=== PATIENT | male | born 1935 | race American Indian/Alaskan Native ===

== ENCOUNTER 2018-06-27 15:23 | Inpatient (IN) | payer MEDICAID, MEDICARE ==
[2018-06-27] MEDS ORDERED: Sodium Chloride 0.9% 1,000 ML IV STA (16:22)
--- NOTE | 2018-06-27 16:36 | C.PDOC ---
History Of Present Illness 83 years old male brought to ED by EMS for complaints of generalized weakness that began 1 week ago. Patient states he became homeless 1 week ago and has not been eating much since then. Denies fever, chills, chest pain, SOB, nausea, vomiting, diarrhea, or trauma. PMD Sanford Amaya Time Seen by Provider: 06/27/18 15:26 Chief Complaint (Nursing): Weakness/Neurological Deficit History Per: Patient History/Exam Limitations: no limitations Onset/Duration Of Symptoms: Days (7) Current Symptoms Are (Timing): Still Present Associated Symptoms Preceding Syncopal Episode: No Predromal Symptoms (Sudden Onset) Seizure Or Post-ictal Symptoms: None Fall Associated With With Symptoms: No Recent travel outside of the [place]: No - Symptoms Of CVA Recent Aspirin Use: Unknown Current Coumadin Use?: Unknown Recent Head Trauma: No Past Medical History Reviewed: Historical Data, Nursing Documentation, Vital Signs Vital Signs: Last Vital Signs Temp 97.4 F L 06/27/18 15:51 Pulse 78 06/27/18 15:51 Resp 28 H 06/27/18 15:51 BP 106/72 06/27/18 15:51 Pulse Ox 91 L 06/27/18 15:51 - Medical History PMH: HTN, Pneumonia Surgical History: No Surg Hx Family History: States: No Known Family Hx - Social History Hx Alcohol Use: Yes Hx Substance Use: No - Immunization History Hx Tetanus Toxoid Vaccination: (unknown) Review Of Systems Except As Marked, All Systems Reviewed And Found Negative. Constitutional: Negative for: Fever Cardiovascular: Negative for: Chest Pain Physical Exam - Physical Exam Additional Physical Exam Comments: Constitutional: No acute distress. Thin elderly male. Head: Normocephalic. Atraumatic. Eyes: PERRL. ENT: Moist mucous membranes. Neck: Supple. Cardiovascular: Regular rate. Radial pulse 2+ bilaterally. Chest: No tenderness. Respiratory: Clear to auscultation bilaterally. GI: Soft. Nontender. Nondistended. Back: No CVA tenderness. Musculoskeletal: No tenderness or swelling of extremities. Skin: No rash. Neurologic: Alert, no focal deficit. ED Course And Treatment - Laboratory Results Result Diagrams: 06/27/18 16:45 06/27/18 16:45 O2 Sat by Pulse Oximetry: 91 (RA) Pulse Ox Interpretation: Abnormal Medical Decision Making Medical Decision Making: Plan: * IV Fluids * Blood bank * EKG * Blood work * CXR * Urine culture * Urinalysis Patient with dehydration, will require further hospitalization for IVF and evaluation. Dr. Crowe accepts patient to hospitalist service. Disposition - Disposition Disposition: HOSPITALIZED Disposition Time: 17:49 Condition: FAIR - Clinical Impression Clinical Impression: Dehydration, General weakness - Scribe Statement The provider has reviewed the documentation as recorded by the Scribe Jun eD Jesus All medical record entries made by the Scribe were at my direction and personally dictated by me. I have reviewed the chart and agree that the record accurately reflects my personal performance of the history, physical exam, medical decision making, and the department course for this patient. I have also personally directed, reviewed, and agree with the discharge instructions and disposition.
[2018-06-27 16:49] LABS: BASO # 0.1 K/uL (0.0-0.2); BASO % 1.4 % (0.0-2.0); EOS # 0.1 K/uL (0.0-0.7); EOS % 2.9 % (0.0-4.0); HEMOGLOBIN 13.3 g/dL (12.0-18.0); LYMPH # 1.5 K/uL (1.0-4.3); LYMPH % 33.6 % (20.0-40.0); MEAN CELL VOLUME 79.5 fL (80.0-94.0); MEAN CORPUSCULAR HEMOGLOBIN 26.2 pg (27.0-31.0); MEAN CORPUSCULAR HGB CONC 32.9 g/dL (33.0-37.0); MEAN PLATELET VOLUME 9.2 fL (7.2-11.7); MONO # 0.4 K/uL (0.0-0.8); MONO % 8.5 % (0.0-10.0); NEUT # 2.4 K/uL (1.8-7.0); NEUT % 53.6 % (50.0-75.0); NRBC % 0.1 % (0.0-2.0); RBC 5.07 Mil/uL (4.40-5.90); RED CELL DISTRIBUTION WIDTH 14.1 % (11.5-14.5); WHITE BLOOD COUNT 4.5 K/uL (4.8-10.8)
[2018-06-27 16:56] LABS: SQUAMOUS EPITHIAL < 1 /hpf (0-5); URINE BILIRUBIN NEGATIVE (NEGATIVE); URINE BLOOD NEGATIVE (NEGATIVE); URINE CLARITY Clear (Clear); URINE COLOR Straw (YELLOW); URINE GLUCOSE (UA) NORMAL (Normal); URINE LEUKOCYTE ESTERASE NEG Leu/uL (Negative); URINE PROTEIN NEGATIVE (NEGATIVE); URINE UROBILINOGEN NORMAL mg/dL (0.2-1.0)
[2018-06-27 17:05] LABS: INR 1.2; PROTHROMBIN TIME 13.2 SECONDS (9.7-12.2)
[2018-06-27 17:09] LABS: ALB/GLOB RATIO 0.8 (1.0-2.1); ALBUMIN 3.8 g/dL (3.5-5.0); ALT/SGPT 21 U/L (21-72); AST/SGOT 52 U/L (17-59); BLOOD UREA NITROGEN 19 mg/dL (9-20); CALCIUM 8.8 mg/dl (8.6-10.4); GFR NON-AFRICAN AMERICAN > 60
--- NOTE | 2018-06-27 17:33 | RAD ---
Date of service: 06/27/2018 HISTORY: weakness COMPARISON: No prior. FINDINGS: LUNGS: Lung phillip are hyperinflated consistent with chronic manifestations of COPD. Bibasilar atelectasis/scarring changes. PLEURA: No significant pleural effusion identified, no pneumothorax apparent. CARDIOVASCULAR: And uncoiled. No aortic atherosclerotic calcification present. Heart size upper limits of normal. Aorta is ectatic and uncoiled; rule out aneurysmal dilatation.. No discernible calcified atherosclerotic plaque. No pulmonary vascular congestion. OSSEOUS STRUCTURES: No significant abnormalities. VISUALIZED UPPER ABDOMEN: Normal. OTHER FINDINGS: None. IMPRESSION: Hyperinflation consistent with underlying COPD. Bibasilar atelectasis/scarring changes. Aorta ectatic and uncoiled; rule out aneurysmal dilatation..
[2018-06-27] MEDS ORDERED: Albuterol-Ipratrop 3 mg / 0.5 (3 ml) UD INH PRN (18:32)
--- NOTE | 2018-06-27 18:49 | CP.PCM.HP ---
<Regino Gutierrez - Last Filed: 06/27/18 19:50> History of Present Illness - History of Present Illness History of Present Illness: PGY-1 History and Physical for Dr. Crowe Patient is an 83 year old male with known PMHx of HTN, COPD, and "heart problem" who presents with chief complaint of generalized weakness. Patient is a poor historian, but states he recently was treated for pneumonia in [place], where it seems he used to live. Recently he has been living in [place] and has been homeless living on the street and spending nights in a local [place]. He states he has been having increased shortness of breath over the last week or so, as well as generalized weakness, and also came to escape the cold weather. Patient states he was recently hospitalized at [facility] for pneumonia and supposed to have "heart surgery" and that he was "at high risk" and that he did not want to have the surgery, so he left [facility] (unclear if AMA) at that time. He does state that he understood the risks associated with this surgery and stated that he did not want to go through with heart surgery. Patient denies any chest pain or palpitations. Spoke with PMD Sanford Amaya - Patient has followed with Dr. Amaya for many years. Patient has only hx of COPD and HTN, no known hx of aortic issues Medical Hx: HTN, COPD, and "heart problem" Surgeries: No known Medications: Norvas 10mg daily, Protonix 40 mg PO daily, Montelukast 10 mg daily, Symbacort, Ventalin inhaler Allergies: NKDA Hospitalizations: Recent [facility] for "heart problem", recent in [place] for pneumonia Social history: 50 year smoker, states quit years ago. Had 3-4 beers yesterday (denies withdrawal sx, unclear if daily drinker). Cesar drug use. Homeless living on the [address], spending nights at [place]. States he has a , although we have tried to contact the without any answer. The patient also tried to contact his personally and has not yet gotten a response. Family Hx: No known PMD: Dr. Amaya Present on Admission - Present on Admission Any Indicators Present on Admission: No Review of Systems - Constitutional Constitutional: Weight Loss (states recent weight loss, but also states has not been able to eat - unclear if due to social condition), Weakness (generalized w eakness). absent: Chills, Fever - EENT Eyes: absent: Blurred Vision, Change in Vision Nose/Mouth/Throat: absent: Nasal Congestion, Nasal Discharge - Cardiovascular Cardiovascular: absent: Chest Pain, Chest Pain at Rest, Pain Radiating to Arm/Neck/Jaw, Lightheadedness, Palpitations, Pedal Edema, Rapid Heart Rate - Respiratory Respiratory: Cough (Cough with occasional clear mucous), Dyspnea - Gastrointestinal Gastrointestinal: absent: Abdominal Pain, Bloating, Constipation, Diarrhea - Musculoskeletal Musculoskeletal: absent: Back Pain, Muscle Cramps - Neurological Neurological: absent: Dizziness, Focal Weakness, Headaches - Psychiatric Psychiatric: absent: Anxiety, Depression - Endocrine Endocrine: absent: Palpitations, Polyuria Past Patient History - Infectious Disease Hx of Infectious Diseases: None - Past Social History Smoking Status: Former Smoker - CARDIAC Hx Hypertension: Yes - PULMONARY Hx Pneumonia: Yes - NEUROLOGICAL Hx Neurological Disorder: No - HEENT Hx HEENT Problems: No - RENAL Hx Chronic Kidney Disease: No - ENDOCRINE/METABOLIC Hx Endocrine Disorders: No - HEMATOLOGICAL/ONCOLOGICAL Hx Blood Disorders: No - INTEGUMENTARY Hx Dermatological Problems: No - MUSCULOSKELETAL/RHEUMATOLOGICAL Hx Musculoskeletal Disorders: No - GASTROINTESTINAL Hx Gastrointestinal Disorders: No - GENITOURINARY/GYNECOLOGICAL Hx Genitourinary Disorders: No Hx Prostate Problems: Yes - PSYCHIATRIC Hx Substance Use: No - SURGICAL HISTORY Hx Surgeries: No Hx Cholecystectomy: Yes Hx Herniorrhaphy: Yes Other/Comment: Stomach reduction - ANESTHESIA Hx Anesthesia: Yes Hx Anesthesia Reactions: No Meds Allergies/Adverse Reactions: Allergies Allergy/AdvReac Type Severity Reaction Status Date / Time No Known Allergies Allergy Verified 06/27/18 17:35 Physical Exam - Constitutional Appears: No Acute Distress, Cachectic - Head Exam Head Exam: ATRAUMATIC, NORMAL INSPECTION - Eye Exam Eye Exam: EOMI, Normal appearance - ENT Exam ENT Exam: Mucous Membranes Dry - Respiratory Exam Respiratory Exam: Rhonchi (Faint rhonchi at bases). absent: Chest Wall Tenderness, Rales, Stridor Additional comments: Mildly tachypneic - Cardiovascular Exam Cardiovascular Exam: REGULAR RHYTHM, +S1, +S2. absent: Clicks, +S4 - GI/Abdominal Exam GI & Abdominal Exam: Normal Bowel Sounds, Soft. absent: Distended, Tenderness - Extremities Exam Extremities exam: Negative for: pedal edema, tenderness - Back Exam Back exam: absent: paraspinal tenderness, vertebral tenderness - Neurological Exam Neurological exam: Alert, CN II-XII Intact, Oriented x3 Additional comments: Patient appears confused but is A and O x3 - Psychiatric Exam Psychiatric exam: Normal Affect, Normal Mood - Skin Skin Exam: Dry, Intact, Normal Color, Warm Results - Vital Signs Recent Vital Signs: Last Vital Signs Temp 99 F 06/27/18 17:30 Pulse 82 06/27/18 17:59 Resp 18 06/27/18 17:59 BP 112/68 06/27/18 17:59 Pulse Ox 96 06/27/18 17:59 - Labs Result Diagrams: 06/27/18 16:45 06/27/18 16:45 Labs: Laboratory Results - last 24 hr 06/27/18 06/27/18 06/27/18 15:39 15:40 16:37 WBC RBC Hgb Hct MCV MCH MCHC RDW Plt Count MPV Neut % (Auto) Lymph % (Auto) [place] % (Auto) Eos % (Auto) Baso % (Auto) Neut # (Auto) Lymph # (Auto) [place] # (Auto) Eos # (Auto) Baso # (Auto) PT INR APTT Sodium Potassium Chloride Carbon Dioxide Anion Gap BUN Creatinine Est GFR ( Amer) Est GFR (Non-Af Amer) POC Glucose (mg/dL) 58 L 64 L 95 Random Glucose Calcium Total Bilirubin AST ALT Alkaline Phosphatase Troponin I Total Protein Albumin Globulin Albumin/Globulin Ratio Urine Color Urine Clarity Urine pH Ur Specific [place] Urine Protein Urine Glucose (UA) Urine Ketones Urine Blood Urine Nitrate Urine Bilirubin Urine Urobilinogen Ur Leukocyte Esterase Urine WBC (Auto) Ur Squamous Epith Cells Blood Type 06/27/18 06/27/18 06/27/18 16:45 16:45 16:45 WBC 4.5 L RBC 5.07 Hgb 13.3 Hct 40.3 MCV 79.5 L MCH 26.2 L MCHC 32.9 L RDW 14.1 Plt Count 99 L MPV 9.2 Neut % (Auto) 53.6 Lymph % (Auto) 33.6 [place] % (Auto) 8.5 Eos % (Auto) 2.9 Baso % (Auto) 1.4 Neut # (Auto) 2.4 Lymph # (Auto) 1.5 [place] # (Auto) 0.4 Eos # (Auto) 0.1 Baso # (Auto) 0.1 PT 13.2 H INR 1.2 APTT 36 H Sodium Potassium Chloride Carbon Dioxide Anion Gap BUN Creatinine Est GFR ( Amer) Est GFR (Non-Af Amer) POC Glucose (mg/dL) Random Glucose Calcium Total Bilirubin AST ALT Alkaline Phosphatase Troponin I Total Protein Albumin Globulin Albumin/Globulin Ratio Urine Color Straw Urine Clarity Clear Urine pH 5.0 Ur Specific [place] 1.005 Urine Protein Negative Urine Glucose (UA) Normal Urine Ketones Negative Urine Blood Negative Urine Nitrate Negative Urine Bilirubin Negative Urine Urobilinogen Normal Ur Leukocyte Esterase Neg Urine WBC (Auto) < 1 Ur Squamous Epith Cells < 1 Blood Type 06/27/18 06/27/18 16:45 17:54 WBC RBC Hgb Hct MCV MCH MCHC RDW Plt Count MPV Neut % (Auto) Lymph % (Auto) [place] % (Auto) Eos % (Auto) Baso % (Auto) Neut # (Auto) Lymph # (Auto) [place] # (Auto) Eos # (Auto) Baso # (Auto) PT INR APTT Sodium 126 L Potassium 4.7 Chloride 91 L Carbon Dioxide 21 L Anion Gap 18 BUN 19 Creatinine 1.1 Est GFR ( Amer) > 60 Est GFR (Non-Af Amer) > 60 POC Glucose (mg/dL) Random Glucose 91 Calcium 8.8 Total Bilirubin 0.8 AST 52 ALT 21 Alkaline Phosphatase 105 Troponin I 0.0470 Total Protein 8.9 H Albumin 3.8 Globulin 5.0 H Albumin/Globulin Ratio 0.8 L Urine Color Urine Clarity Urine pH Ur Specific [place] Urine Protein Urine Glucose (UA) Urine Ketones Urine Blood Urine Nitrate Urine Bilirubin Urine Urobilinogen Ur Leukocyte Esterase Urine WBC (Auto) Ur Squamous Epith Cells Blood Type O POSITIVE Assessment & Plan - Assessment and Plan (Free Text) Assessment: Homlessness - SW on case - Need to obtain recent medical records from [facility]. Please f/u COPD/Shortness of Breath - O2 2L NC - Duonebs Q6 - Solumedrol 40 IVP daily Possible Aortic Aneurysm on X-ray - Chest X-ray 06/27: Hyperinflation consistent with underlying COPD. Bibasilar atelectasis/scarring changes. Aorta ectatic and uncoiled; rule out aneurysmal dilatation. - Vitals stable and not complaining of any chest pain, palpitations at this time - No CT at this time as we will f/u recent [facility] records - EKG 06/27: NSR, no ST or T changes Hyponatremia - NS @ 60 mls/hr - Urine Na - f/u - Urine Osmolality, serum osmolality - f/u - Vit D - f/u - Urine cx - f/u - TSH - f/u HTN - Continue home Norvasc 5 mg PO daily - heart healthy diet - Lipid panel PPx - GI: Protonix 40 mg daily - DVT: Lovenox 40 mg SC daily Case d/w Dr. Sebastien Gutierrez, PGY-1 <Niya Crowe - Last Filed: 06/28/18 08:01> Results - Vital Signs Recent Vital Signs: Last Vital Signs Temp 98 F 06/28/18 00:44 Pulse 73 06/28/18 00:44 Resp 18 06/28/18 00:44 BP 129/74 06/28/18 00:44 Pulse Ox 98 06/28/18 00:44 - Labs Result Diagrams: 06/28/18 06:59 06/27/18 16:45 Labs: Laboratory Results - last 24 hr 06/27/18 06/27/18 06/27/18 15:39 15:40 16:37 WBC RBC Hgb Hct MCV MCH MCHC RDW Plt Count MPV Neut % (Auto) Lymph % (Auto) [place] % (Auto) Eos % (Auto) Baso % (Auto) Neut # (Auto) Lymph # (Auto) [place] # (Auto) Eos # (Auto) Baso # (Auto) PT INR APTT Sodium Potassium Chloride Carbon Dioxide Anion Gap BUN Creatinine Est GFR ( Amer) Est GFR (Non-Af Amer) POC Glucose (mg/dL) 58 L 64 L 95 Random Glucose Serum Osmolality Calcium Total Bilirubin AST ALT Alkaline Phosphatase Troponin I Total Protein Albumin Globulin Albumin/Globulin Ratio TSH 3rd Generation Urine Color Urine Clarity Urine pH Ur Specific [place] Urine Protein Urine Glucose (UA) Urine Ketones Urine Blood Urine Nitrate Urine Bilirubin Urine Urobilinogen Ur Leukocyte Esterase Urine WBC (Auto) Ur Squamous Epith Cells Urine Osmolality Ur Random Sodium Blood Type Antibody Screen Antibody Identification Elution STEPHAINE, Poly Interpret 06/27/18 06/27/18 06/27/18 16:45 16:45 16:45 WBC 4.5 L RBC 5.07 Hgb 13.3 Hct 40.3 MCV 79.5 L MCH 26.2 L MCHC 32.9 L RDW 14.1 Plt Count 99 L MPV 9.2 Neut % (Auto) 53.6 Lymph % (Auto) 33.6 [place] % (Auto) 8.5 Eos % (Auto) 2.9 Baso % (Auto) 1.4 Neut # (Auto) 2.4 Lymph # (Auto) 1.5 [place] # (Auto) 0.4 Eos # (Auto) 0.1 Baso # (Auto) 0.1 PT 13.2 H INR 1.2 APTT 36 H Sodium Potassium Chloride Carbon Dioxide Anion Gap BUN Creatinine Est GFR ( Amer) Est GFR (Non-Af Amer) POC Glucose (mg/dL) Random Glucose Serum Osmolality Calcium Total Bilirubin AST ALT Alkaline Phosphatase Troponin I Total Protein Albumin Globulin Albumin/Globulin Ratio TSH 3rd Generation Urine Color Straw Urine Clarity Clear Urine pH 5.0 Ur Specific [place] 1.005 Urine Protein Negative Urine Glucose (UA) Normal Urine Ketones Negative Urine Blood Negative Urine Nitrate Negative Urine Bilirubin Negative Urine Urobilinogen Normal Ur Leukocyte Esterase Neg Urine WBC (Auto) < 1 Ur Squamous Epith Cells < 1 Urine Osmolality Ur Random Sodium Blood Type Antibody Screen Antibody Identification Elution STEPHANIE, Poly Interpret 06/27/18 06/27/18 06/27/18 16:45 17:54 19:39 WBC RBC Hgb Hct MCV MCH MCHC RDW Plt Count MPV Neut % (Auto) Lymph % (Auto) [place] % (Auto) Eos % (Auto) Baso % (Auto) Neut # (Auto) Lymph # (Auto) [place] # (Auto) Eos # (Auto) Baso # (Auto) PT INR APTT Sodium 126 L Potassium 4.7 Chloride 91 L Carbon Dioxide 21 L Anion Gap 18 BUN 19 Creatinine 1.1 Est GFR ( Amer) > 60 Est GFR (Non-Af Amer) > 60 POC Glucose (mg/dL) Random Glucose 91 Serum Osmolality Calcium 8.8 Total Bilirubin 0.8 AST 52 ALT 21 Alkaline Phosphatase 105 Troponin I 0.0470 Total Protein 8.9 H Albumin 3.8 Globulin 5.0 H Albumin/Globulin Ratio 0.8 L TSH 3rd Generation 9.12 H Urine Color Urine Clarity Urine pH Ur Specific [place] Urine Protein Urine Glucose (UA) Urine Ketones Urine Blood Urine Nitrate Urine Bilirubin Urine Urobilinogen Ur Leukocyte Esterase Urine WBC (Auto) Ur Squamous Epith Cells Urine Osmolality Ur Random Sodium Blood Type O POSITIVE Antibody Screen Positive Antibody Identification Auto Anti e Elution Positive STEPHANIE, Poly Interpret Positive H 06/27/18 06/27/18 06/28/18 19:39 21:50 06:59 WBC 2.6 L RBC 5.31 Hgb 13.7 Hct 42.5 MCV 80.0 MCH 25.9 L MCHC 32.4 L RDW 14.0 Plt Count 113 L MPV 9.1 Neut % (Auto) Lymph % (Auto) [place] % (Auto) Eos % (Auto) Baso % (Auto) Neut # (Auto) Lymph # (Auto) [place] # (Auto) Eos # (Auto) Baso # (Auto) PT INR APTT Sodium Potassium Chloride Carbon Dioxide Anion Gap BUN Creatinine Est GFR ( Amer) Est GFR (Non-Af Amer) POC Glucose (mg/dL) Random Glucose Serum Osmolality 276 Calcium Total Bilirubin AST ALT Alkaline Phosphatase Troponin I Total Protein Albumin Globulin Albumin/Globulin Ratio TSH 3rd Generation Urine Color Urine Clarity Urine pH Ur Specific [place] Urine Protein Urine Glucose (UA) Urine Ketones Urine Blood Urine Nitrate Urine Bilirubin Urine Urobilinogen Ur Leukocyte Esterase Urine WBC (Auto) Ur Squamous Epith Cells Urine Osmolality 115 L Ur Random Sodium 11 Blood Type Antibody Screen Antibody Identification Elution STEPHANIE, Poly Interpret Attending/Attestation - Attestation I have personally seen and examined this patient.: Yes I have fully participated in the care of the patient.: Yes I have reviewed all pertinent clinical information: Yes Notes (Text): Patient was seen and examined in the ER. He is lying on bed with mild SOB. Parient is alert and oriented x 3. He states that he was brought here because of generalized weakness due to poor intake and cold weather. He was at [facility] for sob and discharged 4 days ago. He was treated for pneumonia there. As per patient he was told that he has heart problem some thing wrong with his aorta needs heart surgery. He was told that the surgery is a high risk sugery due to his Emphysema. Patient refused surgery and left the hospital. He lost his apartment and was homeless at [facility] last 4 days. He could take the cold . Patient's and family lives in [place]. He was was treated in [place] for pneumonia few weeks ago. He didn't tell his about the apartment issues yet. Patient knew the number of his 's and Dr Amaya. He is alert and oriented well and understand his problem and brought the bag of his prescription meds. I apoke to his primary care physican Dr Amaya. Dr Amaya knows him well and he follows him last visit [address] Amaya his onle medical problem is copd and HTN.Patient totally refuses any surgical intervention at this time. He state that he knows its a high risk surgery and with his emphysema its too much. Patient admitted he drinks beer and not a daily drinker. Message left to to call us back. 1.Homeless/generalized weakness-PT,SW 2.COPD/mild sob/COPD exacerbation 3.Aortic aneurysm ?.Patient refuses surgery. we will not do CTA 4.HTN 5.Hyponatremia-urine and serum osmolarity,urine sodium,nephrology eval,contineu NS at low rate Assessment and the plan discussed with the resident
[2018-06-27] MEDS: MethylPREDNISolone 40 mg Vial IVP SCH (19:07)
[2018-06-27] MEDS: Sodium Chloride 0.9% 1,000 ML IV SCH (19:21)
[2018-06-27 21:57] LABS: OSMOLALITY,URINE 115 mosm/kg (300-1000)
[2018-06-28] MEDS: Albuterol-Ipratrop 3 mg / 0.5 (3 ml) UD INH SCH ×4 (02:00→20:56)
[2018-06-28 07:18] LABS: HEMOGLOBIN 13.7 g/dL (12.0-18.0); MEAN CORPUSCULAR HEMOGLOBIN 25.9 pg (27.0-31.0); MEAN CORPUSCULAR HGB CONC 32.4 g/dL (33.0-37.0); MEAN PLATELET VOLUME 9.1 fL (7.2-11.7); RBC 5.31 Mil/uL (4.40-5.90); WHITE BLOOD COUNT 2.6 K/uL (4.8-10.8)
[2018-06-28 07:31] LABS: ALB/GLOB RATIO 0.7 (1.0-2.1); ALBUMIN 3.6 g/dL (3.5-5.0); ALT/SGPT 21 U/L (21-72); AST/SGOT 42 U/L (17-59); BLOOD UREA NITROGEN 18 mg/dL (9-20); GFR NON-AFRICAN AMERICAN > 60; HDL CHOLESTEROL 61 mg/dL (30-70)
[2018-06-28 07:41] LABS: LDL CHOLESTEROL 70 mg/dL (0-129)
--- NOTE | 2018-06-28 08:32 | CP.PCM.PN ---
Subjective - Date & Time of Evaluation Date of Evaluation: 06/28/18 Time of Evaluation: 08:31 - Subjective Subjective: PGY-1 Medicine Progress Note for Dr. Crowe Patient seen and examined at bedside this AM. No acute overnight events reported. Expressed wishes to return to [place] with family. No acute somatic complaints at this time. Denies fevers/chills, headaches, dizziness, chest pain, palpitations, sob, cough, abdominal pain, nausea/vomiting/diarrhea/constipation. Objective - Vital Signs/Intake and Output Vital Signs (last 24 hours): Temp Pulse Resp BP Pulse Ox 97.9 F 76 20 136/82 95 06/28/18 07:28 06/28/18 07:28 06/28/18 07:28 06/28/18 07:28 06/28/18 07:28 Intake and Output: 06/28/18 06/28/18 06:59 18:59 Intake Total 460 720 Balance 460 720 - Medications Medications: Current Medications Albuterol/Ipratropium (Duoneb 3 Mg/0.5 Mg (3 Ml) Ud) 3 ml INH RQ6 REPLACED BY [facility] Last Admin: 06/28/18 02:00 Dose: Not Given Enoxaparin Sodium (Lovenox) 40 mg SC DAILY REPLACED BY [facility] Sodium Chloride (Sodium Chloride 0.9%) 1,000 mls @ 60 mls/hr IV .[id number] REPLACED BY [facility] Last Admin: 06/27/18 19:21 Dose: 60 mls/hr Methylprednisolone (Solu-Medrol) 40 mg IVP Q24H REPLACED BY [facility] Last Admin: 06/27/18 19:07 Dose: 40 mg Pantoprazole Sodium (Protonix Ec Tab) 40 mg PO DAILY REPLACED BY [facility] - Labs Labs: 06/28/18 06:59 06/28/18 06:59 PT 13.2 SECONDS (9.7-12.2) H 06/27/18 16:45 INR 1.2 06/27/18 16:45 APTT 36 SECONDS (21-34) H 06/27/18 16:45 - Constitutional Appears: Non-toxic, No Acute Distress - Head Exam Head Exam: ATRAUMATIC, NORMAL INSPECTION, NORMOCEPHALIC - Eye Exam Eye Exam: EOMI, Normal appearance, PERRL Pupil Exam: NORMAL ACCOMODATION - ENT Exam ENT Exam: Mucous Membranes Moist, Normal Exam - Neck Exam Neck Exam: Full ROM, Normal Inspection - Respiratory Exam Respiratory Exam: Clear to Ausculation Bilateral, NORMAL BREATHING PATTERN. absent: Accessory Muscle Use, Rales, Rhonchi, Wheezes, Respiratory Distress, Stridor - Cardiovascular Exam Cardiovascular Exam: REGULAR RHYTHM, +S1, +S2 - GI/Abdominal Exam GI & Abdominal Exam: Soft, Normal Bowel Sounds. absent: Distended, Firm, Guarding, Rigid, Tenderness, Organomegaly - Extremities Exam Extremities Exam: Full ROM, Normal Capillary Refill, Normal Inspection. absent: Calf Tenderness, Pedal Edema - Back Exam Back Exam: NORMAL INSPECTION - Neurological Exam Neurological Exam: Alert, Awake, Oriented x3 - Psychiatric Exam Psychiatric exam: Normal Affect, Normal Mood - Skin Skin Exam: Dry, Intact, Normal Color, Warm Assessment and Plan - Assessment and Plan (Free Text) Assessment: 83 year old homeless male with past medical history of HTN, COPD, questionable aortic aneurysm, presenting with generalized weakness and shortness of breath, recently treated for pneumonia. Plan: Shortness of breath Hx COPD -2L O2 via NC as needed -duonebs q6h rukhsana -solumedrol 40 mg IVP daily Questionable aortic aneurysm -CXR (06/27): Hyperinflation consistent with underlying COPD. Bibasilar atelectasis/scarring changes. Aorta ectatic and uncoiled; rule out aneurysmal dilatation. -EKG (06/27): NSR, no ST or T changes -vitals within normal limits; patient does not endorse any chest pain or palpitations -patient has expressed wishes to not pursue any surgical intervention -No CTA at this time, per Dr. Crowe, will f/u with records from [facility] HTN -BP well controlled, continue to monitor -Lipid panel wnl -continue home norvasc 5 mg PO daily Vitamin D Deficiency -Vit D <12.8 -Vit D2 50,000 1 cap PO q7D -continue to monitor Hyponatremia--resolved -Na 134 (06/28), continue to monitor -NS @ 60 mls/hr -Urine Na wnl -Urine Osmolality low -TSH elevated -f/u urine cx PPx, Diet, Disposition -DVT ppx: Lovenox 40 mg SC daily -GI ppx: Protonix 40 mg daily -Diet: HHD -Dispo: Homeless, family lives in [facility] on case. To follow up [facility] medical records Case discussed with Dr. Sebastien Rowan DO, PGY-1
[2018-06-28] MEDS: Enoxaparin 40 mg Syringe SC SCH (09:33)
[2018-06-28] MEDS: Pantoprazole 40 mg EC Tab PO SCH (09:33)
[2018-06-28] MEDS: Sodium Chloride 0.9% 1,000 ML IV SCH (11:23)
[2018-06-28 12:10] LABS: MONO # 0.1 K/uL (0.0-0.8); NEUT # 1.5 K/uL (1.8-7.0)
[2018-06-28] MEDS: Ergocalciferol 50,000 Intl Units Cap PO SCH (14:12)
--- NOTE | 2018-06-28 18:55 | CP.PCM.CON ---
History of Present Illness - History of Present Illness History of Present Illness: 83 yo M w/ pmh of htn and emphysema, presented to ED with complaint of not feeling well; admitted for hypontatremia and possible COPD exacerbation; Patient reports recent cough since several weeks, sometimes with blood tinged sputum; was living in [place] but came to see his PMD in [place] as he thought he had pneumonia; patient went to [facility] [place] [place] thinking PMD was on staff there and was admitted for 4 days before signing out AMA 2 days before presenting to [facility]; he was given scripts for his home meds as well as to complete course of antibiotics for 2 more days with levaquin (prescription receipt seen); otherwise, unclear course of hospitalization but patient reports some issue with his aorta for which he was told he would need surgery; he refused the surgery and hence signed AMA; Patient reports decreased PO intake lately; no nausea/vomiting or diarrhea; unclear where patient was staying since the 2 days after signing AMA; he reports some sob but attributes it to his emphysema; urinates about 4 times per night, no dysuria; Review of Systems - Constitutional Constitutional: Weight Loss. absent: Chills - EENT Nose/Mouth/Throat: Sore Throat Additional comments: rhinorrhea - Cardiovascular Cardiovascular: absent: Chest Pain Additional comments: some leg swelling noticed - Respiratory Respiratory: As Per HPI - Gastrointestinal Gastrointestinal: As Per HPI - Genitourinary Genitourinary: As Per HPI - Musculoskeletal Additional comments: some R flank pain - Neurological Neurological: absent: Dizziness, Frequent Falls Past Patient History - Infectious Disease Hx of Infectious Diseases: None - Past Medical History & Family History Pertinent Family History: denies any family medical history - Past Social History Smoking Status: Former Smoker - CARDIAC Hx Hypertension: Yes - PULMONARY Hx Pneumonia: Yes - NEUROLOGICAL Hx Neurological Disorder: No - HEENT Hx HEENT Problems: No - RENAL Hx Chronic Kidney Disease: No - ENDOCRINE/METABOLIC Hx Endocrine Disorders: No - HEMATOLOGICAL/ONCOLOGICAL Hx Blood Disorders: No - INTEGUMENTARY Hx Dermatological Problems: No - MUSCULOSKELETAL/RHEUMATOLOGICAL Hx Musculoskeletal Disorders: No Hx Falls: No - GASTROINTESTINAL Hx Gastrointestinal Disorders: No - GENITOURINARY/GYNECOLOGICAL Hx Genitourinary Disorders: No Hx Prostate Problems: Yes - PSYCHIATRIC Hx Substance Use: No - SURGICAL HISTORY Hx Surgeries: No Hx Cholecystectomy: Yes Hx Herniorrhaphy: Yes Other/Comment: Stomach reduction - ANESTHESIA Hx Anesthesia: Yes Hx Anesthesia Reactions: No Meds Allergies/Adverse Reactions: Allergies Allergy/AdvReac Type Severity Reaction Status Date / Time No Known Allergies Allergy Verified 06/27/18 17:35 - Medications Medications: Current Medications Albuterol/Ipratropium (Duoneb 3 Mg/0.5 Mg (3 Ml) Ud) 3 ml INH RQ6 [facility] Last Admin: 06/28/18 13:28 Dose: 3 ml Enoxaparin Sodium (Lovenox) 40 mg SC DAILY [facility] Last Admin: 06/28/18 09:33 Dose: 40 mg Ergocalciferol (Drisdol 50,000 Intl Units Cap) 1 cap PO Q7D [facility] Last Admin: 06/28/18 14:12 Dose: 1 cap Sodium Chloride (Sodium Chloride 0.9%) 1,000 mls @ 60 mls/hr IV .[id number] [facility] Last Admin: 06/28/18 11:23 Dose: Not Given Methylprednisolone (Solu-Medrol) 40 mg IVP Q24H [facility] Last Admin: 06/27/18 19:07 Dose: 40 mg Pantoprazole Sodium (Protonix Ec Tab) 40 mg PO DAILY [facility] Last Admin: 06/28/18 09:33 Dose: 40 mg Physical Exam - Constitutional Appears: Non-toxic, No Acute Distress - Eye Exam Eye Exam: Normal appearance - Neck Exam Neck exam: Negative for: Lymphadenopathy - Respiratory Exam Respiratory Exam: Clear to Auscultation Bilateral. absent: Decreased Breath Sounds, Rales, Rhonchi, Respiratory Distress - Cardiovascular Exam Cardiovascular Exam: RRR, +S1, +S2. absent: Gallop, Rubs - GI/Abdominal Exam GI & Abdominal Exam: Soft. absent: Distended, Tenderness - Exam Exam: absent: Bladder Distension - Extremities Exam Additional comments: very mild lower leg edema b/l - Neurological Exam Neurological exam: Alert, Oriented x3 Additional comments: no overt resting tremor - Psychiatric Exam Psychiatric exam: Normal Mood - Skin Skin Exam: Normal Color, Warm Results - Vital Signs Recent Vital Signs: Last Vital Signs Temp 98.0 F 06/28/18 17:13 Pulse 75 06/28/18 17:13 Resp 20 06/28/18 17:13 BP 119/67 06/28/18 17:13 Pulse Ox 95 06/28/18 17:13 - Labs Result Diagrams: 06/28/18 06:59 06/28/18 06:59 Labs: Laboratory Results - last 24 hr 06/27/18 06/27/18 06/27/18 17:54 19:39 19:39 WBC RBC Hgb Hct MCV MCH MCHC RDW Plt Count MPV Neut % (Auto) Lymph % (Auto) [place] % (Auto) Eos % (Auto) Baso % (Auto) Neut # (Auto) Lymph # (Auto) [place] # (Auto) Eos # (Auto) Baso # (Auto) Sodium Potassium Chloride Carbon Dioxide Anion Gap BUN Creatinine Est GFR ( Amer) Est GFR (Non-Af Amer) Random Glucose Serum Osmolality 276 Calcium Phosphorus Magnesium Total Bilirubin AST ALT Alkaline Phosphatase Total Protein Albumin Globulin Albumin/Globulin Ratio Triglycerides Cholesterol LDL Cholesterol Direct HDL Cholesterol 25-OH Vitamin D Total TSH 3rd Generation 9.12 H Urine Osmolality Ur Random Sodium Blood Type O POSITIVE Antibody Screen Positive Antibody Identification Auto Anti e Elution Positive STEPHANIE, Poly Interpret Positive H 06/27/18 06/28/18 06/28/18 21:50 06:59 06:59 WBC RBC Hgb Hct MCV MCH MCHC RDW Plt Count MPV Neut % (Auto) Lymph % (Auto) [place] % (Auto) Eos % (Auto) Baso % (Auto) Neut # (Auto) Lymph # (Auto) [place] # (Auto) Eos # (Auto) Baso # (Auto) Sodium 134 Potassium 4.6 Chloride 101 Carbon Dioxide 26 Anion Gap 12 BUN 18 Creatinine 1.1 Est GFR ( Amer) > 60 Est GFR (Non-Af Amer) > 60 Random Glucose 116 H D Serum Osmolality Calcium 9.0 Phosphorus 3.4 Magnesium 2.0 Total Bilirubin 0.6 AST 42 ALT 21 Alkaline Phosphatase 102 Total Protein 8.4 H Albumin 3.6 Globulin 4.9 H Albumin/Globulin Ratio 0.7 L Triglycerides 48 Cholesterol 141 LDL Cholesterol Direct 70 HDL Cholesterol 61 25-OH Vitamin D Total < 12.8 L TSH 3rd Generation Urine Osmolality 115 L Ur Random Sodium 11 Blood Type Antibody Screen Antibody Identification Elution STEPHANIE, Poly Interpret 06/28/18 06:59 WBC 2.6 L RBC 5.31 Hgb 13.7 Hct 42.5 MCV 80.0 MCH 25.9 L MCHC 32.4 L RDW 14.0 Plt Count 113 L MPV 9.1 Neut % (Auto) 57.0 Lymph % (Auto) 39.0 [place] % (Auto) 4.0 Eos % (Auto) 0.0 Baso % (Auto) 0.0 Neut # (Auto) 1.5 L Lymph # (Auto) 1.0 [place] # (Auto) 0.1 Eos # (Auto) 0.0 Baso # (Auto) 0.0 Sodium Potassium Chloride Carbon Dioxide Anion Gap BUN Creatinine Est GFR ( Amer) Est GFR (Non-Af Amer) Random Glucose Serum Osmolality Calcium Phosphorus Magnesium Total Bilirubin AST ALT Alkaline Phosphatase Total Protein Albumin Globulin Albumin/Globulin Ratio Triglycerides Cholesterol LDL Cholesterol Direct HDL Cholesterol 25-OH Vitamin D Total TSH 3rd Generation Urine Osmolality Ur Random Sodium Blood Type Antibody Screen Antibody Identification Elution STEPHANIE, Poly Interpret - Imaging and Cardiology Chest x-ray Status: Image reviewed by me Additional comment: lungs clear Assessment & Plan (1) Hyponatremia Assessment and Plan: Resolving with gentle IVF; low urine osm but sample taken several hours after being on IVF and may have initially been signficantly higher; relatively low urine Na as well; etiology of hyponatremia likely is either volume depletion and/or inadequate solute intake; hypothyroidism possibly contributory with high TSH noted; hyponatremia not consistent with SIADH as urine osm should be significantly higher and not affected by giving IVF; -continue NS at 60 cc/hr; -no need for stringent fluid restriction; -repeating TSH along with free T4; -will continue to monitor; Status: Acute (2) HTN (hypertension) Assessment and Plan: Currently normotensive; agree with holding anti-htn med; Status: Chronic (3) Hypothyroidism Assessment and Plan: See above; Status: Acute
[2018-06-28] MEDS: MethylPREDNISolone 40 mg Vial IVP SCH (19:32)
[2018-06-29] MEDS: Albuterol-Ipratrop 3 mg / 0.5 (3 ml) UD INH SCH ×4 (01:01→19:37)
[2018-06-29 08:10] LABS: ALB/GLOB RATIO 0.7 (1.0-2.1); ALBUMIN 3.3 g/dL (3.5-5.0); ALT/SGPT 19 U/L (21-72); AST/SGOT 43 U/L (17-59); BLOOD UREA NITROGEN 19 mg/dL (9-20); CALCIUM 8.8 mg/dl (8.6-10.4); GFR NON-AFRICAN AMERICAN > 60
--- NOTE | 2018-06-29 08:19 | CP.PCM.PN ---
<Audi Rowan - Last Filed: 06/29/18 11:13> Subjective - Date & Time of Evaluation Date of Evaluation: 06/29/18 Time of Evaluation: 08:19 - Subjective Subjective: PGY-1 Medicine Progress Note for Dr. Waldron Patient seen and examined at bedside this AM. No overnight events reported. Patient is in good spirits, denies any chest pain, palpitations, shortness of breath. No other acute somatic complaints at this time. Continuing to follow up with [facility] [place] [place] records re: questionable aortic aneurysm but patient reiterates he does not want acute interventional management. Objective - Vital Signs/Intake and Output Vital Signs (last 24 hours): Temp Pulse Resp BP Pulse Ox 98.0 F 64 18 136/84 98 06/29/18 07:41 06/29/18 07:41 06/29/18 07:41 06/29/18 07:41 06/29/18 07:41 Intake and Output: 06/29/18 06/29/18 06:59 18:59 Intake Total 480 830 Output Total 600 200 Balance -120 630 - Medications Medications: Current Medications Albuterol/Ipratropium (Duoneb 3 Mg/0.5 Mg (3 Ml) Ud) 3 ml INH RQ6 [facility] Last Admin: 06/29/18 07:24 Dose: Not Given Enoxaparin Sodium (Lovenox) 40 mg SC DAILY [facility] Last Admin: 06/28/18 09:33 Dose: 40 mg Ergocalciferol (Drisdol 50,000 Intl Units Cap) 1 cap PO Q7D [facility] Last Admin: 06/28/18 14:12 Dose: 1 cap Sodium Chloride (Sodium Chloride 0.9%) 1,000 mls @ 60 mls/hr IV .[id number] [facility] Last Admin: 06/28/18 11:23 Dose: Not Given Methylprednisolone (Solu-Medrol) 40 mg IVP Q24H [facility] Last Admin: 06/28/18 19:32 Dose: 40 mg Pantoprazole Sodium (Protonix Ec Tab) 40 mg PO DAILY [facility] Last Admin: 06/28/18 09:33 Dose: 40 mg - Labs Labs: 06/28/18 06:59 06/29/18 07:49 PT 13.2 SECONDS (9.7-12.2) H 06/27/18 16:45 INR 1.2 06/27/18 16:45 APTT 36 SECONDS (21-34) H 06/27/18 16:45 - Constitutional Appears: Non-toxic, No Acute Distress - Head Exam Head Exam: ATRAUMATIC, NORMAL INSPECTION, NORMOCEPHALIC - Eye Exam Eye Exam: EOMI, Normal appearance, PERRL Pupil Exam: NORMAL ACCOMODATION - ENT Exam ENT Exam: Mucous Membranes Moist, Normal Exam - Neck Exam Neck Exam: Full ROM, Normal Inspection - Respiratory Exam Respiratory Exam: Clear to Ausculation Bilateral, NORMAL BREATHING PATTERN. absent: Accessory Muscle Use, Rales, Rhonchi, Wheezes, Respiratory Distress, Stridor - Cardiovascular Exam Cardiovascular Exam: REGULAR RHYTHM, +S1, +S2 - GI/Abdominal Exam GI & Abdominal Exam: Soft, Normal Bowel Sounds. absent: Distended, Firm, Guarding, Rigid, Tenderness, Organomegaly - Extremities Exam Extremities Exam: Full ROM, Normal Capillary Refill, Normal Inspection. absent: Calf Tenderness, Pedal Edema - Back Exam Back Exam: NORMAL INSPECTION - Neurological Exam Neurological Exam: Alert, Awake, Normal Gait, Oriented x3 - Psychiatric Exam Psychiatric exam: Normal Affect, Normal Mood - Skin Skin Exam: Dry, Intact, Normal Color, Warm Assessment and Plan - Assessment and Plan (Free Text) Assessment: 83 year old homeless male with past medical history of HTN, COPD, questionable aortic aneurysm, presenting with generalized weakness and shortness of breath, recently treated for pneumonia. Plan: Shortness of breath Hx COPD -2L O2 via NC as needed -duonebs q6h rukhsana -solumedrol 40 mg IVP daily Questionable aortic aneurysm -CXR (06/27): Hyperinflation consistent with underlying COPD. Bibasilar atelectasis/scarring changes. Aorta ectatic and uncoiled; rule out aneurysmal dilatation. -EKG (06/27): NSR, no ST or T changes -vitals within normal limits; patient does not endorse any chest pain or palpitations -patient has expressed wishes to not pursue any surgical intervention -No CTA at this time, will f/u with records from [facility] [place] [place] HTN -BP well controlled, continue to monitor -Lipid panel wnl -continue home norvasc 5 mg PO daily Vitamin D Deficiency -Vit D <12.8 -Vit D2 50,000 1 cap PO q7D -continue to monitor Hyponatremia--resolved -Na 136 (06/29), continue to monitor -NS @ 60 mls/hr -Urine Na wnl -Urine Osmolality low -TSH elevated -f/u urine cx PPx, Diet, Disposition -DVT ppx: Lovenox 40 mg SC daily -GI ppx: Protonix 40 mg daily -Diet: HHD -Dispo: Homeless, family lives in [place], on case. To follow up [facility] [place] [place] medical records Case discussed with Dr. Vanita Rowan DO, PGY-1 <Alpesh Waldron H - Last Filed: 06/29/18 12:07> Objective - Vital Signs/Intake and Output Vital Signs (last 24 hours): Temp Pulse Resp BP Pulse Ox 98.0 F 64 18 136/84 98 06/29/18 07:41 06/29/18 07:41 06/29/18 07:41 06/29/18 07:41 06/29/18 07:41 Intake and Output: 06/29/18 06/29/18 06:59 18:59 Intake Total 480 830 Output Total 600 200 Balance -120 630 - Medications Medications: Current Medications Albuterol/Ipratropium (Duoneb 3 Mg/0.5 Mg (3 Ml) Ud) 3 ml INH RQ6 [facility] Last Admin: 06/29/18 07:24 Dose: Not Given Enoxaparin Sodium (Lovenox) 40 mg SC DAILY [facility] Last Admin: 06/29/18 10:11 Dose: 40 mg Ergocalciferol (Drisdol 50,000 Intl Units Cap) 1 cap PO Q7D [facility] Last Admin: 06/28/18 14:12 Dose: 1 cap Sodium Chloride (Sodium Chloride 0.9%) 1,000 mls @ 60 mls/hr IV .[id number] [facility] Last Admin: 06/28/18 11:23 Dose: Not Given Methylprednisolone (Solu-Medrol) 40 mg IVP Q24H [facility] Last Admin: 06/28/18 19:32 Dose: 40 mg Pantoprazole Sodium (Protonix Ec Tab) 40 mg PO DAILY [facility] Last Admin: 06/29/18 10:11 Dose: 40 mg - Labs Labs: 06/28/18 06:59 06/29/18 07:49 PT 13.2 SECONDS (9.7-12.2) H 06/27/18 16:45 INR 1.2 06/27/18 16:45 APTT 36 SECONDS (21-34) H 06/27/18 16:45 Attending/Attestation - Attestation I have personally seen and examined this patient.: Yes I have fully participated in the care of the patient.: Yes I have reviewed all pertinent clinical information, including history, physical exam and plan: Yes Notes (Text): 06/29/18 12:05 Medical attending: Patient was seen and examined by me. Agree with the above note by the resident The patient was not in any acute distress Like in previous encounters, the patient does not want surgical intervention - he is AAO x 3 At this time we are pending to hear back further from case workers to see if the patient could go to a correction or [facility] Waldron
[2018-06-29] MEDS: Pantoprazole 40 mg EC Tab PO SCH (10:11)
[2018-06-29] MEDS: Enoxaparin 40 mg Syringe SC SCH (10:11)
[2018-06-29 14:02] LABS: BASO % 0.7 % (0.0-2.0); HEMOGLOBIN 12.6 g/dL (12.0-18.0); LYMPH # 0.6 K/uL (1.0-4.3); LYMPH % 9.9 % (20.0-40.0); MEAN CORPUSCULAR HEMOGLOBIN 26.4 pg (27.0-31.0); MEAN CORPUSCULAR HGB CONC 32.5 g/dL (33.0-37.0); MEAN PLATELET VOLUME 9.2 fL (7.2-11.7); MONO # 0.8 K/uL (0.0-0.8); MONO % 14.1 % (0.0-10.0); NEUT # 4.2 K/uL (1.8-7.0); NEUT % 75.3 % (50.0-75.0); PLATELET COUNT 94 K/uL (130-400); RBC 4.79 Mil/uL (4.40-5.90); RED CELL DISTRIBUTION WIDTH 14.3 % (11.5-14.5); WHITE BLOOD COUNT 5.7 K/uL (4.8-10.8)
[2018-06-29 14:41] LABS: ANISOCYTOSIS SLIGHT; LYMPHOCYTE 13 % (20-40); MONOCYTE 16 % (0-10); NEUTROPHIL 71 % (50-75); PLATELET ESTIMATE DECREASED (NORMAL); TOTAL CELLS COUNTED 100
[2018-06-29 14:42] LABS: HYPOCHROMIC SLIGHT; LARGE PLATELETS PRESENT
[2018-06-29] MEDS: MethylPREDNISolone 40 mg Vial IVP SCH (19:08)
[2018-06-29] MEDS: Sodium Chloride 0.9% 1,000 ML IV SCH (21:43)
--- NOTE | 2018-06-29 22:16 | CP.PCM.PN ---
Subjective - Date & Time of Evaluation Date of Evaluation: 06/29/18 Time of Evaluation: 15:00 - Subjective Subjective: Patient reports breathing improved; tolerating diet well; no nausea/vomiting/diarrhea; Objective - Vital Signs/Intake and Output Vital Signs (last 24 hours): Temp Pulse Resp BP Pulse Ox 97.3 F L 73 20 128/73 95 06/29/18 16:38 06/29/18 16:38 06/29/18 16:38 06/29/18 16:38 06/29/18 16:38 Intake and Output: 06/29/18 06/30/18 18:59 06:59 Intake Total 1660 Output Total 700 Balance 960 - Medications Medications: Current Medications Albuterol/Ipratropium (Duoneb 3 Mg/0.5 Mg (3 Ml) Ud) 3 ml INH RQ6 [facility] Last Admin: 06/29/18 19:37 Dose: Not Given Enoxaparin Sodium (Lovenox) 40 mg SC DAILY [facility] Last Admin: 06/29/18 10:11 Dose: 40 mg Ergocalciferol (Drisdol 50,000 Intl Units Cap) 1 cap PO Q7D [facility] Last Admin: 06/28/18 14:12 Dose: 1 cap Methylprednisolone (Solu-Medrol) 40 mg IVP Q24H [facility] Last Admin: 06/29/18 19:08 Dose: 40 mg Pantoprazole Sodium (Protonix Ec Tab) 40 mg PO DAILY [facility] Last Admin: 06/29/18 10:11 Dose: 40 mg - Labs Labs: 06/29/18 13:55 06/29/18 07:49 PT 13.2 SECONDS (9.7-12.2) H 06/27/18 16:45 INR 1.2 06/27/18 16:45 APTT 36 SECONDS (21-34) H 06/27/18 16:45 - Constitutional Appears: Non-toxic, No Acute Distress - Eye Exam Eye Exam: Normal appearance - ENT Exam ENT Exam: Mucous Membranes Moist - Respiratory Exam Respiratory Exam: Clear to Ausculation Bilateral. absent: Respiratory Distress - Cardiovascular Exam Cardiovascular Exam: RRR, +S1, +S2 - GI/Abdominal Exam GI & Abdominal Exam: Soft. absent: Distended, Tenderness - Extremities Exam Additional comments: minimal leg edema - Neurological Exam Neurological Exam: Alert, Awake - Psychiatric Exam Psychiatric exam: Normal Mood. absent: Agitated - Skin Skin Exam: Warm. absent: Cyanosis Assessment and Plan (1) Hyponatremia Assessment & Plan: Resolved; secondary to inadequate solute intake and/or volume depletion; tolerating diet well, normotensive; will d/c IVF; Status: Acute (2) HTN (hypertension) Assessment & Plan: Normotensive off BP meds; may need to consider tight control (goal SBP < 120) if patient does indeed have thoracic aortic aneurysm with B-opal being preferred med; ARB may give additional benefit; need to obtain records from [facility] [place] [place]; Status: Chronic (3) Hypothyroidism Assessment & Plan: Repeat TSH normal; Status: Suspected
[2018-06-30] MEDS: Albuterol-Ipratrop 3 mg / 0.5 (3 ml) UD INH SCH ×4 (02:51→19:50)
--- NOTE | 2018-06-30 07:58 | CP.PCM.PN ---
<Audi Rowan - Last Filed: 06/30/18 13:20> Subjective - Date & Time of Evaluation Date of Evaluation: 06/30/18 Time of Evaluation: 07:54 - Subjective Subjective: PGY-1 Medicine Progress Note for Dr. Waldron's service Patient seen and examined at bedside this AM, resting comfortably. No acute overnight events reported. Denies chest pain, palpitations, sob, n/v/d/c. Tolerating PO diet well. No acute somatic complaints. Objective - Vital Signs/Intake and Output Vital Signs (last 24 hours): Temp Pulse Resp BP Pulse Ox 98 F 60 20 132/73 98 06/29/18 23:19 06/29/18 23:19 06/29/18 23:19 06/29/18 23:19 06/29/18 23:19 Intake and Output: 06/30/18 06/30/18 06:59 18:59 Intake Total 950 Output Total 1030 Balance -80 - Medications Medications: Current Medications Albuterol/Ipratropium (Duoneb 3 Mg/0.5 Mg (3 Ml) Ud) 3 ml INH RQ6 [facility] Last Admin: 06/30/18 02:51 Dose: Not Given Enoxaparin Sodium (Lovenox) 40 mg SC DAILY [facility] Last Admin: 06/29/18 10:11 Dose: 40 mg Ergocalciferol (Drisdol 50,000 Intl Units Cap) 1 cap PO Q7D [facility] Last Admin: 06/28/18 14:12 Dose: 1 cap Methylprednisolone (Solu-Medrol) 40 mg IVP Q24H [facility] Last Admin: 06/29/18 19:08 Dose: 40 mg Pantoprazole Sodium (Protonix Ec Tab) 40 mg PO DAILY [facility] Last Admin: 06/29/18 10:11 Dose: 40 mg - Labs Labs: 06/29/18 13:55 06/29/18 07:49 PT 13.2 SECONDS (9.7-12.2) H 06/27/18 16:45 INR 1.2 06/27/18 16:45 APTT 36 SECONDS (21-34) H 06/27/18 16:45 - Constitutional Appears: Non-toxic, No Acute Distress - Head Exam Head Exam: ATRAUMATIC, NORMAL INSPECTION, NORMOCEPHALIC - Eye Exam Eye Exam: EOMI, Normal appearance, PERRL Pupil Exam: NORMAL ACCOMODATION - ENT Exam ENT Exam: Mucous Membranes Moist, Normal Exam - Neck Exam Neck Exam: Full ROM, Normal Inspection - Respiratory Exam Respiratory Exam: Clear to Ausculation Bilateral, NORMAL BREATHING PATTERN. absent: Accessory Muscle Use, Rales, Rhonchi, Wheezes, Respiratory Distress, Stridor - Cardiovascular Exam Cardiovascular Exam: REGULAR RHYTHM, +S1, +S2 - GI/Abdominal Exam GI & Abdominal Exam: Soft, Normal Bowel Sounds. absent: Distended, Firm, Guarding, Rigid, Tenderness, Organomegaly - Extremities Exam Extremities Exam: Full ROM, Normal Capillary Refill, Normal Inspection. absent: Calf Tenderness, Pedal Edema - Back Exam Back Exam: NORMAL INSPECTION - Neurological Exam Neurological Exam: Alert, Awake, Normal Gait, Oriented x3 - Psychiatric Exam Psychiatric exam: Normal Affect, Normal Mood - Skin Skin Exam: Dry, Intact, Normal Color, Warm Assessment and Plan - Assessment and Plan (Free Text) Assessment: 83 year old homeless male with past medical history of HTN, COPD, questionable aortic aneurysm, presenting with generalized weakness and shortness of breath, recently treated for pneumonia. Plan: Shortness of breath, improving Hx COPD -2L O2 via NC as needed -duonebs q6h [facility] -solumedrol 40 mg IVP daily tapered to 20 mg (06/30) Questionable aortic aneurysm -CXR (06/27): Hyperinflation consistent with underlying COPD. Bibasilar atelectasis/scarring changes. Aorta ectatic and uncoiled; rule out aneurysmal dilatation. -EKG (06/27): NSR, no ST or T changes -vitals within normal limits; patient does not endorse any chest pain or palpitations -patient has expressed wishes to not pursue any surgical intervention -No CTA at this time, will f/u with records from [facility] [place] HTN -normotensive, continue to monitor -continue home norvasc 5 mg PO daily -Nephro Recs (Dr. Ortega) appreciated -may consider tight BP control w/ SBP <120, if patient truly has thoracic aortic aneurysm -BB preferred med, ARB may give additional benefit -need to obtain records from [facility] [place] Vitamin D Deficiency -Vit D <12.8 -Vit D2 50,000 1 cap PO q7D -continue to monitor Hyponatremia--resolved -Nephro recs (Dr. Ortega) appreciated -2/2 volume depletion/inadequate intake -IVF d/c'd PPx, Diet, Disposition -DVT ppx: Lovenox 40 mg SC daily -GI ppx: Protonix 40 mg daily -Diet: HHD -Dispo: Homeless, family lives in [place], on case. To follow up [facility] [place] medical records Case discussed with Dr. Vanita Rowan DO, PGY-1 <Alpesh Waldron H - Last Filed: 06/30/18 14:15> Objective - Vital Signs/Intake and Output Vital Signs (last 24 hours): Temp Pulse Resp BP Pulse Ox 97.7 F 77 20 126/70 95 06/30/18 08:43 06/30/18 08:43 06/30/18 08:43 06/30/18 08:43 06/30/18 08:43 Intake and Output: 06/30/18 06/30/18 06:59 18:59 Intake Total 950 Output Total 1030 Balance -80 - Medications Medications: Current Medications Albuterol/Ipratropium (Duoneb 3 Mg/0.5 Mg (3 Ml) Ud) 3 ml INH RQ6 [facility] Last Admin: 06/30/18 13:35 Dose: 3 ml Enoxaparin Sodium (Lovenox) 40 mg SC DAILY [facility] Last Admin: 06/30/18 09:44 Dose: 40 mg Ergocalciferol (Drisdol 50,000 Intl Units Cap) 1 cap PO Q7D [facility] Last Admin: 06/28/18 14:12 Dose: 1 cap Methylprednisolone (Solu-Medrol) 20 mg IVP Q24H [facility] Last Admin: 06/30/18 13:51 Dose: 20 mg Pantoprazole Sodium (Protonix Ec Tab) 40 mg PO DAILY [facility] Last Admin: 06/30/18 09:44 Dose: 40 mg - Labs Labs: 06/30/18 08:58 06/30/18 08:58 PT 13.2 SECONDS (9.7-12.2) H 06/27/18 16:45 INR 1.2 06/27/18 16:45 APTT 36 SECONDS (21-34) H 06/27/18 16:45 Attending/Attestation - Attestation I have personally seen and examined this patient.: Yes I have fully participated in the care of the patient.: Yes I have reviewed all pertinent clinical information, including history, physical exam and plan: Yes Notes (Text): 06/30/18 14:12 Medical attending: Patient was seen and examined by me. Agree with the above note by the resident The patient was not in any acute distress. He was speaking in ful sentences. Denied chest pain, denied shortness of breath, denied palpitations. The patient again re-iterates he does not want any surgical rpocedures Currently pending to see if patient can go to a shelter or [facility]. Alpesh Waldron
[2018-06-30 09:14] LABS: HEMOGLOBIN 12.7 g/dL (12.0-18.0); MEAN CELL VOLUME 81.2 fL (80.0-94.0)
[2018-06-30 09:18] LABS: MEAN CORPUSCULAR HGB CONC 32.1 g/dL (33.0-37.0); MEAN PLATELET VOLUME 9.4 fL (7.2-11.7); RBC 4.87 Mil/uL (4.40-5.90); WHITE BLOOD COUNT 5.2 K/uL (4.8-10.8)
--- NOTE | 2018-06-30 09:30 | CARD ---
APPROVED REPORT Date of service: 06/27/2018 EKG Measurement Heart [id number] <Conclusion> Normal sinus rhythm Low voltage QRS Borderline ECG
[2018-06-30 09:31] LABS: ALB/GLOB RATIO 0.7 (1.0-2.1); ALBUMIN 3.2 g/dL (3.5-5.0); ALT/SGPT 19 U/L (21-72); AST/SGOT 45 U/L (17-59); BLOOD UREA NITROGEN 22 mg/dL (9-20); CALCIUM 8.8 mg/dl (8.6-10.4); GFR NON-AFRICAN AMERICAN > 60
[2018-06-30] MEDS: Enoxaparin 40 mg Syringe SC SCH (09:44)
[2018-06-30] MEDS: Pantoprazole 40 mg EC Tab PO SCH (09:44)
[2018-06-30 10:08] LABS: LYMPH # 1.4 K/uL (1.0-4.3); MONO # 0.1 K/uL (0.0-0.8); NEUT # 3.8 K/uL (1.8-7.0)
[2018-06-30] MEDS ORDERED: MethylPREDNISolone 40 mg Vial IVP SCH (13:20)
--- NOTE | 2018-07-01 01:35 | CP.PCM.PN ---
<Alia Siegel - Last Filed: 07/01/18 01:32> Subjective - Date & Time of Evaluation Date of Evaluation: 07/01/18 Time of Evaluation: 01:32 - Subjective Subjective: Progress note Patient seen and examined at bedside. He is resting in bed comfortably. He offers no complaints currently. He denies chest pain, shortness of breath, palpitations, abdominal pain, nausea, vomiting, diarrhea, constipation. Objective - Vital Signs/Intake and Output Vital Signs (last 24 hours): Temp Pulse Resp BP Pulse Ox 97.8 F 65 20 136/75 100 06/30/18 23:23 06/30/18 23:23 06/30/18 23:23 06/30/18 23:23 06/30/18 23:23 Intake and Output: 06/30/18 07/01/18 18:59 06:59 Intake Total 300 350 Output Total 450 350 Balance -150 0 - Medications Medications: Current Medications Albuterol/Ipratropium (Duoneb 3 Mg/0.5 Mg (3 Ml) Ud) 3 ml INH RQ6 [facility] Last Admin: 06/30/18 19:50 Dose: Not Given Enoxaparin Sodium (Lovenox) 40 mg SC DAILY [facility] Last Admin: 06/30/18 09:44 Dose: 40 mg Ergocalciferol (Drisdol 50,000 Intl Units Cap) 1 cap PO Q7D [facility] Last Admin: 06/28/18 14:12 Dose: 1 cap Methylprednisolone (Solu-Medrol) 20 mg IVP Q24H [facility] Last Admin: 06/30/18 13:51 Dose: 20 mg Pantoprazole Sodium (Protonix Ec Tab) 40 mg PO DAILY [facility] Last Admin: 06/30/18 09:44 Dose: 40 mg - Labs Labs: 06/30/18 08:58 06/30/18 08:58 PT 13.2 SECONDS (9.7-12.2) H 06/27/18 16:45 INR 1.2 06/27/18 16:45 APTT 36 SECONDS (21-34) H 06/27/18 16:45 - Constitutional Appears: Non-toxic, No Acute Distress - Head Exam Head Exam: ATRAUMATIC, NORMOCEPHALIC - Eye Exam Eye Exam: EOMI, PERRL - ENT Exam ENT Exam: Mucous Membranes Moist - Neck Exam Neck Exam: Full ROM - Respiratory Exam Respiratory Exam: Clear to Ausculation Bilateral, NORMAL BREATHING PATTERN. absent: Rales, Rhonchi, Wheezes, Respiratory Distress, Stridor - Cardiovascular Exam Cardiovascular Exam: REGULAR RHYTHM, +S1, +S2. absent: Gallop, Rubs, Murmur - GI/Abdominal Exam GI & Abdominal Exam: Soft, Normal Bowel Sounds. absent: Distended, Firm, Guarding, Tenderness - Extremities Exam Extremities Exam: Normal Capillary Refill. absent: Calf Tenderness, Pedal Edema - Neurological Exam Neurological Exam: Alert, Awake, Oriented x3 - Psychiatric Exam Psychiatric exam: Normal Affect, Normal Mood - Skin Skin Exam: Dry, Intact, Warm Assessment and Plan - Assessment and Plan (Free Text) Assessment: 83 year old homeless male with past medical history of HTN, COPD, questionable aortic aneurysm, presenting with generalized weakness and shortness of breath, recently treated for pneumonia. [facility] [place]. Plan: Shortness of breath, improving Hx COPD -2L O2 via NC as needed -duonebs q6h rukhsana -solumedrol 20 mg IVP Q24 (06/30), tapered from Solumedrol 40mg Q24 (06/27- 06/29) Questionable aortic aneurysm -CXR (06/27): Hyperinflation consistent with underlying COPD. Bibasilar atelectasis/scarring changes. Aorta ectatic and uncoiled; rule out aneurysmal dilatation. -EKG (06/27): NSR, no ST or T changes -Vitals within normal limits; patient does not endorse any chest pain or palpitations -patient has expressed wishes to not pursue any surgical intervention -No CTA at this time, will f/u with records from [facility] HTN -normotensive, continue to monitor -continue home norvasc 5 mg PO daily -Nephro Recs (Dr. Ortega) appreciated -may consider tight BP control w/ SBP <120, if patient truly has thoracic aortic aneurysm -BB preferred med, ARB may give additional benefit -need to obtain records from [facility] Vitamin D Deficiency -Vit D <12.8 -Vit D2 50,000 1 cap PO q7D -continue to monitor Hyponatremia--resolved -Nephro recs (Dr. Ortega) appreciated -2/2 volume depletion/inadequate intake -IVF d/c'd PPx -DVT ppx: Lovenox 40 mg SC daily -GI ppx: Protonix 40 mg daily -Diet: HHD -Dispo: Homeless, family lives in [facility] on case. To follow up [facility] [place] Case discussed with Dr. Vanita Siegel, PGY1 <Alpesh Waldron H - Last Filed: 07/01/18 13:14> Objective - Vital Signs/Intake and Output Vital Signs (last 24 hours): Temp Pulse Resp BP Pulse Ox 97.5 F L 80 20 116/68 98 07/01/18 07:44 07/01/18 07:44 07/01/18 07:44 07/01/18 07:44 07/01/18 07:44 Intake and Output: 07/01/18 07/01/18 06:59 18:59 Intake Total 350 240 Output Total 350 550 Balance 0 -310 - Medications Medications: Current Medications Albuterol/Ipratropium (Duoneb 3 Mg/0.5 Mg (3 Ml) Ud) 3 ml INH RQ6 [facility] Last Admin: 07/01/18 02:58 Dose: Not Given Enoxaparin Sodium (Lovenox) 40 mg SC DAILY [facility] Last Admin: 07/01/18 10:51 Dose: 40 mg Ergocalciferol (Drisdol 50,000 Intl Units Cap) 1 cap PO Q7D [facility] Last Admin: 06/28/18 14:12 Dose: 1 cap Pantoprazole Sodium (Protonix Ec Tab) 40 mg PO DAILY [facility] Last Admin: 07/01/18 10:51 Dose: 40 mg - Labs Labs: 07/01/18 07:40 07/01/18 07:40 PT 13.2 SECONDS (9.7-12.2) H 06/27/18 16:45 INR 1.2 06/27/18 16:45 APTT 36 SECONDS (21-34) H 06/27/18 16:45 Attending/Attestation - Attestation I have personally seen and examined this patient.: Yes I have fully participated in the care of the patient.: Yes I have reviewed all pertinent clinical information, including history, physical exam and plan: Yes Notes (Text): 07/01/18 13:13 Medical attending: Patient was seen and examined by me. Patient was watching television - he was sitting up at the bedside. He did not have any acute concerns at this time We are pending on hearing from where the patient can go to once the block and case maker teams come back from holiday today Alpesh Waldron
[2018-07-01] MEDS: Albuterol-Ipratrop 3 mg / 0.5 (3 ml) UD INH SCH ×4 (02:58→19:18)
[2018-07-01 07:52] LABS: HEMOGLOBIN 13.5 g/dL (12.0-18.0); MEAN CELL VOLUME 81.1 fL (80.0-94.0); MEAN CORPUSCULAR HEMOGLOBIN 26.2 pg (27.0-31.0); MEAN CORPUSCULAR HGB CONC 32.3 g/dL (33.0-37.0); MEAN PLATELET VOLUME 9.4 fL (7.2-11.7); RBC 5.15 Mil/uL (4.40-5.90); RED CELL DISTRIBUTION WIDTH 14.7 % (11.5-14.5)
[2018-07-01 07:59] LABS: BLOOD UREA NITROGEN 20 mg/dL (9-20); GFR NON-AFRICAN AMERICAN > 60
[2018-07-01 09:48] LABS: LYMPH # 2.4 K/uL (1.0-4.3); MONO # 0.2 K/uL (0.0-0.8); NEUT # 5.4 K/uL (1.8-7.0)
[2018-07-01] MEDS: Enoxaparin 40 mg Syringe SC SCH (10:51)
[2018-07-01] MEDS: Pantoprazole 40 mg EC Tab PO SCH (10:51)
[2018-07-02] MEDS: Albuterol-Ipratrop 3 mg / 0.5 (3 ml) UD INH SCH ×2 (03:40→09:04)
--- NOTE | 2018-07-02 07:04 | CP.PCM.PN ---
<Audi Rowan - Last Filed: 07/02/18 13:03> Subjective - Date & Time of Evaluation Date of Evaluation: 07/02/18 Time of Evaluation: 07:03 - Subjective Subjective: PGY-1 Medicine Progress Note for Dr. Waldron Patient seen and examined at bedside this AM. No acute events reported overnight. Continues to have no acute somatic complaints. Denies fevers/chills, headaches, chest pain, palpitations, sob, cough, abdominal pain, n/v/d/c. Tolerating PO diet, ambulating well. Objective - Vital Signs/Intake and Output Vital Signs (last 24 hours): Temp Pulse Resp BP Pulse Ox 98.1 F 79 20 130/79 99 07/02/18 00:00 07/02/18 00:00 07/02/18 00:00 07/02/18 00:00 07/02/18 00:00 Intake and Output: 07/02/18 07/02/18 06:59 18:59 Intake Total 730 Output Total 900 Balance -170 - Medications Medications: Current Medications Albuterol/Ipratropium (Duoneb 3 Mg/0.5 Mg (3 Ml) Ud) 3 ml INH RQ6 [facility] Last Admin: 07/02/18 03:40 Dose: Not Given Enoxaparin Sodium (Lovenox) 40 mg SC DAILY [facility] Last Admin: 07/01/18 10:51 Dose: 40 mg Ergocalciferol (Drisdol 50,000 Intl Units Cap) 1 cap PO Q7D [facility] Last Admin: 06/28/18 14:12 Dose: 1 cap Pantoprazole Sodium (Protonix Ec Tab) 40 mg PO DAILY [facility] Last Admin: 07/01/18 10:51 Dose: 40 mg - Labs Labs: 07/01/18 07:40 07/01/18 07:40 PT 13.2 SECONDS (9.7-12.2) H 06/27/18 16:45 INR 1.2 06/27/18 16:45 APTT 36 SECONDS (21-34) H 06/27/18 16:45 - Constitutional Appears: Non-toxic, No Acute Distress - Head Exam Head Exam: ATRAUMATIC, NORMAL INSPECTION, NORMOCEPHALIC - Eye Exam Eye Exam: EOMI, Normal appearance, PERRL Pupil Exam: NORMAL ACCOMODATION - ENT Exam ENT Exam: Mucous Membranes Moist, Normal Exam - Neck Exam Neck Exam: Full ROM, Normal Inspection - Respiratory Exam Respiratory Exam: Clear to Ausculation Bilateral, NORMAL BREATHING PATTERN. absent: Accessory Muscle Use, Rales, Rhonchi, Wheezes, Respiratory Distress, Stridor - Cardiovascular Exam Cardiovascular Exam: REGULAR RHYTHM, +S1, +S2 - GI/Abdominal Exam GI & Abdominal Exam: Soft, Normal Bowel Sounds. absent: Distended, Firm, Guarding, Rigid, Tenderness, Rebound - Extremities Exam Extremities Exam: Full ROM, Normal Capillary Refill, Normal Inspection. absent: Calf Tenderness, Pedal Edema - Back Exam Back Exam: NORMAL INSPECTION - Neurological Exam Neurological Exam: Alert, Awake, Normal Gait, Oriented x3 - Psychiatric Exam Psychiatric exam: Normal Affect, Normal Mood - Skin Skin Exam: Dry, Intact, Normal Color, Warm Assessment and Plan - Assessment and Plan (Free Text) Assessment: 83 year old homeless male with past medical history of HTN, COPD, questionable aortic aneurysm, presenting with generalized weakness and shortness of breath, recently treated for pneumonia. [facility] [place]. Plan: Questionable aortic aneurysm -CXR (06/27): Hyperinflation consistent with underlying COPD. Bibasilar atelectasis/scarring changes. Aorta ectatic and uncoiled; rule out aneurysmal dilatation. -EKG (06/27): NSR, no ST or T changes -vitals within normal limits; patient does not endorse any chest pain or palpitations -patient has expressed wishes to not pursue any surgical intervention -No CTA at this time, will f/u with records [place] [facility] Shortness of breath, resolved Hx COPD -2L O2 via NC as needed -duonebs q6h prn -solumedrol d/c'd (07/01) Vitamin D Deficiency -Vit D <12.8 -Vit D2 50,000 1 cap PO q7D -continue to monitor HTN, resolved -normotensive, continue to monitor Hyponatremia--resolved -Nephro recs (Dr. Ortega) appreciated -2/2 volume depletion/inadequate intake -IVF d/c'd PPx, Diet, Disposition -DVT ppx: Lovenox 40 mg SC daily -GI ppx: Protonix 40 mg daily -Diet: HHD -Dispo: Homeless, family lives in [facility] on case. To follow up [facility] [place] Case discussed with Dr. Vanita Rowan DO, PGY-1 <Alpesh Waldron H - Last Filed: 07/02/18 13:40> Objective - Vital Signs/Intake and Output Vital Signs (last 24 hours): Temp Pulse Resp BP Pulse Ox 97.5 F L 83 20 125/81 95 07/02/18 07:52 07/02/18 07:52 07/02/18 07:52 07/02/18 07:52 07/02/18 07:52 Intake and Output: 07/02/18 07/02/18 06:59 18:59 Intake Total 730 Output Total 900 Balance -170 - Medications Medications: Current Medications Albuterol/Ipratropium (Duoneb 3 Mg/0.5 Mg (3 Ml) Ud) 3 ml INH RQ6 PRN PRN Reason: Shortness of Breath Enoxaparin Sodium (Lovenox) 40 mg SC DAILY [facility] Last Admin: 07/02/18 09:39 Dose: Not Given Ergocalciferol (Drisdol 50,000 Intl Units Cap) 1 cap PO Q7D [facility] Last Admin: 06/28/18 14:12 Dose: 1 cap Pantoprazole Sodium (Protonix Ec Tab) 40 mg PO DAILY [facility] Last Admin: 07/02/18 09:34 Dose: 40 mg - Labs Labs: 07/02/18 08:08 07/02/18 08:08 PT 13.2 SECONDS (9.7-12.2) H 06/27/18 16:45 INR 1.2 06/27/18 16:45 APTT 36 SECONDS (21-34) H 06/27/18 16:45 Attending/Attestation - Attestation I have personally seen and examined this patient.: Yes I have fully participated in the care of the patient.: Yes I have reviewed all pertinent clinical information, including history, physical exam and plan: Yes Notes (Text): 07/02/18 13:39 Medical attending: Patient was seen and examined by me, reviewed the above note by medical appliance maker agrees to above note. Currently the patient does not have any acute complaints or concerns at this poi nt were currently waiting on family members in [place] to submit the necessary paperwork. Otherwise I do not have a new events to report. He says that he's feeling well. Blood pressure is currently in the systolic 120s, he denied having chest pain Alpesh Waldron
[2018-07-02 08:22] LABS: HEMOGLOBIN 12.8 g/dL (12.0-18.0); MEAN CELL VOLUME 80.6 fL (80.0-94.0); MEAN CORPUSCULAR HGB CONC 32.2 g/dL (33.0-37.0); MEAN PLATELET VOLUME 9.6 fL (7.2-11.7); RBC 4.94 Mil/uL (4.40-5.90); RED CELL DISTRIBUTION WIDTH 14.3 % (11.5-14.5); WHITE BLOOD COUNT 4.6 K/uL (4.8-10.8)
[2018-07-02 08:33] LABS: BLOOD UREA NITROGEN 24 mg/dL (9-20); CALCIUM 8.7 mg/dl (8.6-10.4); GFR NON-AFRICAN AMERICAN > 60
[2018-07-02] MEDS: Enoxaparin 40 mg Syringe SC SCH ×2 (09:34→09:39)
[2018-07-02] MEDS: Pantoprazole 40 mg EC Tab PO SCH (09:34)
[2018-07-02 09:54] LABS: BASO # 0.1 K/uL (0.0-0.2); EOS # 0.3 K/uL (0.0-0.7); MONO # 0.2 K/uL (0.0-0.8)
[2018-07-02] MEDS ORDERED: Albuterol-Ipratrop 3 mg / 0.5 (3 ml) UD INH PRN (13:07)
--- NOTE | 2018-07-03 07:29 | CP.PCM.PN ---
<Audi Rowan - Last Filed: 07/03/18 11:35> Subjective - Date & Time of Evaluation Date of Evaluation: 07/03/18 Time of Evaluation: 07:28 - Subjective Subjective: PGY-1 Medicine Progress Note for Dr. Waldron Patient seen and examined at bedside, resting comfortably. No acute overnight events reported. Tolerating PO diet well, no difficulties ambulating. Denies any chest pain or sob, no other acute somatic complaints. SW waiting for necessary paperwork from family in [place]. Objective - Vital Signs/Intake and Output Vital Signs (last 24 hours): Temp Pulse Resp BP Pulse Ox 97.8 F 70 20 122/72 97 07/02/18 23:20 07/02/18 23:20 07/02/18 23:20 07/02/18 23:20 07/02/18 23:20 Intake and Output: 07/03/18 07/03/18 06:59 18:59 Intake Total 500 Output Total 850 Balance -350 - Medications Medications: Current Medications Albuterol/Ipratropium (Duoneb 3 Mg/0.5 Mg (3 Ml) Ud) 3 ml INH RQ6 PRN PRN Reason: Shortness of Breath Enoxaparin Sodium (Lovenox) 40 mg SC DAILY [facility] Last Admin: 07/02/18 09:39 Dose: Not Given Ergocalciferol (Drisdol 50,000 Intl Units Cap) 1 cap PO Q7D [facility] Last Admin: 06/28/18 14:12 Dose: 1 cap Pantoprazole Sodium (Protonix Ec Tab) 40 mg PO DAILY [facility] Last Admin: 07/02/18 09:34 Dose: 40 mg - Labs Labs: 07/02/18 08:08 07/02/18 08:08 PT 13.2 SECONDS (9.7-12.2) H 06/27/18 16:45 INR 1.2 06/27/18 16:45 APTT 36 SECONDS (21-34) H 06/27/18 16:45 - Constitutional Appears: Non-toxic, No Acute Distress - Head Exam Head Exam: ATRAUMATIC, NORMAL INSPECTION, NORMOCEPHALIC - Eye Exam Eye Exam: EOMI, Normal appearance, PERRL Pupil Exam: NORMAL ACCOMODATION - ENT Exam ENT Exam: Mucous Membranes Moist, Normal Exam - Neck Exam Neck Exam: Full ROM, Normal Inspection - Respiratory Exam Respiratory Exam: Clear to Ausculation Bilateral, NORMAL BREATHING PATTERN. absent: Accessory Muscle Use, Rales, Rhonchi, Wheezes, Respiratory Distress, Stridor - Cardiovascular Exam Cardiovascular Exam: REGULAR RHYTHM, +S1, +S2 - GI/Abdominal Exam GI & Abdominal Exam: Soft, Normal Bowel Sounds. absent: Distended, Firm, Guarding, Rigid, Tenderness, Organomegaly - Extremities Exam Extremities Exam: Full ROM, Normal Capillary Refill, Normal Inspection - Back Exam Back Exam: NORMAL INSPECTION - Neurological Exam Neurological Exam: Alert, Awake, Oriented x3 - Psychiatric Exam Psychiatric exam: Normal Affect, Normal Mood - Skin Skin Exam: Dry, Intact, Normal Color, Warm Assessment and Plan - Assessment and Plan (Free Text) Assessment: 83 year old homeless male with past medical history of HTN, COPD, questionable aortic aneurysm, presenting with generalized weakness and shortness of breath, recently treated for pneumonia. Denies any chest pain, palpitations, sob--no acute somatic complaints at this time. SW awaiting necessary paperwork from family in [place]. Plan: Questionable aortic aneurysm -CXR (06/27): Hyperinflation consistent with underlying COPD. Bibasilar atelectasis/scarring changes. Aorta ectatic and uncoiled; rule out aneurysmal dilatation. -EKG (06/27): NSR, no ST or T changes -vitals within normal limits; patient does not endorse any chest pain or p alpitations -patient has expressed wishes to not pursue any surgical intervention -No CTA at this time, [place] f[place] [facility]ness of breath, resolved Hx COPD -2L O2 via NC as needed -duonebs q6h prn -solumedrol d/c'd (07/01) Vitamin D Deficiency -Vit D <12.8 -Vit D2 50,000 1 cap PO q7D -continue to monitor HTN, resolved -normotensive, continue to monitor Hyponatremia--resolved -Nephro recs (Dr. Ortega) appreciated -2/2 volume depletion/inadequate intake -IVF d/c'd PPx, Diet, Disposition -DVT ppx: Lovenox 40 mg SC daily -GI ppx: Protonix 40 mg daily -Diet: HHD -Dispo: Homeless, family lives in [place], SW on case. [place] [facility] [place] Case discussed with Dr. Vanita Rowan DO, PGY-1 <Alpesh Waldron H - Last Filed: 07/03/18 17:20> Objective - Vital Signs/Intake and Output Vital Signs (last 24 hours): Temp Pulse Resp BP Pulse Ox 98.0 F 73 20 117/73 92 L 07/03/18 15:37 07/03/18 15:37 07/03/18 15:37 07/03/18 15:37 07/03/18 15:37 Intake and Output: 07/03/18 07/03/18 06:59 18:59 Intake Total 500 200 Output Total 850 375 Balance -350 -175 - Medications Medications: Current Medications Albuterol/Ipratropium (Duoneb 3 Mg/0.5 Mg (3 Ml) Ud) 3 ml INH RQ6 PRN PRN Reason: Shortness of Breath Enoxaparin Sodium (Lovenox) 40 mg SC DAILY [facility] Last Admin: 07/03/18 09:52 Dose: Not Given Ergocalciferol (Drisdol 50,000 Intl Units Cap) 1 cap PO Q7D [facility] Last Admin: 06/28/18 14:12 Dose: 1 cap Pantoprazole Sodium (Protonix Ec Tab) 40 mg PO DAILY [facility] Last Admin: 07/03/18 09:52 Dose: 40 mg - Labs Labs: 07/02/18 08:08 07/02/18 08:08 PT 13.2 SECONDS (9.7-12.2) H 06/27/18 16:45 INR 1.2 06/27/18 16:45 APTT 36 SECONDS (21-34) H 06/27/18 16:45 Attending/Attestation - Attestation I have personally seen and examined this patient.: Yes I have fully participated in the care of the patient.: Yes I have reviewed all pertinent clinical information, including history, physical exam and plan: Yes Notes (Text): 07/03/18 17:19 Medical attending: Patient was seen and examined by me. Agree with the above note by the resident The patient was not in any acute distress when I came and saw him with the residents At this moment we are still waiting on family in [place] to submit paper work Alpesh Waldron
[2018-07-03] MEDS: Pantoprazole 40 mg EC Tab PO SCH (09:52)
[2018-07-03] MEDS: Enoxaparin 40 mg Syringe SC SCH (09:52)
[2018-07-04 07:26] LABS: HEMOGLOBIN 12.8 g/dL (12.0-18.0); MEAN CORPUSCULAR HEMOGLOBIN 26.2 pg (27.0-31.0); MEAN CORPUSCULAR HGB CONC 32.7 g/dL (33.0-37.0); MEAN PLATELET VOLUME 9.3 fL (7.2-11.7); RBC 4.89 Mil/uL (4.40-5.90); RED CELL DISTRIBUTION WIDTH 14.1 % (11.5-14.5); WHITE BLOOD COUNT 5.6 K/uL (4.8-10.8)
[2018-07-04 07:37] LABS: BLOOD UREA NITROGEN 20 mg/dL (9-20); CALCIUM 8.6 mg/dl (8.6-10.4); GFR NON-AFRICAN AMERICAN > 60
--- NOTE | 2018-07-04 08:32 | CP.PCM.PN ---
<Audi Rowan - Last Filed: 07/04/18 10:35> Subjective - Date & Time of Evaluation Date of Evaluation: 07/04/18 Time of Evaluation: 08:30 - Subjective Subjective: PGY-1 Medicine Progress Note for Dr. Waldron Patient seen and examined at bedside this AM. No acute overnight events reported. Sleeping well, tolerating PO diet, no acute somatic complaints. Continues to deny chest pain, palpitations, sob. Patient has been made aware we are waiting for paperwork to be submitted from family in [place], cooperative and amenable to process. Objective - Vital Signs/Intake and Output Vital Signs (last 24 hours): Temp Pulse Resp BP Pulse Ox 98.0 F 76 20 127/78 96 07/04/18 07:46 07/04/18 07:46 07/04/18 07:46 07/04/18 07:46 07/04/18 07:46 Intake and Output: 07/04/18 07/04/18 06:59 18:59 Intake Total 660 Output Total 400 Balance 260 - Medications Medications: Current Medications Albuterol/Ipratropium (Duoneb 3 Mg/0.5 Mg (3 Ml) Ud) 3 ml INH RQ6 PRN PRN Reason: Shortness of Breath Enoxaparin Sodium (Lovenox) 40 mg SC DAILY [facility] Last Admin: 07/03/18 09:52 Dose: Not Given Ergocalciferol (Drisdol 50,000 Intl Units Cap) 1 cap PO Q7D [facility] Last Admin: 06/28/18 14:12 Dose: 1 cap Pantoprazole Sodium (Protonix Ec Tab) 40 mg PO DAILY [facility] Last Admin: 07/03/18 09:52 Dose: 40 mg - Labs Labs: 07/04/18 07:10 07/04/18 07:10 PT 13.2 SECONDS (9.7-12.2) H 06/27/18 16:45 INR 1.2 06/27/18 16:45 APTT 36 SECONDS (21-34) H 06/27/18 16:45 - Constitutional Appears: Non-toxic, No Acute Distress - Head Exam Head Exam: ATRAUMATIC, NORMAL INSPECTION, NORMOCEPHALIC - Eye Exam Eye Exam: EOMI, Normal appearance, PERRL Pupil Exam: NORMAL ACCOMODATION - ENT Exam ENT Exam: Mucous Membranes Moist, Normal Exam - Neck Exam Neck Exam: Full ROM, Normal Inspection - Respiratory Exam Respiratory Exam: Clear to Ausculation Bilateral, NORMAL BREATHING PATTERN. a bsent: Accessory Muscle Use, Wheezes, Respiratory Distress - Cardiovascular Exam Cardiovascular Exam: REGULAR RHYTHM, +S1, +S2 - GI/Abdominal Exam GI & Abdominal Exam: Soft, Normal Bowel Sounds. absent: Distended, Firm, G uarding, Rigid, Tenderness, Rebound - Extremities Exam Extremities Exam: Full ROM, Normal Capillary Refill, Normal Inspection. absent: Calf Tenderness, Joint Swelling, Pedal Edema - Back Exam Back Exam: NORMAL INSPECTION - Neurological Exam Neurological Exam: Alert, Awake, Normal Gait, Oriented x3 - Psychiatric Exam Psychiatric exam: Normal Affect, Normal Mood - Skin Skin Exam: Dry, Intact, Normal Color, Warm Assessment and Plan - Assessment and Plan (Free Text) Assessment: 83 year old homeless male with past medical history of HTN, COPD, questionable aortic aneurysm, presenting with generalized weakness and shortness of breath, recently treated for pneumonia. Denies any chest pain, palpitations, sob--no acute somatic complaints at this time. SW awaiting necessary paperwork from family in [place]. Plan: Questionable aortic aneurysm -CXR (06/27): Hyperinflation consistent with underlying COPD. Bibasilar atelectasis/scarring changes. Aorta ectatic and uncoiled; rule out aneurysmal dilatation. -EKG (06/27): NSR, no ST or T changes -vitals within normal limits; patient does not endorse any chest pain or palpit ations -patient has expressed wishes to not pursue any surgical intervention -No CTA at this time, will f/u with records from [facility] Shortness of breath, resolved Hx COPD -2L O2 via NC as needed -duonebs q6h prn Vitamin D Deficiency -Vit D <12.8 (06/28), repeat 07/05 -Vit D2 50,000 1 cap PO q7D -continue to monitor HTN, resolved -normotensive, continue to monitor Hyponatremia--resolved -Nephro recs (Dr. Ortega) appreciated -2/2 volume depletion/inadequate intake -IVF d/c'd PPx, Diet, Disposition -DVT ppx: Lovenox 40 mg SC daily -GI ppx: Protonix 40 mg daily -Diet: HHD -Dispo: Homeless, family lives in [facility] on case. To follow up [facility] medical records Case discussed with Dr. Vanita Rowan DO, PGY-1 <Alpesh Waldron - Last Filed: 07/04/18 15:29> Objective - Vital Signs/Intake and Output Vital Signs (last 24 hours): Temp Pulse Resp BP Pulse Ox 98.0 F 76 20 127/78 96 07/04/18 07:46 07/04/18 07:46 07/04/18 07:46 07/04/18 07:46 07/04/18 07:46 Intake and Output: 07/04/18 07/04/18 06:59 18:59 Intake Total 660 360 Output Total 400 Balance 260 360 - Medications Medications: Current Medications Albuterol/Ipratropium (Duoneb 3 Mg/0.5 Mg (3 Ml) Ud) 3 ml INH RQ6 PRN PRN Reason: Shortness of Breath Enoxaparin Sodium (Lovenox) 40 mg SC DAILY [facility] Last Admin: 07/04/18 09:58 Dose: Not Given Ergocalciferol (Drisdol 50,000 Intl Units Cap) 1 cap PO Q7D [facility] Last Admin: 06/28/18 14:12 Dose: 1 cap Pantoprazole Sodium (Protonix Ec Tab) 40 mg PO DAILY [facility] Last Admin: 07/04/18 09:58 Dose: 40 mg - Labs Labs: 07/04/18 07:10 07/04/18 07:10 PT 13.2 SECONDS (9.7-12.2) H 06/27/18 16:45 INR 1.2 06/27/18 16:45 APTT 36 SECONDS (21-34) H 06/27/18 16:45 Attending/Attestation - Attestation I have personally seen and examined this patient.: Yes I have fully participated in the care of the patient.: Yes I have reviewed all pertinent clinical information, including history, physical exam and plan: Yes Notes (Text): 07/04/18 15:28 Medical attending: Patient was seen and examined by me. Reviewed the above note by the resident and agree with the above At this moment we are still pending family in [place] for paper work before the patient can go anywhere. Alpesh Waldron
[2018-07-04] MEDS: Pantoprazole 40 mg EC Tab PO SCH (09:58)
[2018-07-04] MEDS: Enoxaparin 40 mg Syringe SC SCH (09:58)
[2018-07-04 10:34] LABS: BASO # 0.1 K/uL (0.0-0.2); EOS # 0.4 K/uL (0.0-0.7); LYMPH # 1.9 K/uL (1.0-4.3); MONO # 0.4 K/uL (0.0-0.8); NEUT # 2.8 K/uL (1.8-7.0)
--- NOTE | 2018-07-05 00:27 | CP.PCM.PN ---
<Beth Ravi - Last Filed: 07/05/18 00:26> Subjective - Date & Time of Evaluation Date of Evaluation: 07/05/18 Time of Evaluation: 00:26 - Subjective Subjective: Beth Ravi PGY1 Progress Note for Dr. Waldron Pt was examined at bedside. Pt has no complaints. He denies chest pain, shortness of breath, abdominal pain, nausea, vomiting, diarrhea, dysuria. Objective - Vital Signs/Intake and Output Vital Signs (last 24 hours): Temp Pulse Resp BP Pulse Ox 97.6 F 70 20 123/82 95 07/04/18 23:22 07/04/18 23:22 07/04/18 23:22 07/04/18 23:22 07/04/18 23:22 Intake and Output: 07/04/18 07/05/18 18:59 06:59 Intake Total 360 300 Output Total 600 Balance 360 -300 - Medications Medications: Current Medications Albuterol/Ipratropium (Duoneb 3 Mg/0.5 Mg (3 Ml) Ud) 3 ml INH RQ6 PRN PRN Reason: Shortness of Breath Enoxaparin Sodium (Lovenox) 40 mg SC DAILY [facility] Last Admin: 07/04/18 09:58 Dose: Not Given Ergocalciferol (Drisdol 50,000 Intl Units Cap) 1 cap PO Q7D [facility] Last Admin: 06/28/18 14:12 Dose: 1 cap Pantoprazole Sodium (Protonix Ec Tab) 40 mg PO DAILY [facility] Last Admin: 07/04/18 09:58 Dose: 40 mg - Labs Labs: 07/04/18 07:10 07/04/18 07:10 PT 13.2 SECONDS (9.7-12.2) H 06/27/18 16:45 INR 1.2 06/27/18 16:45 APTT 36 SECONDS (21-34) H 06/27/18 16:45 - Additional Findings Additional findings: - Constitutional Appears: Non-toxic, No Acute Distress - Head Exam Head Exam: ATRAUMATIC, NORMAL INSPECTION, NORMOCEPHALIC - Eye Exam Eye Exam: EOMI, Normal appearance, PERRL Pupil Exam: NORMAL ACCOMODATION - ENT Exam ENT Exam: Mucous Membranes Moist, Normal Exam - Neck Exam Neck Exam: Full ROM, Normal Inspection - Respiratory Exam Respiratory Exam: Clear to Ausculation Bilateral, NORMAL BREATHING PATTERN. absent: Accessory Muscle Use, Wheezes, Respiratory Distress - Cardiovascular Exam Cardiovascular Exam: REGULAR RHYTHM, +S1, +S2 - GI/Abdominal Exam GI & Abdominal Exam: Soft, Normal Bowel Sounds. absent: Distended, Firm, Guarding, Rigid, Tenderness, Rebound - Extremities Exam Extremities Exam: Full ROM, Normal Capillary Refill, Normal Inspection. absent: Calf Tenderness, Joint Swelling, Pedal Edema - Back Exam Back Exam: NORMAL INSPECTION - Neurological Exam Neurological Exam: Alert, Awake, Normal Gait, Oriented x3 - Psychiatric Exam Psychiatric exam: Normal Affect, Normal Mood - Skin Skin Exam: Dry, Intact, Normal Color, Warm Assessment and Plan - Assessment and Plan (Free Text) Assessment: 83 year old homeless male with past medical history of HTN, COPD, questionable aortic aneurysm, presenting with generalized weakness and shortness of breath, recently treated for pneumonia. Denies any chest pain, palpitations, sob--no acute somatic complaints at this time. SW awaiting necessary paperwork from family in [place]. Plan: Questionable aortic aneurysm -CXR (06/27): Hyperinflation consistent with underlying COPD. Bibasilar atelectasis/scarring changes. Aorta ectatic and uncoiled; rule out aneurysmal dilatation. -EKG (06/27): NSR, no ST or T changes -vitals within normal limits; patient does not endorse any chest pain or palpitations -patient has expressed wishes to not pursue any surgical intervention -No CTA at this time, [place] f[place] [facility]ness of breath, resolved Hx COPD -2L O2 via NC as needed -duonebs q6h prn Vitamin D Deficiency -Vit D <12.8 (06/28), repeat 07/05 -Vit D2 50,000 1 cap PO q7D -continue to monitor HTN, resolved -normotensive, continue to monitor Hyponatremia--resolved -Nephro recs (Dr. Ortega) appreciated -2/2 volume depletion/inadequate intake -IVF d/c'd PPx, Diet, Disposition -DVT ppx: Lovenox 40 mg SC daily -GI ppx: Protonix 40 mg daily -Diet: HHD -Dispo: Homeless, family lives in [place], SW on case. To follow up [facility] [place] <Alpesh Waldron - Last Filed: 07/05/18 17:16> Objective - Vital Signs/Intake and Output Vital Signs (last 24 hours): Temp Pulse Resp BP Pulse Ox 97.2 F L 80 20 114/79 95 07/05/18 15:42 07/05/18 15:42 07/05/18 15:42 07/05/18 15:42 07/05/18 15:42 Intake and Output: 07/05/18 07/05/18 06:59 18:59 Intake Total 800 300 Output Total 1350 Balance -550 300 - Medications Medications: Current Medications Albuterol/Ipratropium (Duoneb 3 Mg/0.5 Mg (3 Ml) Ud) 3 ml INH RQ6 PRN PRN Reason: Shortness of Breath Ergocalciferol (Drisdol 50,000 Intl Units Cap) 1 cap PO Q7D [facility] Last Admin: 07/05/18 12:46 Dose: 1 cap Pantoprazole Sodium (Protonix Ec Tab) 40 mg PO DAILY [facility] Last Admin: 07/05/18 09:57 Dose: 40 mg - Labs Labs: 07/04/18 07:10 07/04/18 07:10 PT 13.2 SECONDS (9.7-12.2) H 06/27/18 16:45 INR 1.2 06/27/18 16:45 APTT 36 SECONDS (21-34) H 06/27/18 16:45 Attending/Attestation - Attestation I have personally seen and examined this patient.: Yes I have fully participated in the care of the patient.: Yes I have reviewed all pertinent clinical information, including history, physical exam and plan: Yes Notes (Text): 07/05/18 17:14 Medical attending: Patient was busy talking on his phone while watching television today. At this moment we are still pending family in [place] to submit paperwork Alpesh Waldron
[2018-07-05] MEDS: Enoxaparin 40 mg Syringe SC SCH (09:57)
[2018-07-05] MEDS: Pantoprazole 40 mg EC Tab PO SCH (09:57)
[2018-07-05] MEDS: Ergocalciferol 50,000 Intl Units Cap PO SCH (12:46)
--- NOTE | 2018-07-06 00:11 | CP.PCM.PN ---
<Beth Ravi - Last Filed: 07/06/18 00:10> Subjective - Date & Time of Evaluation Date of Evaluation: 07/06/18 Time of Evaluation: 00:10 - Subjective Subjective: Beth Ravi PGY1 Progress Note for Dr. Waldron Pt was examined at bedside. Pt has no complaints. He denies chest pain, shortness of breath, abdominal pain, nausea, vomiting, diarrhea, dysuria. Objective - Vital Signs/Intake and Output Vital Signs (last 24 hours): Temp Pulse Resp BP Pulse Ox 97.2 F L 80 20 114/79 95 07/05/18 15:42 07/05/18 15:42 07/05/18 15:42 07/05/18 15:42 07/05/18 15:42 Intake and Output: 07/05/18 07/06/18 18:59 06:59 Intake Total 300 300 Output Total 500 Balance 300 -200 - Medications Medications: Current Medications Albuterol/Ipratropium (Duoneb 3 Mg/0.5 Mg (3 Ml) Ud) 3 ml INH RQ6 PRN PRN Reason: Shortness of Breath Ergocalciferol (Drisdol 50,000 Intl Units Cap) 1 cap PO Q7D [facility] Last Admin: 07/05/18 12:46 Dose: 1 cap Pantoprazole Sodium (Protonix Ec Tab) 40 mg PO DAILY [facility] Last Admin: 07/05/18 09:57 Dose: 40 mg - Labs Labs: 07/04/18 07:10 07/04/18 07:10 PT 13.2 SECONDS (9.7-12.2) H 06/27/18 16:45 INR 1.2 06/27/18 16:45 APTT 36 SECONDS (21-34) H 06/27/18 16:45 - Additional Findings Additional findings: - Constitutional Appears: Non-toxic, No Acute Distress - Head Exam Head Exam: ATRAUMATIC, NORMAL INSPECTION, NORMOCEPHALIC - Eye Exam Eye Exam: EOMI, Normal appearance, PERRL Pupil Exam: NORMAL ACCOMODATION - ENT Exam ENT Exam: Mucous Membranes Moist, Normal Exam - Neck Exam Neck Exam: Full ROM, Normal Inspection - Respiratory Exam Respiratory Exam: Clear to Ausculation Bilateral, NORMAL BREATHING PATTERN. absent: Accessory Muscle Use, Wheezes, Respiratory Distress - Cardiovascular Exam Cardiovascular Exam: REGULAR RHYTHM, +S1, +S2 - GI/Abdominal Exam GI & Abdominal Exam: Soft, Normal Bowel Sounds. absent: Distended, Firm, Guarding, Rigid, Tenderness, Rebound - Extremities Exam Extremities Exam: Full ROM, Normal Capillary Refill, Normal Inspection. absent: Calf Tenderness, Joint Swelling, Pedal Edema - Back Exam Back Exam: NORMAL INSPECTION - Neurological Exam Neurological Exam: Alert, Awake, Normal Gait, Oriented x3 - Psychiatric Exam Psychiatric exam: Normal Affect, Normal Mood - Skin Skin Exam: Dry, Intact, Normal Color, Warm Assessment and Plan - Assessment and Plan (Free Text) Assessment: 83 year old homeless male with past medical history of HTN, COPD, questionable aortic aneurysm, presenting with generalized weakness and shortness of breath, recently treated for pneumonia. Denies any chest pain, palpitations, sob--no acute somatic complaints at this time. SW awaiting necessary paperwork from family in [place]. Plan: Questionable aortic aneurysm -CXR (06/27): Hyperinflation consistent with underlying COPD. Bibasilar ate lectasis/scarring changes. Aorta ectatic and uncoiled; rule out aneurysmal dilatation. -EKG (06/27): NSR, no ST or T changes -vitals within normal limits; patient does not endorse any chest pain or palpitations -patient has expressed wishes to not pursue any surgical intervention -No CTA at this time, [place] [facility]ness of breath, resolved Hx COPD -2L O2 via NC as needed -duonebs q6h prn Vitamin D Deficiency -Vit D <12.8 (06/28), repeat 07/05 -Vit D2 50,000 1 cap PO q7D -continue to monitor HTN, resolved -normotensive, continue to monitor Hyponatremia--resolved -Nephro recs (Dr. Ortega) appreciated -2/2 volume depletion/inadequate intake -IVF d/c'd PPx, Diet, Disposition -DVT ppx: Lovenox 40 mg SC daily -GI ppx: Protonix 40 mg daily -Diet: HHD -Dispo: Homeless, family lives in [place], SW on case. [place] [facility] [place] <Alpesh Waldron - Last Filed: 07/06/18 11:12> Objective - Vital Signs/Intake and Output Vital Signs (last 24 hours): Temp Pulse Resp BP Pulse Ox 98.6 F 69 20 125/83 96 07/06/18 07:00 07/06/18 07:00 07/06/18 07:00 07/06/18 07:00 07/06/18 07:00 Intake and Output: 07/06/18 07/06/18 06:59 18:59 Intake Total 540 Output Total 1150 Balance -610 - Medications Medications: Current Medications Albuterol/Ipratropium (Duoneb 3 Mg/0.5 Mg (3 Ml) Ud) 3 ml INH RQ6 PRN PRN Reason: Shortness of Breath Ergocalciferol (Drisdol 50,000 Intl Units Cap) 1 cap PO Q7D [facility] Last Admin: 07/05/18 12:46 Dose: 1 cap Pantoprazole Sodium (Protonix Ec Tab) 40 mg PO DAILY [facility] Last Admin: 07/06/18 09:39 Dose: 40 mg - Labs Labs: 07/06/18 07:42 07/06/18 07:42 PT 13.2 SECONDS (9.7-12.2) H 06/27/18 16:45 INR 1.2 06/27/18 16:45 APTT 36 SECONDS (21-34) H 06/27/18 16:45 Attending/Attestation - Attestation I have personally seen and examined this patient.: Yes I have fully participated in the care of the patient.: Yes I have reviewed all pertinent clinical information, including history, physical exam and plan: Yes Notes (Text): 07/06/18 11:11 Medical attending: Patient was seen and examined by me. Agree with the above note by the resident The patient was not in any acute distress. We are still waiting at this time for family members in [place] to submit paperwork Patient's nieghbor in the room Mr Tinoco - they both seem to be getting along very well Alpesh Waldron
[2018-07-06 08:10] LABS: BLOOD UREA NITROGEN 20 mg/dL (9-20); CALCIUM 9.1 mg/dl (8.6-10.4); GFR NON-AFRICAN AMERICAN > 60
[2018-07-06 08:15] LABS: HEMOGLOBIN 13.7 g/dL (12.0-18.0); MEAN CELL VOLUME 80.7 fL (80.0-94.0); MEAN CORPUSCULAR HEMOGLOBIN 26.2 pg (27.0-31.0); MEAN CORPUSCULAR HGB CONC 32.5 g/dL (33.0-37.0); RBC 5.21 Mil/uL (4.40-5.90); RED CELL DISTRIBUTION WIDTH 14.3 % (11.5-14.5); WHITE BLOOD COUNT 6.1 K/uL (4.8-10.8)
[2018-07-06] MEDS: Pantoprazole 40 mg EC Tab PO SCH (09:39)
[2018-07-06 10:48] LABS: NEUT # 2.2 K/uL (1.8-7.0)
[2018-07-06 10:49] LABS: BASO # 0.1 K/uL (0.0-0.2); EOS # 0.2 K/uL (0.0-0.7); LYMPH # 2.8 K/uL (1.0-4.3); MONO # 0.8 K/uL (0.0-0.8)
--- NOTE | 2018-07-07 07:36 | CP.PCM.PN ---
<Audi Rowan - Last Filed: 07/07/18 09:57> Subjective - Date & Time of Evaluation Date of Evaluation: 07/07/18 Time of Evaluation: 07:35 - Subjective Subjective: PGY-1 Medicine Progress Note for Dr. Crowe Patient seen and examined at bedside this AM, resting comfortably. No acute overnight events reported. Patient complains of dry cough, otherwise no acute somatic complaints. He states he spoke to family in [place] yesterday, paperwork was sent over to hospital. Objective - Vital Signs/Intake and Output Vital Signs (last 24 hours): Temp Pulse Resp BP Pulse Ox 98.3 F 63 16 105/76 98 07/07/18 00:00 07/07/18 00:00 07/07/18 00:00 07/07/18 00:00 07/07/18 00:00 Intake and Output: 07/07/18 07/07/18 06:59 18:59 Intake Total 240 Output Total 750 Balance -510 - Medications Medications: Current Medications Albuterol/Ipratropium (Duoneb 3 Mg/0.5 Mg (3 Ml) Ud) 3 ml INH RQ6 PRN PRN Reason: Shortness of Breath Ergocalciferol (Drisdol 50,000 Intl Units Cap) 1 cap PO Q7D [facility] Last Admin: 07/05/18 12:46 Dose: 1 cap Pantoprazole Sodium (Protonix Ec Tab) 40 mg PO DAILY [facility] Last Admin: 07/06/18 09:39 Dose: 40 mg - Labs Labs: 07/06/18 07:42 07/06/18 07:42 PT 13.2 SECONDS (9.7-12.2) H 06/27/18 16:45 INR 1.2 06/27/18 16:45 APTT 36 SECONDS (21-34) H 06/27/18 16:45 - Constitutional Appears: Non-toxic, No Acute Distress - Head Exam Head Exam: ATRAUMATIC, NORMAL INSPECTION, NORMOCEPHALIC - Eye Exam Eye Exam: EOMI, Normal appearance, PERRL Pupil Exam: NORMAL ACCOMODATION - ENT Exam ENT Exam: Mucous Membranes Moist, Normal Exam - Neck Exam Neck Exam: Full ROM, Normal Inspection - Respiratory Exam Respiratory Exam: Clear to Ausculation Bilateral, NORMAL BREATHING PATTERN. absent: Accessory Muscle Use, Rales, Rhonchi, Wheezes, Respiratory Distress, Stridor - Cardiovascular Exam Cardiovascular Exam: REGULAR RHYTHM, +S1, +S2 - GI/Abdominal Exam GI & Abdominal Exam: Soft, Normal Bowel Sounds. absent: Distended, Firm, Guarding, Rigid, Tenderness, Organomegaly, Rebound - Extremities Exam Extremities Exam: Full ROM, Normal Capillary Refill, Normal Inspection. absent: Calf Tenderness, Pedal Edema - Back Exam Back Exam: NORMAL INSPECTION - Neurological Exam Neurological Exam: Alert, Awake, Normal Gait, Oriented x3 - Psychiatric Exam Psychiatric exam: Normal Affect, Normal Mood - Skin Skin Exam: Dry, Intact, Normal Color, Warm Assessment and Plan - Assessment and Plan (Free Text) Assessment: 83 year old homeless male with past medical history of HTN, COPD, questionable aortic aneurysm, presenting with generalized weakness and shortness of breath, recently treated for pneumonia. Denies any chest pain, palpitations, sob--no acute somatic complaints at this time. Per , Medicaid has lapsed, needs to reapply in [place]. Plan: Questionable aortic aneurysm -CXR (06/27): Hyperinflation consistent with underlying COPD. Bibasilar atelectasis/scarring changes. Aorta ectatic and uncoiled; rule out aneurysmal dilatation. -EKG (06/27): NSR, no ST or T changes -vitals within normal limits; patient does not endorse any chest pain or palpitations -patient has expressed wishes to not pursue any surgical intervention -No CTA at this time, will f[place] [facility] Shortness of breath, resolved Hx COPD Dry cough -2L O2 via NC as needed -duonebs q6h prn -robitussin prn Vitamin D Deficiency -Vit D 16.2 (07/05) -Vit D2 50,000 1 cap PO q7D -continue to monitor HTN, resolved -normotensive, continue to monitor Hyponatremia--resolved -Nephro recs (Dr. Ortega) appreciated -2/2 volume depletion/inadequate intake -IVF d/c'd PPx, Diet, Disposition -DVT ppx: Lovenox 40 mg SC daily -GI ppx: Protonix 40 mg daily -Diet: HHD -Dispo: Homeless, family lives in [place]. Per , Medicaid has lapsed; will need to reapply in [place]. Case discussed with Dr. Sebastien Rowan , PGY-1 <Niya Crowe - Last Filed: 07/12/18 20:44> Objective - Vital Signs/Intake and Output Vital Signs (last 24 hours): Temp Pulse Resp BP Pulse Ox 98.6 F 90 20 104/73 97 07/12/18 07:49 07/12/18 07:49 07/12/18 07:49 07/12/18 07:49 07/12/18 07:49 Intake and Output: 07/12/18 07/13/18 18:59 06:59 Intake Total 240 Output Total 650 Balance -410 - Labs Labs: 07/12/18 08:24 07/12/18 08:24 PT 13.2 SECONDS (9.7-12.2) H 06/27/18 16:45 INR 1.2 06/27/18 16:45 APTT 36 SECONDS (21-34) H 06/27/18 16:45 Attending/Attestation - Attestation I have personally seen and examined this patient.: Yes I have fully participated in the care of the patient.: Yes I have reviewed all pertinent clinical information, including history, physical exam and plan: Yes Notes (Text): No complain,no acute events seen and examined discharge pending,follow SW
[2018-07-07 08:06] VITALS: RESP 20
[2018-07-07] MEDS: Pantoprazole 40 mg EC Tab PO SCH (10:02)
--- NOTE | 2018-07-08 02:34 | CP.PCM.PN ---
<Bev Mart - Last Filed: 07/08/18 07:33> Subjective - Date & Time of Evaluation Date of Evaluation: 07/08/18 Time of Evaluation: 05:35 - Subjective Subjective: Patient examined at bedside. No acute overnight events. Complains of persistent dry cough. Denies chest pain, nausea, diarrhea. Objective - Vital Signs/Intake and Output Vital Signs (last 24 hours): Temp Pulse Resp BP Pulse Ox 97.7 F 74 20 128/82 96 07/07/18 23:14 07/07/18 23:14 07/07/18 23:14 07/07/18 23:14 07/07/18 23:14 Intake and Output: 07/07/18 07/08/18 18:59 06:59 Intake Total 500 250 Output Total 500 Balance 500 -250 - Medications Medications: Current Medications Albuterol/Ipratropium (Duoneb 3 Mg/0.5 Mg (3 Ml) Ud) 3 ml INH RQ6 PRN PRN Reason: Shortness of Breath Ergocalciferol (Drisdol 50,000 Intl Units Cap) 1 cap PO Q7D [facility] Last Admin: 07/05/18 12:46 Dose: 1 cap Guaifenesin (Robitussin) 100 mg PO Q4H PRN PRN Reason: Cough Pantoprazole Sodium (Protonix Ec Tab) 40 mg PO DAILY [facility] Last Admin: 07/07/18 10:02 Dose: 40 mg - Labs Labs: 07/06/18 07:42 07/06/18 07:42 PT 13.2 SECONDS (9.7-12.2) H 06/27/18 16:45 INR 1.2 06/27/18 16:45 APTT 36 SECONDS (21-34) H 06/27/18 16:45 - Additional Findings Additional findings: - Constitutional Appears: Non-toxic, No Acute Distress - Head Exam Head Exam: ATRAUMATIC, NORMAL INSPECTION, NORMOCEPHALIC - Eye Exam Eye Exam: EOMI, Normal appearance, PERRL Pupil Exam: NORMAL ACCOMODATION - ENT Exam ENT Exam: Mucous Membranes Moist, Normal Exam - Neck Exam Neck Exam: Full ROM, Normal Inspection - Respiratory Exam Respiratory Exam: Clear to Ausculation Bilateral, NORMAL BREATHING PATTERN. absent: Accessory Muscle Use, Rales, Rhonchi, Wheezes, Respiratory Distress, Stridor - Cardiovascular Exam Cardiovascular Exam: REGULAR RHYTHM, +S1, +S2 - GI/Abdominal Exam GI & Abdominal Exam: Soft, Normal Bowel Sounds. absent: Distended, Firm, Guarding, Rigid, Tenderness, Organomegaly, Rebound - Extremities Exam Extremities Exam: Full ROM, Normal Capillary Refill, Normal Inspection. absent: Calf Tenderness, Pedal Edema - Back Exam Back Exam: NORMAL INSPECTION - Neurological Exam Neurological Exam: Alert, Awake, Normal Gait, Oriented x3 - Psychiatric Exam Psychiatric exam: Normal Affect, Normal Mood - Skin Skin Exam: Dry, Intact, Normal Color, Warm Assessment and Plan - Assessment and Plan (Free Text) Assessment: 83 year old homeless male with past medical history of HTN, COPD, questionable aortic aneurysm, presenting with generalized weakness and shortness of breath, recently treated for pneumonia. Denies any chest pain, palpitations, sob--no acute somatic complaints at this time. Per , Medicaid has lapsed, needs to reapply in [place]. Plan: Questionable aortic aneurysm -CXR (06/27): Hyperinflation consistent with underlying COPD. Bibasilar atelectasis/scarring changes. Aorta ectatic and uncoiled; rule out aneurysmal dilatation. -EKG (06/27): NSR, no ST or T changes -vitals within normal limits; patient does not endorse any chest pain or palpitations -patient has expressed wishes to not pursue any surgical intervention -No CTA at this time, will f[place] [facility] Hx COPD Dry cough -NC 2L prn -duonebs q6h prn -robitussin q4 prn Vitamin D Deficiency -Vit D 16.2 (07/05) -Vit D2 50,000 1 cap PO q7D -continue to monitor PPx, Diet, Disposition -DVT ppx: Lovenox 40 mg SC daily -GI ppx: Protonix 40 mg daily -Diet: HHD + supplements -Dispo: Homeless, family lives in [place]. Per , Medicaid has lapsed; will need to reapply in [place]. Case discussed with Dr. Crowe -Bev Mart, PGY-1 <Niya Crowe - Last Filed: 07/12/18 20:43> Objective - Vital Signs/Intake and Output Vital Signs (last 24 hours): Temp Pulse Resp BP Pulse Ox 98.6 F 90 20 104/73 97 07/12/18 07:49 07/12/18 07:49 07/12/18 07:49 07/12/18 07:49 07/12/18 07:49 Intake and Output: 07/12/18 07/13/18 18:59 06:59 Intake Total 240 Output Total 650 Balance -410 - Labs Labs: 07/12/18 08:24 07/12/18 08:24 PT 13.2 SECONDS (9.7-12.2) H 06/27/18 16:45 INR 1.2 06/27/18 16:45 APTT 36 SECONDS (21-34) H 06/27/18 16:45 Attending/Attestation - Attestation I have personally seen and examined this patient.: Yes I have fully participated in the care of the patient.: Yes I have reviewed all pertinent clinical information, including history, physical exam and plan: Yes Notes (Text): Seen and examined no complain,sitting off oxygen and no sob no acute events pending discharge
[2018-07-08 07:46] LABS: BASO # 0.1 K/uL (0.0-0.2); BASO % 1.2 % (0.0-2.0); EOS # 0.3 K/uL (0.0-0.7); EOS % 6.4 % (0.0-4.0); HEMOGLOBIN 13.7 g/dL (12.0-18.0); LYMPH # 1.7 K/uL (1.0-4.3); MEAN CELL VOLUME 80.6 fL (80.0-94.0); MEAN CORPUSCULAR HGB CONC 32.3 g/dL (33.0-37.0); MEAN PLATELET VOLUME 9.6 fL (7.2-11.7); MONO # 0.5 K/uL (0.0-0.8); MONO % 11.4 % (0.0-10.0); NEUT # 1.9 K/uL (1.8-7.0); NRBC % 0.1 % (0.0-2.0); RBC 5.26 Mil/uL (4.40-5.90); RED CELL DISTRIBUTION WIDTH 14.2 % (11.5-14.5); WHITE BLOOD COUNT 4.5 K/uL (4.8-10.8)
[2018-07-08 08:02] LABS: BLOOD UREA NITROGEN 18 mg/dL (9-20); CALCIUM 8.8 mg/dl (8.6-10.4); GFR NON-AFRICAN AMERICAN > 60
[2018-07-08] MEDS: guaiFENesin 100 mg/5 ml Syrup UD PO PRN (09:58)
[2018-07-08] MEDS: Enoxaparin 40 mg Syringe SC SCH (09:58)
[2018-07-08] MEDS: Pantoprazole 40 mg EC Tab PO SCH (09:58)
--- NOTE | 2018-07-09 08:05 | CP.PCM.PN ---
Subjective - Date & Time of Evaluation Date of Evaluation: 07/09/18 Time of Evaluation: 08:03 - Subjective Subjective: PGY-1 Medicine Progress Note for Dr. Crowe Objective - Vital Signs/Intake and Output Vital Signs (last 24 hours): Temp Pulse Resp BP Pulse Ox 98.1 F 77 20 116/78 96 07/09/18 07:58 07/09/18 07:58 07/09/18 07:58 07/09/18 07:58 07/09/18 07:58 Intake and Output: 07/09/18 07/09/18 06:59 18:59 Intake Total 450 Balance 450 - Medications Medications: Current Medications Albuterol/Ipratropium (Duoneb 3 Mg/0.5 Mg (3 Ml) Ud) 3 ml INH RQ6 PRN PRN Reason: Shortness of Breath Enoxaparin Sodium (Lovenox) 40 mg SC DAILY [facility] Last Admin: 07/08/18 09:58 Dose: 40 mg Ergocalciferol (Drisdol 50,000 Intl Units Cap) 1 cap PO Q7D [facility] Last Admin: 07/05/18 12:46 Dose: 1 cap Guaifenesin (Robitussin) 100 mg PO Q4H PRN PRN Reason: Cough Last Admin: 07/08/18 09:58 Dose: 100 mg Pantoprazole Sodium (Protonix Ec Tab) 40 mg PO DAILY [facility] Last Admin: 07/08/18 09:58 Dose: 40 mg - Labs Labs: 07/08/18 07:40 07/08/18 07:40 PT 13.2 SECONDS (9.7-12.2) H 06/27/18 16:45 INR 1.2 06/27/18 16:45 APTT 36 SECONDS (21-34) H 06/27/18 16:45
[2018-07-09] MEDS: guaiFENesin 100 mg/5 ml Syrup UD PO PRN (10:00)
[2018-07-09] MEDS: Pantoprazole 40 mg EC Tab PO SCH (10:00)
[2018-07-09] MEDS: Enoxaparin 40 mg Syringe SC SCH (10:00)
--- NOTE | 2018-07-09 12:05 | CP.PCM.PN ---
<Audi Rowan - Last Filed: 07/09/18 11:42> Subjective - Date & Time of Evaluation Date of Evaluation: 07/09/18 Time of Evaluation: 11:11 - Subjective Subjective: PGY-1 Medicine Progress Note for Dr. Crowe Patient seen and examined at bedside this AM. No acute overnight events reported. Patient has no somatic complaints, resting comfortably, tolerating PO diet well, ambulating. Objective - Vital Signs/Intake and Output Vital Signs (last 24 hours): Temp Pulse Resp BP Pulse Ox 98.1 F 77 20 116/78 96 07/09/18 07:58 07/09/18 07:58 07/09/18 07:58 07/09/18 07:58 07/09/18 07:58 Intake and Output: 07/09/18 07/09/18 06:59 18:59 Intake Total 450 Balance 450 - Medications Medications: Current Medications Albuterol/Ipratropium (Duoneb 3 Mg/0.5 Mg (3 Ml) Ud) 3 ml INH RQ6 PRN PRN Reason: Shortness of Breath Enoxaparin Sodium (Lovenox) 40 mg SC DAILY [facility] Last Admin: 07/08/18 09:58 Dose: 40 mg Ergocalciferol (Drisdol 50,000 Intl Units Cap) 1 cap PO Q7D [facility] Last Admin: 07/05/18 12:46 Dose: 1 cap Guaifenesin (Robitussin) 100 mg PO Q4H PRN PRN Reason: Cough Last Admin: 07/08/18 09:58 Dose: 100 mg Pantoprazole Sodium (Protonix Ec Tab) 40 mg PO DAILY [facility] Last Admin: 07/08/18 09:58 Dose: 40 mg - Labs Labs: 07/08/18 07:40 07/08/18 07:40 PT 13.2 SECONDS (9.7-12.2) H 06/27/18 16:45 INR 1.2 06/27/18 16:45 APTT 36 SECONDS (21-34) H 06/27/18 16:45 - Constitutional Appears: Non-toxic, No Acute Distress - Head Exam Head Exam: ATRAUMATIC, NORMAL INSPECTION, NORMOCEPHALIC - Eye Exam Eye Exam: EOMI, Normal appearance, PERRL Pupil Exam: NORMAL ACCOMODATION - ENT Exam ENT Exam: Mucous Membranes Moist, Normal Exam - Neck Exam Neck Exam: Full ROM, Normal Inspection. absent: Tenderness - Respiratory Exam Respiratory Exam: Clear to Ausculation Bilateral, NORMAL BREATHING PATTERN. absent: Accessory Muscle Use, Rales, Rhonchi, Wheezes, Respiratory Distress, Stridor - Cardiovascular Exam Cardiovascular Exam: REGULAR RHYTHM, +S1, +S2 - GI/Abdominal Exam GI & Abdominal Exam: Soft, Normal Bowel Sounds. absent: Distended, Firm, Guarding, Rigid, Tenderness, Organomegaly, Rebound - Extremities Exam Extremities Exam: Full ROM, Normal Capillary Refill, Normal Inspection. absent: Calf Tenderness, Pedal Edema - Back Exam Back Exam: NORMAL INSPECTION - Neurological Exam Neurological Exam: Alert, Awake, Normal Gait, Oriented x3 - Psychiatric Exam Psychiatric exam: Normal Affect, Normal Mood - Skin Skin Exam: Dry, Intact, Normal Color, Warm Assessment and Plan - Assessment and Plan (Free Text) Assessment: 83 year old homeless male with past medical history of HTN, COPD, questionable aortic aneurysm, presenting with generalized weakness and shortness of breath, recently treated for pneumonia. Denies any chest pain, palpitations, sob--no acute somatic complaints at this time. Per , Medicaid has lapsed, needs to reapply in [place]. Plan: Questionable aortic aneurysm -CXR (06/27): Hyperinflation consistent with underlying COPD. Bibasilar atelectasis/scarring changes. Aorta ectatic and uncoiled; rule out aneurysmal dilatation. -EKG (06/27): NSR, no ST or T changes -vitals within normal limits; patient does not endorse any chest pain or palpitations -patient has expressed wishes to not pursue any surgical intervention -No CTA at this time, will f/u with records [place] [facility] [place] Shortness of breath, resolved Hx COPD Dry cough -2L O2 via NC as needed -duonebs q6h prn -robitussin prn Vitamin D Deficiency -Vit D 16.2 (07/05) -Vit D2 50,000 1 cap PO q7D -continue to monitor HTN, resolved -normotensive, continue to monitor Hyponatremia--resolved -Nephro recs (Dr. Ortega) appreciated -2/2 volume depletion/inadequate intake -IVF d/c'd PPx, Diet, Disposition -DVT ppx: Lovenox 40 mg SC daily -GI ppx: Protonix 40 mg daily -Diet: HHD -Dispo: Homeless, family lives in [place]. Per SW, Medicaid has lapsed; will need to reapply in [place]. Case discussed with Dr. Sebastien Rowan DO, PGY-1 <Niya Crowe - Last Filed: 07/12/18 20:42> Objective - Vital Signs/Intake and Output Vital Signs (last 24 hours): Temp Pulse Resp BP Pulse Ox 98.6 F 90 20 104/73 97 07/12/18 07:49 07/12/18 07:49 07/12/18 07:49 07/12/18 07:49 07/12/18 07:49 Intake and Output: 07/12/18 07/13/18 18:59 06:59 Intake Total 240 Output Total 650 Balance -410 - Labs Labs: 07/12/18 08:24 07/12/18 08:24 PT 13.2 SECONDS (9.7-12.2) H 06/27/18 16:45 INR 1.2 06/27/18 16:45 APTT 36 SECONDS (21-34) H 06/27/18 16:45 Attending/Attestation - Attestation I have personally seen and examined this patient.: Yes I have fully participated in the care of the patient.: Yes I have reviewed all pertinent clinical information, including history, physical exam and plan: Yes Notes (Text): No complain,no sob,no acute events Discharge pending follow Assessment and the plan discussed with the resident and I agree with the documentation
[2018-07-10 06:58] LABS: HEMOGLOBIN 13.2 g/dL (12.0-18.0); MEAN CORPUSCULAR HEMOGLOBIN 26.1 pg (27.0-31.0); MEAN CORPUSCULAR HGB CONC 32.7 g/dL (33.0-37.0); MEAN PLATELET VOLUME 9.9 fL (7.2-11.7); RBC 5.04 Mil/uL (4.40-5.90); RED CELL DISTRIBUTION WIDTH 14.5 % (11.5-14.5); WHITE BLOOD COUNT 5.3 K/uL (4.8-10.8)
[2018-07-10 07:11] LABS: BLOOD UREA NITROGEN 20 mg/dL (9-20); CALCIUM 9.2 mg/dl (8.6-10.4); GFR NON-AFRICAN AMERICAN > 60
--- NOTE | 2018-07-10 07:17 | CP.PCM.PN ---
<Audi Rowan - Last Filed: 07/10/18 13:44> Subjective - Date & Time of Evaluation Date of Evaluation: 07/10/18 Time of Evaluation: 07:17 - Subjective Subjective: PGY-1 Medicine Progress Note for Dr. Crowe Patient seen and examined at bedside this AM. No acute overnight events reported. [place]. Patient is currently homeless in [place], entire family lives in [place]. We spoke to patient about returning to [place] with family, but patient did not wish to do so, as he spent his whole life in [place]. No acute somatic complaints at this time. Objective - Vital Signs/Intake and Output Vital Signs (last 24 hours): Temp Pulse Resp BP Pulse Ox 97.7 F 72 20 137/82 96 07/09/18 23:17 07/09/18 23:17 07/09/18 23:17 07/09/18 23:17 07/09/18 23:17 Intake and Output: 07/10/18 07/10/18 06:59 18:59 Intake Total 300 Balance 300 - Medications Medications: Current Medications Albuterol/Ipratropium (Duoneb 3 Mg/0.5 Mg (3 Ml) Ud) 3 ml INH RQ6 PRN PRN Reason: Shortness of Breath Enoxaparin Sodium (Lovenox) 40 mg SC DAILY [facility] Last Admin: 07/09/18 10:00 Dose: Not Given Ergocalciferol (Drisdol 50,000 Intl Units Cap) 1 cap PO Q7D [facility] Last Admin: 07/05/18 12:46 Dose: 1 cap Guaifenesin (Robitussin) 100 mg PO Q4H PRN PRN Reason: Cough Last Admin: 07/09/18 10:00 Dose: 100 mg Pantoprazole Sodium (Protonix Ec Tab) 40 mg PO DAILY [facility] Last Admin: 07/09/18 10:00 Dose: 40 mg - Labs Labs: 07/10/18 06:53 07/10/18 06:53 PT 13.2 SECONDS (9.7-12.2) H 06/27/18 16:45 INR 1.2 06/27/18 16:45 APTT 36 SECONDS (21-34) H 06/27/18 16:45 - Constitutional Appears: Non-toxic, No Acute Distress - Head Exam Head Exam: ATRAUMATIC, NORMAL INSPECTION, NORMOCEPHALIC - Eye Exam Eye Exam: EOMI, Normal appearance, PERRL Pupil Exam: NORMAL ACCOMODATION - ENT Exam ENT Exam: Mucous Membranes Moist, Normal Exam - Neck Exam Neck Exam: Full ROM, Normal Inspection - Respiratory Exam Respiratory Exam: Clear to Ausculation Bilateral, NORMAL BREATHING PATTERN. absent: Accessory Muscle Use, Rales, Rhonchi, Wheezes, Respiratory Distress, Stridor - Cardiovascular Exam Cardiovascular Exam: REGULAR RHYTHM, +S1, +S2 - GI/Abdominal Exam GI & Abdominal Exam: Soft, Normal Bowel Sounds. absent: Distended, Firm, Guarding, Rigid, Tenderness, Organomegaly, Rebound - Extremities Exam Extremities Exam: Full ROM, Normal Capillary Refill, Normal Inspection. absent: Calf Tenderness, Pedal Edema - Back Exam Back Exam: NORMAL INSPECTION - Neurological Exam Neurological Exam: Alert, Awake, Normal Gait, Oriented x3 - Skin Skin Exam: Dry, Intact, Normal Color, Warm Assessment and Plan - Assessment and Plan (Free Text) Assessment: 83 year old homeless male with past medical history of HTN, COPD, questionable aortic aneurysm, presenting with generalized weakness and shortness of breath, recently treated for pneumonia. Denies any chest pain, palpitations, sob--no acute somatic complaints at this time. Per , Medicaid has lapsed, needs to reapply in [place]. Plan: Questionable aortic aneurysm -CXR (06/27): Hyperinflation consistent with underlying COPD. Bibasilar atelectasis/scarring changes. Aorta ectatic and uncoiled; rule out aneurysmal dilatation. -EKG (06/27): NSR, no ST or T changes -vitals within normal limits; patient does not endorse any chest pain or palpitations -patient has expressed wishes to not pursue any surgical intervention -No CTA at this time, [place] [facility] [place]ness of breath, resolved Hx COPD Dry cough -2L O2 via [place] as needed -duonebs q6h prn -robitussin prn Vitamin D Deficiency -Vit D 16.2 (07/05) -Vit D2 50,000 1 cap PO q7D -continue to monitor HTN, resolved -normotensive, continue to monitor Hyponatremia--resolved -Nephro recs (Dr. Ortega) appreciated -2/2 volume depletion/inadequate intake -IVF d/c'd PPx, Diet, Disposition -DVT ppx: Lovenox 40 mg SC daily -GI ppx: Protonix 40 mg daily -Diet: HHD -Disposition: Homeless, family lives in [place]. Medicaid application pending Case discussed with Dr. Sebastien Rowan DO, PGY-1 <Niya Crowe - Last Filed: 07/12/18 20:40> Objective - Vital Signs/Intake and Output Vital Signs (last 24 hours): Temp Pulse Resp BP Pulse Ox 98.6 F 90 20 104/73 97 07/12/18 07:49 07/12/18 07:49 07/12/18 07:49 07/12/18 07:49 07/12/18 07:49 Intake and Output: 07/12/18 07/13/18 18:59 06:59 Intake Total 240 Output Total 650 Balance -410 - Labs Labs: 07/12/18 08:24 07/12/18 08:24 PT 13.2 SECONDS (9.7-12.2) H 06/27/18 16:45 INR 1.2 06/27/18 16:45 APTT 36 SECONDS (21-34) H 06/27/18 16:45 Attending/Attestation - Attestation I have personally seen and examined this patient.: Yes I have fully participated in the care of the patient.: Yes I have reviewed all pertinent clinical information, including history, physical exam and plan: Yes Notes (Text): Has no complain,no acute events Discharge plan discussed with SW we will follow seen and examined by me Assessment and the plan discussed with the resident
[2018-07-10 10:51] LABS: EOS # 0.3 K/uL (0.0-0.7); LYMPH # 2.7 K/uL (1.0-4.3); MONO # 0.7 K/uL (0.0-0.8); NEUT # 1.6 K/uL (1.8-7.0)
[2018-07-10] MEDS: Enoxaparin 40 mg Syringe SC SCH (12:07)
[2018-07-10] MEDS: guaiFENesin 100 mg/5 ml Syrup UD PO PRN (12:07)
[2018-07-10] MEDS: Pantoprazole 40 mg EC Tab PO SCH (12:07)
--- NOTE | 2018-07-11 07:38 | CP.PCM.PN ---
<Audi Rowan - Last Filed: 07/11/18 07:35> Subjective - Date & Time of Evaluation Date of Evaluation: 07/11/18 Time of Evaluation: 07:35 - Subjective Subjective: PGY-1 Medicine Progress Note for Dr. Crowe Patient seen and examined at bedside, no acute overnight events reported. Patient continues to work with PT, tolerating PO diet well. Awaiting placement. No somatic complaints at this time. Objective - Vital Signs/Intake and Output Vital Signs (last 24 hours): Temp Pulse Resp BP Pulse Ox 97.9 F 67 20 138/80 95 07/10/18 23:52 07/10/18 23:52 07/10/18 23:52 07/10/18 23:52 07/10/18 23:52 Intake and Output: 07/11/18 07/11/18 06:59 18:59 Intake Total 400 Balance 400 - Medications Medications: Current Medications Albuterol/Ipratropium (Duoneb 3 Mg/0.5 Mg (3 Ml) Ud) 3 ml INH RQ6 PRN PRN Reason: Shortness of Breath Enoxaparin Sodium (Lovenox) 40 mg SC DAILY [facility] Last Admin: 07/10/18 12:07 Dose: Not Given Ergocalciferol (Drisdol 50,000 Intl Units Cap) 1 cap PO Q7D [facility] Last Admin: 07/05/18 12:46 Dose: 1 cap Guaifenesin (Robitussin) 100 mg PO Q4H PRN PRN Reason: Cough Last Admin: 07/10/18 12:07 Dose: 100 mg Pantoprazole Sodium (Protonix Ec Tab) 40 mg PO DAILY [facility] Last Admin: 07/10/18 12:07 Dose: 40 mg - Labs Labs: 07/10/18 06:53 07/10/18 06:53 PT 13.2 SECONDS (9.7-12.2) H 06/27/18 16:45 INR 1.2 06/27/18 16:45 APTT 36 SECONDS (21-34) H 06/27/18 16:45 - Constitutional Appears: Non-toxic, No Acute Distress - Head Exam Head Exam: ATRAUMATIC, NORMAL INSPECTION, NORMOCEPHALIC - Eye Exam Eye Exam: EOMI, Normal appearance Pupil Exam: NORMAL ACCOMODATION - ENT Exam ENT Exam: Mucous Membranes Moist, Normal Exam - Neck Exam Neck Exam: Full ROM, Normal Inspection. absent: Tenderness - Respiratory Exam Respiratory Exam: Clear to Ausculation Bilateral, NORMAL BREATHING PATTERN. absent: Accessory Muscle Use, Rales, Rhonchi, Wheezes, Respiratory Distress, Stridor - Cardiovascular Exam Cardiovascular Exam: REGULAR RHYTHM, +S1, +S2 - GI/Abdominal Exam GI & Abdominal Exam: Soft, Normal Bowel Sounds. absent: Distended, Firm, Guarding, Rigid, Tenderness, Rebound - Extremities Exam Extremities Exam: Full ROM, Normal Capillary Refill, Normal Inspection. absent: Calf Tenderness, Pedal Edema - Back Exam Back Exam: NORMAL INSPECTION. absent: CVA tenderness (L), CVA tenderness (R) - Neurological Exam Neurological Exam: Alert, Awake, Normal Gait, Oriented x3 - Skin Skin Exam: Dry, Intact, Normal Color, Warm Assessment and Plan - Assessment and Plan (Free Text) Assessment: 83 year old homeless male with past medical history of HTN, COPD, questionable aortic aneurysm, presenting with generalized weakness and shortness of breath, recently treated for pneumonia. Denies any chest pain, palpitations, sob--no acute somatic complaints at this time. Per , Medicaid has lapsed, needs to reapply in [place]. Plan: Questionable aortic aneurysm -CXR (06/27): Hyperinflation consistent with underlying COPD. Bibasilar atelectasis/scarring changes. Aorta ectatic and uncoiled; rule out aneurysmal dilatation. -EKG (06/27): NSR, no ST or T changes -vitals within normal limits; patient does not endorse any chest pain or palpitations -patient has expressed wishes to not pursue any surgical intervention -No CTA at this time, [place] [facility] [place]ness of breath, resolved Hx COPD Dry cough -2L O2 via [place] as needed -duonebs q6h prn -robitussin prn Vitamin D Deficiency -Vit D 16.2 (07/05) -Vit D2 50,000 1 cap PO q7D -continue to monitor HTN, resolved -normotensive, continue to monitor Hyponatremia--resolved -Nephro recs (Dr. Ortega) appreciated -2/2 volume depletion/inadequate intake -IVF d/c'd PPx, Diet, Disposition -DVT ppx: Lovenox 40 mg SC daily -GI ppx: Protonix 40 mg daily -Diet: HHD -Disposition: Homeless, family lives in [place]. Medicaid application pending Case discussed with Dr. Sebastien Rowan DO, PGY-1 <Niya Crowe - Last Filed: 07/12/18 20:38> Objective - Vital Signs/Intake and Output Vital Signs (last 24 hours): Temp Pulse Resp BP Pulse Ox 98.6 F 90 20 104/73 97 07/12/18 07:49 07/12/18 07:49 07/12/18 07:49 07/12/18 07:49 07/12/18 07:49 Intake and Output: 07/12/18 07/13/18 18:59 06:59 Intake Total 240 Output Total 650 Balance -410 - Labs Labs: 07/12/18 08:24 07/12/18 08:24 PT 13.2 SECONDS (9.7-12.2) H 06/27/18 16:45 INR 1.2 06/27/18 16:45 APTT 36 SECONDS (21-34) H 06/27/18 16:45 Attending/Attestation - Attestation I have personally seen and examined this patient.: Yes I have fully participated in the care of the patient.: Yes I have reviewed all pertinent clinical information, including history, physical exam and plan: Yes Notes (Text): no complain,walking independent. Sitting off oxygen noted desaturating off oxygen d/w SW about discharge no acute events and no acute problem
[2018-07-11] MEDS: guaiFENesin 100 mg/5 ml Syrup UD PO PRN (09:57)
[2018-07-11] MEDS: Pantoprazole 40 mg EC Tab PO SCH (09:57)
[2018-07-11] MEDS: Enoxaparin 40 mg Syringe SC SCH (10:00)
--- NOTE | 2018-07-12 00:28 | CP.PCM.PN ---
<Regino Gutierrez - Last Filed: 07/12/18 00:26> Subjective - Date & Time of Evaluation Date of Evaluation: 07/12/18 Time of Evaluation: 00:26 - Subjective Subjective: PGY-1 Medicine Progress Note for Dr. Crowe Patient seen and examined at bedside, no acute overnight events reported. Patient continues to work with PT, tolerating PO diet well. Awaiting placement. No new complaints at this time. Objective - Vital Signs/Intake and Output Vital Signs (last 24 hours): Temp Pulse Resp BP Pulse Ox 97.9 F 79 20 126/78 96 07/12/18 00:02 07/12/18 00:02 07/12/18 00:02 07/12/18 00:02 07/12/18 00:02 Intake and Output: 07/11/18 07/12/18 18:59 06:59 Intake Total 300 Balance 300 - Medications Medications: Current Medications Albuterol/Ipratropium (Duoneb 3 Mg/0.5 Mg (3 Ml) Ud) 3 ml INH RQ6 PRN PRN Reason: Shortness of Breath Enoxaparin Sodium (Lovenox) 40 mg SC DAILY [facility] Last Admin: 07/11/18 10:00 Dose: Not Given Ergocalciferol (Drisdol 50,000 Intl Units Cap) 1 cap PO Q7D [facility] Last Admin: 07/05/18 12:46 Dose: 1 cap Guaifenesin (Robitussin) 100 mg PO Q4H PRN PRN Reason: Cough Last Admin: 07/11/18 09:57 Dose: 100 mg Pantoprazole Sodium (Protonix Ec Tab) 40 mg PO DAILY [facility] Last Admin: 07/11/18 09:57 Dose: 40 mg - Labs Labs: 07/10/18 06:53 07/10/18 06:53 PT 13.2 SECONDS (9.7-12.2) H 06/27/18 16:45 INR 1.2 06/27/18 16:45 APTT 36 SECONDS (21-34) H 06/27/18 16:45 - Constitutional Appears: No Acute Distress - Head Exam Head Exam: ATRAUMATIC, NORMAL INSPECTION - Eye Exam Eye Exam: EOMI, Normal appearance - ENT Exam ENT Exam: Mucous Membranes Moist - Respiratory Exam Respiratory Exam: Clear to Ausculation Bilateral, NORMAL BREATHING PATTERN. absent: Rhonchi, Wheezes - Cardiovascular Exam Cardiovascular Exam: REGULAR RHYTHM, +S1, +S2 - GI/Abdominal Exam GI & Abdominal Exam: Soft, Normal Bowel Sounds. absent: Tenderness - Extremities Exam Extremities Exam: Normal Inspection. absent: Pedal Edema - Neurological Exam Neurological Exam: Alert, Awake, Oriented x3 - Psychiatric Exam Psychiatric exam: Normal Affect, Normal Mood - Skin Skin Exam: Dry, Intact Assessment and Plan - Assessment and Plan (Free Text) Assessment: 83 year old homeless male with past medical history of HTN, COPD, questionable aortic aneurysm, presenting with generalized weakness and shortness of breath, recently treated for pneumonia. Denies any chest pain, palpitations, sob--no acute somatic complaints at this time. Per , Medicaid has lapsed, needs to reapply in [place]. Plan: Questionable aortic aneurysm -CXR (06/27): Hyperinflation consistent with underlying COPD. Bibasilar atelectasis/scarring changes. Aorta ectatic and uncoiled; rule out aneurysmal dilatation. -EKG (06/27): NSR, no ST or T changes -vitals within normal limits; patient does not endorse any chest pain or palpitations -patient has expressed wishes to not pursue any surgical intervention -No CTA at this time, will f/u with records [place] [facility] [place] Shortness of breath, resolved Hx COPD Dry cough -2L O2 via [place] as needed -duonebs q6h prn -robitussin prn Vitamin D Deficiency -Vit D 16.2 (07/05) -Vit D2 50,000 1 cap PO q7D -continue to monitor HTN, resolved -normotensive, continue to monitor Hyponatremia--resolved -Nephro recs (Dr. Ortega) appreciated -2/2 volume depletion/inadequate intake -IVF d/c'd PPx, Diet, Disposition -DVT ppx: Lovenox 40 mg SC daily -GI ppx: Protonix 40 mg daily -Diet: HHD -Disposition: Homeless, family lives in [place]. Medicaid application pending Case discussed with Dr. Sebastien Gutierrez DO, PGY-1 <Niya Crowe - Last Filed: 07/12/18 20:36> Objective - Vital Signs/Intake and Output Vital Signs (last 24 hours): Temp Pulse Resp BP Pulse Ox 98.6 F 90 20 104/73 97 07/12/18 07:49 07/12/18 07:49 07/12/18 07:49 07/12/18 07:49 07/12/18 07:49 Intake and Output: 07/12/18 07/13/18 18:59 06:59 Intake Total 240 Output Total 650 Balance -410 - Labs Labs: 07/12/18 08:24 07/12/18 08:24 PT 13.2 SECONDS (9.7-12.2) H 06/27/18 16:45 INR 1.2 06/27/18 16:45 APTT 36 SECONDS (21-34) H 06/27/18 16:45 Attending/Attestation - Attestation I have personally seen and examined this patient.: Yes I have fully participated in the care of the patient.: Yes I have reviewed all pertinent clinical information, including history, physical exam and plan: Yes Notes (Text): seen and examined no complain,not on oxygen,ambulating independence His friend was at bedside to take him to [place] Patient is alert and oriented x3 He wants to go AMA.Recommend to continue his home meds and follow primary care.
[2018-07-12 07:49] VITALS: BP 104/73; PULSE 90; TEMP 98.6; O2SAT 97
[2018-07-12 08:36] LABS: BASO # 0.1 K/uL (0.0-0.2); BASO % 1.9 % (0.0-2.0); EOS # 0.3 K/uL (0.0-0.7); EOS % 5.3 % (0.0-4.0); HEMOGLOBIN 13.8 g/dL (12.0-18.0); LYMPH # 1.7 K/uL (1.0-4.3); LYMPH % 29.2 % (20.0-40.0); MEAN CELL VOLUME 79.6 fL (80.0-94.0); MEAN CORPUSCULAR HEMOGLOBIN 25.6 pg (27.0-31.0); MEAN CORPUSCULAR HGB CONC 32.1 g/dL (33.0-37.0); MEAN PLATELET VOLUME 9.9 fL (7.2-11.7); MONO # 0.7 K/uL (0.0-0.8); MONO % 11.8 % (0.0-10.0); NEUT % 51.8 % (50.0-75.0); NRBC % 0.2 % (0.0-2.0); RBC 5.4 Mil/uL (4.40-5.90); RED CELL DISTRIBUTION WIDTH 14.5 % (11.5-14.5); WHITE BLOOD COUNT 5.8 K/uL (4.8-10.8)
[2018-07-12 08:53] LABS: BLOOD UREA NITROGEN 19 mg/dL (9-20); CALCIUM 9.5 mg/dl (8.6-10.4); GFR NON-AFRICAN AMERICAN > 60
[2018-07-12] MEDS: Pantoprazole 40 mg EC Tab PO SCH (10:13)
[2018-07-12] MEDS: Enoxaparin 40 mg Syringe SC SCH (10:18)
--- NOTE | 2018-07-17 07:54 | CP.PCM.DIS ---
Provider - Provider Date of Admission: 06/28/18 12:27 Attending physician: Niya Crowe MD Consults: 06/27/18 18:45 Physician Consult Routine Comment: Consulting Provider: Tyree Ortega Consulting Physician: Tyree Ortega Reason for Consult: Hyponatremia Time Spent in preparation of Discharge (in minutes): 40 Hospital Course - Lab Results Lab Results: Micro Results 07/10/18 08:18 Urine,Clean Catch Urine Culture - Final No Growth (<1,000 CFU/ML) 06/27/18 16:45 Urine Urine Culture - Final Staphylococcus Species Most Recent Lab Values WBC 5.8 K/uL (4.8-10.8) 07/12/18 08:24 RBC 5.40 Mil/uL (4.40-5.90) 07/12/18 08:24 Hgb 13.8 g/dL (12.0-18.0) 07/12/18 08:24 Hct 43.0 % (35.0-51.0) 07/12/18 08:24 MCV 79.6 fL (80.0-94.0) L 07/12/18 08:24 MCH 25.6 pg (27.0-31.0) L 07/12/18 08:24 MCHC 32.1 g/dL (33.0-37.0) L 07/12/18 08:24 RDW 14.5 % (11.5-14.5) 07/12/18 08:24 Plt Count 107 K/uL (130-400) L 07/12/18 08:24 MPV 9.9 fL (7.2-11.7) 07/12/18 08:24 Neut % (Auto) 51.8 % (50.0-75.0) 07/12/18 08:24 Lymph % (Auto) 29.2 % (20.0-40.0) 07/12/18 08:24 [place] % (Auto) 11.8 % (0.0-10.0) H 07/12/18 08:24 Eos % (Auto) 5.3 % (0.0-4.0) H 07/12/18 08:24 Baso % (Auto) 1.9 % (0.0-2.0) 07/12/18 08:24 Neut # (Auto) 3.0 K/uL (1.8-7.0) 07/12/18 08:24 Lymph # (Auto) 1.7 K/uL (1.0-4.3) 07/12/18 08:24 [place] # (Auto) 0.7 K/uL (0.0-0.8) 07/12/18 08:24 Eos # (Auto) 0.3 K/uL (0.0-0.7) 07/12/18 08:24 Baso # (Auto) 0.1 K/uL (0.0-0.2) 07/12/18 08:24 Neutrophils % (Manual) 71 % (50-75) 06/29/18 13:55 Lymphocytes % (Manual) 13 % (20-40) L 06/29/18 13:55 Monocytes % (Manual) 16 % (0-10) H 06/29/18 13:55 Platelet Estimate Decreased (NORMAL) L 06/29/18 13:55 Large Platelets Present 06/29/18 13:55 Hypochromasia (manual) Slight 06/29/18 13:55 Anisocytosis (manual) Slight 06/29/18 13:55 PT 13.2 SECONDS (9.7-12.2) H 06/27/18 16:45 INR 1.2 06/27/18 16:45 APTT 36 SECONDS (21-34) H 06/27/18 16:45 Sodium 139 mmol/L (132-148) 07/12/18 08:24 Potassium 4.3 mmol/L (3.6-5.2) 07/12/18 08:24 Chloride 101 mmol/L (98-107) 07/12/18 08:24 Carbon Dioxide 31 mmol/L (22-30) H 07/12/18 08:24 Anion Gap 11 (10-20) 07/12/18 08:24 BUN 19 mg/dL (9-20) 07/12/18 08:24 Creatinine 1.1 mg/dL (0.8-1.5) 07/12/18 08:24 Est GFR ( Amer) > 60 07/12/18 08:24 Est GFR (Non-Af Amer) > 60 07/12/18 08:24 POC Glucose (mg/dL) 95 mg/dL (65-110) 06/27/18 16:37 Random Glucose 106 mg/dL (75-110) 07/12/18 08:24 Serum Osmolality 276 mosm/kg (272-300) 06/27/18 19:39 Calcium 9.5 mg/dl (8.6-10.4) 07/12/18 08:24 Phosphorus 3.4 mg/dL (2.5-4.5) 06/28/18 06:59 Magnesium 2.0 mg/dL (1.6-2.3) 06/28/18 06:59 Total Bilirubin 0.5 mg/dL (0.2-1.3) 06/30/18 08:58 AST 45 U/L (17-59) 06/30/18 08:58 ALT 19 U/L (21-72) L 06/30/18 08:58 Alkaline Phosphatase 82 U/L (38-126) 06/30/18 08:58 Troponin I 0.0470 ng/mL (0.00-0.120) 06/27/18 16:45 Total Protein 7.8 g/dL (6.3-8.3) 06/30/18 08:58 Albumin 3.2 g/dL (3.5-5.0) L 06/30/18 08:58 Globulin 4.6 gm/dL (2.2-3.9) H 06/30/18 08:58 Albumin/Globulin Ratio 0.7 (1.0-2.1) L 06/30/18 08:58 Triglycerides 48 mg/dL (0-149) 06/28/18 06:59 Cholesterol 141 mg/dL (0-199) 06/28/18 06:59 LDL Cholesterol Direct 70 mg/dL (0-129) 06/28/18 06:59 HDL Cholesterol 61 mg/dL (30-70) 06/28/18 06:59 25-OH Vitamin D Total 25.2 NG/ML (30.0-100.0) L 07/12/18 08:24 Free T4 0.81 ng/dL (0.78-2.19) 06/29/18 07:49 TSH 3rd Generation 1.72 mIU/L (0.46-4.68) 06/29/18 07:49 Urine Color Straw (YELLOW) 06/27/18 16:45 Urine Clarity Clear (Clear) 06/27/18 16:45 Urine pH 5.0 (5.0-8.0) 06/27/18 16:45 Ur Specific Panther Burn 1.005 (1.003-1.030) 06/27/18 16:45 Urine Protein Negative mg/dL (NEGATIVE) 06/27/18 16:45 Urine Glucose (UA) Normal mg/dL (Normal) 06/27/18 16:45 Urine Ketones Negative mg/dL (NEGATIVE) 06/27/18 16:45 Urine Blood Negative (NEGATIVE) 06/27/18 16:45 Urine Nitrate Negative (NEGATIVE) 06/27/18 16:45 Urine Bilirubin Negative (NEGATIVE) 06/27/18 16:45 Urine Urobilinogen Normal mg/dL (0.2-1.0) 06/27/18 16:45 Ur Leukocyte Esterase Neg Hubert/uL (Negative) 06/27/18 16:45 Urine WBC (Auto) < 1 /hpf (0-5) 06/27/18 16:45 Ur Squamous Epith Cells < 1 /hpf (0-5) 06/27/18 16:45 Urine Osmolality 115 mosm/kg (300-1000) L 06/27/18 21:50 Ur Random Sodium 11 mmol/L 06/27/18 21:50 Blood Type O POSITIVE 06/27/18 17:54 Antibody Screen Positive 06/27/18 17:54 Antibody Identification Auto Anti e Anti e 06/27/18 17:54 Antibody Identification Auto Anti e Anti e 06/27/18 17:54 Elution Positive 06/27/18 17:54 STEPHANIE, Poly Interpret Positive (NEGATIVE) H 06/27/18 17:54 - Hospital Course Hospital Course: Patient is an 83 year old male with known PMHx of HTN, COPD, and "heart problem" who presents with chief complaint of generalized weakness. Patient is a poor historian, but states he recently was treated for pneumonia in [place], where it seems he used to live. Recently he has been living in [place] and has been homeless living on the street and spending nights in a local [place]. He states he has been having increased shortness of breath over the last week or so, as well as generalized weakness, and also came to escape the cold weather. Patient states he was recently hospitalized at [facility] for pneumonia and supposed to have "heart surgery" and that he was "at high risk" and that he did not want to have the surgery, so he left [facility] (unclear if AMA) at that time. He does state that he understood the risks associated with this surgery and stated that he did not want to go through with heart surgery. Patient denies any chest pain or palpitations. Patient stay was uneventful. He was seen ambulating independent. Doesn't use oxygen at rest. He was not on home oxygen. Asper PT his oxygen level goes down during ambulation and recommending to rest in between.He was seen and examined on the day of discharge he is alert and oriented x3 .Resting on bed comfortable.His friend was at bedside to take him to [place]. He wants to go AMA.Recommend to continue his home meds and follow primary care.Patient was asked to rest in between ambulation and request Wheel chair in the airport. Discharge Exam - Head Exam Head Exam: ATRAUMATIC, NORMAL INSPECTION Discharge Plan - Discharge Medications Prescriptions: Ergocalciferol [Drisdol 50,000 Intl Units Cap] 1 cap PO Q7D #4 cap - Follow Up Plan Condition: FAIR Disposition: AGAINST MEDICAL ADVICE Instructions: Vitamin D Deficiency, Dehydration, Adult (DC), Weakness (ED) Additional Instructions: Follow up with primary doctor in [place].
== END 2018-07-12 11:15 | disposition left against medical advice (07) | DRG 191 ==
LOC: C.ER 15:23 → C.9E 17:34 → C.3T 17:53 → OBSVTOIN 06-28 12:27
PROVIDERS: ADMIT Internal Medicine; ATTEND Internal Medicine
DX: J43.9 Emphysema, unspecified (principal); J98.11 Atelectasis; Z68.1 Body mass index [BMI] 19.9 or less, adult; E87.1 Hypo-osmolality and hyponatremia; E86.0 Dehydration; I10 Essential (primary) hypertension; E03.9 Hypothyroidism, unspecified; Z59.0 Homelessness; Z87.891 Personal history of nicotine dependence; Z87.01 Personal history of pneumonia (recurrent); R53.1 Weakness; R09.02 Hypoxemia; I71.9 Aortic aneurysm of unspecified site, without rupture

== ENCOUNTER 2018-08-31 03:57 | Inpatient (IN) | payer MEDICARE ==
[2018-08-31] MEDS ORDERED: Albuterol-Ipratrop 3 mg / 0.5 (3 ml) UD ONE (05:00)
[2018-08-31] MEDS ORDERED: MethylPREDNISolone 40 mg Vial IVP STA (05:14)
[2018-08-31] MEDS ORDERED: Albuterol-Ipratrop 3 mg / 0.5 (3 ml) UD IH SCH (05:15)
--- NOTE | 2018-08-31 06:09 | C.PDOC ---
History Of Present Illness 83 year old male, whose past medical history includes COPD, presents to the ED for evaluation shortness of breath. Patient denies known fever, chills, and diarrhea, and abdominal pain at this time. Time Seen by Provider: 08/31/18 04:17 Chief Complaint (Nursing): Abdominal Pain History Per: Patient History/Exam Limitations: no limitations Onset/Duration Of Symptoms: Days Current Symptoms Are (Timing): Worse Additional History Per: Patient Past Medical History Reviewed: Historical Data, Nursing Documentation, Vital Signs Vital Signs: Last Vital Signs Temp 97.6 F 08/31/18 04:11 Pulse 87 08/31/18 04:11 Resp 20 08/31/18 04:11 BP 167/94 H 08/31/18 04:11 Pulse Ox 94 L 08/31/18 04:11 - Medical History PMH: HTN, Pneumonia Denies: Chronic Kidney Disease Surgical History: Cholecystectomy Family History: States: Unknown Family Hx - Social History Hx Alcohol Use: Yes Hx Substance Use: No - Immunization History Hx Tetanus Toxoid Vaccination: (unknown) Hx Influenza Vaccination: No Hx Pneumococcal Vaccination: No Review Of Systems Except As Marked, All Systems Reviewed And Found Negative. Constitutional: Negative for: Fever Gastrointestinal: Negative for: Abdominal Pain Physical Exam - Physical Exam Additional Physical Exam Comments: Constitutional: No acute distress. Appears short of breath. Head: Normocephalic. Atraumatic. Eyes: PERRL. ENT: Moist mucous membranes. Neck: Supple. Cardiovascular: Regular rate. Radial pulse 2+ bilaterally. Chest: No tenderness. Respiratory: Diffuse expiratory wheezing. GI: Soft. Nontender. Nondistended. Back: No CVA tenderness. Musculoskeletal: No tenderness or swelling of extremities. Skin: No rash. Neurologic: Alert, no focal deficit. ED Course And Treatment O2 Sat by Pulse Oximetry: 94 Medical Decision Making Medical Decision Making: Progres: Bloodwork and CXR ordered and reviewed. Albuterol INH and Solu-Medrol IV given. Disposition - Disposition - Scribe Statement The provider has reviewed the documentation as recorded by the Scribe (Anais Marcial) Provider Attestation: All medical record entries made by the Scribe were at my direction and personally dictated by me. I have reviewed the chart and agree that the record accurately reflects my personal performance of the history, physical exam, medical decision making, and the department course for this patient. I have also personally directed, reviewed, and agree with the discharge instructions and disposition.
[2018-08-31 07:31] LABS: BASO # 0.1 K/uL (0.0-0.2); BASO % 1.2 % (0.0-2.0); EOS # 0.1 K/uL (0.0-0.7); EOS % 2.3 % (0.0-4.0); HEMOGLOBIN 14.9 g/dL (12.0-18.0); LYMPH # 1.6 K/uL (1.0-4.3); LYMPH % 35.2 % (20.0-40.0); MEAN CORPUSCULAR HEMOGLOBIN 26.9 pg (27.0-31.0); MEAN CORPUSCULAR HGB CONC 31.9 g/dL (33.0-37.0); MEAN PLATELET VOLUME 9.3 fL (7.2-11.7); MONO # 0.4 K/uL (0.0-0.8); MONO % 9.4 % (0.0-10.0); NEUT # 2.3 K/uL (1.8-7.0); NEUT % 51.9 % (50.0-75.0); NRBC % 0.1 % (0.0-2.0); RBC 5.54 Mil/uL (4.40-5.90); RED CELL DISTRIBUTION WIDTH 17.7 % (11.5-14.5); WHITE BLOOD COUNT 4.4 K/uL (4.8-10.8)
[2018-08-31 07:34] LABS: MEAN CELL VOLUME 84.4 fL (80.0-94.0)
[2018-08-31 07:45] LABS: BLOOD UREA NITROGEN 8 mg/dL (9-20); CALCIUM 8.4 mg/dl (8.6-10.4); GFR NON-AFRICAN AMERICAN > 60
[2018-08-31 07:52] LABS: ALBUMIN 4.2 g/dL (3.5-5.0); ALT/SGPT < 6 U/L (21-72); AST/SGOT 80 U/L (17-59)
--- NOTE | 2018-08-31 08:35 | CP.PCM.HP ---
<Reese Bonilla - Last Filed: 08/31/18 16:13> History of Present Illness - History of Present Illness History of Present Illness: 83 year old male with a past medical history of copd, hypertension, pneumonia,hyponatremia and A.A. who presents to the hospital with complaints of generalized weakness and shortness of breath for over a year. Patient reports feeling short of breath throughout his day including at rest and while active . Patient states he recently had pnemonia and the shortness of breath began to worsen. Patient reports coming in after being on the toilet and felt weaker t perez normal. Patient reports swelling of the extremities and chills in conjunction with his symptoms. Patient denies any chest pain, nausea, vomiting, constipation, diarrhea, headaches, syncopal episodes, or any other compliants. PMD: Dr. Amaya Medical history: hypertension, copd, pneumonia, hyponatremia Medications: Allergies: Denies Social history: Drinks 4 12oz. Beers Daily. Former smoker. Denies illciti drug use. Currently homeless Present on Admission - Present on Admission Any Indicators Present on Admission: No Review of Systems - Constitutional Constitutional: absent: Chills, Frequent Falls, Night Sweats, Weakness - EENT Eyes: absent: Blurred Vision, Discharge, Loss of Peripheral Vision, Requires Corrective Lenses Ears: absent: Ear Discharge, Dizziness Nose/Mouth/Throat: absent: Nasal Congestion, Nose Pain, Bleeding Gums, Dysphagia - Cardiovascular Cardiovascular: absent: Chest Pain, Diaphoresis, Irregular Heart Rhythm, Leg Edema, Palpitations, Slow Heart Rate - Respiratory Respiratory: absent: Hemoptysis, Pain on Inspiration - Musculoskeletal Musculoskeletal: absent: Abnormal Gait, Muscle Weakness, Myalgias, Tingling - Integumentary Integumentary: absent: Alopecia, Striae, Swelling - Neurological Neurological: absent: Dizziness, Radicular Pain, Tremor, Vertigo - Psychiatric Psychiatric: absent: Confusion, Depression - Endocrine Endocrine: absent: Polydipsia, Polyphagia, Polyuria - Hematologic/Lymphatic Hematologic: absent: Easy Bleeding, Easy Bruising Past Patient History - Infectious Disease Hx of Infectious Diseases: None - Past Social History Smoking Status: Former Smoker - CARDIAC Hx Hypertension: Yes - PULMONARY Hx Pneumonia: Yes - NEUROLOGICAL Hx Neurological Disorder: No - HEENT Hx HEENT Problems: No - RENAL Hx Chronic Kidney Disease: No - ENDOCRINE/METABOLIC Hx Endocrine Disorders: No - HEMATOLOGICAL/ONCOLOGICAL Hx Blood Disorders: No - INTEGUMENTARY Hx Dermatological Problems: No - MUSCULOSKELETAL/RHEUMATOLOGICAL Hx Musculoskeletal Disorders: No Hx Falls: No - GASTROINTESTINAL Hx Gastrointestinal Disorders: No - GENITOURINARY/GYNECOLOGICAL Hx Genitourinary Disorders: No Hx Prostate Problems: Yes - PSYCHIATRIC Hx Substance Use: No - SURGICAL HISTORY Hx Cholecystectomy: Yes - ANESTHESIA Hx Anesthesia: Yes Hx Anesthesia Reactions: No Meds Allergies/Adverse Reactions: Allergies Allergy/AdvReac Type Severity Reaction Status Date / Time No Known Allergies Allergy Verified 06/27/18 17:35 Physical Exam - Head Exam Head Exam: ATRAUMATIC Additional comments: Temporal bossing bilaterally - Eye Exam Eye Exam: EOMI, Normal appearance, PERRL Pupil Exam: NORMAL ACCOMODATION - ENT Exam ENT Exam: Mucous Membranes Moist. absent: Normal Oropharynx - Respiratory Exam Respiratory Exam: Respiratory Distress, NORMAL BREATHING PATTERN - Cardiovascular Exam Cardiovascular Exam: REGULAR RHYTHM, +S1, +S2 - GI/Abdominal Exam GI & Abdominal Exam: Normal Bowel Sounds, Soft. absent: Tenderness - Extremities Exam Extremities exam: Positive for: normal inspection. Negative for: pedal edema - Neurological Exam Neurological exam: Alert, CN II-XII Intact, Oriented x3 - Skin Skin Exam: Dry, Intact, Normal Color Results - Vital Signs Recent Vital Signs: Last Vital Signs Temp 98.8 F 08/31/18 06:23 Pulse 82 08/31/18 07:16 Resp 20 08/31/18 07:16 BP 126/78 08/31/18 07:16 Pulse Ox 96 08/31/18 07:16 - Labs Result Diagrams: 08/31/18 07:18 08/31/18 07:18 Labs: Laboratory Results - last 24 hr 08/31/18 08/31/18 07:18 07:18 WBC 4.4 L RBC 5.54 Hgb 14.9 Hct 46.7 MCV 84.4 D MCH 26.9 L MCHC 31.9 L RDW 17.7 H Plt Count 145 MPV 9.3 Neut % (Auto) 51.9 Lymph % (Auto) 35.2 [place] % (Auto) 9.4 Eos % (Auto) 2.3 Baso % (Auto) 1.2 Neut # (Auto) 2.3 Lymph # (Auto) 1.6 [place] # (Auto) 0.4 Eos # (Auto) 0.1 Baso # (Auto) 0.1 Sodium 130 L Potassium 4.8 Chloride 95 L Carbon Dioxide 24 Anion Gap 16 BUN 8 L Creatinine 0.8 Est GFR ( Amer) > 60 Est GFR (Non-Af Amer) > 60 Random Glucose 101 Calcium 8.4 L Total Bilirubin 1.3 AST 80 H D ALT < 6 L D Alkaline Phosphatase 108 Total Protein 8.4 H Albumin 4.2 Globulin 4.3 H Albumin/Globulin Ratio 1.0 Assessment & Plan - Assessment and Plan (Free Text) Assessment: 83 year old male with a past medical history of hypertension, copd, pneumonia and hypernatremia admitted for shortness of breath. Plan: 1.Shortness of breath -Chest xray -Duonebs 3ml INH rq4 -NC @2Liters 2.Hyponatremia Na--> 130 on admission 2/2 inadequate intake/volume depletion F/u urine and serum studies 3.Transaminitis AST-->80 on admission Likely 2/2 to etoh abuse -Hepatitis panel ordered .Will f/u with results 4. Hx of Hypertension -Continue Norvasc 5mg PO Daily -BP Parameters hold if SBP less than 110. 5.? Aortic aneursym -Per chart review patient doesn't want any invasive treatment regarding A.A. 6.Homelessness -Social Work Referral PPX -Multivitamin -Protonix 40mg PO Daily -Lovenox 40mg SC Daily Plan discussed with Attending Dr. Vanita Bonilla, PGY-2 <Alpesh Waldron H - Last Filed: 08/31/18 18:16> Results - Vital Signs Recent Vital Signs: Last Vital Signs Temp 98 F 08/31/18 15:35 Pulse 92 H 08/31/18 15:35 Resp 20 08/31/18 15:35 BP 127/82 08/31/18 15:35 Pulse Ox 98 08/31/18 15:35 - Labs Result Diagrams: 08/31/18 07:18 08/31/18 07:18 Labs: Laboratory Results - last 24 hr 08/31/18 08/31/18 08/31/18 07:18 07:18 08:00 WBC 4.4 L RBC 5.54 Hgb 14.9 Hct 46.7 MCV 84.4 D MCH 26.9 L MCHC 31.9 L RDW 17.7 H Plt Count 145 MPV 9.3 Neut % (Auto) 51.9 Lymph % (Auto) 35.2 [place] % (Auto) 9.4 Eos % (Auto) 2.3 Baso % (Auto) 1.2 Neut # (Auto) 2.3 Lymph # (Auto) 1.6 [place] # (Auto) 0.4 Eos # (Auto) 0.1 Baso # (Auto) 0.1 Sodium 130 L Potassium 4.8 Chloride 95 L Carbon Dioxide 24 Anion Gap 16 BUN 8 L Creatinine 0.8 Est GFR ( Amer) > 60 Est GFR (Non-Af Amer) > 60 Random Glucose 101 Serum Osmolality Calcium 8.4 L Total Bilirubin 1.3 AST 80 H D ALT < 6 L D Alkaline Phosphatase 108 Total Protein 8.4 H Albumin 4.2 Globulin 4.3 H Albumin/Globulin Ratio 1.0 Urine Osmolality Ur Random Sodium Hepatitis A IgM Ab Negative Hep Bs Antigen Negative Hep B Core IgM Ab Negative Hepatitis C Antibody Negative 08/31/18 08/31/18 11:10 14:00 WBC RBC Hgb Hct MCV MCH MCHC RDW Plt Count MPV Neut % (Auto) Lymph % (Auto) [place] % (Auto) Eos % (Auto) Baso % (Auto) Neut # (Auto) Lymph # (Auto) [place] # (Auto) Eos # (Auto) Baso # (Auto) Sodium Potassium Chloride Carbon Dioxide Anion Gap BUN Creatinine Est GFR ( Amer) Est GFR (Non-Af Amer) Random Glucose Serum Osmolality 293 Calcium Total Bilirubin AST ALT Alkaline Phosphatase Total Protein Albumin Globulin Albumin/Globulin Ratio Urine Osmolality 139 L Ur Random Sodium 22 Hepatitis A IgM Ab Hep Bs Antigen Hep B Core IgM Ab Hepatitis C Antibody Attending/Attestation - Attestation I have personally seen and examined this patient.: Yes I have fully participated in the care of the patient.: Yes I have reviewed all pertinent clinical information: Yes Notes (Text): 08/31/18 18:01 Medical attending: Patient was seen and examined by me, reviewed the above note by the resident The patient was not in any acute distress when we came and saw him The patient had recived some treatment in the ER and by the time we saw reported he felt somewhat better There is a history of an anursym - and he does not want anything done for this. He explains that he signed out AMA last time because he did not want any intervention He is almost homeless it seems. He reports living with a friend from time to time as well as moving to and from [place] For now continue with the IV solumedrol, nebulizers, as well as long acting inhalers Hopefully the caseworkers will be able to see if he could go to a custodial or facility as he is 83 yrs old Alpesh Waldron
[2018-08-31 11:10] LABS: HEPATITIS B SURFACE AG Negative (NEGATIVE)
[2018-08-31 11:15] LABS: HEPATITIS A IGM NEGATIVE (NEGATIVE); HEPATITIS B CORE AB NEGATIVE (NEGATIVE)
[2018-08-31 11:27] LABS: HEPATITIS C ANTIBODY NEGATIVE (NEGATIVE)
[2018-08-31] MEDS: Multiple Vitamins Tab PO SCH (11:37)
[2018-08-31] MEDS: Pantoprazole 40 mg EC Tab PO SCH (11:37)
--- NOTE | 2018-08-31 12:54 | RAD ---
Date of service: 08/31/2018 HISTORY: r/o PNA COMPARISON: 06/27/2018 FINDINGS: LUNGS: No active pulmonary disease. PLEURA: No significant pleural effusion identified, no pneumothorax apparent. CARDIOVASCULAR: Normal heart size. Right paraspinous bulge above the level of the heart may reflect aneurysmal dilatation of the ascending thoracic aorta. Consider further evaluation with CT chest. No atherosclerotic calcification of the thoracic aorta. Normal cardiac size. No pulmonary vascular congestion. OSSEOUS STRUCTURES: No significant abnormalities. VISUALIZED UPPER ABDOMEN: Normal. OTHER FINDINGS: None. IMPRESSION: Possible aneurysmal dilatation of the ascending thoracic aorta. Consider evaluation with CT chest. No acute infiltrate.
[2018-08-31] MEDS: Albuterol-Ipratrop 3 mg / 0.5 (3 ml) UD INH SCH ×2 (13:10→21:03)
[2018-08-31 15:20] LABS: OSMOLALITY,URINE 139 mosm/kg (300-1000)
[2018-08-31 17:33] VITALS: RESP 20
[2018-09-01] MEDS: Albuterol-Ipratrop 3 mg / 0.5 (3 ml) UD INH SCH ×4 (02:25→19:29)
[2018-09-01 06:52] LABS: ALBUMIN 3.7 g/dL (3.5-5.0); ALT/SGPT 10 U/L (21-72); AST/SGOT 28 U/L (17-59); BLOOD UREA NITROGEN 12 mg/dL (9-20); CALCIUM 8.8 mg/dl (8.6-10.4); GFR NON-AFRICAN AMERICAN > 60
[2018-09-01 06:59] LABS: HEMOGLOBIN 14.5 g/dL (12.0-18.0); MEAN CELL VOLUME 84.7 fL (80.0-94.0); MEAN CORPUSCULAR HEMOGLOBIN 27.3 pg (27.0-31.0); MEAN CORPUSCULAR HGB CONC 32.2 g/dL (33.0-37.0); MEAN PLATELET VOLUME 9.3 fL (7.2-11.7); RBC 5.31 Mil/uL (4.40-5.90); RED CELL DISTRIBUTION WIDTH 17.4 % (11.5-14.5); WHITE BLOOD COUNT 6.9 K/uL (4.8-10.8)
[2018-09-01] MEDS: Fluticasone-Vilanterol 200/25mcg Diskus INH SCH (07:37)
--- NOTE | 2018-09-01 07:59 | CP.PCM.PN ---
<Audi Rowan - Last Filed: 09/01/18 14:32> Subjective - Date & Time of Evaluation Date of Evaluation: 09/01/18 Time of Evaluation: 07:59 - Subjective Subjective: PGY-1 Medicine Progress Note for Dr. Crowe Patient seen and examined at bedside this AM, resting comfortably. No acute overnight events reported. Patient is known from prior admission, came in with similar symptoms. SOB is improved with use of oxygen. Denies any chest pain, palpitations, cough, abdominal pain, n/v/d/c. 12 pt ROS reviewed and otherwise negative. Patient's sister and are known to live in suburb outside of [facility]. Patient was sent to live with family in [place] but does not like staying there, took a train back to where he is currently homeless again. Awaiting social work for further follow-up. Objective - Vital Signs/Intake and Output Vital Signs (last 24 hours): Temp Pulse Resp BP Pulse Ox 98.4 F 83 20 124/88 95 08/31/18 23:33 08/31/18 23:33 08/31/18 23:33 08/31/18 23:33 08/31/18 23:33 - Medications Medications: Current Medications Albuterol/Ipratropium (Duoneb 3 Mg/0.5 Mg (3 Ml) Ud) 3 ml IH Q15MIN [facility] Stop: 09/02/18 05:16 Albuterol/Ipratropium (Duoneb 3 Mg/0.5 Mg (3 Ml) Ud) 3 ml INH RQ6 [facility] Last Admin: 09/01/18 02:25 Dose: Not Given Amlodipine Besylate (Norvasc) 5 mg PO DAILY [facility] Last Admin: 08/31/18 11:37 Dose: 5 mg Enoxaparin Sodium (Lovenox) 40 mg SC DAILY [facility] Fluticasone/Vilanterol (Breo Ellipta 200-25 Mcg Inh) 1 puff INH RQ24 [facility] Methylprednisolone (Solu-Medrol) 40 mg IVP DAILY [facility] Montelukast Sodium (Singulair) 10 mg PO DAILY [facility] Multivitamins (Hexavitamin) 1 tab PO DAILY [facility] Last Admin: 08/31/18 11:37 Dose: 1 tab Pantoprazole Sodium (Protonix Ec Tab) 40 mg PO DAILY [facility] Last Admin: 08/31/18 11:37 Dose: 40 mg - Labs Labs: 09/01/18 06:30 09/01/18 06:30 - Constitutional Appears: Non-toxic, No Acute Distress - Head Exam Head Exam: ATRAUMATIC, NORMAL INSPECTION, NORMOCEPHALIC - Eye Exam Eye Exam: EOMI, Normal appearance - ENT Exam ENT Exam: Mucous Membranes Moist, Normal Exam - Neck Exam Neck Exam: Full ROM, Normal Inspection. absent: Tenderness - Respiratory Exam Respiratory Exam: NORMAL BREATHING PATTERN. absent: Accessory Muscle Use, Rales, Rhonchi, Respiratory Distress, Stridor - Cardiovascular Exam Cardiovascular Exam: REGULAR RHYTHM, +S1, +S2 - GI/Abdominal Exam GI & Abdominal Exam: Soft, Normal Bowel Sounds. absent: Distended, Firm, Guarding, Rigid, Tenderness, Rebound - Extremities Exam Extremities Exam: Full ROM, Normal Capillary Refill, Normal Inspection. absent: Calf Tenderness, Pedal Edema - Back Exam Back Exam: NORMAL INSPECTION - Neurological Exam Neurological Exam: Alert, Awake, CN II-XII Intact, Normal Gait, Oriented x3 - Psychiatric Exam Psychiatric exam: Normal Affect, Normal Mood - Skin Skin Exam: Dry, Intact, Normal Color, Warm Assessment and Plan - Assessment and Plan (Free Text) Assessment: 83 year old male with a past medical history of hypertension, copd, pneumonia and hypernatremia admitted for shortness of breath. Medically stable, awaiting dispo planning. Plan: Shortness of breath Hx COPD, dry cough -CXR: no acute infiltrate or acute pathology -Duonebs 3ml INH rq4 -O2 via NC prn Hyponatremia, resolved -Na:130 on admission -2/2 inadequate intake/volume depletion -F/u urine and serum studies Transaminitis, resolved -AST: 80 on admission -Likely 2/2 to etoh abuse -Hepatitis panel negative Hx HTN -normotensive -home Norvasc 5mg PO Daily with holding parameter -BP Parameters hold if SBP less than 110 Questionalble Aortic aneursym -Per chart review patient doesn't want any invasive treatment regarding A.A. -reiterates wishes on this admission Homelessness -Social Work Referral PPx, Diet, Disposition -DVT ppx: lovenox 40 daily -GI ppx: protonix 40 daily -Diet: HHD, MV tablets -Dispo: Patient is medically stable. Awaiting safe discharge planning. Case discussed with Dr. Sebastien Rowan DO, PGY-1 <Niya Crowe - Last Filed: 09/02/18 07:29> Objective - Vital Signs/Intake and Output Vital Signs (last 24 hours): Temp Pulse Resp BP Pulse Ox 97.5 F L 86 20 129/91 H 96 09/01/18 22:40 09/01/18 22:40 09/01/18 22:40 09/01/18 22:40 09/02/18 01:00 Intake and Output: 09/02/18 09/02/18 06:59 18:59 Output Total 400 Balance -400 - Medications Medications: Current Medications Albuterol/Ipratropium (Duoneb 3 Mg/0.5 Mg (3 Ml) Ud) 3 ml INH RQ6 [facility] Last Admin: 09/02/18 02:00 Dose: Not Given Amlodipine Besylate (Norvasc) 5 mg PO DAILY [facility] Last Admin: 09/01/18 10:26 Dose: 5 mg Enoxaparin Sodium (Lovenox) 40 mg SC DAILY [facility] Last Admin: 09/01/18 10:25 Dose: 40 mg Fluticasone/Vilanterol (Breo Ellipta 200-25 Mcg Inh) 1 puff INH RQ24 [facility] Last Admin: 09/01/18 07:37 Dose: Not Given Methylprednisolone (Solu-Medrol) 40 mg IVP DAILY [facility] Last Admin: 09/01/18 10:32 Dose: 40 mg Montelukast Sodium (Singulair) 10 mg PO DAILY [facility] Last Admin: 09/01/18 10:26 Dose: 10 mg Multivitamins (Hexavitamin) 1 tab PO DAILY [facility] Last Admin: 09/01/18 10:26 Dose: 1 tab Pantoprazole Sodium (Protonix Ec Tab) 40 mg PO DAILY [facility] Last Admin: 09/01/18 10:26 Dose: 40 mg - Labs Labs: 09/01/18 06:30 09/01/18 06:30 Attending/Attestation - Attestation I have personally seen and examined this patient.: Yes I have fully participated in the care of the patient.: Yes I have reviewed all pertinent clinical information, including history, physical exam and plan: Yes Notes (Text): Seen and examined by me with the resident. Patient remember me from previous admission and he was happy to see me. Pleasant frail homeless male from [place]. He doesn't want to live in [place] with his family.Denies fever,no sob,sitting comfortable saturating well. d/w CW about discharge plan
[2018-09-01 10:11] LABS: LYMPH # 1.8 K/uL (1.0-4.3); MONO # 0.6 K/uL (0.0-0.8); NEUT # 4.6 K/uL (1.8-7.0)
[2018-09-01] MEDS: Enoxaparin 40 mg Syringe SC SCH (10:25)
[2018-09-01] MEDS: Pantoprazole 40 mg EC Tab PO SCH (10:26)
[2018-09-01] MEDS: Multiple Vitamins Tab PO SCH (10:26)
[2018-09-01] MEDS: MethylPREDNISolone 40 mg Vial IVP SCH (10:32)
--- NOTE | 2018-09-01 11:32 | CARD ---
APPROVED REPORT Date of service: 08/31/2018 EKG Measurement Heart [id number] <Conclusion> Sinus rhythm with premature atrial complexes Low voltage QRS Inferior infarct, age undetermined Abnormal ECG
[2018-09-02] MEDS: Albuterol-Ipratrop 3 mg / 0.5 (3 ml) UD INH SCH ×4 (02:00→19:15)
--- NOTE | 2018-09-02 07:30 | CP.PCM.PN ---
Subjective - Date & Time of Evaluation Date of Evaluation: 09/02/18 Time of Evaluation: 07:27 - Subjective Subjective: PGY-1 Medicine Progress Note for Dr. Crowe Patient seen and examined at bedside, in no acute distress. Pt c/o of some mild L foot swelling overnight. No calf tenderness, no labored breathing, no erythema. 12 pt ROS reviewed and otherwise negative. Patient is currently homeless, refusing to go back to family in [place]. Awaiting further recs from social worker psychiatric for safe discharge plan as patient is frail and weak. Objective - Vital Signs/Intake and Output Vital Signs (last 24 hours): Temp Pulse Resp BP Pulse Ox 97.5 F L 86 20 129/91 H 96 09/01/18 22:40 09/01/18 22:40 09/01/18 22:40 09/01/18 22:40 09/02/18 01:00 Intake and Output: 09/02/18 09/02/18 06:59 18:59 Output Total 400 Balance -400 - Medications Medications: Current Medications Albuterol/Ipratropium (Duoneb 3 Mg/0.5 Mg (3 Ml) Ud) 3 ml INH RQ6 [facility] Last Admin: 09/02/18 02:00 Dose: Not Given Amlodipine Besylate (Norvasc) 5 mg PO DAILY [facility] Last Admin: 09/01/18 10:26 Dose: 5 mg Enoxaparin Sodium (Lovenox) 40 mg SC DAILY [facility] Last Admin: 09/01/18 10:25 Dose: 40 mg Fluticasone/Vilanterol (Breo Ellipta 200-25 Mcg Inh) 1 puff INH RQ24 [facility] Last Admin: 09/01/18 07:37 Dose: Not Given Methylprednisolone (Solu-Medrol) 40 mg IVP DAILY [facility] Last Admin: 09/01/18 10:32 Dose: 40 mg Montelukast Sodium (Singulair) 10 mg PO DAILY [facility] Last Admin: 09/01/18 10:26 Dose: 10 mg Multivitamins (Hexavitamin) 1 tab PO DAILY [facility] Last Admin: 09/01/18 10:26 Dose: 1 tab Pantoprazole Sodium (Protonix Ec Tab) 40 mg PO DAILY [facility] Last Admin: 09/01/18 10:26 Dose: 40 mg - Labs Labs: 09/01/18 06:30 09/01/18 06:30 - Constitutional Appears: Non-toxic, No Acute Distress - Head Exam Head Exam: ATRAUMATIC, NORMAL INSPECTION, NORMOCEPHALIC - Eye Exam Eye Exam: EOMI, Normal appearance, PERRL Pupil Exam: NORMAL ACCOMODATION - ENT Exam ENT Exam: Mucous Membranes Moist, Normal Exam - Neck Exam Neck Exam: Full ROM, Normal Inspection. absent: Tenderness - Respiratory Exam Respiratory Exam: Clear to Ausculation Bilateral, NORMAL BREATHING PATTERN. absent: Accessory Muscle Use, Rales, Rhonchi, Wheezes, Respiratory Distress, Stridor - Cardiovascular Exam Cardiovascular Exam: REGULAR RHYTHM, +S1, +S2 - GI/Abdominal Exam GI & Abdominal Exam: Soft, Normal Bowel Sounds. absent: Distended, Firm, Guarding, Rigid, Tenderness, Organomegaly, Rebound - Extremities Exam Extremities Exam: Full ROM, Normal Capillary Refill, Normal Inspection. absent: Calf Tenderness - Neurological Exam Neurological Exam: Alert, Awake, CN II-XII Intact, Normal Gait, Oriented x3 - Psychiatric Exam Psychiatric exam: Normal Affect, Normal Mood - Skin Skin Exam: Dry, Intact, Normal Color, Warm Assessment and Plan - Assessment and Plan (Free Text) Assessment: 83 year old male with a past medical history of hypertension, copd, pneumonia and hypernatremia admitted for shortness of breath. Medically stable, awaiting dispo planning. Plan: Shortness of breath Hx COPD, dry cough -CXR: no acute infiltrate or acute pathology -Duonebs 3ml INH rq4 -O2 via NC prn Hyponatremia, resolved -Na:130 on admission -2/2 inadequate intake/volume depletion -F/u urine and serum studies Transaminitis, resolved -AST: 80 on admission -Likely 2/2 to etoh abuse -Hepatitis panel negative Hx HTN -normotensive -home Norvasc 5mg PO Daily with holding parameter -BP Parameters hold if SBP less than 110 Questionalble Aortic aneursym -Per chart review patient doesn't want any invasive treatment regarding A.A. -reiterates wishes on this admission Homelessness -Social Work Referral PPx, Diet, Disposition -DVT ppx: lovenox 40 daily -GI ppx: protonix 40 daily -Diet: HHD, MV tablets -Dispo: Patient is medically stable. Awaiting safe discharge planning. Case discussed with Dr. Sebastien Rowan DO, PGY-1
[2018-09-02] MEDS: Fluticasone-Vilanterol 200/25mcg Diskus INH SCH (08:15)
[2018-09-02 09:09] LABS: BASO # 0.1 K/uL (0.0-0.2); HEMOGLOBIN 16.1 g/dL (12.0-18.0); LYMPH # 2.1 K/uL (1.0-4.3); LYMPH % 23.7 % (20.0-40.0); MEAN CELL VOLUME 85.4 fL (80.0-94.0); MEAN CORPUSCULAR HGB CONC 31.6 g/dL (33.0-37.0); MEAN PLATELET VOLUME 8.9 fL (7.2-11.7); MONO # 0.7 K/uL (0.0-0.8); MONO % 7.7 % (0.0-10.0); NEUT % 67.6 % (50.0-75.0); NRBC % 0.1 % (0.0-2.0); RBC 5.98 Mil/uL (4.40-5.90); RED CELL DISTRIBUTION WIDTH 17.8 % (11.5-14.5); WHITE BLOOD COUNT 8.9 K/uL (4.8-10.8)
[2018-09-02 09:18] LABS: ALT/SGPT 7 U/L (21-72); AST/SGOT 42 U/L (17-59); BLOOD UREA NITROGEN 21 mg/dL (9-20); CALCIUM 9.5 mg/dl (8.6-10.4); GFR NON-AFRICAN AMERICAN > 60
[2018-09-02] MEDS: Enoxaparin 40 mg Syringe SC SCH (09:58)
[2018-09-02] MEDS: Multiple Vitamins Tab PO SCH (09:59)
[2018-09-02] MEDS: Pantoprazole 40 mg EC Tab PO SCH (09:59)
[2018-09-02] MEDS: MethylPREDNISolone 40 mg Vial IVP SCH (09:59)
--- NOTE | 2018-09-02 14:07 | CP.PCM.DIS ---
Provider - Provider Date of Admission: 09/02/18 07:27 Attending physician: Niya Crowe MD Time Spent in preparation of Discharge (in minutes): 40 Hospital Course - Lab Results Lab Results: Most Recent Lab Values WBC 8.9 K/uL (4.8-10.8) 09/02/18 08:45 RBC 5.98 Mil/uL (4.40-5.90) H 09/02/18 08:45 Hgb 16.1 g/dL (12.0-18.0) 09/02/18 08:45 Hct 51.1 % (35.0-51.0) H 09/02/18 08:45 MCV 85.4 fL (80.0-94.0) 09/02/18 08:45 MCH 27.0 pg (27.0-31.0) 09/02/18 08:45 MCHC 31.6 g/dL (33.0-37.0) L 09/02/18 08:45 RDW 17.8 % (11.5-14.5) H 09/02/18 08:45 Plt Count 139 K/uL (130-400) 09/02/18 08:45 MPV 8.9 fL (7.2-11.7) 09/02/18 08:45 Neut % (Auto) 67.6 % (50.0-75.0) 09/02/18 08:45 Lymph % (Auto) 23.7 % (20.0-40.0) 09/02/18 08:45 [place] % (Auto) 7.7 % (0.0-10.0) 09/02/18 08:45 Eos % (Auto) 0.0 % (0.0-4.0) 09/02/18 08:45 Baso % (Auto) 1.0 % (0.0-2.0) 09/02/18 08:45 Neut # (Auto) 6.0 K/uL (1.8-7.0) 09/02/18 08:45 Lymph # (Auto) 2.1 K/uL (1.0-4.3) 09/02/18 08:45 [place] # (Auto) 0.7 K/uL (0.0-0.8) 09/02/18 08:45 Eos # (Auto) 0.0 K/uL (0.0-0.7) 09/02/18 08:45 Baso # (Auto) 0.1 K/uL (0.0-0.2) 09/02/18 08:45 Sodium 136 mmol/L (132-148) 09/02/18 08:45 Potassium 3.6 mmol/L (3.6-5.2) 09/02/18 08:45 Chloride 99 mmol/L (98-107) 09/02/18 08:45 Carbon Dioxide 29 mmol/L (22-30) 09/02/18 08:45 Anion Gap 11 (10-20) 09/02/18 08:45 BUN 21 mg/dL (9-20) H 09/02/18 08:45 Creatinine 0.9 mg/dL (0.8-1.5) 09/02/18 08:45 Est GFR ( Amer) > 60 09/02/18 08:45 Est GFR (Non-Af Amer) > 60 09/02/18 08:45 Random Glucose 131 mg/dL (75-110) H D 09/02/18 08:45 Serum Osmolality 293 mosm/kg (272-300) 08/31/18 11:10 Calcium 9.5 mg/dl (8.6-10.4) 09/02/18 08:45 Phosphorus 3.2 mg/dL (2.5-4.5) 09/01/18 06:30 Magnesium 2.0 mg/dL (1.6-2.3) 09/01/18 06:30 Total Bilirubin 0.6 mg/dL (0.2-1.3) 09/02/18 08:45 AST 42 U/L (17-59) 09/02/18 08:45 ALT 7 U/L (21-72) L D 09/02/18 08:45 Alkaline Phosphatase 79 U/L (38-126) 09/02/18 08:45 Total Protein 8.1 g/dL (6.3-8.3) 09/02/18 08:45 Albumin 4.0 g/dL (3.5-5.0) 09/02/18 08:45 Globulin 4.2 gm/dL (2.2-3.9) H 09/02/18 08:45 Albumin/Globulin Ratio 1.0 (1.0-2.1) 09/02/18 08:45 Urine Osmolality 139 mosm/kg (300-1000) L 08/31/18 14:00 Ur Random Sodium 22 mmol/L 08/31/18 14:00 Hepatitis A IgM Ab Negative (NEGATIVE) 08/31/18 08:00 Hep Bs Antigen Negative (NEGATIVE) 08/31/18 08:00 Hep B Core IgM Ab Negative (NEGATIVE) 08/31/18 08:00 Hepatitis C Antibody Negative (NEGATIVE) 08/31/18 08:00 - Hospital Course Hospital Course: HPI: Patient is an 83 year old homeless -[place] male with a past medical history of COPD, hypertension, pneumonia, hyponatremia and questionable aortic aneurysm (patient has refused further workup or interventional care in the past) who presents to the hospital with complaints of generalized weakness and shortness of breath for over a year. Patient reports feeling short of breath throughout his day including at rest and while active . Patient states he recently had pnemonia and the shortness of breath began to worsen. Patient reports coming in after being on the toilet and felt weaker than normal. Patie nt reports swelling of the extremities and chills in conjunction with his symptoms. Patient denies any chest pain, nausea, vomiting, constipation, diarrhea, headaches, syncopal episodes, or any other complaints. During the course of admission: Chest X-ray obtained showed no acute infiltrate or pathology. Patient is known to hospital, was admitted few months prior for similar complaints. Patient was discharged home and sent to live with family in [place]. Patient however returned to [place] and remained homeless, returning with similar general complaints. Patient does not wish to return to family in [place], stating his home is [place]. Duonebulizer treatments were started and all home medications were resumed. Patient's shortness of breath improved during course of admission. Plans were coordinated with social workers for patient to be transported to senior living. Patient is afebrile with no leukocytosis or acute shortness of breath. He is medically stable for discharge as per Dr. Crowe. He is instructed to resume all home medications as currently prescribed. Please follow up with your primary care provider (Dr. Amaya) within 3-5 days of discharge for further monitoring and care. If symptoms worsen, please return to the ED immediately. The following is a summary of hospital course. For full detail, please refer to EMR. - Date & Time of H&P Date of H&P: 09/02/18 Time of H&P: 13:50 Discharge Exam - Head Exam Head Exam: ATRAUMATIC, NORMAL INSPECTION, NORMOCEPHALIC - Eye Exam Eye Exam: EOMI, Normal appearance Pupil Exam: NORMAL ACCOMODATION - ENT Exam ENT Exam: Mucous Membranes Moist, Normal Exam - Neck Exam Neck exam: Full Rom, Normal Inspection - Respiratory Exam Respiratory Exam: Clear to PA & Lateral, NORMAL BREATHING PATTERN, UNREMARKABLE. absent: Accessory Muscle Use, Rales, Rhonchi, Wheezes, Respiratory Distress, S tridor - Cardiovascular Exam Cardiovascular Exam: REGULAR RHYTHM, +S1, +S2 - GI/Abdominal Exam GI & Abdominal Exam: Normal Bowel Sounds, Soft, Unremarkable. absent: Distended, Firm, Guarding, Rebound, Rigid, Tenderness - Extremities Exam Extremities exam: normal capillary refill, normal inspection, pedal pulses present - Back Exam Back exam: NORMAL INSPECTION - Neurological Exam Neurological exam: Alert, Normal Gait, Oriented x3 - Psychiatric Exam Psychiatric exam: Normal Affect, Normal Mood - Skin Skin Exam: Dry, Intact, Normal Color, Warm Discharge Plan - Follow Up Plan Condition: GOOD Disposition: HOME/ ROUTINE
[2018-09-03] MEDS: Albuterol-Ipratrop 3 mg / 0.5 (3 ml) UD INH SCH ×2 (01:55→07:58)
[2018-09-03 02:39] VITALS: BP 133/84; PULSE 78; TEMP 98; O2SAT 95
[2018-09-03] MEDS: Fluticasone-Vilanterol 200/25mcg Diskus INH SCH (07:58)
[2018-09-03] MEDS: Multiple Vitamins Tab PO SCH (10:47)
[2018-09-03] MEDS: Pantoprazole 40 mg EC Tab PO SCH (10:47)
[2018-09-03] MEDS: Enoxaparin 40 mg Syringe SC SCH (10:47)
[2018-09-03] MEDS: MethylPREDNISolone 40 mg Vial IVP SCH (10:48)
== END 2018-09-03 13:24 | disposition home or self-care (01) | DRG 191 ==
LOC: C.ER 03:57 → C.9E 08:16 → C.6T 08:33 → OBSVTOIN 09-02 07:27
PROVIDERS: ADMIT Internal Medicine; ATTEND Internal Medicine
DX: J44.9 Chronic obstructive pulmonary disease, unspecified (principal); E87.1 Hypo-osmolality and hyponatremia; I10 Essential (primary) hypertension; I71.9 Aortic aneurysm of unspecified site, without rupture; R74.0 Nonspecific elevation of levels of transaminase and lactic acid dehydrogenase [LDH]; F10.10 Alcohol abuse, uncomplicated; Z87.01 Personal history of pneumonia (recurrent); Z87.891 Personal history of nicotine dependence; Z90.49 Acquired absence of other specified parts of digestive tract; Z59.0 Homelessness

== ENCOUNTER 2018-09-15 01:10 | Emergency (ER) | payer MEDICARE ==
--- NOTE | 2018-09-15 01:41 | C.PDOC ---
History Of Present Illness 83 year old male with PMHx of COPD is brought to the ED by EMS for evaluations. Patient was recently [place] [facility] [place] to a skilled nursing. Patient states [facility] [place] him a cab at 14:00 was supposed to get to the skilled nursing by 16:00. Patient reports the cab never showed up to picking him so he started walking. Patient arrived at a bar around where he stayed until he was picked up by EMS. Bar employees called ambulance because patient had some laboured breathing. Patient reports he is homeless and has nowhere to go. Patient reports his shortness of breath is not new, he always has laboured breathing. Patient denies fever, chills, headache, CP, palpitations, abdominal pain, rash, injury, fall, trauma. Chief Complaint (Nursing): Shortness Of Breath History Per: Patient, EMS History/Exam Limitations: no limitations Onset/Duration Of Symptoms: Days Current Symptoms Are (Timing): Still Present Initiating Event: Other Quality: "Pain" Current Respiratory Medications: See Home Med List Reports Recently: Seen In ED ([facility] [place]) Recent travel outside of the [place]: No Additional History Per: Patient Past Medical History Reviewed: Historical Data, Nursing Documentation, Vital Signs - Medical History PMH: COPD, HTN, Pneumonia Denies: Chronic Kidney Disease Surgical History: Cholecystectomy Family History: States: Unknown Family Hx - Social History Hx Alcohol Use: Yes Hx Substance Use: No - Immunization History Hx Tetanus Toxoid Vaccination: (unknown) Hx Influenza Vaccination: No Hx Pneumococcal Vaccination: No Review Of Systems Constitutional: Negative for: Fever, Chills, Weakness Eyes: Negative for: Redness, Other (scleral icterus) ENT: Negative for: Mouth Swelling Cardiovascular: Negative for: Chest Pain Respiratory: Positive for: Shortness of Breath. Negative for: Cough Gastrointestinal: Negative for: Nausea, Vomiting, Diarrhea Musculoskeletal: Negative for: Back Pain Skin: Negative for: Rash Neurological: Negative for: Weakness, Numbness, Dizziness Physical Exam - Physical Exam Appears: Well, Non-toxic, No Acute Distress Skin: Normal Color, Warm, No Rash Head: Atraumatic, Normacephalic Eye(s): bilateral: Normal Inspection (no scleral icterus), PERRL, EOMI Ear(s): Bilateral: Normal (no drainage) Nose: Normal Oral Mucosa: Moist Throat: Normal, No Erythema, No Exudate, Other (no sweeling, injection. Airway patent) Neck: Normal ROM, Supple Chest: Symmetrical Cardiovascular: Rhythm Regular Respiratory: Accessory Muscle Use, Plerual Rub (decreased air exchange, baseline for patient) Gastrointestinal/Abdominal: Soft, No Distention Extremity: Bilateral: Atraumatic, Normal Color And Temperature Neurological/Psych: Oriented x3, Normal Speech, Other (cranial nerves grossly intact) Gait: Steady ED Course And Treatment ECG: Interpreted By Me, Viewed By Me ECG Rhythm: Sinus Rhythm Rate From EC (BPM) O2 Sat by Pulse Oximetry: 97 (ON RA) Pulse Ox Interpretation: Normal Medical Decision Making Medical Decision Making: Patient is currently saturating at 97% on RA, reports his laboured breathing is his baseline. Patient will be observed until the morning when he will be discharged and referred to a skilled nursing again. 6:04am patient reports feeling well without complaint at this time. Disposition Counseled Patient/Family Regarding: Diagnosis, Need For Followup - Disposition Disposition: HOME/ ROUTINE Disposition Time: 06:03 Condition: STABLE Instructions: Chronic Obstructive Pulmonary Disease (COPD), Including Emphysema Forms: [employer] (Chinese), General Discharge Instructions - Clinical Impression Clinical Impression: Homelessness, COPD (chronic obstructive pulmonary disease) - PA / LIAISON OFFICER / Resident Statement MD/DO has reviewed & agrees with the documentation as recorded. - Scribe Statement The provider has reviewed the documentation as recorded by the Scribe Federico Greenwood All medical record entries made by the Scribe were at my direction and personally dictated by me. I have reviewed the chart and agree that the record accurately reflects my personal performance of the history, physical exam, medical decision making, and the department course for this patient. I have also personally directed, reviewed, and agree with the discharge instructions and disposition.
[2018-09-15 04:46] VITALS: BP 111/69; PULSE 81; RESP 22; TEMP 97.6
[2018-09-15 06:05] VITALS: O2SAT 97
--- NOTE | 2018-09-15 12:45 | CARD ---
APPROVED REPORT Date of service: 09/15/2018 EKG Measurement Heart [id number] [id number] <Conclusion> Normal sinus rhythm Low voltage QRS Nonspecific ST and T wave abnormality Abnormal ECG
== END 2018-09-15 06:19 | disposition home or self-care (01) ==
LOC: C.ER 01:10
DX: J44.9 Chronic obstructive pulmonary disease, unspecified (principal); Z59.0 Homelessness; I10 Essential (primary) hypertension

== ENCOUNTER 2018-10-27 20:12 | Inpatient (IN) | payer MEDICARE, MEDICAID ==
[2018-10-27] MEDS ORDERED: Albuterol-Ipratrop 3 mg / 0.5 (3 ml) UD ONE ×3 (20:24→21:00)
[2018-10-27] MEDS ORDERED: Albuterol-Ipratrop 3 mg / 0.5 (3 ml) UD INH STA ×3 (20:25→20:43)
[2018-10-27 21:05] LABS: BASO % 0.5 % (0.0-2.0); EOS % 0.2 % (0.0-4.0); LYMPH # 3.3 K/uL (1.0-4.3); MEAN CORPUSCULAR HEMOGLOBIN 26.8 pg (27.0-31.0); MEAN CORPUSCULAR HGB CONC 32.5 g/dL (33.0-37.0); MEAN PLATELET VOLUME 8.4 fL (7.2-11.7); MONO # 0.5 K/uL (0.0-0.8); MONO % 4.6 % (0.0-10.0); NEUT # 6.2 K/uL (1.8-7.0); NEUT % 61.7 % (50.0-75.0); NRBC % 0.1 % (0.0-2.0); RBC 4.72 Mil/uL (4.40-5.90); RED CELL DISTRIBUTION WIDTH 14.6 % (11.5-14.5); WHITE BLOOD COUNT 10.1 K/uL (4.8-10.8)
[2018-10-27 21:20] LABS: HEMOGLOBIN 12.6 g/dL (12.0-18.0); MEAN CELL VOLUME 82.5 fL (80.0-94.0)
--- NOTE | 2018-10-27 21:34 | C.PDOC ---
History Of Present Illness Patient is a 83 year old male daryl who presents to the ED c/o coughing and SOB. Patient was [place] [facility] [place] for COPD exacerbation and was unable to follow up with outpatient treatment. He denies any CP, fever, or chills. Time Seen by Provider: 10/27/18 20:42 Chief Complaint (Nursing): Shortness Of Breath History Per: Patient, EMS History/Exam Limitations: no limitations Current Symptoms Are (Timing): Still Present Associated Symptoms: denies: Fever, Chills, Chest Pain Recent travel outside of the [place]: No Additional History Per: Patient, EMS Past Medical History Reviewed: Historical Data, Nursing Documentation, Vital Signs Vital Signs: Last Vital Signs Temp 97.7 F 10/27/18 20:29 Pulse 75 10/27/18 20:29 Resp 26 H 10/27/18 20:45 BP 125/81 10/27/18 20:29 Pulse Ox 100 10/27/18 20:45 - Medical History PMH: CHF, COPD, Emphysema, HTN, Pneumonia Denies: Chronic Kidney Disease Surgical History: Cholecystectomy Family History: States: Unknown Family Hx - Social History Hx Alcohol Use: Yes Hx Substance Use: No - Immunization History Hx Tetanus Toxoid Vaccination: (unknown) Hx Influenza Vaccination: No Hx Pneumococcal Vaccination: No Review Of Systems Constitutional: Negative for: Fever, Chills Cardiovascular: Negative for: Chest Pain Respiratory: Positive for: Cough, Shortness of Breath Physical Exam - Physical Exam Appears: Non-toxic, No Acute Distress, Other (thin elderly black male) Skin: Normal Color, Warm, Dry Head: Atraumatic, Normacephalic Oral Mucosa: Moist Neck: Normal ROM, Supple Chest: Symmetrical, No Deformity Cardiovascular: Rhythm Regular, No Murmur Respiratory: Normal Breath Sounds, No Rales, Rhonchi (scattered throughout), Wheezing (scattered throughout) Gastrointestinal/Abdominal: Soft Neurological/Psych: Oriented x3 ED Course And Treatment - Laboratory Results Result Diagrams: 10/27/18 21:02 10/27/18 21:02 Lab Interpretation: Abnormal (+ hyponatremia, Flu swab NEG) ECG: Interpreted By Me, Viewed By Me ECG Rhythm: Sinus Rhythm Rate From EC O2 Sat by Pulse Oximetry: 92 (on RA) Pulse Ox Interpretation: Normal - Radiology CXR: Interpreted by Me CXR Interpretation: Yes: Infiltrates (+RL), Other (+ hyperinflated) Reevaluation Time: 22:10 Reassessment Condition: Improved - Physician Consult Information Outcome Of Conversation: 2199: d/w Dr. Mckeon- Medicine Toucher Up- ok to admi. 2229: d/w Medicine Jermaine, will eval Medical Decision Making Medical Decision Making: Plan: EKG Labs CXR Blood Culture Nebulizer Urinalysis Serology Influenza Duoneb 3ml INH Solu-Medrol 125mg IVP PNA: RLL PNA on CXR no leukocytosis recent [place] [facility] [place] Avelox for hospital exposure to PNA COPD Exacerbation solumedrol/nebs Hyponatremia May be related to PNA or beer potomania follow ETOH Abuse 66 Consider CIWA protocol Disposition Doctor Will See Patient In The: Hospital Counseled Patient/Family Regarding: Studies Performed, Diagnosis - Disposition Disposition: HOSPITALIZED Disposition Time: 22:15 Condition: GOOD Forms: [facility] (Nicaraguan) - Clinical Impression Clinical Impression: Chr obstructive pulmonary disease w/ acute lower respiratory infxn, Hyponatremia, Alcohol abuse - Scribe Statement The provider has reviewed the documentation as recorded by the Taurusibcolin Stanton All medical record entries made by the Taurusibcolin were at my direction and personally dictated by me. I have reviewed the chart and agree that the record accurately reflects my personal performance of the history, physical exam, medical decision making, and the department course for this patient. I have also personally directed, reviewed, and agree with the discharge instructions and disposition.
[2018-10-27 21:57] LABS: ALB/GLOB RATIO 1.2 (1.0-2.1); ALBUMIN 4.1 g/dL (3.5-5.0); ALT/SGPT 9 U/L (21-72); AST/SGOT 47 U/L (17-59); BLOOD UREA NITROGEN 11 mg/dL (9-20); CALCIUM 9.4 mg/dl (8.6-10.4); GFR NON-AFRICAN AMERICAN > 60
[2018-10-27] MEDS ORDERED: Moxifloxacin IV 400mg/250ml NS 400 MG/250 ML BAG IV STA (22:06)
[2018-10-27 22:07] LABS: B-TYPE NATRIURETIC PEPTIDE 286 pg/mL (0-900)
[2018-10-27] MEDS ORDERED: Moxifloxacin IV 400mg/250ml NS 400 MG/250 ML BAG IVPB ONE (22:32)
--- NOTE | 2018-10-27 23:14 | CP.PCM.HP ---
History of Present Illness - History of Present Illness History of Present Illness: History and physical for Dr. Mckeon's service HPI: Patient is an 83 year old homeless male with history of COPD, HTN, pneumonia, hyponatremia, aortic aneurysm who presents for complaints of shortness of breath, cough. He states he was recently at [facility] for COPD exacerbation 2 days ago. He was reportedly brought in by ambulance after patient states he could not breathe. History limited since patient drank alcohol and appears to be intoxicated. Per prior chart, PMH: COPD, HTN, pneumonia, hyponatremia, aortic aneurysm PSH: none Home meds: none Allergies: NKDA Social hx: drinks beer, unable to specify amount. former smoker. no illicit drug use. Currently homeless, lost apartment months ago. Family hx: noncontributory Present on Admission - Present on Admission Any Indicators Present on Admission: No Review of Systems - Review of Systems Systems not reviewed;Unavailable: Intoxicated Past Patient History - Infectious Disease Hx of Infectious Diseases: None - Past Medical History & Family History Past Medical History?: Yes - Past Social History Smoking Status: Former Smoker - CARDIAC Hx Congestive Heart Failure: Yes Hx Hypertension: Yes - PULMONARY Hx Chronic Obstructive Pulmonary Disease (COPD): Yes Hx Emphysema: Yes Hx Pneumonia: Yes - NEUROLOGICAL Hx Neurological Disorder: No - HEENT Hx HEENT Problems: No - RENAL Hx Chronic Kidney Disease: No - ENDOCRINE/METABOLIC Hx Endocrine Disorders: No - HEMATOLOGICAL/ONCOLOGICAL Hx Blood Disorders: No - INTEGUMENTARY Hx Dermatological Problems: No - MUSCULOSKELETAL/RHEUMATOLOGICAL Hx Musculoskeletal Disorders: No Hx Falls: No - GASTROINTESTINAL Hx Gastrointestinal Disorders: No - GENITOURINARY/GYNECOLOGICAL Hx Genitourinary Disorders: No Hx Prostate Problems: Yes - PSYCHIATRIC Hx Substance Use: No - SURGICAL HISTORY Hx Cholecystectomy: Yes - ANESTHESIA Hx Anesthesia: Yes Hx Anesthesia Reactions: No Meds Allergies/Adverse Reactions: Allergies Allergy/AdvReac Type Severity Reaction Status Date / Time pollen extracts Allergy Verified 10/27/18 20:36 Physical Exam - Constitutional Additional comments: Patient is intoxicated intermittently answers questions - Head Exam Head Exam: ATRAUMATIC, NORMOCEPHALIC - Eye Exam Eye Exam: EOMI, PERRL - ENT Exam ENT Exam: Mucous Membranes Dry - Neck Exam Neck exam: Positive for: Full Rom - Respiratory Exam Respiratory Exam: Decreased Breath Sounds. absent: Rales, Rhonchi, Wheezes - Cardiovascular Exam Cardiovascular Exam: REGULAR RHYTHM, +S1, +S2 - GI/Abdominal Exam GI & Abdominal Exam: Normal Bowel Sounds, Soft. absent: Distended, Firm, Tenderness - Extremities Exam Extremities exam: Positive for: pedal edema, pedal pulses present. Negative for: calf tenderness - Neurological Exam Additional comments: Intoxicated, but is aware that is in hospital, is October 2018 - Skin Skin Exam: Dry, Intact, Warm Results - Vital Signs Recent Vital Signs: Last Vital Signs Temp 97.7 F 10/27/18 20:29 Pulse 75 10/27/18 20:29 Resp 26 H 10/27/18 20:45 BP 125/81 10/27/18 20:29 Pulse Ox 92 L 10/27/18 22:15 - Labs Result Diagrams: 10/28/18 04:18 10/28/18 04:18 Labs: Laboratory Results - last 24 hr 10/27/18 10/27/18 10/27/18 20:31 21:02 21:02 WBC 10.1 RBC 4.72 Hgb 12.6 D Hct 38.9 MCV 82.5 D MCH 26.8 L MCHC 32.5 L RDW 14.6 H Plt Count 116 L D MPV 8.4 Neut % (Auto) 61.7 Lymph % (Auto) 33.0 Dent % (Auto) 4.6 Eos % (Auto) 0.2 Baso % (Auto) 0.5 Neut # (Auto) 6.2 Lymph # (Auto) 3.3 Dent # (Auto) 0.5 Eos # (Auto) 0.0 Baso # (Auto) 0.0 Differential Comment Sodium Potassium Chloride Carbon Dioxide Anion Gap BUN Creatinine Est GFR ( Amer) Est GFR (Non-Af Amer) POC Glucose (mg/dL) 104 Random Glucose Calcium Total Bilirubin AST ALT Alkaline Phosphatase Troponin I NT-Pro-B Natriuret Pep Total Protein Albumin Globulin Albumin/Globulin Ratio Alcohol, Quantitative Influenza Typ A,B (EIA) Negative for flu a/b 10/27/18 21:02 WBC RBC Hgb Hct MCV MCH MCHC RDW Plt Count MPV Neut % (Auto) Lymph % (Auto) Dent % (Auto) Eos % (Auto) Baso % (Auto) Neut # (Auto) Lymph # (Auto) Dent # (Auto) Eos # (Auto) Baso # (Auto) Differential Comment Sodium 127 L Potassium 4.2 Chloride 93 L Carbon Dioxide 24 Anion Gap 15 BUN 11 Creatinine 0.8 Est GFR ( Amer) > 60 Est GFR (Non-Af Amer) > 60 POC Glucose (mg/dL) Random Glucose 87 D Calcium 9.4 Total Bilirubin 0.4 AST 47 ALT 9 L D Alkaline Phosphatase 93 Troponin I 0.0820 NT-Pro-B Natriuret Pep 286 Total Protein 7.6 Albumin 4.1 Globulin 3.4 Albumin/Globulin Ratio 1.2 Alcohol, Quantitative 66 H Influenza Typ A,B (EIA) Assessment & Plan - Assessment and Plan (Free Text) Assessment: 83 year old homeless male who presents for shortness of breath. Plan: Shortness of breath Currently on 2L NC, saturating 96% Duonebs Q4 Singulair 10mg PO HS CXR: hyperinflated, possible right lower lobe infiltrate Afebrile, White count 10.1 flu negative No antibiotics for now, given no white count or fever In ED: patient received Duonebs x3, Solumedrol 125mg IV and Avelox 400mg IV Hyponatremia Na 127, last admission 130 Urine osmolarity,Urine Na NS @75cc/hr IV History of HTN Norvasc 5mg PO Questionable Aortic aneurysm As per prior chart, patient did not want further work up Follow up with patient in AM as patient intoxicated. Alcohol use disorder Alcohol level 66 Ativan 1mg Q4 PRN MV, Thiamine, folate Lower extremity edema Dopplers ordered No SCDs Prophylaxis Lovenox 40 SC daily Protonix 40mg PO daily PT/OT/Case management Case discussed with Dr. Mike Siegel, PGY1
[2018-10-27] MEDS ORDERED: Sodium Chloride 0.9% 1,000 ML IV ONE (23:36)
[2018-10-28] MEDS: Albuterol-Ipratrop 3 mg / 0.5 (3 ml) UD INH SCH ×5 (00:15→19:31)
[2018-10-28 01:40] LABS: SQUAMOUS EPITHIAL < 1 /hpf (0-5); URINE BILIRUBIN NEGATIVE (NEGATIVE); URINE BLOOD NEGATIVE (NEGATIVE); URINE CLARITY Clear (Clear); URINE COLOR Straw (YELLOW); URINE GLUCOSE (UA) NORMAL (Normal); URINE LEUKOCYTE ESTERASE NEG Leu/uL (Negative); URINE PROTEIN NEGATIVE (NEGATIVE); URINE UROBILINOGEN NORMAL mg/dL (0.2-1.0)
[2018-10-28 01:58] LABS: BARBITURATES, UR NEGATIVE (NEGATIVE); BENZODIAZEPINES, UR NEGATIVE (NEGATIVE); OPIATES, UR NEGATIVE (NEGATIVE); PHENCYCLIDINE, UR NEGATIVE (NEGATIVE)
[2018-10-28 02:34] LABS: OSMOLALITY,URINE 81 mosm/kg (300-1000)
[2018-10-28 04:21] LABS: HEMOGLOBIN 12.1 g/dL (12.0-18.0); LYMPH # 0.2 K/uL (1.0-4.3); MEAN CORPUSCULAR HEMOGLOBIN 26.5 pg (27.0-31.0); MONO # 0.2 K/uL (0.0-0.8); PLATELET COUNT 113 K/uL (130-400); RBC 4.55 Mil/uL (4.40-5.90)
[2018-10-28 04:25] LABS: BASO % 0.3 % (0.0-2.0); LYMPH % 2.9 % (20.0-40.0); MEAN CELL VOLUME 82.5 fL (80.0-94.0); MEAN CORPUSCULAR HGB CONC 32.1 g/dL (33.0-37.0); MEAN PLATELET VOLUME 8.1 fL (7.2-11.7); NEUT # 5.5 K/uL (1.8-7.0); NEUT % 92.8 % (50.0-75.0); RED CELL DISTRIBUTION WIDTH 14.6 % (11.5-14.5)
[2018-10-28 05:00] LABS: ALB/GLOB RATIO 1.2 (1.0-2.1); ALBUMIN 3.8 g/dL (3.5-5.0); ALT/SGPT < 6 U/L (21-72); AST/SGOT 37 U/L (17-59); BLOOD UREA NITROGEN 10 mg/dL (9-20); GFR NON-AFRICAN AMERICAN > 60
[2018-10-28 06:02] LABS: LYMPHOCYTE 4 % (20-40); MONOCYTE 3 % (0-10); NEUTROPHIL 93 % (50-75); PLATELET ESTIMATE SLIGHTLY DECREASED (NORMAL); TOTAL CELLS COUNTED 100
--- NOTE | 2018-10-28 07:35 | RAD ---
Date of service: 10/27/2018 PROCEDURE: CHEST RADIOGRAPH, 1 VIEW HISTORY: SOB COMPARISON: 08/31/2018 and 06/27/2018 FINDINGS: LUNGS: Interval patchy opacity right lung base-compatible with patchy infiltrate/pneumonia here. Bilateral hyperaeration-background COPD/emphysema inferred. PLEURA: No pneumothorax or pleural fluid seen. CARDIOVASCULAR: There is presence of aortic atherosclerotic calcification on x-ray. The ascending aorta appears prominent as noted previously. An ascending aortic aneurysm is a consideration. Other etiologies not excluded. No change since 06/27/2018 appreciated. If further evaluation is clinically indicated, consider CT chest imaging with IV contrast enhancement. OSSEOUS STRUCTURES: No significant abnormalities. VISUALIZED UPPER ABDOMEN: Normal. OTHER FINDINGS: None. IMPRESSION: Interval right lung base pneumonia. Background COPD. Relative prominence of the ascending aorta-potentially reflecting an acid any aortic aneurysm is similar to the 06/27/2018 chest x-ray. Please note above considerations.
[2018-10-28] MEDS: Pantoprazole 20 mg EC Tab PO SCH (10:18)
[2018-10-28] MEDS: Multiple Vitamins Tab PO SCH (10:18)
[2018-10-28] MEDS: Enoxaparin 40 mg Syringe SC SCH (10:19)
--- NOTE | 2018-10-28 11:25 | CP.PCM.PN ---
Subjective - Date & Time of Evaluation Date of Evaluation: 10/28/18 Time of Evaluation: 11:25 - Subjective Subjective: PGY1 Medicine Progress Note for Dr. Mckeon Patient seen and evaluated at bedside this morning. No new complaints. No acute events overnight. Patient is tolerating diet. Patient otherwise denies headache, fever, chills, nausea, vomiting, abdominal pain, diarrhea, and/or tremor. Objective - Vital Signs/Intake and Output Vital Signs (last 24 hours): Temp Pulse Resp BP Pulse Ox 98.4 F 69 20 124/77 96 10/28/18 07:00 10/28/18 07:00 10/28/18 07:00 10/28/18 07:00 10/28/18 07:00 Intake and Output: 10/28/18 10/28/18 06:59 18:59 Output Total 400 Balance -400 - Medications Medications: Current Medications Albuterol/Ipratropium (Duoneb 3 Mg/0.5 Mg (3 Ml) Ud) 3 ml INH RQ4 [facility] Last Admin: 10/28/18 08:48 Dose: 3 ml Amlodipine Besylate (Norvasc) 5 mg PO DAILY [facility] Last Admin: 10/28/18 10:18 Dose: 5 mg Enoxaparin Sodium (Lovenox) 40 mg SC DAILY [facility] Last Admin: 10/28/18 10:19 Dose: Not Given Folic Acid (Folic Acid) 1 mg PO DAILY [facility] Last Admin: 10/28/18 10:19 Dose: 1 mg Sodium Chloride (Sodium Chloride 0.9%) 1,000 mls @ 75 mls/hr IV .[id number] ONE Stop: 10/28/18 12:55 Last Admin: 10/28/18 00:21 Dose: 75 mls/hr Lorazepam (Ativan) 1 mg IVP Q6H PRN PRN Reason: Agitation Montelukast Sodium (Singulair) 10 mg PO HS [facility] Multivitamins (Hexavitamin) 1 tab PO DAILY [facility] Last Admin: 10/28/18 10:18 Dose: 1 tab Pantoprazole Sodium (Protonix Ec Tab) 20 mg PO DAILY [facility] Last Admin: 10/28/18 10:18 Dose: 20 mg Thiamine HCl (Vitamin B1 Tab) 100 mg PO DAILY [facility] Last Admin: 10/28/18 10:18 Dose: 100 mg - Labs Labs: 10/28/18 04:18 10/28/18 04:18 - Head Exam Head Exam: ATRAUMATIC, NORMAL INSPECTION, NORMOCEPHALIC - Eye Exam Eye Exam: EOMI, Normal appearance, PERRL Pupil Exam: NORMAL ACCOMODATION - ENT Exam ENT Exam: Mucous Membranes Moist - Neck Exam Neck Exam: Full ROM, Normal Inspection - Respiratory Exam Respiratory Exam: Clear to Ausculation Bilateral, NORMAL BREATHING PATTERN - Cardiovascular Exam Cardiovascular Exam: REGULAR RHYTHM, +S1, +S2 - GI/Abdominal Exam GI & Abdominal Exam: Soft, Normal Bowel Sounds. absent: Tenderness - Extremities Exam Extremities Exam: Full ROM, Normal Capillary Refill, Pedal Edema - Back Exam Back Exam: NORMAL INSPECTION - Neurological Exam Neurological Exam: Alert, Awake, CN II-XII Intact, Oriented x3 - Psychiatric Exam Psychiatric exam: Normal Affect, Normal Mood - Skin Skin Exam: Dry, Intact, Normal Color, Warm Assessment and Plan - Assessment and Plan (Free Text) Assessment: 83 year old homeless male who presents for shortness of breath. Shortness of breath - In ED: patient received Duonebs x3, Solumedrol 125mg IV and Avelox 400mg IV - Troponin I 0.0820 - F/U Repeat Troponin - Currently on 2L NC, saturating 96% - Duonebs Q4 - Singulair 10mg PO HS - CXR: hyperinflated, possible right lower lobe infiltrate - Afebrile - No leukocytosis - Flu negative - No antibiotics for now, given no white count or fever - Monitor ETOH intoxication - Alcohol level 66 - Ativan 1mg Q4 PRN - MV, Thiamine, folate - Neuro checks - Seizure/ Aspiration precautions Hyponatremia, resolved - Na 127 --> 135 - Urine osmolarity: 81 - F/U Urine Na - NS @75cc/hr IV discontinued History of HTN - Continue Norvasc 5mg PO Questionable Aortic aneurysm - As per prior chart, patient did not want further work up Lower extremity edema - Dopplers ordered - No SCDs Prophylaxis - Lovenox 40 SC daily - Protonix 40mg PO daily - PT/OT/Case management Case discussed with Dr. Mckeon
[2018-10-29] MEDS: Albuterol-Ipratrop 3 mg / 0.5 (3 ml) UD INH SCH ×7 (00:27→23:35)
--- NOTE | 2018-10-29 03:12 | CARD ---
APPROVED REPORT Date of service: 10/27/2018 EKG Measurement Heart [id number] <Conclusion> Sinus rhythm with premature atrial complexes with aberrant conduction ST & T wave abnormality, consider inferior ischemia Abnormal ECG
[2018-10-29 08:31] LABS: BASO % 0.4 % (0.0-2.0); HEMOGLOBIN 13.1 g/dL (12.0-18.0); LYMPH # 0.5 K/uL (1.0-4.3); LYMPH % 4.9 % (20.0-40.0); MEAN CELL VOLUME 82.9 fL (80.0-94.0); MEAN CORPUSCULAR HEMOGLOBIN 26.4 pg (27.0-31.0); MEAN CORPUSCULAR HGB CONC 31.8 g/dL (33.0-37.0); MEAN PLATELET VOLUME 8.6 fL (7.2-11.7); MONO # 1.2 K/uL (0.0-0.8); MONO % 12.7 % (0.0-10.0); NEUT # 7.7 K/uL (1.8-7.0); PLATELET COUNT 137 K/uL (130-400); RBC 4.96 Mil/uL (4.40-5.90); RED CELL DISTRIBUTION WIDTH 14.8 % (11.5-14.5)
[2018-10-29 08:34] LABS: WHITE BLOOD COUNT 9.4 K/uL (4.8-10.8)
[2018-10-29 08:55] LABS: ALB/GLOB RATIO 1.2 (1.0-2.1); ALT/SGPT 8 U/L (21-72); AST/SGOT 37 U/L (17-59); BLOOD UREA NITROGEN 13 mg/dL (9-20); CALCIUM 9.5 mg/dl (8.6-10.4); GFR NON-AFRICAN AMERICAN > 60
[2018-10-29 09:24] LABS: LYMPHOCYTE 6 % (20-40); MONOCYTE 11 % (0-10); NEUTROPHIL 83 % (50-75); PLATELET ESTIMATE NORMAL (NORMAL); TOTAL CELLS COUNTED 100
[2018-10-29 09:25] LABS: OVALOCYTES SLIGHT
[2018-10-29] MEDS: Multiple Vitamins Tab PO SCH (10:16)
[2018-10-29] MEDS: Pantoprazole 20 mg EC Tab PO SCH (10:16)
[2018-10-29] MEDS: Enoxaparin 40 mg Syringe SC SCH (10:17)
--- NOTE | 2018-10-29 10:44 | CP.PCM.PN ---
Subjective - Date & Time of Evaluation Date of Evaluation: 10/29/18 Time of Evaluation: 10:42 - Subjective Subjective: PGY1 Medicine Progress Note for Dr. Mckeon Patient seen and evaluated at bedside this morning. No new complaints. No acute events overnight. Patient is tolerating diet. Patient otherwise denies headache, fever, chills, nausea, vomiting, abdominal pain, diarrhea, and/or tremor. Objective - Vital Signs/Intake and Output Vital Signs (last 24 hours): Temp Pulse Resp BP Pulse Ox 97.3 F L 84 18 136/83 97 10/29/18 07:00 10/29/18 07:00 10/29/18 07:00 10/29/18 07:00 10/29/18 07:00 Intake and Output: 10/29/18 10/29/18 06:59 18:59 Intake Total 320 Output Total 700 Balance -380 - Medications Medications: Current Medications Albuterol/Ipratropium (Duoneb 3 Mg/0.5 Mg (3 Ml) Ud) 3 ml INH RQ4 [facility] Last Admin: 10/29/18 04:44 Dose: Not Given Amlodipine Besylate (Norvasc) 5 mg PO DAILY [facility] Last Admin: 10/29/18 10:16 Dose: 5 mg Enoxaparin Sodium (Lovenox) 40 mg SC DAILY [facility] Last Admin: 10/29/18 10:17 Dose: Not Given Folic Acid (Folic Acid) 1 mg PO DAILY [facility] Last Admin: 10/29/18 10:16 Dose: 1 mg Lorazepam (Ativan) 1 mg IVP Q6H PRN PRN Reason: Agitation Montelukast Sodium (Singulair) 10 mg PO HS [facility] Last Admin: 10/28/18 21:43 Dose: 10 mg Multivitamins (Hexavitamin) 1 tab PO DAILY [facility] Last Admin: 10/29/18 10:16 Dose: 1 tab Pantoprazole Sodium (Protonix Ec Tab) 20 mg PO DAILY [facility] Last Admin: 10/29/18 10:16 Dose: 20 mg Thiamine HCl (Vitamin B1 Tab) 100 mg PO DAILY [facility] Last Admin: 10/29/18 10:16 Dose: 100 mg - Labs Labs: 10/29/18 08:22 10/29/18 08:22 - Additional Findings Additional findings: - Head Exam Head Exam: ATRAUMATIC, NORMAL INSPECTION, NORMOCEPHALIC - Eye Exam Eye Exam: EOMI, Normal appearance, PERRL Pupil Exam: NORMAL ACCOMODATION - ENT Exam ENT Exam: Mucous Membranes Moist - Neck Exam Neck Exam: Full ROM, Normal Inspection - Respiratory Exam Respiratory Exam: Clear to Ausculation Bilateral, NORMAL BREATHING PATTERN - Cardiovascular Exam Cardiovascular Exam: REGULAR RHYTHM, +S1, +S2 - GI/Abdominal Exam GI & Abdominal Exam: Soft, Normal Bowel Sounds. absent: Tenderness - Extremities Exam Extremities Exam: Full ROM, Normal Capillary Refill, Pedal Edema - Back Exam Back Exam: NORMAL INSPECTION - Neurological Exam Neurological Exam: Alert, Awake, CN II-XII Intact, Oriented x3 - Psychiatric Exam Psychiatric exam: Normal Affect, Normal Mood - Skin Skin Exam: Dry, Intact, Normal Color, Warm Assessment and Plan - Assessment and Plan (Free Text) Assessment: 83 year old homeless male who presents for shortness of breath. Elevated Troponin - On admission: 0.0820 - On repeat: 0.05 - Cardiology consulted (Dr. Thompson); recommendations appreciated - Continue to monitor in tele Shortness of breath - In ED: patient received Duonebs x3, Solumedrol 125mg IV and Avelox 400mg IV - Troponin I 0.0820 - On repeat: 0.05 - Currently on 2L NC, saturating 96% - Duonebs Q4 - Singulair 10mg PO HS - CXR: hyperinflated, possible right lower lobe infiltrate - Afebrile - No leukocytosis - Flu negative - No antibiotics for now, given no white count or fever - Monitor ETOH intoxication - Alcohol level 66 - Ativan 1mg Q4 PRN - MV, Thiamine, folate - Neuro checks - Seizure/ Aspiration precautions Hyponatremia, resolved - Na 127 --> 135 - Urine osmolarity: 81 - F/U Urine Na - NS @75cc/hr IV discontinued History of HTN - Continue Norvasc 5mg PO Questionable Aortic aneurysm - As per prior chart, patient did not want further work up Lower extremity edema - Dopplers ordered - No SCDs Prophylaxis - Lovenox 40 SC daily - Protonix 40mg PO daily - PT/OT/Case management Case discussed with Dr. Mike Elizabeth PGY1
--- NOTE | 2018-10-29 13:04 | VASCLAB ---
Date of service: 10/29/2018 PROCEDURE: Lower Extremity Venous Duplex Exam. HISTORY: lower extremity edema pain PRIORS: None. TECHNIQUE: Bilateral common femoral, femoral, popliteal and posterior tibial, peroneal and great saphenous veins were evaluated. Flow was assessed with color Doppler, compressibility, assessment of phasic flow and augmentation response. Report prepared by Kyle Hoang, T FINDINGS: RIGHT: 1. Common Femoral Vein: 1.1. Compressibility - Fully compressible: Thrombus - None : Flow - Phasic: Augmentation -Normal: Reflux - . 2. Femoral Vein: 2.1. Compressibility - Fully compressible: Thrombus - None : Flow - Phasic: Augmentation -Normal: Reflux - . 3. Popliteal Vein: 3.1. Compressibility - Fully compressible: Thrombus - None : Flow - Phasic: Augmentation -Normal: Reflux - . 4. Posterior Tibial Vein: 4.1. Compressibility - Fully compressible: Thrombus - None: Flow - Phasic: Augmentation -Normal: Reflux - . 5. Peroneal Vein 5.1. Compressibility - Fully compressible: Thrombus - None: Flow - Phasic: Augmentation -Normal: Reflux - . 6. Great Saphenous Vein: 6.1. Compressibility - Fully compressible: Thrombus - None: Flow - Phasic: Augmentation - Normal: Reflux - . LEFT: 1. Common Femoral Vein: 1.1. Compressibility - Fully compressible: Thrombus - None: Flow - Phasic: Augmentation -Normal: Reflux - . 2. Femoral Vein: 2.1. Compressibility - Fully compressible: Thrombus - None: Flow - Phasic: Augmentation -Normal: Reflux - . 3. Popliteal Vein: 3.1. Compressibility - Fully compressible: Thrombus - None : Flow - Phasic: Augmentation -Normal: Reflux - . 4. Posterior Tibial Vein: 4.1. Compressibility - Fully compressible: Thrombus - None: Flow - Phasic: Augmentation -Normal: Reflux - . 5. Peroneal Vein: 5.1. Compressibility - Fully compressible: Thrombus - None: Flow - Phasic: Augmentation -Normal: Reflux - . 6. Great Saphenous Vein: 6.1. Compressibility - Fully compressible: Thrombus - None: Flow - Phasic: Augmentation - Normal: Reflux - . OTHER FINDINGS: Right: None significant. Left: None significant. IMPRESSION: Right: No evidence of deep or superficial vein thrombosis of the right lower extremity. Left: No evidence of deep or superficial vein thrombosis of the left lower extremity.
--- NOTE | 2018-10-29 19:28 | CP.PCM.CON ---
History of Present Illness - History of Present Illness History of Present Illness: I was asked to evaluate patient by Dr Mckeon. Patient seen 10/29/181926 Patient is a 83 year old male with HTN COPD who presents with dyspnea. Patient is homeless and is a poor historian. He denies chest pain but states heis dsypneic with walking. Review of Systems - Constitutional Constitutional: absent: As Per HPI, Anorexia, Chills, Daytime Sleepiness, Excessive Sweating, Fatigue, Fever, Frequent Falls, Headache, Increased Appetite, Lethargy, Malaise, Night Sweats, Snoring, Sleep Apnea, Weight Gain, Weight Loss, Weakness, Other - EENT Eyes: absent: As Per HPI, Blind Spots, Blurred Vision, Change in Vision, Decreased Night Vision, Diplopia, Discharge, Dry Eye, Exophthalmos, Floaters, Irritation, Itchy Eyes, Loss of Peripheral Vision, Pain, Photophobia, Requires Corrective Lenses, Sees Flashes, Spots in Vision, Tunnel Vision, Other Visual Disturbances, Loss of Vision, Other Ears: absent: As Per HPI, Decreased Hearing, Ear Discharge, Ear Pain, Tinnitus, Abnormal Hearing, Disequilibrium, Dizziness, Other Nose/Mouth/Throat: absent: As Per HPI, Epistaxis, Nasal Congestion, Nasal Discharge, Nasal Obstruction, Nasal Trauma, Nose Pain, Post Nasal Drip, Sinus Pain, Sinus Pressure, Bleeding Gums, Change in Voice, Dental Pain, Dry Mouth, Dysphagia, Halitosis, Hoarsness, Lip Swelling, Mouth Lesions, Mouth Pain, Odynophagia, Sore Throat, Throat Swelling, Tongue Swelling, Facial Pain, Neck Pain, Neck Mass, Other - Cardiovascular Cardiovascular: absent: As Per HPI, Acrocyanosis, Chest Pain, Chest Pain at Rest, Chest Pain with Activity, Claudication, Diaphoresis, Dyspnea, Dyspnea on Exertion, Edema, Irregular Heart Rhythm, Pain Radiating to Arm/Neck/Jaw, Leg Edema, Leg Ulcers, Lightheadedness, Orthopnea, Palpitations, Paroxysmal Nocturnal Dyspnea, Pedal Edema, Radiating Pain, Rapid Heart Rate, Slow Heart Rate, Syncope, Other - Respiratory Respiratory: Dyspnea - Gastrointestinal Gastrointestinal: absent: As Per HPI, Abdominal Pain, Belching, Bloating, Change in Bowel Habits, Change in Stool Character, Coffee Ground Emesis, Constipation, Cramping, Diarrhea, Dyspepsia, Dysphagia, Early Satiety, Excessive Flatus, Fecal Incontinence, Heartburn, Hematemesis, Hematochezia, Loose Stools, Melena, Nausea, Odynophagia, Temesmus, Vomiting, Other - Genitourinary Genitourinary: absent: As Per HPI, Change in Urinary Stream, Difficulty Urinating, Dysuria, Flank Pain, Hematuria, Pyuria, Nocturia, Urinary Inco ntinence, Urinary Frequency, Urinary Hesitance, Urinary Urgency, Voiding Freq/Small Amts, Freq UTI, Hx Renal/Bladder Calculi, Hx /Renal Surgery, Bladder Distension, Other - Musculoskeletal Musculoskeletal: absent: As Per HPI, Abnormal Gait, Arthralgias, Atrophy, Back Pain, Deformity, Joint Swelling, Limited Range of Motion, Loss of Height, Muscle Cramps, Muscle Weakness, Myalgias, Neck Pain, Numbness, Radiating Pain into Limb, Stiffness, Tingling, Other - Integumentary Integumentary: absent: As Per HPI, Acne, Alopecia, Bleeding Lesions, Change in Hair, Change in Nails, Change in Pigmentation, Changing Lesions, Dry Skin, Erythema, Furuncle, Hirsutism, Lesions, New Lesions, Non-Healing Lesions, Photosensitivity, Pruritus, Rash, Skin Pain, Skin Ulcer, Sores, Striae, Swelling, Unusual Bruising, Wounds, Jaundice, Other - Neurological Neurological: absent: As Per HPI, Abnormal Gait, Abnormal Hearing, Abnormal Movements, Abnormal Speech, Behavioral Changes, Burning Sensations, Confusion, Convulsions, Disequilibrium, Dizziness, Numbness, Focal Weakness, Frequent Falls, Headaches, Lack of Coordination, Loss of Vision, Memory Loss, Paresthesias, Radicular Pain, Restless Legs, Sensory Deficit, Syncope, Tingling, Tremor, Vertigo, Weakness, Other Visual Disturbances, Other - Psychiatric Psychiatric: absent: As Per HPI, Abnormal Sleep Pattern, Anhedonia, Anxiety, Auditory Hallucinations, Behavioral Changes, Change in Appetite, Change in Libido, Confusion, Depression, Difficulty Concentrating, Hallucinations, Homicidal Ideation, Hopelessness, Irritability, Memory Loss, Mood Swings, Panic Attacks, Paranoia, Suicidal Ideation, Visual Hallucinations, Tactile Hallucinations, Other - Endocrine Endocrine: absent: As Per HPI, Change in Body Appearance, Change in Libido, Cold Intolorance, Deepening of Voice, Excessive Sweating, Fatigue, Flushing, Heat Intolorance, Increase in Ring/Shoe/Hat Size, Palpitations, Polydipsia, Polyphagia, Polyuria, Other - Hematologic/Lymphatic Hematologic: absent: As Per HPI, Easy Bleeding, Easy Bruising, Lymphadenopathy, Other Past Patient History - Infectious Disease Hx of Infectious Diseases: None - Past Medical History & Family History Past Medical History?: Yes - Past Social History Smoking Status: Former Smoker - CARDIAC Hx Cardiac Disorders: Yes Hx Congestive Heart Failure: Yes Hx Hypertension: Yes - PULMONARY Hx Respiratory Disorders: Yes Hx Chronic Obstructive Pulmonary Disease (COPD): Yes Hx Emphysema: Yes Hx Pneumonia: Yes - NEUROLOGICAL Hx Neurological Disorder: No - HEENT Hx HEENT Problems: No - RENAL Hx Chronic Kidney Disease: No - ENDOCRINE/METABOLIC Hx Endocrine Disorders: No - HEMATOLOGICAL/ONCOLOGICAL Hx Blood Disorders: No - INTEGUMENTARY Hx Dermatological Problems: No - MUSCULOSKELETAL/RHEUMATOLOGICAL Hx Musculoskeletal Disorders: No Hx Falls: No - GASTROINTESTINAL Hx Gastrointestinal Disorders: No - GENITOURINARY/GYNECOLOGICAL Hx Genitourinary Disorders: No Hx Prostate Problems: Yes - PSYCHIATRIC Hx Psychophysiologic Disorder: No Hx Substance Use: No - SURGICAL HISTORY Hx Surgeries: Yes Hx Cholecystectomy: Yes - ANESTHESIA Hx Anesthesia: Yes Hx Anesthesia Reactions: No Meds Allergies/Adverse Reactions: Allergies Allergy/AdvReac Type Severity Reaction Status Date / Time pollen extracts Allergy Verified 10/27/18 20:36 - Medications Medications: Current Medications Albuterol/Ipratropium (Duoneb 3 Mg/0.5 Mg (3 Ml) Ud) 3 ml INH RQ4 [facility] Last Admin: 10/29/18 15:23 Dose: 3 ml Amlodipine Besylate (Norvasc) 5 mg PO DAILY [facility] Last Admin: 10/29/18 10:16 Dose: 5 mg Enoxaparin Sodium (Lovenox) 40 mg SC DAILY [facility] Last Admin: 10/29/18 10:17 Dose: Not Given Folic Acid (Folic Acid) 1 mg PO DAILY [facility] Last Admin: 10/29/18 10:16 Dose: 1 mg Lorazepam (Ativan) 1 mg IVP Q6H PRN PRN Reason: Agitation Montelukast Sodium (Singulair) 10 mg PO HS [facility] Last Admin: 10/28/18 21:43 Dose: 10 mg Multivitamins (Hexavitamin) 1 tab PO DAILY [facility] Last Admin: 10/29/18 10:16 Dose: 1 tab Pantoprazole Sodium (Protonix Ec Tab) 20 mg PO DAILY [facility] Last Admin: 10/29/18 10:16 Dose: 20 mg Pneumococcal Polyvalent Vaccine (Pneumovax 23 Vaccine) 0.5 ml IM .ONCE ONE Stop: 10/31/18 10:01 Thiamine HCl (Vitamin B1 Tab) 100 mg PO DAILY [facility] Last Admin: 10/29/18 10:16 Dose: 100 mg Physical Exam - Constitutional Appears: Non-toxic - Head Exam Head Exam: NORMAL INSPECTION - Eye Exam Eye Exam: Normal appearance - ENT Exam ENT Exam: Mucous Membranes Moist - Neck Exam Neck exam: Positive for: Full Rom - Respiratory Exam Respiratory Exam: NORMAL BREATHING PATTERN - Cardiovascular Exam Cardiovascular Exam: REGULAR RHYTHM - GI/Abdominal Exam GI & Abdominal Exam: Normal Bowel Sounds - Rectal Exam Rectal Exam: Deferred - Extremities Exam Extremities exam: Negative for: pedal edema - Back Exam Back exam: NORMAL INSPECTION - Neurological Exam Neurological exam: Alert, Oriented x3 - Psychiatric Exam Psychiatric exam: Normal Affect - Skin Skin Exam: Normal Color Results - Vital Signs Recent Vital Signs: Last Vital Signs Temp 98 F 10/29/18 15:48 Pulse 87 10/29/18 16:00 Resp 18 10/29/18 17:59 BP 126/84 10/29/18 15:48 Pulse Ox 98 10/29/18 17:59 - Labs Result Diagrams: 10/29/18 08:22 10/29/18 08:22 Labs: Laboratory Results - last 24 hr 10/29/18 10/29/18 08:22 08:22 WBC 9.4 D RBC 4.96 Hgb 13.1 Hct 41.1 MCV 82.9 MCH 26.4 L MCHC 31.8 L RDW 14.8 H Plt Count 137 MPV 8.6 Neut % (Auto) 82.0 H Lymph % (Auto) 4.9 L Coffee % (Auto) 12.7 H Eos % (Auto) 0.0 Baso % (Auto) 0.4 Neut # (Auto) 7.7 H Lymph # (Auto) 0.5 L Coffee # (Auto) 1.2 H Eos # (Auto) 0.0 Baso # (Auto) 0.0 Neutrophils % (Manual) 83 H Lymphocytes % (Manual) 6 L Monocytes % (Manual) 11 H Platelet Estimate Normal Ovalocytes Slight Sodium 138 Potassium 3.9 Chloride 100 Carbon Dioxide 29 Anion Gap 12 BUN 13 Creatinine 0.8 Est GFR ( Amer) > 60 Est GFR (Non-Af Amer) > 60 Random Glucose 125 H D Calcium 9.5 Phosphorus 2.7 Magnesium 2.2 Total Bilirubin 0.4 AST 37 ALT 8 L D Alkaline Phosphatase 92 Total Protein 7.5 Albumin 4.0 Globulin 3.4 Albumin/Globulin Ratio 1.2 - EKG Data EKG Interpreted by: Myself EKG shows normal: Sinus rhythm Assessment & Plan (1) Dyspnea Assessment and Plan: patient has no current symptoms at rest. pro BNP is normal. This is unlikely due to CHF. I discussed risk factor modification in detail Status: Acute (2) HTN (hypertension) Assessment and Plan: blood pressure control Status: Chronic
[2018-10-29 23:54] VITALS: RESP 20
[2018-10-30] MEDS: Albuterol-Ipratrop 3 mg / 0.5 (3 ml) UD INH SCH ×3 (03:18→11:02)
[2018-10-30 07:48] VITALS: BP 125/85; TEMP 97.6; O2SAT 92
[2018-10-30 09:00] VITALS: PULSE 98
[2018-10-30] MEDS: Pantoprazole 20 mg EC Tab PO SCH (10:56)
[2018-10-30] MEDS: Multiple Vitamins Tab PO SCH (10:56)
[2018-10-30] MEDS: Enoxaparin 40 mg Syringe SC SCH (11:05)
--- NOTE | 2018-10-30 11:09 | CP.PCM.PN ---
Subjective - Date & Time of Evaluation Date of Evaluation: 10/30/18 Time of Evaluation: 11:06 - Subjective Subjective: Medicine Progress Note for Dr. Mckeon's service S/E at bedside Reports no sob or SAMUEL when going small distances like to the bathroom No acute events overnight Denies fevers, chills, cp, sob, n/v, constipation or diarrhea, and dyusria. Objective - Vital Signs/Intake and Output Vital Signs (last 24 hours): Temp Pulse Resp BP Pulse Ox 97.6 F 98 H 20 125/85 92 L 10/30/18 07:00 10/30/18 07:00 10/30/18 07:00 10/30/18 07:00 10/30/18 07:00 Intake and Output: 10/30/18 10/30/18 06:59 18:59 Output Total 450 Balance -450 - Medications Medications: Current Medications Albuterol/Ipratropium (Duoneb 3 Mg/0.5 Mg (3 Ml) Ud) 3 ml INH RQ4 [facility] Last Admin: 10/30/18 11:02 Dose: 3 ml Amlodipine Besylate (Norvasc) 5 mg PO DAILY [facility] Last Admin: 10/30/18 10:56 Dose: 5 mg Enoxaparin Sodium (Lovenox) 40 mg SC DAILY [facility] Last Admin: 10/30/18 11:05 Dose: Not Given Folic Acid (Folic Acid) 1 mg PO DAILY [facility] Last Admin: 10/30/18 10:56 Dose: 1 mg Lorazepam (Ativan) 1 mg IVP Q6H PRN PRN Reason: Agitation Montelukast Sodium (Singulair) 10 mg PO HS [facility] Last Admin: 10/29/18 21:23 Dose: 10 mg Multivitamins (Hexavitamin) 1 tab PO DAILY [facility] Last Admin: 10/30/18 10:56 Dose: 1 tab Pantoprazole Sodium (Protonix Ec Tab) 20 mg PO DAILY [facility] Last Admin: 10/30/18 10:56 Dose: 20 mg Pneumococcal Polyvalent Vaccine (Pneumovax 23 Vaccine) 0.5 ml IM .ONCE ONE Stop: 10/31/18 10:01 Thiamine HCl (Vitamin B1 Tab) 100 mg PO DAILY [facility] Last Admin: 10/30/18 10:56 Dose: 100 mg - Labs Labs: 10/29/18 08:22 10/29/18 08:22 - Additional Findings Additional findings: - Head Exam Head Exam: ATRAUMATIC, NORMAL INSPECTION, NORMOCEPHALIC - Eye Exam Eye Exam: EOMI, Normal appearance, PERRL Pupil Exam: NORMAL ACCOMODATION - ENT Exam ENT Exam: Mucous Membranes Moist - Neck Exam Neck Exam: Full ROM, Normal Inspection - Respiratory Exam Respiratory Exam: Clear to Ausculation Bilateral, NORMAL BREATHING PATTERN - Cardiovascular Exam Cardiovascular Exam: REGULAR RHYTHM, +S1, +S2 - GI/Abdominal Exam GI & Abdominal Exam: Soft, Normal Bowel Sounds. absent: Tenderness - Extremities Exam Extremities Exam: Full ROM, Normal Capillary Refill, Pedal Edema - Back Exam Back Exam: NORMAL INSPECTION - Neurological Exam Neurological Exam: Alert, Awake, CN II-XII Intact, Oriented x3 - Psychiatric Exam Psychiatric exam: Normal Affect, Normal Mood - Skin Skin Exam: Dry, Intact, Normal Color, Warm
--- NOTE | 2018-10-30 14:08 | CP.PCM.DIS ---
Provider - Provider Date of Admission: 10/29/18 17:18 Attending physician: Tony Mckeon Jr, MD Consults: 10/27/18 23:29 Case Management Referral Routine Comment: Physician Instructions: Reason For Exam: Reason for Referral: Discharge Planning 10/29/18 10:38 Cardiology Consult Routine Comment: Consulting Provider: Adilson Thompson Consulting Physician: Adilson Thompson Reason for Consult: Elevated troponins 10/29/18 18:27 Case Management Referral Routine Comment: Physician Instructions: Reason For Exam: Reason for Referral: Discharge Planning Time Spent in preparation of Discharge (in minutes): 31 Diagnosis - Discharge Diagnosis (1) COPD exacerbation Status: Resolved Hospital Course - Lab Results Lab Results: Micro Results 10/27/18 20:45 Blood Blood Culture - Preliminary NO GROWTH AFTER 48 HOURS 10/27/18 21:15 Blood Blood Culture - Preliminary NO GROWTH AFTER 48 HOURS Most Recent Lab Values WBC 9.4 K/uL (4.8-10.8) D 10/29/18 08:22 RBC 4.96 Mil/uL (4.40-5.90) 10/29/18 08:22 Hgb 13.1 g/dL (12.0-18.0) 10/29/18 08:22 Hct 41.1 % (35.0-51.0) 10/29/18 08:22 MCV 82.9 fL (80.0-94.0) 10/29/18 08:22 MCH 26.4 pg (27.0-31.0) L 10/29/18 08:22 MCHC 31.8 g/dL (33.0-37.0) L 10/29/18 08:22 RDW 14.8 % (11.5-14.5) H 10/29/18 08:22 Plt Count 137 K/uL (130-400) 10/29/18 08:22 MPV 8.6 fL (7.2-11.7) 10/29/18 08:22 Neut % (Auto) 82.0 % (50.0-75.0) H 10/29/18 08:22 Lymph % (Auto) 4.9 % (20.0-40.0) L 10/29/18 08:22 [place] % (Auto) 12.7 % (0.0-10.0) H 10/29/18 08:22 Eos % (Auto) 0.0 % (0.0-4.0) 10/29/18 08:22 Baso % (Auto) 0.4 % (0.0-2.0) 10/29/18 08:22 Neut # (Auto) 7.7 K/uL (1.8-7.0) H 10/29/18 08:22 Lymph # (Auto) 0.5 K/uL (1.0-4.3) L 10/29/18 08:22 [place] # (Auto) 1.2 K/uL (0.0-0.8) H 10/29/18 08:22 Eos # (Auto) 0.0 K/uL (0.0-0.7) 10/29/18 08:22 Baso # (Auto) 0.0 K/uL (0.0-0.2) 10/29/18 08:22 Neutrophils % (Manual) 83 % (50-75) H 10/29/18 08:22 Lymphocytes % (Manual) 6 % (20-40) L 10/29/18 08:22 Monocytes % (Manual) 11 % (0-10) H 10/29/18 08:22 Differential Comment 10/27/18 21:02 Platelet Estimate Normal (NORMAL) 10/29/18 08:22 Ovalocytes Slight 10/29/18 08:22 Sodium 138 mmol/L (132-148) 10/29/18 08:22 Potassium 3.9 mmol/L (3.6-5.2) 10/29/18 08:22 Chloride 100 mmol/L (98-107) 10/29/18 08:22 Carbon Dioxide 29 mmol/L (22-30) 10/29/18 08:22 Anion Gap 12 (10-20) 10/29/18 08:22 BUN 13 mg/dL (9-20) 10/29/18 08:22 Creatinine 0.8 mg/dL (0.8-1.5) 10/29/18 08:22 Est GFR ( Amer) > 60 10/29/18 08:22 Est GFR (Non-Af Amer) > 60 10/29/18 08:22 POC Glucose (mg/dL) 104 mg/dL (65-110) 10/27/18 20:31 Random Glucose 125 mg/dL (75-110) H D 10/29/18 08:22 Calcium 9.5 mg/dl (8.6-10.4) 10/29/18 08:22 Phosphorus 2.7 mg/dL (2.5-4.5) 10/29/18 08:22 Magnesium 2.2 mg/dL (1.6-2.3) 10/29/18 08:22 Total Bilirubin 0.4 mg/dL (0.2-1.3) 10/29/18 08:22 AST 37 U/L (17-59) 10/29/18 08:22 ALT 8 U/L (21-72) L D 10/29/18 08:22 Alkaline Phosphatase 92 U/L (38-126) 10/29/18 08:22 Troponin I 0.0580 ng/mL (0.00-0.120) 10/28/18 04:18 NT-Pro-B Natriuret Pep 286 pg/mL (0-900) 10/27/18 21:02 Total Protein 7.5 g/dL (6.3-8.3) 10/29/18 08:22 Albumin 4.0 g/dL (3.5-5.0) 10/29/18 08:22 Globulin 3.4 gm/dL (2.2-3.9) 10/29/18 08:22 Albumin/Globulin Ratio 1.2 (1.0-2.1) 10/29/18 08:22 Urine Color Straw (YELLOW) 10/28/18 01:32 Urine Clarity Clear (Clear) 10/28/18 01:32 Urine pH 6.0 (5.0-8.0) 10/28/18 01:32 Ur Specific [place]son 1.001 (1.003-1.030) L 10/28/18 01:32 Urine Protein Negative mg/dL (NEGATIVE) 10/28/18 01:32 Urine Glucose (UA) Normal mg/dL (Normal) 10/28/18 01:32 Urine Ketones Negative mg/dL (NEGATIVE) 10/28/18 01:32 Urine Blood Negative (NEGATIVE) 10/28/18 01:32 Urine Nitrate Negative (NEGATIVE) 10/28/18 01:32 Urine Bilirubin Negative (NEGATIVE) 10/28/18 01:32 Urine Urobilinogen Normal mg/dL (0.2-1.0) 10/28/18 01:32 Ur Leukocyte Esterase Neg Hubert/uL (Negative) 10/28/18 01:32 Urine WBC (Auto) < 1 /hpf (0-5) 10/28/18 01:32 Urine RBC (Auto) < 1 /hpf (0-3) 10/28/18 01:32 Ur Squamous Epith Cells < 1 /hpf (0-5) 10/28/18 01:32 Urine Osmolality 81 mosm/kg (300-1000) L 10/28/18 01:32 Ur Random Sodium 5 mmol/L 10/28/18 01:32 Urine Opiates Screen Negative (NEGATIVE) 10/28/18 01:32 Urine Methadone Screen Negative (NEGATIVE) 10/28/18 01:32 Ur Barbiturates Screen Negative (NEGATIVE) 10/28/18 01:32 Ur Phencyclidine Scrn Negative (NEGATIVE) 10/28/18 01:32 Ur Amphetamines Screen Negative (NEGATIVE) 10/28/18 01:32 U Benzodiazepines Scrn Negative (NEGATIVE) 10/28/18 01:32 U Oth Cocaine Metabols Negative (NEGATIVE) 10/28/18 01:32 U Cannabinoids Screen Negative (NEGATIVE) 10/28/18 01:32 Alcohol, Quantitative 66 mg/dl (0-10) H 10/27/18 21:02 Influenza Typ A,B (EIA) Negative for flu a/b (NEGATIVE) 10/27/18 21:02 - Hospital Course Hospital Course: Upon Admission Patient is an 83 year old homeless male with history of COPD, HTN, pneumonia, hyponatremia, aortic aneurysm who presents for complaints of shortness of breath, cough. He states he was recently at [facility] for COPD exacerbation 2 days ago. He was reportedly brought in by ambulance after patient states he could not breathe. History limited since patient drank alcohol and appears to be intoxicated. Hospital Course Admitted for sob 2/2 COPD exacerbation. Was intoxicated during admission. Treated with steroids, duonebs, and singulair. Patient was continued on HTN agent and given MVs, thiamine, and folic acid due to his alcohol use. Discharged when patient was able to ambulate on pulse ox for 6 minutes without going below 92%. Discharge Plan 1. Stable for discharge to home as per Dr. Mckeon 2. Will continue medications as reconciled. 3. [facility] of discharge from hospital. 4. If symptoms worsen or recur, patient understands the plan as above and a grees. Discharge Exam - Head Exam Head Exam: NORMAL INSPECTION, NORMOCEPHALIC - Eye Exam Eye Exam: EOMI, Normal appearance. absent: Nystagmus, Scleral icterus - ENT Exam ENT Exam: Mucous Membranes Moist - Respiratory Exam Respiratory Exam: NORMAL BREATHING PATTERN - Cardiovascular Exam Cardiovascular Exam: REGULAR RHYTHM, +S1, +S2 - GI/Abdominal Exam GI & Abdominal Exam: Normal Bowel Sounds, Soft. absent: Diminished Bowel Sounds, Distended, Firm, Guarding - Neurological Exam Neurological exam: Alert, CN II-XII Intact, Oriented x3 - Psychiatric Exam Psychiatric exam: Normal Affect, Normal Mood - Skin Skin Exam: Dry, Intact, Normal Color Discharge Plan - Discharge Medications Prescriptions: Albuterol HFA [Ventolin HFA 90 mcg/actuation (8 g)] 2 puff IH [id number] PRN #1 inhaler PRN Reason: Shortness of Breath amLODIPine [Norvasc] 5 mg PO DAILY #30 tab Budesonide/Formoterol Fumarate [Symbicort 160-4.5 Mcg Inhaler] 2 aer IH BID #1 hfa.aer.ad Losartan [Cozaar] 25 mg PO DAILY #30 tab Montelukast [Singulair] 10 mg PO HS #30 tab - Follow Up Plan Condition: GOOD Disposition: HOME/ ROUTINE Additional Instructions: 1. Stable for discharge to home as per Dr. Mckeon 2. Will continue medications as reconciled. 3. Must followup [facility] with 7 days of discharge from hospital. 4. If symptoms worsen or recur, patient understands the plan as above and agrees.
[2018-10-31] MEDS ORDERED: Pneumococcal 23-Valent Vaccine IM ONE (10:00)
== END 2018-10-30 15:04 | disposition home or self-care (01) | DRG 191 ==
LOC: C.ER 20:12 → C.9E 22:07 → C.6T 22:33 → OBSVTOIN 10-29 17:18
PROVIDERS: ADMIT Internal Medicine; ATTEND Internal Medicine
DX: J44.1 Chronic obstructive pulmonary disease with (acute) exacerbation (principal); E87.1 Hypo-osmolality and hyponatremia; F10.120 Alcohol abuse with intoxication, uncomplicated; I11.0 Hypertensive heart disease with heart failure; I50.9 Heart failure, unspecified; Z59.0 Homelessness; Z87.891 Personal history of nicotine dependence; Y90.3 Blood alcohol level of 60-79 mg/100 ml

== ENCOUNTER 2018-11-16 04:34 | Inpatient (IN) | payer MEDICARE, MEDICAID ==
--- NOTE | 2018-11-16 04:50 | C.PDOC ---
History Of Present Illness 83 yr old male w/ hx CHF, COPD (not on home o2), HTN, Pneumonia p/w SOB. Pt notes SOB 1 hour prior while at [employer] trying to order food. He denies any chest pain or abdominal pain / fever / chills or night sweats. Denies any back pain / dark or bloody stool or constipation. No unilateral leg swelling or history of blood clots per pt. No other complaints. Time Seen by Provider: 11/16/18 04:50 Chief Complaint (Nursing): Shortness Of Breath Past Medical History Vital Signs: Last Vital Signs Temp 97.8 F 11/16/18 04:46 Pulse 72 11/16/18 04:46 Resp 16 11/16/18 04:46 BP 127/86 11/16/18 04:46 Pulse Ox 100 11/16/18 04:46 Primary Care Provider: Non [facility] Provider, - Medical History PMH: CHF, COPD, Emphysema, HTN, Pneumonia Denies: Chronic Kidney Disease Surgical History: Cholecystectomy Family History: States: Unknown Family Hx - Social History Hx Alcohol Use: No Hx Substance Use: No - Immunization History Hx Tetanus Toxoid Vaccination: (unknown) Hx Influenza Vaccination: No Hx Pneumococcal Vaccination: No Review Of Systems Constitutional: Negative for: Fever, Chills, Weakness Eyes: Negative for: Pain, Vision Change ENT: Negative for: Ear Discharge, Nose Pain Cardiovascular: Negative for: Chest Pain, Palpitations Respiratory: Positive for: Shortness of Breath. Negative for: Cough Gastrointestinal: Negative for: Nausea, Vomiting, Abdominal Pain, Constipation, Melena Genitourinary: Negative for: Dysuria, Frequency Musculoskeletal: Negative for: Neck Pain, Shoulder Pain, Back Pain, Hand Pain Skin: Negative for: Rash, Lesions Neurological: Negative for: Weakness, Numbness, Confusion, Altered Mental Status, Headache Physical Exam - Physical Exam Appears: Well, No Acute Distress Skin: Normal Color, Warm, Dry Head: Atraumatic, Normacephalic Eye(s): bilateral: Normal Inspection, PERRL, EOMI Ear(s): Bilateral: Normal Nose: Normal, No Flaring, No Discharge Oral Mucosa: Moist Tongue: Normal Appearing Lips: Normal Appearing Teeth: Normal Dentition Throat: Normal, No Erythema, No Exudate, No Drooling, No Mass Neck: Normal, Normal ROM, Supple, Other (no meningeal signs) Chest: Symmetrical Cardiovascular: Rhythm Regular, No Friction Rub, No Murmur, No JVD Respiratory: No Accessory Muscle Use, No Rales, No Rhonchi, No Stridor, Wheezing (b/l, mild, at bases), No Plerual Rub Gastrointestinal/Abdominal: Normal Exam, Soft, No Tenderness, No Mass, No Distention, No Guarding Back: Normal Inspection, No CVA Tenderness, No Vertebral Tenderness Extremity: Normal ROM, No Pedal Edema Pulses: Left Dorsalis Pedis: Normal, Right Dorsalis Pedis: Normal Neurological/Psych: Oriented x3, Normal Speech, Normal Cognition, No Cerebellar Signs ED Course And Treatment - Laboratory Results Result Diagrams: 11/18/18 06:40 11/18/18 06:40 O2 Sat by Pulse Oximetry: 100 Medical Decision Making Medical Decision Makin yr old male w/ hx of CHF, COPD, Emphysema, HTN, Pneumonia p/w sob. Mild wheezes on exam w/ 1+ pitting edema b.l. Likely mild COPD, requiring Duonebs. pending imaging and labs 0534 cxr unremarkble ek, nsr w/ apcs, no stemi lungs improved. CTA b/l [address] Bueno for admission x3, unable to reach him. appreciate consult w/ Dr. Louis Estrada : accepted to his service pt in [place], agreeable to plan Disposition - Disposition Disposition: HOSPITALIZED Disposition Time: 06:51 Condition: STABLE - Clinical Impression Clinical Impression: COPD (chronic obstructive pulmonary disease), Hyponatremia
[2018-11-16] MEDS ORDERED: MethylPREDNISolone 40 mg Vial IVP STA (05:00)
[2018-11-16] MEDS ORDERED: Albuterol-Ipratrop 3 mg / 0.5 (3 ml) UD INH STA (05:00)
[2018-11-16] MEDS ORDERED: Albuterol-Ipratrop 3 mg / 0.5 (3 ml) UD ONE (05:32)
[2018-11-16 05:37] LABS: BASO # 0.1 K/uL (0.0-0.2); BASO % 0.9 % (0.0-2.0); EOS % 0.5 % (0.0-4.0); HEMOGLOBIN 11.7 g/dL (12.0-18.0); LYMPH # 2.6 K/uL (1.0-4.3); LYMPH % 40.3 % (20.0-40.0); MEAN CORPUSCULAR HGB CONC 33.5 g/dL (33.0-37.0); MEAN PLATELET VOLUME 8.3 fL (7.2-11.7); MONO # 0.5 K/uL (0.0-0.8); MONO % 7.8 % (0.0-10.0); NEUT # 3.2 K/uL (1.8-7.0); NEUT % 50.5 % (50.0-75.0); NRBC % 0.1 % (0.0-2.0); RBC 4.35 Mil/uL (4.40-5.90); RED CELL DISTRIBUTION WIDTH 14.2 % (11.5-14.5); WHITE BLOOD COUNT 6.4 K/uL (4.8-10.8)
[2018-11-16 05:43] LABS: MEAN CELL VOLUME 80.6 fL (80.0-94.0)
[2018-11-16 06:00] LABS: B-TYPE NATRIURETIC PEPTIDE 107 pg/mL (0-900)
[2018-11-16 06:16] LABS: ALB/GLOB RATIO 1.1 (1.0-2.1); ALT/SGPT 23 U/L (21-72); AST/SGOT 40 U/L (17-59); BLOOD UREA NITROGEN 8 mg/dL (9-20); CALCIUM 9.2 mg/dl (8.6-10.4); GFR NON-AFRICAN AMERICAN > 60
[2018-11-16] MEDS ORDERED: guaiFENesin 200 mg/10 ml Syrup UD PO PRN (06:45)
[2018-11-16] MEDS ORDERED: Folic Acid 1 MG, Thiamine 100 MG, Multivitamin (MVI) 10 ML in Dextrose 5% In Water 1,00... IV SCH (06:45)
[2018-11-16] MEDS: Sodium Chloride 0.9% 1,000 ML IV SCH (07:02)
[2018-11-16 08:50] VITALS: RESP 20
[2018-11-16] MEDS: Folic Acid 1 MG, Thiamine 100 MG, Multivitamin (MVI) 10 ML in Dextrose 5% In Water 1,00... IV SCH (10:44)
[2018-11-16] MEDS: Multiple Vitamins Tab PO SCH (10:45)
[2018-11-16] MEDS: Enoxaparin 40 mg Syringe SC SCH (10:49)
--- NOTE | 2018-11-16 16:13 | RAD ---
Date of service: 11/16/2018 HISTORY: SOB COMPARISON: Comparison made with chest radiograph 10/27/2018. TECHNIQUE: Chest PA and lateral views FINDINGS: LUNGS: Hyperinflation with increased retrosternal air PLEURA: No significant pleural effusion identified. No pneumothorax apparent. CARDIOVASCULAR: Heart size is within range of normal. There is marked dilatation of the descending thoracic aorta consistent with large aneurysm. No aortic atherosclerotic calcification present. Normal cardiac size. No pulmonary vascular congestion. OSSEOUS STRUCTURES: No significant abnormalities. VISUALIZED UPPER ABDOMEN: Normal. OTHER FINDINGS: None. IMPRESSION: Marked aneurysmal dilatation of the descending thoracic aorta.. Findings consistent with COPD. Findings discussed with Dr. Maya at approximately 4 p.m..
[2018-11-16] MEDS: Albuterol-Ipratrop 3 mg / 0.5 (3 ml) UD INH SCH (19:20)
--- NOTE | 2018-11-16 21:44 | CP.PCM.CON ---
History of Present Illness - History of Present Illness History of Present Illness: Surgery: Dr. Reyes Reason for consult: Thoracic aneurysm on CXR HPI: Patient is an 83 y/o homeless male with pmhx of COPD, emphysema, and ETOH dependence who presents to [facility] complaining of progressive worsening SOB the past 2 days. He states the SOB is constant and worse with ambulation. He takes two inhalers for COPD without symptom improvement. He reports cough, productive of white foamy sputum. He denies chest pain, fever, chills. He has been seen in the past for similar symptoms at both [facility] [place] and [facility]. He reports being aware of thoracic aneurysm and states he has had work up at outside hospital in the past. PMH: COPD, emphysema, thoracic aorta aneurysm, potomania/hyponatremia, etoh dependence PSH: colonoscopy Social: homeless, drinks 4+ beers/day for 50+ years, 50pack year smoking history Review of Systems - Constitutional Constitutional: absent: Anorexia, Chills, Fever - EENT Eyes: absent: Blurred Vision, Change in Vision Ears: absent: Ear Pain, Dizziness Nose/Mouth/Throat: absent: Sore Throat, Neck Pain - Cardiovascular Cardiovascular: Dyspnea, Leg Edema. absent: Chest Pain, Chest Pain at Rest, Chest Pain with Activity, Orthopnea, Syncope - Respiratory Respiratory: Cough, Dyspnea, Wheezing, Chest Congestion, Excessive Mucous Production. absent: Hemoptysis - Gastrointestinal Gastrointestinal: absent: Abdominal Pain, Bloating, Nausea, Vomiting - Genitourinary Genitourinary: absent: Hematuria, Pyuria - Musculoskeletal Musculoskeletal: absent: Abnormal Gait, Arthralgias - Integumentary Integumentary: Swelling. absent: Sores - Neurological Neurological: absent: Dizziness, Weakness - Endocrine Endocrine: absent: Polyphagia, Polyuria - Hematologic/Lymphatic Hematologic: absent: Easy Bleeding, Easy Bruising Past Patient History - Infectious Disease Hx of Infectious Diseases: None - Past Medical History & Family History Past Medical History?: Yes - Past Social History Smoking Status: Former Smoker - CARDIAC Hx Congestive Heart Failure: Yes Hx Hypertension: Yes - PULMONARY Hx Chronic Obstructive Pulmonary Disease (COPD): Yes Hx Emphysema: Yes Hx Pneumonia: Yes - NEUROLOGICAL Hx Neurological Disorder: No - HEENT Hx HEENT Problems: No - RENAL Hx Chronic Kidney Disease: No - ENDOCRINE/METABOLIC Hx Endocrine Disorders: No - HEMATOLOGICAL/ONCOLOGICAL Hx Blood Disorders: No - INTEGUMENTARY Hx Dermatological Problems: No - MUSCULOSKELETAL/RHEUMATOLOGICAL Hx Falls: No - GASTROINTESTINAL Hx Gastrointestinal Disorders: No - GENITOURINARY/GYNECOLOGICAL Hx Genitourinary Disorders: No Hx Prostate Problems: Yes - PSYCHIATRIC Hx Substance Use: No - SURGICAL HISTORY Hx Cholecystectomy: Yes - ANESTHESIA Hx Anesthesia: Yes Hx Anesthesia Reactions: No Meds Allergies/Adverse Reactions: Allergies Allergy/AdvReac Type Severity Reaction Status Date / Time pollen extracts Allergy Verified 10/27/18 20:36 - Medications Medications: Current Medications Albuterol/Ipratropium (Duoneb 3 Mg/0.5 Mg (3 Ml) Ud) 3 ml INH RQ6 [facility] Last Admin: 11/16/18 19:20 Dose: 3 ml Amlodipine Besylate (Norvasc) 5 mg PO DAILY [facility] Last Admin: 11/16/18 10:45 Dose: 5 mg Enoxaparin Sodium (Lovenox) 40 mg SC DAILY [facility] Last Admin: 11/16/18 10:49 Dose: Not Given Guaifenesin (Robitussin) 200 mg PO Q4H PRN PRN Reason: Cough and congestion Sodium Chloride (Sodium Chloride 0.9%) 1,000 mls @ 35 mls/hr IV .Q24H [facility] Last Admin: 11/16/18 07:02 Dose: 35 mls/hr Folic Acid 1 mg/ Thiamine HCl 100 mg/ Multivitamins/Vitamin C 10 ml/ Dextrose 1,011.2 mls @ 100 mls/hr IV Q24H [facility] Last Admin: 11/16/18 10:44 Dose: 100 mls/hr Losartan Potassium (Cozaar) 25 mg PO DAILY [facility] Last Admin: 11/16/18 10:45 Dose: 25 mg Methylprednisolone (Solu-Medrol) 60 mg IV Q12H [facility] Last Admin: 11/16/18 17:08 Dose: 60 mg Montelukast Sodium (Singulair) 10 mg PO HS [facility] Multivitamins (Hexavitamin) 1 tab PO DAILY [facility] Last Admin: 11/16/18 10:45 Dose: 1 tab Thiamine HCl (Vitamin B1 Tab) 100 mg PO DAILY [facility] Last Admin: 11/16/18 10:45 Dose: 100 mg Physical Exam - Constitutional Appears: Unkempt, Chronically Ill - Head Exam Head Exam: ATRAUMATIC, NORMOCEPHALIC - Eye Exam Eye Exam: EOMI, Normal appearance - ENT Exam ENT Exam: Mucous Membranes Moist - Respiratory Exam Respiratory Exam: Wheezes, NORMAL BREATHING PATTERN. absent: Accessory Muscle Use - Cardiovascular Exam Cardiovascular Exam: REGULAR RHYTHM. absent: Tachycardia - GI/Abdominal Exam GI & Abdominal Exam: Soft. absent: Distended, Tenderness - Extremities Exam Extremities exam: Positive for: pedal edema, pedal pulses present. Negative for: calf tenderness - Neurological Exam Neurological exam: Alert, Oriented x3 - Psychiatric Exam Psychiatric exam: Normal Affect, Normal Mood - Skin Skin Exam: Dry, Normal Color, Warm Results - Vital Signs Recent Vital Signs: Last Vital Signs Temp 97.8 F 11/16/18 15:05 Pulse 83 11/16/18 20:24 Resp 20 11/16/18 15:05 BP 102/62 11/16/18 15:05 Pulse Ox 96 11/16/18 15:05 - Labs Result Diagrams: 11/16/18 05:29 11/16/18 05:29 Labs: Laboratory Results - last 24 hr 11/16/18 11/16/18 05:29 05:29 WBC 6.4 RBC 4.35 L Hgb 11.7 L Hct 35.1 MCV 80.6 D MCH 27.0 MCHC 33.5 RDW 14.2 Plt Count 210 MPV 8.3 Neut % (Auto) 50.5 Lymph % (Auto) 40.3 H [place] % (Auto) 7.8 Eos % (Auto) 0.5 Baso % (Auto) 0.9 Neut # (Auto) 3.2 Lymph # (Auto) 2.6 [place] # (Auto) 0.5 Eos # (Auto) 0.0 Baso # (Auto) 0.1 Sodium 124 L Potassium 5.0 Chloride 85 L Carbon Dioxide 26 Anion Gap 18 BUN 8 L Creatinine 0.7 L Est GFR ( Amer) > 60 Est GFR (Non-Af Amer) > 60 Random Glucose 86 D Calcium 9.2 Total Bilirubin 0.6 AST 40 ALT 23 Alkaline Phosphatase 90 Troponin I < 0.0120 NT-Pro-B Natriuret Pep 107 Total Protein 7.6 Albumin 4.0 Globulin 3.6 Albumin/Globulin Ratio 1.1 Alcohol, Quantitative 27 H Assessment & Plan - Assessment and Plan (Free Text) Assessment: 83 y/o male w/ SOB 2/2 acute on chronic COPD exacerbation with thoracic aortic aneurysm Plan: -appears stable on CXR from June 2018 -CTA chest/abd/pelvis for full aorta evaluation -blood pressure control -further care per primary team -d/w Dr. Eric West PGY4
[2018-11-16] MEDS: guaiFENesin 200 mg/10 ml Syrup UD PO PRN (21:49)
[2018-11-17] MEDS: Albuterol-Ipratrop 3 mg / 0.5 (3 ml) UD INH SCH ×4 (01:12→21:01)
[2018-11-17] MEDS ORDERED: Iodixanol 320 MG/ML 100 ML BOTTLE IV ONE (06:54)
[2018-11-17] MEDS: Multiple Vitamins Tab PO SCH (10:12)
[2018-11-17] MEDS: Enoxaparin 40 mg Syringe SC SCH (10:12)
[2018-11-17] MEDS: Folic Acid 1 MG, Thiamine 100 MG, Multivitamin (MVI) 10 ML in Dextrose 5% In Water 1,00... IV SCH (10:17)
--- NOTE | 2018-11-17 10:36 | CP.PCM.PN ---
Subjective - Date & Time of Evaluation Date of Evaluation: 11/17/18 Time of Evaluation: 07:00 - Subjective Subjective: Vascular Surgery Note for Dr. Reyes Patient seen and examined at bedside. Patient has no complaints. He is tolerating diet. Denies fever/chills, cp, SOB, abd pain, n/v/d, melena, hematochezia. Objective - Vital Signs/Intake and Output Vital Signs (last 24 hours): Temp Pulse Resp BP Pulse Ox 97.4 F L 67 20 124/74 99 11/17/18 07:58 11/17/18 07:58 11/17/18 07:58 11/17/18 07:58 11/17/18 07:58 - Medications Medications: Current Medications Albuterol/Ipratropium (Duoneb 3 Mg/0.5 Mg (3 Ml) Ud) 3 ml INH RQ6 [facility] Last Admin: 11/17/18 08:32 Dose: Not Given Amlodipine Besylate (Norvasc) 5 mg PO DAILY [facility] Last Admin: 11/17/18 10:12 Dose: 5 mg Enoxaparin Sodium (Lovenox) 40 mg SC DAILY [facility] Last Admin: 11/17/18 10:12 Dose: Not Given Guaifenesin (Robitussin) 200 mg PO Q4H PRN PRN Reason: Cough and congestion Last Admin: 11/16/18 21:49 Dose: 200 mg Sodium Chloride (Sodium Chloride 0.9%) 1,000 mls @ 35 mls/hr IV .Q24H [facility] Last Admin: 11/16/18 07:02 Dose: 35 mls/hr Folic Acid 1 mg/ Thiamine HCl 100 mg/ Multivitamins/Vitamin C 10 ml/ Dextrose 1,011.2 mls @ 100 mls/hr IV Q24H [facility] Last Admin: 11/17/18 10:17 Dose: 100 mls/hr Losartan Potassium (Cozaar) 25 mg PO DAILY [facility] Last Admin: 11/17/18 10:12 Dose: 25 mg Methylprednisolone (Solu-Medrol) 60 mg IV Q12H [facility] Last Admin: 11/17/18 05:10 Dose: 60 mg Montelukast Sodium (Singulair) 10 mg PO HS [facility] Last Admin: 11/16/18 21:49 Dose: 10 mg Multivitamins (Hexavitamin) 1 tab PO DAILY [facility] Last Admin: 11/17/18 10:12 Dose: 1 tab Thiamine HCl (Vitamin B1 Tab) 100 mg PO DAILY [facility] Last Admin: 11/17/18 10:12 Dose: 100 mg - Labs Labs: 11/16/18 05:29 11/16/18 05:29 - Additional Findings Additional findings: - Constitutional Appears: Unkempt, Chronically Ill - Head Exam Head Exam: ATRAUMATIC, NORMOCEPHALIC - Eye Exam Eye Exam: EOMI, Normal appearance - ENT Exam ENT Exam: Mucous Membranes Moist - Respiratory Exam Respiratory Exam: Wheezes, NORMAL BREATHING PATTERN. absent: Accessory Muscle Use - Cardiovascular Exam Cardiovascular Exam: REGULAR RHYTHM. - GI/Abdominal Exam GI & Abdominal Exam: Soft. absent: Distended, Tenderness - Extremities Exam Extremities exam: Positive for: pedal edema, pedal pulses present. Negative for: calf tenderness - Neurological Exam Neurological exam: Alert, Oriented x3 - Psychiatric Exam Psychiatric exam: Normal Affect, Normal Mood - Skin Skin Exam: Dry, Normal Color, Warm Assessment and Plan - Assessment and Plan (Free Text) Assessment: 83 M who presents with SOB secondary to acute on chronic COPD exacerbation with thoracic aortic aneurysm Plan: -CT angio: 1.) Fusiform aneurysm of the ascending aorta measures 5.8 centimeters in diameter with no thrombosis or dissection. The aneurysm continues to the arc h. The proximal descending thoracic aorta measures 4.3 centimeters. 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 The aneurysm is 40 percent thrombosed. There is no dissection (see full report). -blood pressure control -management as per primary team -No surgical intervention needed at this time -Discussed with Dr. Eric Orr PGY2
[2018-11-17 11:15] LABS: BASO % 0.1 % (0.0-2.0); HEMOGLOBIN 11.9 g/dL (12.0-18.0); LYMPH # 0.3 K/uL (1.0-4.3); LYMPH % 2.1 % (20.0-40.0); MEAN CELL VOLUME 81.8 fL (80.0-94.0); MEAN CORPUSCULAR HGB CONC 31.8 g/dL (33.0-37.0); MEAN PLATELET VOLUME 8.5 fL (7.2-11.7); MONO # 2.4 K/uL (0.0-0.8); MONO % 17.3 % (0.0-10.0); NEUT # 11.3 K/uL (1.8-7.0); NEUT % 80.5 % (50.0-75.0); NRBC % 0.1 % (0.0-2.0); PLATELET COUNT 243 K/uL (130-400); RBC 4.57 Mil/uL (4.40-5.90); RED CELL DISTRIBUTION WIDTH 14.4 % (11.5-14.5)
[2018-11-17 11:17] LABS: WHITE BLOOD COUNT 14.1 K/uL (4.8-10.8)
[2018-11-17 11:48] LABS: ALB/GLOB RATIO 1.4 (1.0-2.1); ALBUMIN 3.9 g/dL (3.5-5.0); ALT/SGPT 14 U/L (21-72); AST/SGOT 25 U/L (17-59); BLOOD UREA NITROGEN 15 mg/dL (9-20); CALCIUM 9.2 mg/dl (8.6-10.4); GFR NON-AFRICAN AMERICAN > 60
[2018-11-17] MEDS: Sodium Chloride 0.9% 1,000 ML IV SCH (11:56)
[2018-11-17 12:21] LABS: TOTAL CELLS COUNTED 100
[2018-11-17 12:22] LABS: BANDS 1 % (0-2); LYMPHOCYTE 2 % (20-40); PLATELET ESTIMATE NORMAL (NORMAL)
[2018-11-17 12:24] LABS: MONOCYTE 8 % (0-10); NEUTROPHIL 89 % (50-75)
[2018-11-17 12:25] LABS: LARGE PLATELETS PRESENT
--- NOTE | 2018-11-17 12:55 | CT ---
Date of service: 11/17/2018 PROCEDURE: CT Chest, Abdomen and Pelvis with intravenous contrast HISTORY: aortic aneurysm COMPARISON: None available. TECHNIQUE: IV dose administered: 100 [employer]UB[employer] VISIPAQUE 320 Radiation dose: Total exam DLP = 627.47 mGy-cm. This CT exam was performed using one or more of the following dose reduction techniques: Automated exposure control, adjustment of the mA and/or kV according to patient size, and/or use of iterative reconstruction technique. 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 The proximal thoracic descending aorta measures 4.3 centimeters. There is a 2nd fusiform aneurysm of the descending thoracic aorta measuring 5.8 centimeters in maximum diameter and continues beyond the diaphragm. The descending thoracic aortic aneurysm is 40 percent thrombosed. There is no evidence of dissection. No pulmonary artery embolism. LUNGS: Emphysema right and left lungs. Patchy consolidation right lower lobe may represents parenchymal scarring. MEDIASTINUM: The mediastinum is otherwise unremarkable. Minimal coronary calcification. No lymphadenopathy per LYMPH NODES: PLEURA: There is no pleural effusion. BONES: Unremarkable. OTHER FINDINGS: None. CT ABDOMEN AND PELVIS: LIVER: Limited evaluation with phase of enhancement. No obvious mass. GALLBLADDER AND BILE DUCTS: Clearly visualized.. PANCREAS: Limited evaluation. No obvious mass. SPLEEN: Unremarkable. ADRENALS: Unremarkable. No mass. KIDNEYS AND URETERS: Right renal cyst. Kidneys otherwise unremarkable. VASCULATURE: Fusiform aneurysm of the descending thoracic aorta measuring 5.8 centimeters and contained 2 the suprarenal aorta. The abdominal aorta is very ectatic at the level of the renal arteries. Pelvic arteries are unremarkable. Right and left common femoral arteries are unremarkable. BOWEL: Very limited evaluation without PO contrast. No obvious mass lesion. APPENDIX: PERITONEUM: Unremarkable. No free fluid. No free air. LYMPH NODES: Unremarkable. No enlarged lymph nodes. BLADDER: Unremarkable. REPRODUCTIVE: BONES: No acute fracture. OTHER FINDINGS: None. IMPRESSION: No evidence of dissection. No pulmonary embolism. Ascending and descending thoracic aortic aneurysms as detailed below. CT ANGIOGRAM: ASCENDING AORTA: Fusiform aneurysm of the ascending aorta measures 5.8 centimeters in diameter with no thrombosis. There is no dissection. The aneurysm continues to the arch. The arch is otherwise normal. The proximal descending thoracic aorta measures 4.3 centimeters. DESCENDING THORACIC AORTA: Fusiform aneurysm of the descending thoracic aorta measuring 5.8 centimeters in maximal diameter and continue to the diaphragm. The aneurysm is 40 percent thrombosed. There is no dissection ABDOMINAL AORTA: The abdominal aorta is very ectatic at the level renal arteries. Infrarenal aorta is unremarkable. ILIAC ARTERIES: Right and left common iliac arteries external iliac arteries are unremarkable. The common femoral artery unremarkable.
--- NOTE | 2018-11-17 17:54 | CARD ---
APPROVED REPORT Date of service: 11/16/2018 EKG Measurement Heart [id number] <Conclusion> Normal sinus rhythm Left axis deviation Incomplete right bundle branch block Nonspecific T wave abnormality Abnormal ECG
[2018-11-18] MEDS: Albuterol-Ipratrop 3 mg / 0.5 (3 ml) UD INH SCH ×4 (01:26→21:16)
--- NOTE | 2018-11-18 03:53 | CP.PCM.HP ---
Present on Admission - Present on Admission Any Indicators Present on Admission: No Past Patient History - Infectious Disease Hx of Infectious Diseases: None - Past Medical History & Family History Past Medical History?: Yes - Past Social History Smoking Status: Former Smoker - CARDIAC Hx Congestive Heart Failure: Yes Hx Hypertension: Yes - PULMONARY Hx Chronic Obstructive Pulmonary Disease (COPD): Yes - NEUROLOGICAL Hx Neurological Disorder: No - HEENT Hx HEENT Problems: No - RENAL Hx Chronic Kidney Disease: No - ENDOCRINE/METABOLIC Hx Endocrine Disorders: No - HEMATOLOGICAL/ONCOLOGICAL Hx Blood Disorders: No - INTEGUMENTARY Hx Dermatological Problems: No - MUSCULOSKELETAL/RHEUMATOLOGICAL Hx Falls: No - GASTROINTESTINAL Hx Gastrointestinal Disorders: No - GENITOURINARY/GYNECOLOGICAL Hx Genitourinary Disorders: No Hx Prostate Problems: Yes - PSYCHIATRIC Hx Substance Use: No - SURGICAL HISTORY Hx Cholecystectomy: Yes - ANESTHESIA Hx Anesthesia: Yes Hx Anesthesia Reactions: No Meds Allergies/Adverse Reactions: Allergies Allergy/AdvReac Type Severity Reaction Status Date / Time pollen extracts Allergy Verified 10/27/18 20:36 Results - Vital Signs Recent Vital Signs: Last Vital Signs Temp 98.1 F 11/17/18 23:45 Pulse 79 11/18/18 03:33 Resp 20 11/17/18 23:45 BP 116/72 11/17/18 23:45 Pulse Ox 98 11/17/18 23:45 - Labs Result Diagrams: 11/17/18 10:51 11/17/18 10:51 Labs: Laboratory Results - last 24 hr 11/17/18 11/17/18 10:51 10:51 WBC 14.1 H D RBC 4.57 Hgb 11.9 L Hct 37.4 MCV 81.8 MCH 26.0 L MCHC 31.8 L RDW 14.4 Plt Count 243 MPV 8.5 Neut % (Auto) 80.5 H Lymph % (Auto) 2.1 L [place] % (Auto) 17.3 H Eos % (Auto) 0.0 Baso % (Auto) 0.1 Neut # (Auto) 11.3 H Lymph # (Auto) 0.3 L [place] # (Auto) 2.4 H Eos # (Auto) 0.0 Baso # (Auto) 0.0 Neutrophils % (Manual) 89 H Band Neutrophils % 1 Lymphocytes % (Manual) 2 L Monocytes % (Manual) 8 Platelet Estimate Normal Large Platelets Present Sodium 134 Potassium 4.6 Chloride 96 L Carbon Dioxide 25 Anion Gap 19 BUN 15 Creatinine 0.7 L Est GFR ( Amer) > 60 Est GFR (Non-Af Amer) > 60 Random Glucose 301 H D Calcium 9.2 Total Bilirubin 0.4 AST 25 ALT 14 L D Alkaline Phosphatase 97 Total Protein 6.8 Albumin 3.9 Globulin 2.9 Albumin/Globulin Ratio 1.4
[2018-11-18 06:45] LABS: BASO # 0.1 K/uL (0.0-0.2); BASO % 0.3 % (0.0-2.0); EOS % 0.1 % (0.0-4.0); LYMPH # 0.4 K/uL (1.0-4.3); LYMPH % 2.3 % (20.0-40.0); MEAN CELL VOLUME 81.3 fL (80.0-94.0); MEAN CORPUSCULAR HEMOGLOBIN 25.8 pg (27.0-31.0); MEAN CORPUSCULAR HGB CONC 31.8 g/dL (33.0-37.0); MEAN PLATELET VOLUME 8.2 fL (7.2-11.7); MONO # 1.1 K/uL (0.0-0.8); MONO % 6.5 % (0.0-10.0); NEUT % 90.8 % (50.0-75.0); PLATELET COUNT 218 K/uL (130-400); RBC 4.25 Mil/uL (4.40-5.90); RED CELL DISTRIBUTION WIDTH 14.4 % (11.5-14.5); WHITE BLOOD COUNT 16.5 K/uL (4.8-10.8)
[2018-11-18 07:26] LABS: ALB/GLOB RATIO 1.2 (1.0-2.1); ALBUMIN 3.5 g/dL (3.5-5.0); ALT/SGPT 14 U/L (21-72); AST/SGOT 29 U/L (17-59); BLOOD UREA NITROGEN 13 mg/dL (9-20); GFR NON-AFRICAN AMERICAN > 60
[2018-11-18] MEDS: guaiFENesin 200 mg/10 ml Syrup UD PO PRN ×2 (09:15→21:44)
[2018-11-18] MEDS: Enoxaparin 40 mg Syringe SC SCH (09:16)
[2018-11-18] MEDS: Multiple Vitamins Tab PO SCH (09:16)
[2018-11-18 09:35] LABS: BASOPHIL 1 % (0-2); LYMPHOCYTE 4 % (20-40); MONOCYTE 7 % (0-10); NEUTROPHIL 88 % (50-75); PLATELET ESTIMATE NORMAL (NORMAL); POIKILOCYTOSIS SLIGHT; TOTAL CELLS COUNTED 100
[2018-11-18 09:36] LABS: OVALOCYTES SLIGHT; TARGET CELLS SLIGHT
--- NOTE | 2018-11-18 10:29 | HP ---
CHIEF COMPLAINT: Shortness of breath, cough, wheezing x1 hour. HISTORY OF PRESENT ILLNESS: This is an 83-year-old -Citizen Of [place] male with history of COPD, hypertension, hyperlipidemia who is compliant with his diet, medication, and followup. He is a poor historian. An hour before his arrival to emergency room he was in the [employer] trying to order something. While he was there, he developed shortness of breath, cough, congestion, wheezing, chest pain upon coughing, weakness, dizziness, inability to bring up sputum. The patient denied any abdominal pain, nausea, vomiting, or diarrhea. He denies any history of polyuria, polydipsia, polyphagia. He denies any history of sneezing, itchy eyes, or itchy nose. He denies any history of back pain. He has tingling and numbness in the feet. He has bilateral knee pain. He denies any history of orthopnea, PND. He has cough. Sputum is white. He is unable to bring up . He has chest wheezing. There is no history of hemoptysis, hematemesis, melena, or hematochezia. There is no history of polyuria, polydipsia, or polyphagia. There is no history of dizziness, or vertigo. PAST MEDICAL HISTORY: COPD, hypertension, hyperlipidemia, congestive heart failure. PAST SURGICAL HISTORY: Cholecystectomy. SOCIAL HISTORY: He is an ex-smoker, non-ETOH user. CURRENT MEDICATIONS: At home he is on multivitamins, Norvasc, Singulair, Cozaar, and Ventolin. PHYSICAL EXAMINATION: GENERAL: An elderly male in mild respiratory distress. VITAL SIGNS: Blood pressure 116/72, pulse 79, respiratory rate 20, and temperature 98.1. SKIN: Senile turgor. No bruises. No purpura. No petechia. No ecchymosis. HEENT: Atraumatic and normocephalic. Negative pallor. Negative jaundice. Extraocular movements are intact. NECK: Supple. No JVD. accessory muscle use. LUNGS: Bilateral inspiratory and expiratory rhonchi. Decreased air entry. CARDIOVASCULAR SYSTEM: S1 and S2 plus, S4 positive. ABDOMEN: Soft and nontender. Bowel sounds are positive. RECTAL: Enlarged prostate. No tenderness. EXTREMITIES: No clubbing, cyanosis, or edema. He has weak peripheral pulses in dorsalis pedis and posterior tibial bilaterally. CENTRAL NERVOUS SYSTEM: Awake, alert, and oriented x3. Cranial nerves II through XII are normal. ASSESSMENT: 1. Acute exacerbation of chronic obstructive pulmonary disease. 2. Alcohol use. 3. Hypertension. 4. Descending aortic dilatation rule out descending aortic dissection, aortic aneurysm. 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 PLAN: Admit. Detailed orders are written. Seen and examined. Louis Estrada MD
--- NOTE | 2018-11-18 14:25 | CP.PCM.CON ---
<PedritoJaren - Last Filed: 11/18/18 17:46> History of Present Illness - History of Present Illness History of Present Illness: PGY2 Cardiology Consult Note for Dr. Wilkins Reason for Consult: CAD Patient is an 83 year old homeless male with a past medical history of COPD, emphysema, thoracic aorta aneurysm, potomania/hyponatremia and alcohol dependence was admitted to the hospital with a complaint of worsening shortness of breath over 2 days. He had a productive cough with white, foamy sputum before, but it has improved since he has been admitted. He still feels SOB, but reports that he is back to his normal baseline now. He has denies ever having any chest pain, stating that he has never had any problems with his heart. He denies fevers, chills, nausea, vomiting, diarrhea, constipation, abdominal pain, lightheadedness, dizziness, numbness or tingling. PMD: Dr. Sanford Amaya PMH: COPD, emphysema, thoracic aorta aneurysm, potomania/hyponatremia, alcohol dependence PSH: none Social: homeless, drinks 4+ beers/day for 50+ years, former smoker (50 pack year history) Allergies: NKDA Review of Systems - Review of Systems All systems: reviewed and no additional remarkable complaints except (as per HPI) Past Patient History - Infectious Disease Hx of Infectious Diseases: None - Past Medical History & Family History Past Medical History?: Yes - Past Social History Smoking Status: Former Smoker - CARDIAC Hx Congestive Heart Failure: Yes Hx Hypertension: Yes - PULMONARY Hx Chronic Obstructive Pulmonary Disease (COPD): Yes Hx Emphysema: Yes Hx Pneumonia: Yes - NEUROLOGICAL Hx Neurological Disorder: No - HEENT Hx HEENT Problems: No - RENAL Hx Chronic Kidney Disease: No - ENDOCRINE/METABOLIC Hx Endocrine Disorders: No - HEMATOLOGICAL/ONCOLOGICAL Hx Blood Disorders: No - INTEGUMENTARY Hx Dermatological Problems: No - MUSCULOSKELETAL/RHEUMATOLOGICAL Hx Falls: No - GASTROINTESTINAL Hx Gastrointestinal Disorders: No - GENITOURINARY/GYNECOLOGICAL Hx Genitourinary Disorders: No Hx Prostate Problems: Yes - PSYCHIATRIC Hx Substance Use: No - SURGICAL HISTORY Hx Cholecystectomy: Yes - ANESTHESIA Hx Anesthesia: Yes Hx Anesthesia Reactions: No Meds Allergies/Adverse Reactions: Allergies Allergy/AdvReac Type Severity Reaction Status Date / Time pollen extracts Allergy Verified 10/27/18 20:36 - Medications Medications: Current Medications Albuterol/Ipratropium (Duoneb 3 Mg/0.5 Mg (3 Ml) Ud) 3 ml INH RQ6 [facility] Last Admin: 11/18/18 13:08 Dose: 3 ml Enoxaparin Sodium (Lovenox) 40 mg SC DAILY [facility] Last Admin: 11/18/18 09:16 Dose: Not Given Guaifenesin (Robitussin) 200 mg PO Q4H PRN PRN Reason: Cough and congestion Last Admin: 11/18/18 09:15 Dose: 200 mg Losartan Potassium (Cozaar) 25 mg PO DAILY [facility] Last Admin: 11/18/18 09:16 Dose: 25 mg Methylprednisolone (Solu-Medrol) 60 mg IV Q12H [facility] Last Admin: 11/18/18 06:05 Dose: 60 mg Montelukast Sodium (Singulair) 10 mg PO HS [facility] Last Admin: 11/17/18 22:48 Dose: 10 mg Multivitamins (Hexavitamin) 1 tab PO DAILY [facility] Last Admin: 11/18/18 09:16 Dose: 1 tab Thiamine HCl (Vitamin B1 Tab) 100 mg PO DAILY [facility] Last Admin: 11/18/18 09:16 Dose: 100 mg Physical Exam - Constitutional Appears: Non-toxic, No Acute Distress, Cachectic - Head Exam Head Exam: ATRAUMATIC, NORMOCEPHALIC - Eye Exam Eye Exam: Normal appearance - ENT Exam ENT Exam: Mucous Membranes Moist - Neck Exam Neck exam: Negative for: Lymphadenopathy, Tenderness - Respiratory Exam Respiratory Exam: Decreased Breath Sounds, Wheezes (bases), NORMAL BREATHING PATTERN. absent: Accessory Muscle Use, Rales, Rhonchi, Respiratory Distress - Cardiovascular Exam Cardiovascular Exam: REGULAR RHYTHM, +S1 - GI/Abdominal Exam GI & Abdominal Exam: Soft. absent: Distended, Firm, Guarding, Rigid, Tenderness - Extremities Exam Extremities exam: Negative for: calf tenderness, pedal edema - Neurological Exam Neurological exam: Alert, Oriented x3 - Psychiatric Exam Psychiatric exam: Normal Affect, Normal Mood - Skin Skin Exam: Dry, Warm Results - Vital Signs Recent Vital Signs: Last Vital Signs Temp 97.5 F L 11/18/18 08:12 Pulse 89 11/18/18 12:36 Resp 20 11/18/18 08:12 BP 139/84 11/18/18 08:12 Pulse Ox 100 11/18/18 13:56 - Labs Result Diagrams: 11/18/18 06:40 11/18/18 06:40 Labs: Laboratory Results - last 24 hr 11/18/18 11/18/18 06:40 06:40 WBC 16.5 H RBC 4.25 L Hgb 11.0 L Hct 34.5 L MCV 81.3 MCH 25.8 L MCHC 31.8 L RDW 14.4 Plt Count 218 MPV 8.2 Neut % (Auto) 90.8 H Lymph % (Auto) 2.3 L [place] % (Auto) 6.5 Eos % (Auto) 0.1 Baso % (Auto) 0.3 Neut # (Auto) 15.0 H Lymph # (Auto) 0.4 L [place] # (Auto) 1.1 H Eos # (Auto) 0.0 Baso # (Auto) 0.1 Neutrophils % (Manual) 88 H Lymphocytes % (Manual) 4 L Monocytes % (Manual) 7 Basophils % (Manual) 1 Platelet Estimate Normal Poikilocytosis (manual Slight Target Cells Slight Ovalocytes Slight Sodium 137 Potassium 4.0 Chloride 102 Carbon Dioxide 25 Anion Gap 14 BUN 13 Creatinine 0.7 L Est GFR ( Amer) > 60 Est GFR (Non-Af Amer) > 60 Random Glucose 123 H D Calcium 9.0 Total Bilirubin 0.3 AST 29 ALT 14 L Alkaline Phosphatase 89 Total Protein 6.6 Albumin 3.5 Globulin 3.1 Albumin/Globulin Ratio 1.2 Assessment & Plan - Assessment and Plan (Free Text) Assessment: Patient is an 83 year old male with a past medical history of COPD, emphysema, thoracic aorta aneurysm, potomania/hyponatremia and alcohol dependence who was admitted with SOB secondary to acute on chronic COPD exacerbation. Plan: Patient denies any history of CAD. Ascending Aortic Aneurysm Descending thoracic Aortic Aneurysm Hypertension Vascular Surgery consulted, Dr. Reyes CT angio 11/16/18: * 1.) Fusiform aneurysm of the ascending aorta measures 5.8 centimeters in diameter with no thrombosis or dissection. The aneurysm continues to the arch. The proximal descending thoracic aorta measures 4.3 centimeters. 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 The aneurysm is 40 percent thrombosed. There is no dissection (see full report). Patient does not want to have any surgery stating, "I want to do this all with medicine." Blood pressure control Medications: * Losartan 25mg PO daily * Started on Metoprolol 12.5mg PO BID * Started on Aspirin 81mg PO daily COPD Exacerbation Pulmonology Consult, Dr. Mcnulty management per pulm/primary team Case discussed with Dr. Franky Major PGY2 <Erwin Wilkins - Last Filed: 11/18/18 22:22> Meds - Medications Medications: Current Medications Albuterol/Ipratropium (Duoneb 3 Mg/0.5 Mg (3 Ml) Ud) 3 ml INH RQ6 [facility] Last Admin: 11/18/18 21:16 Dose: Not Given Aspirin (Ecotrin) 81 mg PO DAILY [facility] Last Admin: 11/18/18 16:55 Dose: Not Given Enoxaparin Sodium (Lovenox) 40 mg SC DAILY [facility] Last Admin: 11/18/18 09:16 Dose: Not Given Guaifenesin (Robitussin) 200 mg PO Q4H PRN PRN Reason: Cough and congestion Last Admin: 11/18/18 21:44 Dose: 200 mg Losartan Potassium (Cozaar) 25 mg PO DAILY [facility] Last Admin: 11/18/18 09:16 Dose: 25 mg Methylprednisolone (Solu-Medrol) 60 mg IV Q12H [facility] Last Admin: 11/18/18 18:08 Dose: 60 mg Metoprolol Tartrate (Lopressor) 25 mg PO BID [facility] Last Admin: 11/18/18 18:07 Dose: 25 mg Montelukast Sodium (Singulair) 10 mg PO HS [facility] Last Admin: 11/18/18 21:42 Dose: 10 mg Multivitamins (Hexavitamin) 1 tab PO DAILY [facility] Last Admin: 11/18/18 09:16 Dose: 1 tab Thiamine HCl (Vitamin B1 Tab) 100 mg PO DAILY [facility] Last Admin: 11/18/18 09:16 Dose: 100 mg Results - Vital Signs Recent Vital Signs: Last Vital Signs Temp 98.0 F 11/18/18 15:09 Pulse 70 11/18/18 15:09 Resp 20 11/18/18 15:09 BP 125/76 11/18/18 18:07 Pulse Ox 96 11/18/18 15:09 - Labs Result Diagrams: 11/18/18 06:40 11/18/18 06:40 Labs: Laboratory Results - last 24 hr 11/18/18 11/18/18 06:40 06:40 WBC 16.5 H RBC 4.25 L Hgb 11.0 L Hct 34.5 L MCV 81.3 MCH 25.8 L MCHC 31.8 L RDW 14.4 Plt Count 218 MPV 8.2 Neut % (Auto) 90.8 H Lymph % (Auto) 2.3 L [place] % (Auto) 6.5 Eos % (Auto) 0.1 Baso % (Auto) 0.3 Neut # (Auto) 15.0 H Lymph # (Auto) 0.4 L [place] # (Auto) 1.1 H Eos # (Auto) 0.0 Baso # (Auto) 0.1 Neutrophils % (Manual) 88 H Lymphocytes % (Manual) 4 L Monocytes % (Manual) 7 Basophils % (Manual) 1 Platelet Estimate Normal Poikilocytosis (manual Slight Target Cells Slight Ovalocytes Slight Sodium 137 Potassium 4.0 Chloride 102 Carbon Dioxide 25 Anion Gap 14 BUN 13 Creatinine 0.7 L Est GFR ( Amer) > 60 Est GFR (Non-Af Amer) > 60 Random Glucose 123 H D Calcium 9.0 Total Bilirubin 0.3 AST 29 ALT 14 L Alkaline Phosphatase 89 Total Protein 6.6 Albumin 3.5 Globulin 3.1 Albumin/Globulin Ratio 1.2 Assessment & Plan - Assessment and Plan (Free Text) Plan: Patient seen, examined and evaluated personally by me. Plan of care d/w the medical videographer and as documented
--- NOTE | 2018-11-18 18:06 | CP.PCM.CON ---
History of Present Illness - History of Present Illness History of Present Illness: Reason for consultation: Shortness of breath 83-year-old male with history of COPD, thoracic aortic aneurysm, hyponatremia who presented complaining of worsening shortness of breath and productive cough for the past 2 days. PMH: COPD, emphysema, thoracic aorta aneurysm, potomania/hyponatremia, alcohol dependence PSH: none Social: homeless, drinks 4+ beers/day for 50+ years, former smoker (50 pack year history) Allergies: NKDA Past Patient History - Infectious Disease Hx of Infectious Diseases: None - Past Medical History & Family History Past Medical History?: Yes - Past Social History Smoking Status: Former Smoker - CARDIAC Hx Congestive Heart Failure: Yes Hx Hypertension: Yes - PULMONARY Hx Chronic Obstructive Pulmonary Disease (COPD): Yes Hx Emphysema: Yes Hx Pneumonia: Yes - NEUROLOGICAL Hx Neurological Disorder: No - HEENT Hx HEENT Problems: No - RENAL Hx Chronic Kidney Disease: No - ENDOCRINE/METABOLIC Hx Endocrine Disorders: No - HEMATOLOGICAL/ONCOLOGICAL Hx Blood Disorders: No - INTEGUMENTARY Hx Dermatological Problems: No - MUSCULOSKELETAL/RHEUMATOLOGICAL Hx Falls: No - GASTROINTESTINAL Hx Gastrointestinal Disorders: No - GENITOURINARY/GYNECOLOGICAL Hx Genitourinary Disorders: No Hx Prostate Problems: Yes - PSYCHIATRIC Hx Substance Use: No - SURGICAL HISTORY Hx Cholecystectomy: Yes - ANESTHESIA Hx Anesthesia: Yes Hx Anesthesia Reactions: No Meds Allergies/Adverse Reactions: Allergies Allergy/AdvReac Type Severity Reaction Status Date / Time pollen extracts Allergy Verified 10/27/18 20:36 - Medications Medications: Current Medications Albuterol/Ipratropium (Duoneb 3 Mg/0.5 Mg (3 Ml) Ud) 3 ml INH RQ6 [facility] Last Admin: 11/18/18 13:08 Dose: 3 ml Aspirin (Ecotrin) 81 mg PO DAILY [facility] Enoxaparin Sodium (Lovenox) 40 mg SC DAILY [facility] Last Admin: 11/18/18 09:16 Dose: Not Given Guaifenesin (Robitussin) 200 mg PO Q4H PRN PRN Reason: Cough and congestion Last Admin: 11/18/18 09:15 Dose: 200 mg Losartan Potassium (Cozaar) 25 mg PO DAILY [facility] Last Admin: 11/18/18 09:16 Dose: 25 mg Methylprednisolone (Solu-Medrol) 60 mg IV Q12H [facility] Last Admin: 11/18/18 06:05 Dose: 60 mg Metoprolol Tartrate (Lopressor) 25 mg PO BID [facility] Montelukast Sodium (Singulair) 10 mg PO HS [facility] Last Admin: 11/17/18 22:48 Dose: 10 mg Multivitamins (Hexavitamin) 1 tab PO DAILY [facility] Last Admin: 11/18/18 09:16 Dose: 1 tab Thiamine HCl (Vitamin B1 Tab) 100 mg PO DAILY [facility] Last Admin: 11/18/18 09:16 Dose: 100 mg Physical Exam - Head Exam Head Exam: ATRAUMATIC, NORMOCEPHALIC - ENT Exam ENT Exam: Mucous Membranes Moist - Neck Exam Neck exam: Positive for: Normal Inspection - Respiratory Exam Respiratory Exam: Clear to Auscultation Bilateral - Cardiovascular Exam Cardiovascular Exam: REGULAR RHYTHM - GI/Abdominal Exam GI & Abdominal Exam: Normal Bowel Sounds, Soft - Extremities Exam Extremities exam: Positive for: normal inspection - Neurological Exam Neurological exam: Alert, Oriented x3 Results - Vital Signs Recent Vital Signs: Last Vital Signs Temp 98.0 F 11/18/18 15:09 Pulse 70 11/18/18 15:09 Resp 20 11/18/18 15:09 BP 110/64 11/18/18 15:09 Pulse Ox 96 11/18/18 15:09 - Labs Result Diagrams: 11/18/18 06:40 11/18/18 06:40 Labs: Laboratory Results - last 24 hr 11/18/18 11/18/18 06:40 06:40 WBC 16.5 H RBC 4.25 L Hgb 11.0 L Hct 34.5 L MCV 81.3 MCH 25.8 L MCHC 31.8 L RDW 14.4 Plt Count 218 MPV 8.2 Neut % (Auto) 90.8 H Lymph % (Auto) 2.3 L [place] % (Auto) 6.5 Eos % (Auto) 0.1 Baso % (Auto) 0.3 Neut # (Auto) 15.0 H Lymph # (Auto) 0.4 L [place] # (Auto) 1.1 H Eos # (Auto) 0.0 Baso # (Auto) 0.1 Neutrophils % (Manual) 88 H Lymphocytes % (Manual) 4 L Monocytes % (Manual) 7 Basophils % (Manual) 1 Platelet Estimate Normal Poikilocytosis (manual Slight Target Cells Slight Ovalocytes Slight Sodium 137 Potassium 4.0 Chloride 102 Carbon Dioxide 25 Anion Gap 14 BUN 13 Creatinine 0.7 L Est GFR ( Amer) > 60 Est GFR (Non-Af Amer) > 60 Random Glucose 123 H D Calcium 9.0 Total Bilirubin 0.3 AST 29 ALT 14 L Alkaline Phosphatase 89 Total Protein 6.6 Albumin 3.5 Globulin 3.1 Albumin/Globulin Ratio 1.2 Assessment & Plan (1) COPD exacerbation Assessment and Plan: IV steroids and nebulizer treatment Follow-up ABG Status: Resolved
--- NOTE | 2018-11-18 21:15 | CP.PCM.PN ---
Subjective - Date & Time of Evaluation Date of Evaluation: 11/18/18 Time of Evaluation: 21:00 - Subjective Subjective: dict Objective - Vital Signs/Intake and Output Vital Signs (last 24 hours): Temp Pulse Resp BP Pulse Ox 98.0 F 70 20 125/76 96 11/18/18 15:09 11/18/18 15:09 11/18/18 15:09 11/18/18 18:07 11/18/18 15:09 Intake and Output: 11/18/18 11/19/18 18:59 06:59 Intake Total 600 Balance 600 - Medications Medications: Current Medications Albuterol/Ipratropium (Duoneb 3 Mg/0.5 Mg (3 Ml) Ud) 3 ml INH RQ6 [facility] Last Admin: 11/18/18 13:08 Dose: 3 ml Aspirin (Ecotrin) 81 mg PO DAILY [facility] Last Admin: 11/18/18 16:55 Dose: Not Given Enoxaparin Sodium (Lovenox) 40 mg SC DAILY [facility] Last Admin: 11/18/18 09:16 Dose: Not Given Guaifenesin (Robitussin) 200 mg PO Q4H PRN PRN Reason: Cough and congestion Last Admin: 11/18/18 09:15 Dose: 200 mg Losartan Potassium (Cozaar) 25 mg PO DAILY [facility] Last Admin: 11/18/18 09:16 Dose: 25 mg Methylprednisolone (Solu-Medrol) 60 mg IV Q12H [facility] Last Admin: 11/18/18 18:08 Dose: 60 mg Metoprolol Tartrate (Lopressor) 25 mg PO BID [facility] Last Admin: 11/18/18 18:07 Dose: 25 mg Montelukast Sodium (Singulair) 10 mg PO HS [facility] Last Admin: 11/17/18 22:48 Dose: 10 mg Multivitamins (Hexavitamin) 1 tab PO DAILY [facility] Last Admin: 11/18/18 09:16 Dose: 1 tab Thiamine HCl (Vitamin B1 Tab) 100 mg PO DAILY [facility] Last Admin: 11/18/18 09:16 Dose: 100 mg - Labs Labs: 11/18/18 06:40 11/18/18 06:40
[2018-11-19] MEDS: Albuterol-Ipratrop 3 mg / 0.5 (3 ml) UD INH SCH ×4 (01:13→20:15)
--- NOTE | 2018-11-19 05:09 | PN ---
DATE: 11/19/2018 SUBJECTIVE: The patient is less short of breath, less cough, less wheezing. No fever. No chills. No nausea or vomiting. PHYSICAL EXAMINATION: VITAL SIGNS: Blood pressure 124/76, pulse 70, respiratory rate 20, and temperature 98. LUNGS: Decreased air entry. Positive rhonchi. CARDIOVASCULAR SYSTEM: S1 and S2. Regular. ABDOMEN: Soft. ASSESSMENT: 1. Exacerbation of chronic obstructive pulmonary disease. 2. Hypertension. 3. Aortic aneurysm. PLAN: Surgical evaluation. Monitor the patient. Louis Estrada MD
[2018-11-19] MEDS: Multiple Vitamins Tab PO SCH (09:33)
[2018-11-19] MEDS: Enoxaparin 40 mg Syringe SC SCH (09:41)
--- NOTE | 2018-11-19 14:38 | CP.PCM.PN ---
<Jaren Major - Last Filed: 11/19/18 16:20> Subjective - Date & Time of Evaluation Date of Evaluation: 11/19/18 Time of Evaluation: 09:25 - Subjective Subjective: PGY2 Cardiology Note for Dr. Wilkins Patient seen and examined this morning at bedside. No acute events overnight as per nursing staff. Patient is feeling well, currently receiving neb treatment at this time. He reports improved breathing, denying any chest pain. He has no complaints. Objective - Vital Signs/Intake and Output Vital Signs (last 24 hours): Temp Pulse Resp BP Pulse Ox 98.4 F 69 20 116/77 95 11/19/18 08:27 11/19/18 12:42 11/19/18 08:27 11/19/18 09:34 11/19/18 08:27 - Medications Medications: Current Medications Albuterol/Ipratropium (Duoneb 3 Mg/0.5 Mg (3 Ml) Ud) 3 ml INH RQ6 [facility] Last Admin: 11/19/18 13:59 Dose: 3 ml Aspirin (Ecotrin) 81 mg PO DAILY [facility] Last Admin: 11/19/18 09:34 Dose: 81 mg Enoxaparin Sodium (Lovenox) 40 mg SC DAILY [facility] Last Admin: 11/19/18 09:41 Dose: Not Given Guaifenesin (Robitussin) 200 mg PO Q4H PRN PRN Reason: Cough and congestion Last Admin: 11/18/18 21:44 Dose: 200 mg Losartan Potassium (Cozaar) 25 mg PO DAILY [facility] Last Admin: 11/19/18 09:33 Dose: 25 mg Methylprednisolone (Solu-Medrol) 60 mg IV Q12H [facility] Last Admin: 11/19/18 05:53 Dose: 60 mg Metoprolol Tartrate (Lopressor) 25 mg PO BID [facility] Last Admin: 11/19/18 09:34 Dose: 25 mg Montelukast Sodium (Singulair) 10 mg PO HS [facility] Last Admin: 11/18/18 21:42 Dose: 10 mg Multivitamins (Hexavitamin) 1 tab PO DAILY [facility] Last Admin: 11/19/18 09:33 Dose: 1 tab Thiamine HCl (Vitamin B1 Tab) 100 mg PO DAILY [facility] Last Admin: 11/19/18 09:33 Dose: 100 mg - Labs Labs: 11/18/18 06:40 11/18/18 06:40 - Additional Findings Additional findings: - Constitutional Appears: Non-toxic, No Acute Distress, Cachectic - Head Exam Head Exam: ATRAUMATIC, NORMOCEPHALIC - Eye Exam Eye Exam: Normal appearance - ENT Exam ENT Exam: Mucous Membranes Moist - Neck Exam Neck exam: Negative for: Lymphadenopathy, Tenderness - Respiratory Exam Respiratory Exam: Decreased Breath Sounds, Wheezes (bases), NORMAL BREATHING PATTERN. absent: Accessory Muscle Use, Rales, Rhonchi, Respiratory Distress - Cardiovascular Exam Cardiovascular Exam: REGULAR RHYTHM, +S1 - GI/Abdominal Exam GI & Abdominal Exam: Soft. absent: Distended, Firm, Guarding, Rigid, Tenderness - Extremities Exam Extremities exam: Negative for: calf tenderness, pedal edema - Neurological Exam Neurological exam: Alert, Oriented x3 - Psychiatric Exam Psychiatric exam: Normal Affect, Normal Mood - Skin Skin Exam: Dry, Warm Assessment and Plan - Assessment and Plan (Free Text) Assessment: Patient is an 83 year old male with a past medical history of COPD, emphysema, thoracic aorta aneurysm, potomania/hyponatremia and alcohol dependence who was admitted with SOB secondary to acute on chronic COPD exacerbation. Plan: Patient denies any history of CAD. Ascending Aortic Aneurysm Descending thoracic Aortic Aneurysm Hypertension Vascular Surgery consulted, Dr. Reyes CT angio 11/16/18: * 1.) Fusiform aneurysm of the ascending aorta measures 5.8 centimeters in diameter with no thrombosis or dissection. The aneurysm continues to the arch. The proximal descending thoracic aorta measures 4.3 centimeters. 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 The aneurysm is 40 percent thrombosed. There is no dissection (see full report). Patient does not want to have any surgery stating, "I want to do this all with medicine." Blood pressure control Continue current medical management: * Losartan 25mg PO daily * Metoprolol 25mg PO BID * Aspirin 81mg PO daily COPD Exacerbation Pulmonology Consult, Dr. Mcnulty management per pulm/primary team Case discussed with Dr. Franky Major PGY2 <Erwin Wilkins - Last Filed: 11/19/18 22:39> Objective - Vital Signs/Intake and Output Vital Signs (last 24 hours): Temp Pulse Resp BP Pulse Ox 98.0 F 66 20 123/63 97 11/19/18 15:10 11/19/18 17:05 11/19/18 15:10 11/19/18 18:02 11/19/18 15:10 Intake and Output: 11/19/18 11/20/18 18:59 06:59 Intake Total 720 Balance 720 - Medications Medications: Current Medications Albuterol/Ipratropium (Duoneb 3 Mg/0.5 Mg (3 Ml) Ud) 3 ml INH RQ6 [facility] Last Admin: 11/19/18 20:15 Dose: 3 ml Aspirin (Ecotrin) 81 mg PO DAILY [facility] Last Admin: 11/19/18 09:34 Dose: 81 mg Enoxaparin Sodium (Lovenox) 40 mg SC DAILY [facility] Last Admin: 11/19/18 09:41 Dose: Not Given Guaifenesin (Robitussin) 200 mg PO Q4H PRN PRN Reason: Cough and congestion Last Admin: 11/18/18 21:44 Dose: 200 mg Losartan Potassium (Cozaar) 25 mg PO DAILY [facility] Last Admin: 11/19/18 09:33 Dose: 25 mg Methylprednisolone (Solu-Medrol) 60 mg IV Q12H [facility] Last Admin: 11/19/18 18:01 Dose: 60 mg Metoprolol Tartrate (Lopressor) 25 mg PO BID [facility] Last Admin: 11/19/18 18:02 Dose: 25 mg Montelukast Sodium (Singulair) 10 mg PO HS [facility] Last Admin: 11/19/18 21:30 Dose: 10 mg Multivitamins (Hexavitamin) 1 tab PO DAILY [facility] Last Admin: 11/19/18 09:33 Dose: 1 tab Thiamine HCl (Vitamin B1 Tab) 100 mg PO DAILY [facility] Last Admin: 11/19/18 09:33 Dose: 100 mg - Labs Labs: 11/18/18 06:40 11/18/18 06:40 Assessment and Plan - Assessment and Plan (Free Text) Assessment: Patient seen, examined and evaluated personally by me. Plan of care d/w the biomedical technician and as documented
--- NOTE | 2018-11-19 16:18 | CP.PCM.PN ---
Subjective - Date & Time of Evaluation Date of Evaluation: 11/19/18 Time of Evaluation: 14:00 - Subjective Subjective: Patient seen and examined Sitting comfortably in no distress Complaining of dyspnea on exertion Afebrile No chest pain Objective - Vital Signs/Intake and Output Vital Signs (last 24 hours): Temp Pulse Resp BP Pulse Ox 98.0 F 77 20 123/63 97 11/19/18 15:10 11/19/18 15:10 11/19/18 15:10 11/19/18 15:10 11/19/18 15:10 Intake and Output: 11/19/18 11/19/18 06:59 18:59 Intake Total 720 Balance 720 - Medications Medications: Current Medications Albuterol/Ipratropium (Duoneb 3 Mg/0.5 Mg (3 Ml) Ud) 3 ml INH RQ6 [facility] Last Admin: 11/19/18 13:59 Dose: 3 ml Aspirin (Ecotrin) 81 mg PO DAILY [facility] Last Admin: 11/19/18 09:34 Dose: 81 mg Enoxaparin Sodium (Lovenox) 40 mg SC DAILY [facility] Last Admin: 11/19/18 09:41 Dose: Not Given Guaifenesin (Robitussin) 200 mg PO Q4H PRN PRN Reason: Cough and congestion Last Admin: 11/18/18 21:44 Dose: 200 mg Losartan Potassium (Cozaar) 25 mg PO DAILY [facility] Last Admin: 11/19/18 09:33 Dose: 25 mg Methylprednisolone (Solu-Medrol) 60 mg IV Q12H [facility] Last Admin: 11/19/18 05:53 Dose: 60 mg Metoprolol Tartrate (Lopressor) 25 mg PO BID [facility] Last Admin: 11/19/18 09:34 Dose: 25 mg Montelukast Sodium (Singulair) 10 mg PO HS [facility] Last Admin: 11/18/18 21:42 Dose: 10 mg Multivitamins (Hexavitamin) 1 tab PO DAILY [facility] Last Admin: 11/19/18 09:33 Dose: 1 tab Thiamine HCl (Vitamin B1 Tab) 100 mg PO DAILY [facility] Last Admin: 11/19/18 09:33 Dose: 100 mg - Labs Labs: 11/18/18 06:40 11/18/18 06:40 - Head Exam Head Exam: ATRAUMATIC, NORMOCEPHALIC - ENT Exam ENT Exam: Mucous Membranes Moist - Neck Exam Neck Exam: Normal Inspection - Respiratory Exam Respiratory Exam: Decreased Breath Sounds - Cardiovascular Exam Cardiovascular Exam: REGULAR RHYTHM - GI/Abdominal Exam GI & Abdominal Exam: Soft, Normal Bowel Sounds Assessment and Plan (1) COPD exacerbation Assessment & Plan: Switch to p.o. prednisone Nebulizer treatment Okay to discharge Status: Resolved
--- NOTE | 2018-11-19 17:31 | CP.PCM.PN ---
Subjective - Date & Time of Evaluation Date of Evaluation: 11/19/18 Time of Evaluation: 11:45 - Subjective Subjective: patient seen today , sitting up comfortable in bed , denies any chest pain, c/o dyspnea on exertion a febrile no overnight events reported by RN Objective - Vital Signs/Intake and Output Vital Signs (last 24 hours): Temp Pulse Resp BP Pulse Ox 98.0 F 66 20 123/63 97 11/19/18 15:10 11/19/18 17:05 11/19/18 15:10 11/19/18 15:10 11/19/18 15:10 Intake and Output: 11/19/18 11/19/18 06:59 18:59 Intake Total 720 Balance 720 - Medications Medications: Current Medications Albuterol/Ipratropium (Duoneb 3 Mg/0.5 Mg (3 Ml) Ud) 3 ml INH RQ6 [facility] Last Admin: 11/19/18 13:59 Dose: 3 ml Aspirin (Ecotrin) 81 mg PO DAILY [facility] Last Admin: 11/19/18 09:34 Dose: 81 mg Enoxaparin Sodium (Lovenox) 40 mg SC DAILY [facility] Last Admin: 11/19/18 09:41 Dose: Not Given Guaifenesin (Robitussin) 200 mg PO Q4H PRN PRN Reason: Cough and congestion Last Admin: 11/18/18 21:44 Dose: 200 mg Losartan Potassium (Cozaar) 25 mg PO DAILY [facility] Last Admin: 11/19/18 09:33 Dose: 25 mg Methylprednisolone (Solu-Medrol) 60 mg IV Q12H [facility] Last Admin: 11/19/18 05:53 Dose: 60 mg Metoprolol Tartrate (Lopressor) 25 mg PO BID [facility] Last Admin: 11/19/18 09:34 Dose: 25 mg Montelukast Sodium (Singulair) 10 mg PO HS [facility] Last Admin: 11/18/18 21:42 Dose: 10 mg Multivitamins (Hexavitamin) 1 tab PO DAILY [facility] Last Admin: 11/19/18 09:33 Dose: 1 tab Thiamine HCl (Vitamin B1 Tab) 100 mg PO DAILY [facility] Last Admin: 11/19/18 09:33 Dose: 100 mg - Labs Labs: 11/18/18 06:40 11/18/18 06:40 - Constitutional Appears: Well, No Acute Distress - Respiratory Exam Respiratory Exam: Decreased Breath Sounds, Rhonchi, NORMAL BREATHING PATTERN - Neurological Exam Neurological Exam: Alert, Awake, Oriented x3 Assessment and Plan - Assessment and Plan (Free Text) Assessment: A/P 83 yr old male with pmhx of CHF, COPD, Emphysema, HTN presented to ED with sob admitted with exc. COPD and hyponatremia NA- improved 134 started on IV steroids and pateint clinically improved seen by Dr. altamirano today, cleared fro dicharge from pul. standpoint and continue preednisone taper dose D/w Dr. estrada cleared for discharge home today RX filled and given to pateint upon discharge ( Pateint can be discharged in am only because of sheltor hours ) and Dr. Estrada aware
--- NOTE | 2018-11-19 23:21 | CP.PCM.PN ---
Subjective - Date & Time of Evaluation Date of Evaluation: 11/19/18 Time of Evaluation: 08:00 - Subjective Subjective: dict Objective - Vital Signs/Intake and Output Vital Signs (last 24 hours): Temp Pulse Resp BP Pulse Ox 98.0 F 66 20 123/63 97 11/19/18 15:10 11/19/18 17:05 11/19/18 15:10 11/19/18 18:02 11/19/18 15:10 Intake and Output: 11/19/18 11/20/18 18:59 06:59 Intake Total 720 Balance 720 - Medications Medications: Current Medications Albuterol/Ipratropium (Duoneb 3 Mg/0.5 Mg (3 Ml) Ud) 3 ml INH RQ6 [facility] Last Admin: 11/19/18 20:15 Dose: 3 ml Aspirin (Ecotrin) 81 mg PO DAILY [facility] Last Admin: 11/19/18 09:34 Dose: 81 mg Enoxaparin Sodium (Lovenox) 40 mg SC DAILY [facility] Last Admin: 11/19/18 09:41 Dose: Not Given Guaifenesin (Robitussin) 200 mg PO Q4H PRN PRN Reason: Cough and congestion Last Admin: 11/18/18 21:44 Dose: 200 mg Losartan Potassium (Cozaar) 25 mg PO DAILY [facility] Last Admin: 11/19/18 09:33 Dose: 25 mg Methylprednisolone (Solu-Medrol) 60 mg IV Q12H [facility] Last Admin: 11/19/18 18:01 Dose: 60 mg Metoprolol Tartrate (Lopressor) 25 mg PO BID [facility] Last Admin: 11/19/18 18:02 Dose: 25 mg Montelukast Sodium (Singulair) 10 mg PO HS [facility] Last Admin: 11/19/18 21:30 Dose: 10 mg Multivitamins (Hexavitamin) 1 tab PO DAILY [facility] Last Admin: 11/19/18 09:33 Dose: 1 tab Thiamine HCl (Vitamin B1 Tab) 100 mg PO DAILY [facility] Last Admin: 11/19/18 09:33 Dose: 100 mg - Labs Labs: 11/18/18 06:40 11/18/18 06:40
[2018-11-20] MEDS: Albuterol-Ipratrop 3 mg / 0.5 (3 ml) UD INH SCH (01:15)
--- NOTE | 2018-11-20 04:37 | PN ---
DATE: 11/19/2018 SUBJECTIVE: The patient is feeling better. He is less short of breath, less cough, less wheezing. No nausea or vomiting. PHYSICAL EXAMINATION: VITAL SIGNS: Blood pressure 122/63, pulse 77, respiratory rate 20, and temperature 98. LUNGS: Decreased air entry, positive rhonchi. CARDIOVASCULAR SYSTEM: S1, S2 regular. ABDOMEN: Soft. ASSESSMENT: 1. Exacerbation of chronic obstructive pulmonary disease. 2. Steroid-induced diabetes. 3. Hypertension. PLAN: Continue current medication. Monitor the patient. Louis Estrada MD
[2018-11-20 08:21] VITALS: PULSE 68; TEMP 98.3; O2SAT 97
[2018-11-20] MEDS: Enoxaparin 40 mg Syringe SC SCH (09:35)
[2018-11-20] MEDS: Multiple Vitamins Tab PO SCH (09:35)
[2018-11-20 09:36] VITALS: BP 126/78
--- NOTE | 2018-11-20 23:03 | CP.PCM.DIS ---
Provider - Provider Date of Admission: 11/16/18 06:47 Attending physician: Louis Estrada MD Consults: 11/16/18 09:06 Social Work Referral Routine Comment: Protocol Physician Instructions: Reason For Exam: Homeless 11/16/18 21:07 Vascular Surgery Routine Comment: Consulting Provider: Jv Reyes Jr. Physician Instructions: Reason For Exam: Aortic Aneurysm 11/17/18 18:53 Pulmonology Consult Routine Comment: Consulting Provider: Jose Mcnulty Consulting Physician: Jose Mcnulty Reason for Consult: copd 11/18/18 04:09 Cardiology Consult Routine Comment: Consulting Provider: Erwin Wilkins Consulting Physician: Erwin Wilkins Reason for Consult: cad Time Spent in preparation of Discharge (in minutes): 54 Hospital Course - Lab Results Lab Results: Most Recent Lab Values WBC 16.5 K/uL (4.8-10.8) H 11/18/18 06:40 RBC 4.25 Mil/uL (4.40-5.90) L 11/18/18 06:40 Hgb 11.0 g/dL (12.0-18.0) L 11/18/18 06:40 Hct 34.5 % (35.0-51.0) L 11/18/18 06:40 MCV 81.3 fL (80.0-94.0) 11/18/18 06:40 MCH 25.8 pg (27.0-31.0) L 11/18/18 06:40 MCHC 31.8 g/dL (33.0-37.0) L 11/18/18 06:40 RDW 14.4 % (11.5-14.5) 11/18/18 06:40 Plt Count 218 K/uL (130-400) 11/18/18 06:40 MPV 8.2 fL (7.2-11.7) 11/18/18 06:40 Neut % (Auto) 90.8 % (50.0-75.0) H 11/18/18 06:40 Lymph % (Auto) 2.3 % (20.0-40.0) L 11/18/18 06:40 [place] % (Auto) 6.5 % (0.0-10.0) 11/18/18 06:40 Eos % (Auto) 0.1 % (0.0-4.0) 11/18/18 06:40 Baso % (Auto) 0.3 % (0.0-2.0) 11/18/18 06:40 Neut # (Auto) 15.0 K/uL (1.8-7.0) H 11/18/18 06:40 Lymph # (Auto) 0.4 K/uL (1.0-4.3) L 11/18/18 06:40 [place] # (Auto) 1.1 K/uL (0.0-0.8) H 11/18/18 06:40 Eos # (Auto) 0.0 K/uL (0.0-0.7) 11/18/18 06:40 Baso # (Auto) 0.1 K/uL (0.0-0.2) 11/18/18 06:40 Neutrophils % (Manual) 88 % (50-75) H 11/18/18 06:40 Band Neutrophils % 1 % (0-2) 11/17/18 10:51 Lymphocytes % (Manual) 4 % (20-40) L 11/18/18 06:40 Monocytes % (Manual) 7 % (0-10) 11/18/18 06:40 Basophils % (Manual) 1 % (0-2) 11/18/18 06:40 Platelet Estimate Normal (NORMAL) 11/18/18 06:40 Large Platelets Present 11/17/18 10:51 Poikilocytosis (manual Slight 11/18/18 06:40 Target Cells Slight 11/18/18 06:40 Ovalocytes Slight 11/18/18 06:40 Sodium 137 mmol/L (132-148) 11/18/18 06:40 Potassium 4.0 mmol/L (3.6-5.2) 11/18/18 06:40 Chloride 102 mmol/L (98-107) 11/18/18 06:40 Carbon Dioxide 25 mmol/L (22-30) 11/18/18 06:40 Anion Gap 14 (10-20) 11/18/18 06:40 BUN 13 mg/dL (9-20) 11/18/18 06:40 Creatinine 0.7 mg/dL (0.8-1.5) L 11/18/18 06:40 Est GFR ( Amer) > 60 11/18/18 06:40 Est GFR (Non-Af Amer) > 60 11/18/18 06:40 Random Glucose 123 mg/dL (75-110) H D 11/18/18 06:40 Calcium 9.0 mg/dl (8.6-10.4) 11/18/18 06:40 Total Bilirubin 0.3 mg/dL (0.2-1.3) 11/18/18 06:40 AST 29 U/L (17-59) 11/18/18 06:40 ALT 14 U/L (21-72) L 11/18/18 06:40 Alkaline Phosphatase 89 U/L (38-126) 11/18/18 06:40 Troponin I < 0.0120 ng/mL (0.00-0.120) 11/16/18 05:29 NT-Pro-B Natriuret Pep 107 pg/mL (0-900) 11/16/18 05:29 Total Protein 6.6 g/dL (6.3-8.3) 11/18/18 06:40 Albumin 3.5 g/dL (3.5-5.0) 11/18/18 06:40 Globulin 3.1 gm/dL (2.2-3.9) 11/18/18 06:40 Albumin/Globulin Ratio 1.2 (1.0-2.1) 11/18/18 06:40 Alcohol, Quantitative 27 mg/dl (0-10) H 11/16/18 05:29 Discharge Exam - Head Exam Head Exam: ATRAUMATIC, NORMOCEPHALIC Discharge Plan - Discharge Medications Prescriptions: Losartan [Cozaar] 25 mg PO DAILY #30 tab Albuterol/Ipratropium [Duoneb 3 mg/0.5 mg (3 ml) UD] 3 ml INH RQ6 30 Days neb Multivitamins [Hexavitamin] 1 tab PO DAILY #30 tab predniSONE [Prednisone] 30 mg PO DAILY #18 tab predniSONE [predniSONE Tab] 5 mg PO DAILY #3 tab Montelukast [Singulair] 10 mg PO HS #30 tab Albuterol HFA [Ventolin HFA 90 mcg/actuation (8 g)] 2 puff IH [id number] PRN #2 inhaler PRN Reason: Shortness of Breath Thiamine [Vitamin B1 Tab] 100 mg PO DAILY #30 tab - Follow Up Plan Condition: STABLE Disposition: HOME/ ROUTINE Instructions: Heart Failure, Adult, Heart Healthy Diet, Low Salt Diet, Exacerbation of COPD (DC), Hyponatremia (DC), Alcohol Abuse and Alcoholism (DC), Albuterol, Ipratropium and Albuterol, Losartan, Montelukast, Prednisone, Thiamine, Vitamins (Multiple/Oral) Additional Instructions: Please continue medication as per Med. rec. Please f/u with PMD/ in 3-5 days Referrals: Louis Estrada MD [Staff Provider] -
== END 2018-11-20 11:51 | disposition home or self-care (01) | DRG 191 ==
LOC: C.ER 04:34 → C.9E 06:47 → C.6T 07:36
PROVIDERS: ADMIT Internal Medicine; ATTEND Internal Medicine
DX: J43.9 Emphysema, unspecified (principal); E87.1 Hypo-osmolality and hyponatremia; I11.0 Hypertensive heart disease with heart failure; I50.9 Heart failure, unspecified; I71.2 Thoracic aortic aneurysm, without rupture; Z59.0 Homelessness; Z87.891 Personal history of nicotine dependence; F10.20 Alcohol dependence, uncomplicated; I25.10 Atherosclerotic heart disease of native coronary artery without angina pectoris

== ENCOUNTER 2018-11-25 21:51 | Observation (INO) | payer MEDICARE, MEDICAID ==
--- NOTE | 2018-11-25 22:50 | C.PDOC ---
History Of Present Illness 83 year old male with Hx of COPD presents stating he has had trouble breathing for the past few days, more than usual today. He reports a cough which he states is chronic. Denies chest pain or fever. Patient is a poor historian. He is currently homeless. Time Seen by Provider: 11/25/18 22:32 Chief Complaint (Nursing): Shortness Of Breath History Per: Patient History/Exam Limitations: no limitations Onset/Duration Of Symptoms: Days Current Symptoms Are (Timing): Still Present Current Respiratory Medications: See Home Med List Associated Symptoms: denies: Fever, Chest Pain Recent travel outside of the [place]: No Past Medical History Reviewed: Historical Data, Nursing Documentation, Vital Signs Vital Signs: Last Vital Signs Temp 97.6 F 11/25/18 21:59 Pulse 74 11/25/18 21:59 Resp 22 11/25/18 21:59 BP 136/76 11/25/18 21:59 Pulse Ox 93 L 11/25/18 21:59 Primary Care Provider: Sanford Amaya - Medical History PMH: CHF, COPD, Emphysema, HTN, Pneumonia Denies: Chronic Kidney Disease Surgical History: Cholecystectomy Family History: States: Unknown Family Hx - Social History Hx Alcohol Use: No Hx Substance Use: No - Immunization History Hx Tetanus Toxoid Vaccination: (unknown) Hx Influenza Vaccination: No Hx Pneumococcal Vaccination: No Review Of Systems Constitutional: Negative for: Fever Cardiovascular: Negative for: Chest Pain Respiratory: Positive for: Cough, Shortness of Breath Gastrointestinal: Negative for: Nausea, Vomiting Neurological: Negative for: Weakness, Numbness Physical Exam - Physical Exam Appears: Non-toxic Skin: Normal Color, Warm Head: Atraumatic, Normacephalic Eye(s): bilateral: Normal Inspection Oral Mucosa: Moist Neck: Normal, Supple Chest: Symmetrical, No Tenderness Cardiovascular: Rhythm Regular Respiratory: Rales, No Rhonchi, No Wheezing Gastrointestinal/Abdominal: Soft, No Tenderness Extremity: Other (3+ pitting edema to lower leg) Neurological/Psych: Oriented x3, Normal Speech ED Course And Treatment - Laboratory Results Result Diagrams: 11/25/18 23:00 11/25/18 23:00 Lab Interpretation: Abnormal (Na 131, PO2 61, PCO2 38, pH 7.45) ECG: Interpreted By Pr ECG Rhythm: Sinus Rhythm ([facility] PACs) ECG Interpretation: No Acute Changes O2 Sat by Pulse Oximetry: 93 - Radiology CXR: Interpreted by Me CXR Interpretation: Yes: Mediastinum (wide), Other Progress Note: Blood work, EKG, CXR, and urinalysis ordered. Lasix administered. Reevaluation Time: 00:23 Reassessment Condition: Improved (Lungs clear after Lasix. Patient diuresed 1000ml clear urine.) - Physician Consult Information Physician Contacted: Jerod Stevenson Outcome Of Conversation: Patient to be admitted for exacerbation COPD with questionable medistinal mass and pedal edema Disposition - Disposition Disposition: HOSPITALIZED Disposition Time: 00:23 Condition: IMPROVED Forms: [employer] ([place]) - Clinical Impression Clinical Impression: Dyspnea, COPD exacerbation, Peripheral edema - Scribe Statement The provider has reviewed the documentation as recorded by the Scribe Danny Choi All medical record entries made by the Scribe were at my direction and personally dictated by me. I have reviewed the chart and agree that the record accurately reflects my personal performance of the history, physical exam, medical decision making, and the department course for this patient. I have also personally directed, reviewed, and agree with the discharge instructions and disposition.
[2018-11-25 22:53] LABS: URINE BILIRUBIN NEGATIVE (NEGATIVE); URINE BLOOD NEGATIVE (NEGATIVE); URINE CLARITY Clear (Clear); URINE COLOR Straw (YELLOW); URINE GLUCOSE (UA) NORMAL (Normal); URINE LEUKOCYTE ESTERASE NEG Leu/uL (Negative); URINE PROTEIN NEGATIVE (NEGATIVE); URINE UROBILINOGEN NORMAL mg/dL (0.2-1.0)
[2018-11-25 23:05] LABS: ARTERIAL BLOOD GAS HCO3 26.6 mmol/L (21-28); ARTERIAL BLOOD GAS HEMOGLOBIN 11.3 g/dL (11.7-17.4); ARTERIAL BLOOD GAS O2 SAT 93.4 % (95-98); ARTERIAL BLOOD GAS PCO2 38 mm/Hg (35-45); ARTERIAL BLOOD GAS PH 7.45 (7.35-7.45); ARTERIAL BLOOD GAS PO2 61 mm/Hg (80-100); ARTERIAL BLOOD GAS TCO2 27.6 mmol/L (22-28)
[2018-11-25 23:19] LABS: ALB/GLOB RATIO 1.1 (1.0-2.1); ALBUMIN 3.9 g/dL (3.5-5.0); ALT/SGPT < 6 U/L (21-72); AST/SGOT 36 U/L (17-59); BLOOD UREA NITROGEN 10 mg/dL (9-20); CALCIUM 9.1 mg/dl (8.6-10.4); GFR NON-AFRICAN AMERICAN > 60
[2018-11-25 23:20] LABS: BASO # 0.2 K/uL (0.0-0.2); BASO % 1.6 % (0.0-2.0); EOS # 0.1 K/uL (0.0-0.7); EOS % 0.9 % (0.0-4.0); LYMPH # 0.7 K/uL (1.0-4.3); LYMPH % 6.6 % (20.0-40.0); MEAN CELL VOLUME 80.2 fL (80.0-94.0); MEAN CORPUSCULAR HEMOGLOBIN 26.4 pg (27.0-31.0); MEAN PLATELET VOLUME 8.3 fL (7.2-11.7); MONO # 2.5 K/uL (0.0-0.8); MONO % 24.8 % (0.0-10.0); NEUT # 6.8 K/uL (1.8-7.0); NEUT % 66.1 % (50.0-75.0); NRBC % 0.1 % (0.0-2.0); RBC 4.55 Mil/uL (4.40-5.90); WHITE BLOOD COUNT 10.2 K/uL (4.8-10.8)
[2018-11-25 23:21] LABS: PLATELET COUNT 127 K/uL (130-400)
[2018-11-25 23:30] LABS: B-TYPE NATRIURETIC PEPTIDE 168 pg/mL (0-900)
[2018-11-25 23:56] LABS: EOSINOPHIL 1 % (0-4); LYMPHOCYTE 11 % (20-40); MONOCYTE 22 % (0-10); NEUTROPHIL 66 % (50-75); PLATELET ESTIMATE SLIGHTLY DECREASED (NORMAL); TOTAL CELLS COUNTED 100
[2018-11-25 23:57] LABS: HYPOCHROMIC SLIGHT
--- NOTE | 2018-11-26 01:44 | CP.PCM.HP ---
<Levon Ravi - Last Filed: 11/26/18 01:51> History of Present Illness - History of Present Illness History of Present Illness: HPI: Patient is an 83 year old homeless male with history of COPD, HTN, pneumonia, hyponatremia, aortic aneurysm who presents for complaints of shortness of breath, cough. He states he was recently admitted here a month ago for the same issue. He was reportedly brought in by ambulance after patient states he could not breathe. History limited since patient drank beer today, responding intermittently and is not very cooperative. PMH: COPD, HTN, pneumonia, hyponatremia, aortic aneurysm PSH: none Home meds: none Allergies: NKDA Social hx: drinks beer, unable to specify amount. former smoker. no illicit drug use. homeless Family hx: noncontributory Present on Admission - Present on Admission Any Indicators Present on Admission: No Review of Systems - Review of Systems All systems: reviewed and no additional remarkable complaints except (as per HPI) Past Patient History - Infectious Disease Hx of Infectious Diseases: None - Past Medical History & Family History Past Medical History?: Yes - Past Social History Smoking Status: Former Smoker - CARDIAC Hx Congestive Heart Failure: Yes Hx Hypertension: Yes - PULMONARY Hx Chronic Obstructive Pulmonary Disease (COPD): Yes Hx Emphysema: Yes Hx Pneumonia: Yes - NEUROLOGICAL Hx Neurological Disorder: No - HEENT Hx HEENT Problems: No - RENAL Hx Chronic Kidney Disease: No - ENDOCRINE/METABOLIC Hx Endocrine Disorders: No - HEMATOLOGICAL/ONCOLOGICAL Hx Blood Disorders: No - INTEGUMENTARY Hx Dermatological Problems: No - MUSCULOSKELETAL/RHEUMATOLOGICAL Hx Falls: No - GASTROINTESTINAL Hx Gastrointestinal Disorders: No - GENITOURINARY/GYNECOLOGICAL Hx Genitourinary Disorders: No Hx Prostate Problems: Yes - PSYCHIATRIC Hx Substance Use: No - SURGICAL HISTORY Hx Cholecystectomy: Yes - ANESTHESIA Hx Anesthesia: Yes Hx Anesthesia Reactions: No Meds Allergies/Adverse Reactions: Allergies Allergy/AdvReac Type Severity Reaction Status Date / Time pollen extracts Allergy Verified 11/25/18 22:04 Physical Exam - Constitutional Appears: Unkempt, Cachectic, Chronically Ill - Head Exam Head Exam: ATRAUMATIC, NORMAL INSPECTION, NORMOCEPHALIC - Eye Exam Eye Exam: EOMI. absent: Scleral icterus Pupil Exam: PERRL - ENT Exam ENT Exam: Mucous Membranes Dry - Respiratory Exam Respiratory Exam: Rales (all 4 phillip), Wheezes - Cardiovascular Exam Cardiovascular Exam: Irregular Rhythm. absent: Diastolic murmur, Systolic Murmur - GI/Abdominal Exam GI & Abdominal Exam: Soft. absent: Pulsatile Mass, Tenderness - Extremities Exam Extremities exam: Positive for: pedal pulses present. Negative for: pedal edema - Neurological Exam Neurological exam: Altered, CN II-XII Intact - Psychiatric Exam Psychiatric exam: Flat Affect - Skin Skin Exam: Normal Color, Warm Results - Vital Signs Recent Vital Signs: Last Vital Signs Temp 97.6 F 11/25/18 21:59 Pulse 90 11/25/18 23:05 Resp 22 11/25/18 23:10 BP 141/88 11/25/18 23:05 Pulse Ox 93 L 11/26/18 00:25 - Labs Result Diagrams: 11/25/18 23:00 11/25/18 23:00 Labs: Laboratory Results - last 24 hr 11/25/18 11/25/18 11/25/18 22:47 23:00 23:00 WBC 10.2 RBC 4.55 Hgb 12.0 Hct 36.5 MCV 80.2 MCH 26.4 L MCHC 33.0 RDW 15.0 H Plt Count 127 L D MPV 8.3 Neut % (Auto) 66.1 Lymph % (Auto) 6.6 L Rabun % (Auto) 24.8 H Eos % (Auto) 0.9 Baso % (Auto) 1.6 Neut # (Auto) 6.8 Lymph # (Auto) 0.7 L Rabun # (Auto) 2.5 H Eos # (Auto) 0.1 Baso # (Auto) 0.2 Neutrophils % (Manual) 66 Lymphocytes % (Manual) 11 L Monocytes % (Manual) 22 H Eosinophils % (Manual) 1 Platelet Estimate Slightly decreased L Hypochromasia (manual) Slight Puncture Site pCO2 pO2 HCO3 ABG pH ABG Total CO2 ABG O2 Saturation ABG Base Excess ABG Hemoglobin ABG Carboxyhemoglobin POC ABG HHb (Measured) ABG Methemoglobin John Test A-a O2 Difference Respiratory Index Hgb O2 Saturation Liter Flow FiO2 Sodium 131 L Potassium 4.5 Chloride 98 Carbon Dioxide 24 Anion Gap 14 BUN 10 Creatinine 0.7 L Est GFR ( Amer) > 60 Est GFR (Non-Af Amer) > 60 Random Glucose 87 D Calcium 9.1 Total Bilirubin 0.6 AST 36 ALT < 6 L D Alkaline Phosphatase 88 Troponin I 0.0550 NT-Pro-B Natriuret Pep 168 Total Protein 7.4 Albumin 3.9 Globulin 3.5 Albumin/Globulin Ratio 1.1 Urine Color Straw Urine Clarity Clear Urine pH 6.0 Ur Specific [place] 1.002 L Urine Protein Negative Urine Glucose (UA) Normal Urine Ketones Negative Urine Blood Negative Urine Nitrate Negative Urine Bilirubin Negative Urine Urobilinogen Normal Ur Leukocyte Esterase Neg Urine WBC (Auto) < 1 Urine RBC (Auto) < 1 11/25/18 23:02 WBC RBC Hgb Hct MCV MCH MCHC RDW Plt Count MPV Neut % (Auto) Lymph % (Auto) Rabun % (Auto) Eos % (Auto) Baso % (Auto) Neut # (Auto) Lymph # (Auto) Rabun # (Auto) Eos # (Auto) Baso # (Auto) Neutrophils % (Manual) Lymphocytes % (Manual) Monocytes % (Manual) Eosinophils % (Manual) Platelet Estimate Hypochromasia (manual) Puncture Site Rba pCO2 38 pO2 61 L HCO3 26.6 ABG pH 7.45 ABG Total CO2 27.6 ABG O2 Saturation 93.4 L ABG Base Excess 2.4 ABG Hemoglobin 11.3 L ABG Carboxyhemoglobin 2.7 H POC ABG HHb (Measured) 6.4 H ABG Methemoglobin 0.8 John Test Na A-a O2 Difference 41.0 Respiratory Index 0.7 Hgb O2 Saturation 90.1 L Liter Flow 0 FiO2 21.0 Sodium Potassium Chloride Carbon Dioxide Anion Gap BUN Creatinine Est GFR ( Amer) Est GFR (Non-Af Amer) Random Glucose Calcium Total Bilirubin AST ALT Alkaline Phosphatase Troponin I NT-Pro-B Natriuret Pep Total Protein Albumin Globulin Albumin/Globulin Ratio Urine Color Urine Clarity Urine pH Ur Specific [place] Urine Protein Urine Glucose (UA) Urine Ketones Urine Blood Urine Nitrate Urine Bilirubin Urine Urobilinogen Ur Leukocyte Esterase Urine WBC (Auto) Urine RBC (Auto) Assessment & Plan - Assessment and Plan (Free Text) Assessment: 83 year old homeless male who presents for shortness of breath. Plan: Shortness of breath Azithro 500 IVPB daily Duonebs Q4 Singulair 10mg PO HS CXR: hyperinflated, possible eliu lower lobe infiltrates Afebrile, WBCs 10.2 f/u rapid flu f/u CT Angio Hyponatremia Na 131 monitor History of HTN Cozaar 25mg PO Abdominal Aortic aneurysm 5.8cm last scan on 11/17 monitor, asymptomatic Alcohol use disorder Alcohol level 66 Ativan 1mg Q4 PRN MV, Thiamine, folate Lower extremity edema Dopplers ordered No SCDs Prophylaxis Heparin 5000u q8 Pepcid 20 daily HHD CK PGY1 d/w Dr Stevenson <StevensonJerod N - Last Filed: 11/26/18 04:30> Results - Vital Signs Recent Vital Signs: Last Vital Signs Temp 97.3 F L 11/26/18 03:15 Pulse 100 H 11/26/18 03:27 Resp 20 11/26/18 03:15 BP 158/92 H 11/26/18 03:15 Pulse Ox 97 11/26/18 03:15 - Labs Result Diagrams: 11/25/18 23:00 11/25/18 23:00 Labs: Laboratory Results - last 24 hr 11/25/18 11/25/18 11/25/18 22:47 23:00 23:00 WBC 10.2 RBC 4.55 Hgb 12.0 Hct 36.5 MCV 80.2 MCH 26.4 L MCHC 33.0 RDW 15.0 H Plt Count 127 L D MPV 8.3 Neut % (Auto) 66.1 Lymph % (Auto) 6.6 L Rabun % (Auto) 24.8 H Eos % (Auto) 0.9 Baso % (Auto) 1.6 Neut # (Auto) 6.8 Lymph # (Auto) 0.7 L Rab[place] # (Auto) 2.5 H Eos # (Auto) 0.1 Baso # (Auto) 0.2 Neutrophils % (Manual) 66 Lymphocytes % (Manual) 11 L Monocytes % (Manual) 22 H Eosinophils % (Manual) 1 Platelet Estimate Slightly decreased L Hypochromasia (manual) Slight Puncture Site pCO2 pO2 HCO3 ABG pH ABG Total CO2 ABG O2 Saturation ABG Base Excess ABG Hemoglobin ABG Carboxyhemoglobin POC ABG HHb (Measured) ABG Methemoglobin John Test A-a O2 Difference Respiratory Index Hgb O2 Saturation Liter Flow FiO2 Sodium 131 L Potassium 4.5 Chloride 98 Carbon Dioxide 24 Anion Gap 14 BUN 10 Creatinine 0.7 L Est GFR ( Amer) > 60 Est GFR (Non-Af Amer) > 60 Random Glucose 87 D Calcium 9.1 Total Bilirubin 0.6 AST 36 ALT < 6 L D Alkaline Phosphatase 88 Troponin I 0.0550 NT-Pro-B Natriuret Pep 168 Total Protein 7.4 Albumin 3.9 Globulin 3.5 Albumin/Globulin Ratio 1.1 Urine Color Straw Urine Clarity Clear Urine pH 6.0 Ur Specific [place] 1.002 L Urine Protein Negative Urine Glucose (UA) Normal Urine Ketones Negative Urine Blood Negative Urine Nitrate Negative Urine Bilirubin Negative Urine Urobilinogen Normal Ur Leukocyte Esterase Neg Urine WBC (Auto) < 1 Urine RBC (Auto) < 1 Urine Opiates Screen Urine Methadone Screen Ur Barbiturates Screen Ur Phencyclidine Scrn Ur Amphetamines Screen U Benzodiazepines Scrn U Oth Cocaine Metabols U Cannabinoids Screen Alcohol, Quantitative Influenza Typ A,B (EIA) 11/25/18 11/26/18 11/26/18 23:02 02:41 02:41 WBC RBC Hgb Hct MCV MCH MCHC RDW Plt Count MPV Neut % (Auto) Lymph % (Auto) Rab[place] % (Auto) Eos % (Auto) Baso % (Auto) Neut # (Auto) Lymph # (Auto) Rab[place] # (Auto) Eos # (Auto) Baso # (Auto) Neutrophils % (Manual) Lymphocytes % (Manual) Monocytes % (Manual) Eosinophils % (Manual) Platelet Estimate Hypochromasia (manual) Puncture Site Rba pCO2 38 pO2 61 L HCO3 26.6 ABG pH 7.45 ABG Total CO2 27.6 ABG O2 Saturation 93.4 L ABG Base Excess 2.4 ABG Hemoglobin 11.3 L ABG Carboxyhemoglobin 2.7 H POC ABG HHb (Measured) 6.4 H ABG Methemoglobin 0.8 John Test Na A-a O2 Difference 41.0 Respiratory Index 0.7 Hgb O2 Saturation 90.1 L Liter Flow 0 FiO2 21.0 Sodium Potassium Chloride Carbon Dioxide Anion Gap BUN Creatinine Est GFR ( Amer) Est GFR (Non-Af Amer) Random Glucose Calcium Total Bilirubin AST ALT Alkaline Phosphatase Troponin I NT-Pro-B Natriuret Pep Total Protein Albumin Globulin Albumin/Globulin Ratio Urine Color Urine Clarity Urine pH Ur Specific [place] Urine Protein Urine Glucose (UA) Urine Ketones Urine Blood Urine Nitrate Urine Bilirubin Urine Urobilinogen Ur Leukocyte Esterase Urine WBC (Auto) Urine RBC (Auto) Urine Opiates Screen Urine Methadone Screen Ur Barbiturates Screen Ur Phencyclidine Scrn Ur Amphetamines Screen U Benzodiazepines Scrn U Oth Cocaine Metabols U Cannabinoids Screen Alcohol, Quantitative 41 H Influenza Typ A,B (EIA) Negative for flu a/b 11/26/18 02:41 WBC RBC Hgb Hct MCV MCH MCHC RDW Plt Count MPV Neut % (Auto) Lymph % (Auto) Rab[place] % (Auto) Eos % (Auto) Baso % (Auto) Neut # (Auto) Lymph # (Auto) Rab[place] # (Auto) Eos # (Auto) Baso # (Auto) Neutrophils % (Manual) Lymphocytes % (Manual) Monocytes % (Manual) Eosinophils % (Manual) Platelet Estimate Hypochromasia (manual) Puncture Site pCO2 pO2 HCO3 ABG pH ABG Total CO2 ABG O2 Saturation ABG Base Excess ABG Hemoglobin ABG Carboxyhemoglobin POC ABG HHb (Measured) ABG Methemoglobin John Test A-a O2 Difference Respiratory Index Hgb O2 Saturation Liter Flow FiO2 Sodium Potassium Chloride Carbon Dioxide Anion Gap BUN Creatinine Est GFR ( Amer) Est GFR (Non-Af Amer) Random Glucose Calcium Total Bilirubin AST ALT Alkaline Phosphatase Troponin I NT-Pro-B Natriuret Pep Total Protein Albumin Globulin Albumin/Globulin Ratio Urine Color Urine Clarity Urine pH Ur Specific [place] Urine Protein Urine Glucose (UA) Urine Ketones Urine Blood Urine Nitrate Urine Bilirubin Urine Urobilinogen Ur Leukocyte Esterase Urine WBC (Auto) Urine RBC (Auto) Urine Opiates Screen Negative Urine Methadone Screen Negative Ur Barbiturates Screen Negative Ur Phencyclidine Scrn Negative Ur Amphetamines Screen Negative U Benzodiazepines Scrn Negative U Oth Cocaine Metabols Negative U Cannabinoids Screen Negative Alcohol, Quantitative Influenza Typ A,B (EIA) Addendum Addendum: 11/26/18 04:22 pt a poor historian homeless was brought to er .for sob for couple of days and chronic cough for 2 days , pt has hx of copd htn and aortic aneurysm . was noted to be tachypnic and hypoxic in the er as per er had rales and swollen legs was given lasix , when i examined the pt pt was still tachypnic and hypoxic and had decreased breath sound bilaterally . pt was treated with duo nebs ct angio was ordered and zithro max was started.A/Pposible copd exacerbation. pt also had alcohol level of 66 and had sodium of 131.
[2018-11-26] MEDS ORDERED: Azithromycin 500 MG in Sodium Chloride 0.9% 250 ML IVPB SCH (02:00)
[2018-11-26] MEDS ORDERED: Iodixanol 320 MG/ML 100 ML BOTTLE IV ONE (02:44)
[2018-11-26 03:07] LABS: BARBITURATES, UR NEGATIVE (NEGATIVE); BENZODIAZEPINES, UR NEGATIVE (NEGATIVE); OPIATES, UR NEGATIVE (NEGATIVE); PHENCYCLIDINE, UR NEGATIVE (NEGATIVE)
[2018-11-26 07:51] LABS: CK-MB 1.19 ng/mL (0.0-3.38)
--- NOTE | 2018-11-26 07:57 | CP.PCM.PN ---
<Jose Greenberg L - Last Filed: 11/26/18 15:15> Subjective - Date & Time of Evaluation Date of Evaluation: 11/26/18 Time of Evaluation: 07:56 - Subjective Subjective: Resident Progress Note for Hospitalist Service Patient examined at bedside. No acute events overnight. CIWA this AM is 0. Breathing has improved. Admits to some leg pain that has been ongoing for weeks and epigastric discomfort. Denies fevers, chills, chest pain, abdominal pain, diarrhea, dysuria. Objective - Vital Signs/Intake and Output Vital Signs (last 24 hours): Temp Pulse Resp BP Pulse Ox 97.3 F L 100 H 20 158/92 H 97 11/26/18 03:15 11/26/18 03:27 11/26/18 03:15 11/26/18 03:15 11/26/18 03:15 Intake and Output: 11/26/18 11/26/18 06:59 18:59 Intake Total 240 Output Total 900 Balance -660 - Medications Medications: Current Medications Albuterol/Ipratropium (Duoneb 3 Mg/0.5 Mg (3 Ml) Ud) 3 ml INH RQ4 SINDY Aspirin (Ecotrin) 81 mg PO DAILY [facility] Famotidine (Pepcid) 20 mg PO DAILY [facility] Folic Acid (Folic Acid) 1 mg PO DAILY [facility] Heparin Sodium (Porcine) (Heparin) 5,000 units SC Q8 [facility] Azithromycin 500 mg/ Sodium (Chloride) 250 mls @ 250 mls/hr IVPB DAILY [facility]; Protocol Last Admin: 11/26/18 04:15 Dose: 250 mls/hr Lorazepam (Ativan) 1 mg IVP Q6H PRN PRN Reason: Seizure activity Losartan Potassium (Cozaar) 25 mg PO DAILY [facility] Montelukast Sodium (Singulair) 10 mg PO HS [facility] Multivitamins (Hexavitamin) 1 tab PO DAILY [facility] Thiamine HCl (Vitamin B1 Tab) 100 mg PO DAILY [facility] - Labs Labs: 11/25/18 23:00 11/25/18 23:00 - Constitutional Appears: Unkempt, Cachectic, Chronically Ill - Head Exam Head Exam: ATRAUMATIC, NORMOCEPHALIC - Eye Exam Eye Exam: EOMI - ENT Exam ENT Exam: Mucous Membranes Dry - Respiratory Exam Respiratory Exam: - Cardiovascular Exam Cardiovascular Exam: +S1, +S2, Irregular Rhythm. absent: Diastolic murmur, Systolic Murmur, Tachycardia - GI/Abdominal Exam GI & Abdominal Exam: Soft. absent: Pulsatile Mass, Tenderness, Rebound, Rigid - Extremities Exam Extremities exam: Positive for: pedal pulses present, pedal edema - Neurological Exam Neurological exam: CN II-XII Intact, Alert, Awake - Psychiatric Exam Psychiatric exam: Flat Affect - Skin Skin Exam: Normal Color, Warm, Dry Assessment and Plan - Assessment and Plan (Free Text) Assessment: Patient is an 83 year old homeless male with past medical history of COPD, hypertension, thoracic aortic aneurysm presenting with shortness of breath. Plan: Shortness of breath - afebrile, no leukocytosis, flu negative - BNP within normal limits - Azithromycin 500 IVPB daily - Duonebs Q4 - Singulair 10mg PO HS - CXR: hyperinflation, right apical pleural thickening, right lung apex nodular density - Pulmonology consulted - followup ECHO Lower extremity edema - followup arterial and venous dopplers - avoid SCDs Aortic aneurysm - imaging from 11/17/2018 shows ascending (5.8 cm, no dissection, no thrombosis) - descending (5.8 cm, no dissection, 40% thrombosed) - risks and benefits of surgical repair reviewed with patient, patient refuses surgical intervention at this time. Hyponatremia - resolved, continue to monitor HTN - Cozaar 25 mg PO daily Alcohol use disorder - Alcohol level 41 - CIWA protocol, seizure precautions - Ativan 1 mg Q4 PRN - MV, Thiamine, folate PPX - Heparin 5000 units SC Q8 - Pepcid 20 daily Case reviewed with Dr. Erika Greenberg PGY-1 <Jayne James V - Last Filed: 11/26/18 23:50> Objective - Vital Signs/Intake and Output Vital Signs (last 24 hours): Temp Pulse Resp BP Pulse Ox 97.8 F 79 18 135/75 97 11/26/18 20:50 11/26/18 20:50 11/26/18 20:50 11/26/18 20:50 11/26/18 20:50 - Medications Medications: Current Medications Albuterol/Ipratropium (Duoneb 3 Mg/0.5 Mg (3 Ml) Ud) 3 ml INH RQ4 SINDY Last Admin: 11/26/18 20:15 Dose: 3 ml Arformoterol Tartrate (Brovana) 15 mcg INH RQ12@1000,2200 [facility] Aspirin (Ecotrin) 81 mg PO DAILY [facility] Last Admin: 11/26/18 09:47 Dose: 81 mg Budesonide (Pulmicort Respules) 0.5 mg INH RQ12 [facility] Famotidine (Pepcid) 20 mg PO DAILY [facility] Last Admin: 11/26/18 09:47 Dose: 20 mg Folic Acid (Folic Acid) 1 mg PO DAILY [facility] Last Admin: 11/26/18 09:48 Dose: 1 mg Heparin Sodium (Porcine) (Heparin) 5,000 units SC Q8 [facility] Last Admin: 11/26/18 21:45 Dose: Not Given Azithromycin 500 mg/ Sodium (Chloride) 250 mls @ 250 mls/hr IVPB Q24H [facility]; Protocol Lorazepam (Ativan) 1 mg IVP Q6H PRN PRN Reason: Seizure activity Losartan Potassium (Cozaar) 25 mg PO DAILY [facility] Last Admin: 11/26/18 09:47 Dose: 25 mg Montelukast Sodium (Singulair) 10 mg PO HS [facility] Last Admin: 11/26/18 21:43 Dose: 10 mg Multivitamins (Hexavitamin) 1 tab PO DAILY [facility] Last Admin: 11/26/18 09:47 Dose: 1 tab Thiamine HCl (Vitamin B1 Tab) 100 mg PO DAILY [facility] Last Admin: 11/26/18 09:47 Dose: 100 mg - Labs Labs: 11/26/18 11:30 11/26/18 06:51 Attending/Attestation - Attestation I have personally seen and examined this patient.: Yes I have fully participated in the care of the patient.: Yes I have reviewed all pertinent clinical information, including history, physical exam and plan: Yes Notes (Text): 11/26/18 23:50 Shortness of breath - afebrile, no leukocytosis, flu negative - BNP within normal limits - Azithromycin 500 IVPB daily - Duonebs Q4 - Singulair 10mg PO HS - CXR: hyperinflation, right apical pleural thickening, right lung apex nodular density - Pulmonology consulted - followup ECHO Lower extremity edema - followup arterial and venous dopplers - avoid SCDs Aortic aneurysm - imaging from 11/17/2018 shows ascending (5.8 cm, no dissection, no thrombosis) - descending (5.8 cm, no dissection, 40% thrombosed) - risks and benefits of surgical repair reviewed with patient, patient refuses surgical intervention at this time. Hyponatremia - resolved, continue to monitor HTN - Cozaar 25 mg PO daily Alcohol use disorder - Alcohol level 41 - [facility] protocol, seizure precautions - Ativan 1 mg Q4 PRN - MV, Thiamine, folate PPX - Heparin 5000 units SC Q8 - Pepcid 20 daily Case reviewed with Dr. Erika Greenberg PGY-1
[2018-11-26 08:34] LABS: ALB/GLOB RATIO 1.4 (1.0-2.1); ALT/SGPT 10 U/L (21-72); AST/SGOT 80 U/L (17-59); BLOOD UREA NITROGEN 14 mg/dL (9-20); CALCIUM 9.1 mg/dl (8.6-10.4); GFR NON-AFRICAN AMERICAN > 60
[2018-11-26] MEDS: Albuterol-Ipratrop 3 mg / 0.5 (3 ml) UD INH SCH ×4 (08:50→20:15)
--- NOTE | 2018-11-26 09:43 | RAD ---
Date of service: 11/25/2018 HISTORY: Shortness of breath COMPARISON: None available. TECHNIQUE: 1 view obtained. FINDINGS: LUNGS: Hyperinflation suggestive for COPD and or emphysematous changes. Right apical pleural thickening. Small nodular density at the right lung apex. PLEURA: No significant pleural effusion identified, no pneumothorax apparent. CARDIOVASCULAR: Tortuous ectatic aorta. Prominence of the pulmonary arteries. Normal cardiac size. No pulmonary vascular congestion. OSSEOUS STRUCTURES: Degenerative changes in the spine and shoulders. VISUALIZED UPPER ABDOMEN: Normal. OTHER FINDINGS: None. IMPRESSION: Hyperinflation suggestive for COPD and or emphysematous changes. Right apical pleural thickening. Small nodular density at the right lung apex.
[2018-11-26] MEDS: Multiple Vitamins Tab PO SCH (09:47)
[2018-11-26 11:05] LABS: ARTERIAL BLOOD GAS HCO3 29.4 mmol/L (21-28); ARTERIAL BLOOD GAS HEMOGLOBIN 11.8 g/dL (11.7-17.4); ARTERIAL BLOOD GAS O2 SAT 100.4 % (95-98); ARTERIAL BLOOD GAS PCO2 32 mm/Hg (35-45); ARTERIAL BLOOD GAS PH 7.55 (7.35-7.45); ARTERIAL BLOOD GAS PO2 178 mm/Hg (80-100)
--- NOTE | 2018-11-26 11:20 | CT ---
Date of service: 11/26/2018 CTA chest PE protocol Indication: tachy, sob Technique: Contiguous axial images were obtained through the chest with intravenous contrast enhancement. Sagittal and coronal reconstructions were generated and reviewed. This CT exam was performed using 1 or more of the following dose reduction techniques: Automated exposure control, adjustment of the MAA and/or kV according to patient size, and/or use of iterative reconstruction technique. IV contrast: 100 mL Visipaque 320 IV Radiation dose (DLP): 256.06 MGy-cm. Comparison: Chest x-ray performed 11/25/18, dissection CT performed 11/17/18 Findings: The mediastinal and hilar vascular structures appear grossly unremarkable. The heart appears within normal limits of size. No large central or segmental pulmonary embolus evident. Aneurysmal dilatation of the measuring approximately 5.9 cm (ascending), 3.9 cm (thoracic arch), 5.8 cm (descending). Absence of IV contrast within the majority of the aorta at the time of image acquisition precluding evaluation for dissection. Hyperinflation may be seen in the setting of COPD. Emphysematous changes. Right lower lobe atelectasis/nodular scarring. Subtle patchy ground-glass infiltrate at the right lung base. No pleural effusion. No pneumothorax. Limited visualized portions of the upper abdomen: 2.6 cm right renal cyst. Osseous demineralization. Degenerative changes. Impression: No large central or segmental pulmonary embolus evident. Aneurysmal dilatation of the measuring approximately 5.9 cm (ascending), 3.9 cm (thoracic arch), 5.8 cm (descending). Absence of IV contrast within the majority of the aorta at the time of image acquisition precluding evaluation for dissection. COPD/emphysema. Right lower lobe atelectasis/nodular scarring. Subtle patchy ground-glass infiltrate at the right lung base. Recommend chest CT follow-up upon completion of therapy to demonstrate resolution of nodular pattern. Limited visualized portions of the upper abdomen: 2.6 cm right renal cyst. Preliminary impression was provided by [email or web address].
[2018-11-26 11:44] LABS: BASO # 0.1 K/uL (0.0-0.2); BASO % 0.8 % (0.0-2.0); EOS # 0.2 K/uL (0.0-0.7); EOS % 1.6 % (0.0-4.0); HEMOGLOBIN 12.1 g/dL (12.0-18.0); LYMPH # 0.9 K/uL (1.0-4.3); MEAN CELL VOLUME 81.2 fL (80.0-94.0); MEAN CORPUSCULAR HEMOGLOBIN 26.3 pg (27.0-31.0); MEAN CORPUSCULAR HGB CONC 32.4 g/dL (33.0-37.0); MEAN PLATELET VOLUME 8.3 fL (7.2-11.7); MONO # 1.5 K/uL (0.0-0.8); MONO % 15.9 % (0.0-10.0); NEUT % 72.7 % (50.0-75.0); NRBC % 0.1 % (0.0-2.0); PLATELET COUNT 126 K/uL (130-400); RBC 4.61 Mil/uL (4.40-5.90); RED CELL DISTRIBUTION WIDTH 14.9 % (11.5-14.5); WHITE BLOOD COUNT 9.6 K/uL (4.8-10.8)
[2018-11-26 12:41] LABS: BASOPHIL 1 % (0-2); LYMPHOCYTE 31 % (20-40); MONOCYTE 9 % (0-10); NEUTROPHIL 59 % (50-75); TOTAL CELLS COUNTED 100
[2018-11-26 12:44] LABS: PLATELET ESTIMATE SLIGHTLY DECREASED (NORMAL)
--- NOTE | 2018-11-26 17:57 | CP.PCM.CON ---
History of Present Illness - History of Present Illness History of Present Illness: Reason for consultation: Shortness of breath 83-year-old male with history of COPD, hyponatremia, hypertension, aortic aneurysm who presented complaining of shortness of breath and cough for the past few days. Patient was recently treated for COPD exacerbation. Denies fever chills, denies chest pain. PMH: COPD, HTN, pneumonia, hyponatremia, aortic aneurysm PSH: none Home meds: none Allergies: NKDA Social hx: drinks beer, unable to specify amount. former smoker. no illicit drug use. homeless Family hx: noncontributory Review of Systems - Review of Systems All systems: reviewed and no additional remarkable complaints except (Shortness of breath and cough) Past Patient History - Infectious Disease Hx of Infectious Diseases: None - Past Medical History & Family History Past Medical History?: Yes - Past Social History Smoking Status: Former Smoker - CARDIAC Hx Congestive Heart Failure: Yes Hx Hypertension: Yes - PULMONARY Hx Chronic Obstructive Pulmonary Disease (COPD): Yes - NEUROLOGICAL Hx Neurological Disorder: No - HEENT Hx HEENT Problems: No - RENAL Hx Chronic Kidney Disease: No - ENDOCRINE/METABOLIC Hx Endocrine Disorders: No - HEMATOLOGICAL/ONCOLOGICAL Hx Blood Disorders: No - INTEGUMENTARY Hx Dermatological Problems: No - MUSCULOSKELETAL/RHEUMATOLOGICAL Hx Falls: No - GASTROINTESTINAL Hx Gastrointestinal Disorders: No - GENITOURINARY/GYNECOLOGICAL Hx Genitourinary Disorders: No Hx Prostate Problems: Yes - PSYCHIATRIC Hx Substance Use: No - SURGICAL HISTORY Hx Cholecystectomy: Yes - ANESTHESIA Hx Anesthesia: Yes Hx Anesthesia Reactions: No Meds Allergies/Adverse Reactions: Allergies Allergy/AdvReac Type Severity Reaction Status Date / Time pollen extracts Allergy Verified 11/25/18 22:04 - Medications Medications: Current Medications Albuterol/Ipratropium (Duoneb 3 Mg/0.5 Mg (3 Ml) Ud) 3 ml INH RQ4 [facility] Last Admin: 11/26/18 16:44 Dose: 3 ml Aspirin (Ecotrin) 81 mg PO DAILY [facility] Last Admin: 11/26/18 09:47 Dose: 81 mg Famotidine (Pepcid) 20 mg PO DAILY [facility] Last Admin: 11/26/18 09:47 Dose: 20 mg Folic Acid (Folic Acid) 1 mg PO DAILY [facility] Last Admin: 11/26/18 09:48 Dose: 1 mg Heparin Sodium (Porcine) (Heparin) 5,000 units SC Q8 [facility] Last Admin: 11/26/18 14:39 Dose: Not Given Azithromycin 500 mg/ Sodium (Chloride) 250 mls @ 250 mls/hr IVPB Q24H [facility]; Pr otocol Lorazepam (Ativan) 1 mg IVP Q6H PRN PRN Reason: Seizure activity Losartan Potassium (Cozaar) 25 mg PO DAILY [facility] Last Admin: 11/26/18 09:47 Dose: 25 mg Montelukast Sodium (Singulair) 10 mg PO HS [facility] Multivitamins (Hexavitamin) 1 tab PO DAILY [facility] Last Admin: 11/26/18 09:47 Dose: 1 tab Thiamine HCl (Vitamin B1 Tab) 100 mg PO DAILY [facility] Last Admin: 11/26/18 09:47 Dose: 100 mg Physical Exam - Head Exam Head Exam: ATRAUMATIC, NORMOCEPHALIC - Eye Exam Eye Exam: Normal appearance - Neck Exam Neck exam: Positive for: Normal Inspection - Respiratory Exam Respiratory Exam: Decreased Breath Sounds - Cardiovascular Exam Cardiovascular Exam: REGULAR RHYTHM - GI/Abdominal Exam GI & Abdominal Exam: Normal Bowel Sounds, Soft - Extremities Exam Extremities exam: Positive for: normal inspection - Neurological Exam Neurological exam: Alert, Oriented x3 Results - Vital Signs Recent Vital Signs: Last Vital Signs Temp 97.9 F 11/26/18 15:00 Pulse 77 11/26/18 16:00 Resp 18 11/26/18 15:00 BP 123/78 11/26/18 15:00 Pulse Ox 98 11/26/18 15:00 - Labs Result Diagrams: 11/26/18 11:30 11/26/18 06:51 Labs: Laboratory Results - last 24 hr 11/25/18 11/25/18 11/25/18 22:47 23:00 23:00 WBC 10.2 RBC 4.55 Hgb 12.0 Hct 36.5 MCV 80.2 MCH 26.4 L MCHC 33.0 RDW 15.0 H Plt Count 127 L D MPV 8.3 Neut % (Auto) 66.1 Lymph % (Auto) 6.6 L [place] % (Auto) 24.8 H Eos % (Auto) 0.9 Baso % (Auto) 1.6 Neut # (Auto) 6.8 Lymph # (Auto) 0.7 L [place] # (Auto) 2.5 H Eos # (Auto) 0.1 Baso # (Auto) 0.2 Neutrophils % (Manual) 66 Lymphocytes % (Manual) 11 L Monocytes % (Manual) 22 H Eosinophils % (Manual) 1 Basophils % (Manual) Platelet Estimate Slightly decreased L Hypochromasia (manual) Slight Puncture Site pCO2 pO2 HCO3 ABG pH ABG Total CO2 ABG O2 Saturation ABG Base Excess ABG Hemoglobin ABG Carboxyhemoglobin POC ABG HHb (Measured) ABG Methemoglobin John Test A-a O2 Difference Respiratory Index Hgb O2 Saturation Liter Flow FiO2 Sodium 131 L Potassium 4.5 Chloride 98 Carbon Dioxide 24 Anion Gap 14 BUN 10 Creatinine 0.7 L Est GFR ( Amer) > 60 Est GFR (Non-Af Amer) > 60 Random Glucose 87 D Calcium 9.1 Phosphorus Magnesium Total Bilirubin 0.6 AST 36 ALT < 6 L D Alkaline Phosphatase 88 Total Creatine Kinase CK-MB (Mass) Troponin I 0.0550 NT-Pro-B Natriuret Pep 168 Total Protein 7.4 Albumin 3.9 Globulin 3.5 Albumin/Globulin Ratio 1.1 Urine Color Straw Urine Clarity Clear Urine pH 6.0 Ur Specific [place] 1.002 L Urine Protein Negative Urine Glucose (UA) Normal Urine Ketones Negative Urine Blood Negative Urine Nitrate Negative Urine Bilirubin Negative Urine Urobilinogen Normal Ur Leukocyte Esterase Neg Urine WBC (Auto) < 1 Urine RBC (Auto) < 1 Urine Opiates Screen Urine Methadone Screen Ur Barbiturates Screen Ur Phencyclidine Scrn Ur Amphetamines Screen U Benzodiazepines Scrn U Oth Cocaine Metabols U Cannabinoids Screen Alcohol, Quantitative Influenza Typ A,B (EIA) 11/25/18 11/26/18 11/26/18 23:02 02:41 02:41 WBC RBC Hgb Hct MCV MCH MCHC RDW Plt Count MPV Neut % (Auto) Lymph % (Auto) [place] % (Auto) Eos % (Auto) Baso % (Auto) Neut # (Auto) Lymph # (Auto) [place] # (Auto) Eos # (Auto) Baso # (Auto) Neutrophils % (Manual) Lymphocytes % (Manual) Monocytes % (Manual) Eosinophils % (Manual) Basophils % (Manual) Platelet Estimate Hypochromasia (manual) Puncture Site Rba pCO2 38 pO2 61 L HCO3 26.6 ABG pH 7.45 ABG Total CO2 27.6 ABG O2 Saturation 93.4 L ABG Base Excess 2.4 ABG Hemoglobin 11.3 L ABG Carboxyhemoglobin 2.7 H POC ABG HHb (Measured) 6.4 H ABG Methemoglobin 0.8 John Test Na A-a O2 Difference 41.0 Respiratory Index 0.7 Hgb O2 Saturation 90.1 L Liter Flow 0 FiO2 21.0 Sodium Potassium Chloride Carbon Dioxide Anion Gap BUN Creatinine Est GFR ( Amer) Est GFR (Non-Af Amer) Random Glucose Calcium Phosphorus Magnesium Total Bilirubin AST ALT Alkaline Phosphatase Total Creatine Kinase CK-MB (Mass) Troponin I NT-Pro-B Natriuret Pep Total Protein Albumin Globulin Albumin/Globulin Ratio Urine Color Urine Clarity Urine pH Ur Specific [place] Urine Protein Urine Glucose (UA) Urine Ketones Urine Blood Urine Nitrate Urine Bilirubin Urine Urobilinogen Ur Leukocyte Esterase Urine WBC (Auto) Urine RBC (Auto) Urine Opiates Screen Urine Methadone Screen Ur Barbiturates Screen Ur Phencyclidine Scrn Ur Amphetamines Screen U Benzodiazepines Scrn U Oth Cocaine Metabols U Cannabinoids Screen Alcohol, Quantitative 41 H Influenza Typ A,B (EIA) Negative for flu a/b 11/26/18 11/26/18 11/26/18 02:41 06:51 10:50 WBC RBC Hgb Hct MCV MCH MCHC RDW Plt Count MPV Neut % (Auto) Lymph % (Auto) [place] % (Auto) Eos % (Auto) Baso % (Auto) Neut # (Auto) Lymph # (Auto) [place] # (Auto) Eos # (Auto) Baso # (Auto) Neutrophils % (Manual) Lymphocytes % (Manual) Monocytes % (Manual) Eosinophils % (Manual) Basophils % (Manual) Platelet Estimate Hypochromasia (manual) Puncture Site Left radial pCO2 32 L pO2 178 H HCO3 29.4 H ABG pH 7.55 H ABG Total CO2 29.0 H ABG O2 Saturation 100.4 H ABG Base Excess 5.7 H ABG Hemoglobin 11.8 ABG Carboxyhemoglobin 2.1 H POC ABG HHb (Measured) -0.4 L ABG Methemoglobin 0.8 John Test Na A-a O2 Difference 32.0 Respiratory Index 0.2 Hgb O2 Saturation 97.4 Liter Flow 3.0 FiO2 35.0 Sodium 135 Potassium 4.7 Chloride 96 L Carbon Dioxide 28 Anion Gap 15 BUN 14 Creatinine 0.9 Est GFR ( Amer) > 60 Est GFR (Non-Af Amer) > 60 Random Glucose 91 Calcium 9.1 Phosphorus 3.4 Magnesium 2.2 Total Bilirubin 0.7 AST 80 H D ALT 10 L D Alkaline Phosphatase 89 Total Creatine Kinase 44 L CK-MB (Mass) 1.19 Troponin I 0.0660 NT-Pro-B Natriuret Pep Total Protein 6.9 Albumin 4.0 Globulin 2.9 Albumin/Globulin Ratio 1.4 Urine Color Urine Clarity Urine pH Ur Specific [place] Urine Protein Urine Glucose (UA) Urine Ketones Urine Blood Urine Nitrate Urine Bilirubin Urine Urobilinogen Ur Leukocyte Esterase Urine WBC (Auto) Urine RBC (Auto) Urine Opiates Screen Negative Urine Methadone Screen Negative Ur Barbiturates Screen Negative Ur Phencyclidine Scrn Negative Ur Amphetamines Screen Negative U Benzodiazepines Scrn Negative U Oth Cocaine Metabols Negative U Cannabinoids Screen Negative Alcohol, Quantitative Influenza Typ A,B (EIA) 11/26/18 11:30 WBC 9.6 RBC 4.61 Hgb 12.1 Hct 37.4 MCV 81.2 MCH 26.3 L MCHC 32.4 L RDW 14.9 H Plt Count 126 L MPV 8.3 Neut % (Auto) 72.7 Lymph % (Auto) 9.0 L [place] % (Auto) 15.9 H Eos % (Auto) 1.6 Baso % (Auto) 0.8 Neut # (Auto) 7.0 Lymph # (Auto) 0.9 L [place] # (Auto) 1.5 H Eos # (Auto) 0.2 Baso # (Auto) 0.1 Neutrophils % (Manual) 59 Lymphocytes % (Manual) 31 Monocytes % (Manual) 9 Eosinophils % (Manual) Basophils % (Manual) 1 Platelet Estimate Slightly decreased L Hypochromasia (manual) Puncture Site pCO2 pO2 HCO3 ABG pH ABG Total CO2 ABG O2 Saturation ABG Base Excess ABG Hemoglobin ABG Carboxyhemoglobin POC ABG HHb (Measured) ABG Methemoglobin John Test A-a O2 Difference Respiratory Index Hgb O2 Saturation Liter Flow FiO2 Sodium Potassium Chloride Carbon Dioxide Anion Gap BUN Creatinine Est GFR ( Amer) Est GFR (Non-Af Amer) Random Glucose Calcium Phosphorus Magnesium Total Bilirubin AST ALT Alkaline Phosphatase Total Creatine Kinase CK-MB (Mass) Troponin I NT-Pro-B Natriuret Pep Total Protein Albumin Globulin Albumin/Globulin Ratio Urine Color Urine Clarity Urine pH Ur Specific [place] Urine Protein Urine Glucose (UA) Urine Ketones Urine Blood Urine Nitrate Urine Bilirubin Urine Urobilinogen Ur Leukocyte Esterase Urine WBC (Auto) Urine RBC (Auto) Urine Opiates Screen Urine Methadone Screen Ur Barbiturates Screen Ur Phencyclidine Scrn Ur Amphetamines Screen U Benzodiazepines Scrn U Oth Cocaine Metabols U Cannabinoids Screen Alcohol, Quantitative Influenza Typ A,B (EIA) Assessment & Plan (1) COPD exacerbation Assessment and Plan: Continue with nebulizer treatment On azithromycin And steroids Brovana and budesonide Status: Acute
--- NOTE | 2018-11-26 23:55 | CARD ---
APPROVED REPORT Date of service: 11/25/2018 EKG Measurement Heart [id number] <Conclusion> Sinus rhythm with premature atrial complexes Otherwise normal ECG
[2018-11-27] MEDS: Albuterol-Ipratrop 3 mg / 0.5 (3 ml) UD INH SCH ×7 (00:11→23:55)
--- NOTE | 2018-11-27 01:03 | CARD ---
APPROVED REPORT Date of service: 11/26/2018 EXAM: Two-dimensional and M-mode echocardiogram with Doppler and color Doppler. Other Information Quality : GoodRhythm : Technically limited study due to body habitus., ONLY SUBCOSTAL VIEW AVILABLE INDICATION Dyspnea Peripheral Edema Congestive Heart Failure COPD RISK FACTORS Hypertension 2D DIMENSIONS IVSd0.9 (0.7-1.1cm)LVDd3.6 (3.9-5.9cm) PWd1.0 (0.7-1.1cm)LVDs2.2 (2.5-4.0cm) FS (%) 37.8 %LVEF (%)68.9 (>50%) IVC0.00 cm M-Mode DIMENSIONS IVSd0.94 (0.7-1.1cm)LVDd5.69 (4.0-5.6cm) PWd0.94 (0.7-1.1cm)FS (%) 32 % LVDs3.85 (2.0-3.8cm)LVEF (%)60 (>50%) Aortic Valve AI P 1/2 [id number] Mitral Valve MV E Rvwavwiz46.3cm/sMV A Ewamuscf98.2cm/sE/A ratio0.4 TDI E/Lateral E'0.0E/Medial E'0.0 Tricuspid Valve TR Peak [id number] Peak [id number] LEFT VENTRICLE The left ventricle is normal size. There is normal left ventricular wall thickness. The left ventricular function is normal. The left ventricular ejection fraction is within the normal range. About 65% No regional wall motion abnormalities noted. Transmitral Doppler flow pattern is Grade I-abnormal relaxation pattern. No left ventricle thrombus noted on this study. There is no ventricular septal defect visualized. There is no left ventricular aneurysm. There is no mass noted in the left ventricle. RIGHT VENTRICLE The right ventricle is normal size. There is normal right ventricular wall thickness. The right ventricular systolic function is normal. ATRIA The left atrium size is normal. The right atrium size is normal. The interatrial septum is intact with no evidence for an atrial septal defect. AORTIC VALVE The aortic valve is normal in structure and function. Mild aortic regurgitation is present. There is no aortic valvular stenosis. There is no aortic valvular vegetation. MITRAL VALVE The mitral valve is normal in structure and function. There is no evidence of mitral valve prolapse. There is no mitral valve stenosis. There is no mitral valve regurgitation noted. TRICUSPID VALVE The tricuspid valve is normal in structure and function. There is mild tricuspid valve regurgitation noted. Estimated PA systolic pressure is 48 mm Hg There is no tricuspid valve prolapse or vegetation. There is no tricuspid valve stenosis. GREAT VESSELS The aortic root is normal in size. The ascending aorta is normal in size. The pulmonary artery is normal. The IVC is normal in size and collapses >50% with inspiration. PERICARDIAL EFFUSION The pericardium appears normal. There is no pleural effusion. <Conclusion> Only the subcostal view was obtained. The left ventricular function is normal. The left ventricular ejection fraction is within the normal range. About 65% Transmitral Doppler flow pattern is Grade I-abnormal relaxation pattern. Mild aortic regurgitation is present.
[2018-11-27] MEDS ORDERED: Azithromycin 500 MG in Sodium Chloride 0.9% 250 ML IVPB SCH ×2 (04:00→05:00)
--- NOTE | 2018-11-27 07:11 | CP.PCM.PN ---
Subjective - Date & Time of Evaluation Date of Evaluation: 11/27/18 Time of Evaluation: 07:11 - Subjective Subjective: Resident Progress Note for Hospitalist Service Patient examined at bedside. Overnight patient had 10 beats of vtach, was asymptomatic at the time. This morning patient reports that breathing is at his baseline and persistent leg pain. Denies fevers, chills, chest pain, palpitations, shortness of breath, abdominal pain, diarrhea, dysuria. Reports good oral intake. Objective - Vital Signs/Intake and Output Vital Signs (last 24 hours): Temp Pulse Resp BP Pulse Ox 98.3 F 79 20 117/80 95 11/27/18 05:30 11/27/18 05:30 11/27/18 05:30 11/27/18 05:30 11/27/18 05:30 Intake and Output: 11/27/18 11/27/18 06:59 18:59 Intake Total 0 Output Total 200 Balance -200 - Medications Medications: Current Medications Albuterol/Ipratropium (Duoneb 3 Mg/0.5 Mg (3 Ml) Ud) 3 ml INH RQ4 [facility] Last Admin: 11/27/18 03:36 Dose: 3 ml Arformoterol Tartrate (Brovana) 15 mcg INH RQ12@1000,2200 [facility] Aspirin (Ecotrin) 81 mg PO DAILY [facility] Last Admin: 11/26/18 09:47 Dose: 81 mg Budesonide (Pulmicort Respules) 0.5 mg INH RQ12 [facility] Famotidine (Pepcid) 20 mg PO DAILY [facility] Last Admin: 11/26/18 09:47 Dose: 20 mg Folic Acid (Folic Acid) 1 mg PO DAILY [facility] Last Admin: 11/26/18 09:48 Dose: 1 mg Heparin Sodium (Porcine) (Heparin) 5,000 units SC Q8 [facility] Last Admin: 11/27/18 05:25 Dose: Not Given Azithromycin 500 mg/ Sodium (Chloride) 250 mls @ 250 mls/hr IVPB Q24H [facility]; Protocol Last Admin: 11/27/18 05:21 Dose: 250 mls/hr Lorazepam (Ativan) 1 mg IVP Q6H PRN PRN Reason: Seizure activity Losartan Potassium (Cozaar) 25 mg PO DAILY [facility] Last Admin: 11/26/18 09:47 Dose: 25 mg Montelukast Sodium (Singulair) 10 mg PO HS [facility] Last Admin: 11/26/18 21:43 Dose: 10 mg Multivitamins (Hexavitamin) 1 tab PO DAILY [facility] Last Admin: 11/26/18 09:47 Dose: 1 tab Thiamine HCl (Vitamin B1 Tab) 100 mg PO DAILY [facility] Last Admin: 11/26/18 09:47 Dose: 100 mg - Labs Labs: 11/26/18 11:30 11/26/18 06:51 - Constitutional Appears: Cachectic, Chronically Ill - Head Exam Head Exam: ATRAUMATIC, NORMOCEPHALIC - Eye Exam Eye Exam: EOMI - ENT Exam ENT Exam: Mucous Membranes Moist - Respiratory Exam Respiratory Exam: Clear to Auscultation Bilateral. absent: Wheezes, Ronchi, Respiratory Distress - Cardiovascular Exam Cardiovascular Exam: +S1, +S2, REGULAR RHYTHM. absent: Diastolic murmur, Systolic Murmur, Tachycardia - GI/Abdominal Exam GI & Abdominal Exam: Soft, Normal Bowel Sounds. absent: Pulsatile Mass, Tenderness, Rebound, Rigid - Extremities Exam Extremities exam: Positive for: pedal pulses present, pedal edema - Neurological Exam Neurological exam: CN II-XII Intact, Alert, Awake - Psychiatric Exam Psychiatric exam: Flat Affect - Skin Skin Exam: Normal Color, Warm, Dry Assessment and Plan - Assessment and Plan (Free Text) Plan: Shortness of breath - afebrile, no leukocytosis, flu negative - BNP within normal limits - Azithromycin 500 IVPB daily discontinued due to concern for prolonged QT - Doxycycline 100 mg PO Q12 - Duonebs Q4 - Singulair 10 mg PO HS - CXR: hyperinflation, right apical pleural thickening, right lung apex nodular density - Pulmonology consulted, recs appreciated - Course of prednisone on discharge Ventricular tachycardia - ECHO limited, only shows subcostal view, EF 68.9%, mild AR - Cardiology consulted, appreciate recs Lower extremity pain/edema - arterial dopplers within normal limits - venous dopplers negative for DVT - avoid SCDs - Taran stockings, keep lower extremities elevated - Gabapentin 100 mg PO BID - Lasix 20 mg IVP BID - PT eval Aortic aneurysm - imaging from 11/17/2018 shows ascending (5.8 cm, no dissection, no thrombosis) - descending (5.8 cm, no dissection, 40% thrombosed) - risks and benefits of surgical repair reviewed with patient, patient refuses surgical intervention at this time. Hyponatremia - resolved, continue to monitor HTN - Cozaar 25 mg PO daily Alcohol use disorder - Alcohol level 41 - CIWA protocol, seizure precautions - Ativan 1 mg Q4 PRN - MV, Thiamine, folate PPX - Heparin 5000 units SC Q8 - Pepcid 20 daily Case reviewed with Dr. Erika Greenberg PGY-1
[2018-11-27 08:33] LABS: ALB/GLOB RATIO 1.3 (1.0-2.1); ALBUMIN 3.6 g/dL (3.5-5.0); ALT/SGPT 20 U/L (21-72); AST/SGOT 27 U/L (17-59); BLOOD UREA NITROGEN 13 mg/dL (9-20); CALCIUM 8.7 mg/dl (8.6-10.4); GFR NON-AFRICAN AMERICAN > 60
[2018-11-27 08:33] LABS: HEMOGLOBIN 11.9 g/dL (12.0-18.0); MEAN CELL VOLUME 80.4 fL (80.0-94.0); MEAN CORPUSCULAR HEMOGLOBIN 26.5 pg (27.0-31.0); MEAN CORPUSCULAR HGB CONC 32.9 g/dL (33.0-37.0); RBC 4.51 Mil/uL (4.40-5.90); WHITE BLOOD COUNT 8.4 K/uL (4.8-10.8)
[2018-11-27] MEDS: Arformoterol 15 mcg/2 ml Inh Sol INH SCH ×3 (08:51→19:46)
[2018-11-27] MEDS: Budesonide 0.5 mg/2 ml Inhal Susp UD INH SCH ×2 (08:52→19:47)
[2018-11-27 09:48] LABS: EOS # 0.1 K/uL (0.0-0.7); LYMPH # 2.3 K/uL (1.0-4.3); MONO # 0.4 K/uL (0.0-0.8); NEUT # 5.6 K/uL (1.8-7.0)
[2018-11-27] MEDS: Multiple Vitamins Tab PO SCH (10:06)
[2018-11-27] MEDS: Saccharomyces Boulardi 250 mg Cap PO SCH (12:33)
--- NOTE | 2018-11-27 13:46 | CP.PCM.CON ---
<Jaren Major - Last Filed: 11/27/18 17:24> History of Present Illness - History of Present Illness History of Present Illness: PGY2 Cardiology Consult for Dr. Wilkins Reason for Consult: Vtach overngiht, CHF Patient is an 83 year old homeless male with a past medical history of COPD, emphysema, thoracic aorta aneurysm, potomania/hyponatremia and alcohol dependence was recently discharged from the hospital on 11/20/18 after being treated for a COPD exacerbation. He was re-admitted to the hospital on 11/26/18 with a complaint of shortness of breath. He is being treated for shortness of breath but experienced a 10 beat run of non-sustained Vtach overnight. Patient was asymptomatic during event. He does not to be discharged because the weather is going to be bad and he does not want to sleep on the floor at the longterm. He has family down in [place] but he states that he does not want to go down there to live with them. He has a known history of thoracic aortic aneurysm but refused surgery. He still does not want surgery for the aneurysm at this time. He denies any chest pain at this time or throughout this current hospitalization. His legs are still swollen but not as painful as they were prior to coming to the hospital. Denies fevers, chills, nausea, vomiting, diarrhea, constipation, abdominal pain, numbness or tingling. PMD: Dr. Sanford Amaya PMH: COPD, emphysema, thoracic aorta aneurysm, potomania/hyponatremia, alcohol dependence PSH: none Social: homeless, drinks 4+ beers/day for 50+ years, former smoker (50 pack year history) Allergies: NKDA Review of Systems - Review of Systems All systems: reviewed and no additional remarkable complaints except (as per HPI) Past Patient History - Infectious Disease Hx of Infectious Diseases: None - Past Medical History & Family History Past Medical History?: Yes - Past Social History Smoking Status: Former Smoker - CARDIAC Hx Congestive Heart Failure: Yes Hx Hypertension: Yes - PULMONARY Hx Chronic Obstructive Pulmonary Disease (COPD): Yes - NEUROLOGICAL Hx Neurological Disorder: No - HEENT Hx HEENT Problems: No - RENAL Hx Chronic Kidney Disease: No - ENDOCRINE/METABOLIC Hx Endocrine Disorders: No - HEMATOLOGICAL/ONCOLOGICAL Hx Blood Disorders: No - INTEGUMENTARY Hx Dermatological Problems: No - MUSCULOSKELETAL/RHEUMATOLOGICAL Hx Falls: No - GASTROINTESTINAL Hx Gastrointestinal Disorders: No - GENITOURINARY/GYNECOLOGICAL Hx Genitourinary Disorders: No Hx Prostate Problems: Yes - PSYCHIATRIC Hx Substance Use: No - SURGICAL HISTORY Hx Cholecystectomy: Yes - ANESTHESIA Hx Anesthesia: Yes Hx Anesthesia Reactions: No Meds Allergies/Adverse Reactions: Allergies Allergy/AdvReac Type Severity Reaction Status Date / Time pollen extracts Allergy Verified 11/25/18 22:04 - Medications Medications: Current Medications Albuterol/Ipratropium (Duoneb 3 Mg/0.5 Mg (3 Ml) Ud) 3 ml INH RQ4 [facility] Last Admin: 11/27/18 11:45 Dose: 3 ml Arformoterol Tartrate (Brovana) 15 mcg INH RQ12@1000,2200 [facility] Last Admin: 11/27/18 08:52 Dose: 15 mcg Aspirin (Ecotrin) 81 mg PO DAILY [facility] Last Admin: 11/27/18 10:06 Dose: 81 mg Budesonide (Pulmicort Respules) 0.5 mg INH RQ12 [facility] Last Admin: 11/27/18 08:52 Dose: 0.5 mg Doxycycline Hyclate (Doryx) 100 mg PO Q12 [facility]; Protocol Last Admin: 11/27/18 12:33 Dose: 100 mg Famotidine (Pepcid) 20 mg PO DAILY [facility] Last Admin: 11/27/18 10:06 Dose: 20 mg Folic Acid (Folic Acid) 1 mg PO DAILY [facility] Last Admin: 11/27/18 10:07 Dose: 1 mg Furosemide (Lasix) 20 mg IVP BID [facility] Last Admin: 11/27/18 12:34 Dose: 20 mg Gabapentin (Neurontin) 100 mg PO BID [facility] Last Admin: 11/27/18 12:34 Dose: 100 mg Heparin Sodium (Porcine) (Heparin) 5,000 units SC Q8 [facility] Last Admin: 11/27/18 05:25 Dose: Not Given Lorazepam (Ativan) 1 mg IVP Q6H PRN PRN Reason: Seizure activity Losartan Potassium (Cozaar) 25 mg PO DAILY [facility] Last Admin: 11/27/18 10:07 Dose: 25 mg Montelukast Sodium (Singulair) 10 mg PO HS [facility] Last Admin: 11/26/18 21:43 Dose: 10 mg Multivitamins (Hexavitamin) 1 tab PO DAILY [facility] Last Admin: 11/27/18 10:06 Dose: 1 tab Saccharomyces Boulardii (Florastor) 250 mg PO DAILY [facility] Last Admin: 11/27/18 12:33 Dose: 250 mg Thiamine HCl (Vitamin B1 Tab) 100 mg PO DAILY [facility] Last Admin: 11/27/18 10:06 Dose: 100 mg Physical Exam - Constitutional Appears: Cachectic, Chronically Ill - Head Exam Head Exam: ATRAUMATIC, NORMOCEPHALIC - Eye Exam Eye Exam: Normal appearance - ENT Exam ENT Exam: Mucous Membranes Moist - Neck Exam Neck exam: Negative for: Lymphadenopathy - Respiratory Exam Respiratory Exam: NORMAL BREATHING PATTERN. absent: Accessory Muscle Use, Rhonchi, Wheezes, Respiratory Distress - Cardiovascular Exam Cardiovascular Exam: REGULAR RHYTHM, +S1, +S2 - GI/Abdominal Exam GI & Abdominal Exam: Soft. absent: Distended, Firm, Guarding, Rigid, Tenderness - Extremities Exam Extremities exam: Positive for: pedal edema (2+ up to promoxial aspect of ankles). Negative for: calf tenderness, tenderness - Neurological Exam Neurological exam: Alert, Oriented x3 - Psychiatric Exam Psychiatric exam: Normal Affect, Normal Mood - Skin Skin Exam: Dry, Warm Results - Vital Signs Recent Vital Signs: Last Vital Signs Temp 98.1 F 11/27/18 11:40 Pulse 98 H 11/27/18 11:40 Resp 20 11/27/18 11:40 BP 103/58 L 11/27/18 12:34 Pulse Ox 96 11/27/18 11:40 - Labs Result Diagrams: 11/27/18 08:20 11/27/18 08:05 Labs: Laboratory Results - last 24 hr 11/26/18 11/26/18 11/26/18 16:23 16:23 16:23 WBC RBC Hgb Hct MCV MCH MCHC RDW Plt Count MPV Neut % (Auto) Lymph % (Auto) [place] % (Auto) Eos % (Auto) Baso % (Auto) Neut # (Auto) Lymph # (Auto) [place] # (Auto) Eos # (Auto) Baso # (Auto) ESR 2 Sodium Potassium Chloride Carbon Dioxide Anion Gap BUN Creatinine Est GFR ( Amer) Est GFR (Non-Af Amer) Random Glucose Serum Osmolality 288 Calcium Phosphorus Magnesium Total Bilirubin AST ALT Alkaline Phosphatase C-Reactive Protein 8.90 Total Protein Albumin Globulin Albumin/Globulin Ratio 11/27/18 11/27/18 08:05 08:20 WBC 8.4 RBC 4.51 Hgb 11.9 L Hct 36.2 MCV 80.4 MCH 26.5 L MCHC 32.9 L RDW 15.0 H Plt Count 130 MPV 9.0 Neut % (Auto) 67.0 Lymph % (Auto) 27.0 [place] % (Auto) 5.0 Eos % (Auto) 1.0 Baso % (Auto) 0.0 Neut # (Auto) 5.6 Lymph # (Auto) 2.3 [place] # (Auto) 0.4 Eos # (Auto) 0.1 Baso # (Auto) 0.0 ESR Sodium 137 Potassium 4.3 Chloride 98 Carbon Dioxide 29 Anion Gap 14 BUN 13 Creatinine 0.8 Est GFR ( Amer) > 60 Est GFR (Non-Af Amer) > 60 Random Glucose 90 Serum Osmolality Calcium 8.7 Phosphorus 3.2 Magnesium 2.2 Total Bilirubin 0.6 AST 27 ALT 20 L D Alkaline Phosphatase 82 C-Reactive Protein Total Protein 6.3 Albumin 3.6 Globulin 2.7 Albumin/Globulin Ratio 1.3 Assessment & Plan - Assessment and Plan (Free Text) Plan: Vtach (non-sustained) asymptomatic 10 beat run of V-tach overnight ECHO 11/25/18: * only subcostal view was obtained * LV EF ~65% * mild AR Patient is refusing any further cardiac work up. Can not start Metoprolol at this time due patient's BP. Ascending Aortic Aneurysm Descending thoracic Aortic Aneurysm Hypertension CT angio 11/16/18: * 1.) Fusiform aneurysm of the ascending aorta measures 5.8 centimeters in di ameter with no thrombosis or dissection. The aneurysm continues to the arch. The proximal descending thoracic aorta measures 4.3 centimeters. 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 The aneurysm is 40 percent thrombosed. There is no dissection (see full report). Patient does not want to have any surgery at time, including cardiac cath. Blood pressure control Continue current medical management Shortness of breath patient denies any chest pain Pro-BNP normal Trop negative x2 Management as per Pulm/Primary teams Case discussed with Dr. Franky Major PGY2 <Erwin Wilkins - Last Filed: 11/27/18 23:39> Meds - Medications Medications: Current Medications Albuterol/Ipratropium (Duoneb 3 Mg/0.5 Mg (3 Ml) Ud) 3 ml INH RQ4 [facility] Last Admin: 11/27/18 19:47 Dose: 3 ml Arformoterol Tartrate (Brovana) 15 mcg INH RQ12@1000,2200 [facility] Last Admin: 11/27/18 19:46 Dose: 15 mcg Aspirin (Ecotrin) 81 mg PO DAILY [facility] Last Admin: 11/27/18 10:06 Dose: 81 mg Budesonide (Pulmicort Respules) 0.5 mg INH RQ12 [facility] Last Admin: 11/27/18 19:47 Dose: 0.5 mg Doxycycline Hyclate (Doryx) 100 mg PO Q12 [facility]; Protocol Last Admin: 11/27/18 22:01 Dose: 100 mg Famotidine (Pepcid) 20 mg PO DAILY [facility] Last Admin: 11/27/18 10:06 Dose: 20 mg Folic Acid (Folic Acid) 1 mg PO DAILY [facility] Last Admin: 11/27/18 10:07 Dose: 1 mg Furosemide (Lasix) 20 mg IVP BID [facility] Last Admin: 11/27/18 17:55 Dose: Not Given Gabapentin (Neurontin) 100 mg PO BID [facility] Last Admin: 11/27/18 18:00 Dose: 100 mg Heparin Sodium (Porcine) (Heparin) 5,000 units SC Q8 [facility] Last Admin: 11/27/18 14:38 Dose: Not Given Lorazepam (Ativan) 1 mg IVP Q6H PRN PRN Reason: Seizure activity Losartan Potassium (Cozaar) 25 mg PO DAILY [facility] Last Admin: 11/27/18 10:07 Dose: 25 mg Montelukast Sodium (Singulair) 10 mg PO HS [facility] Last Admin: 11/27/18 22:01 Dose: 10 mg Multivitamins (Hexavitamin) 1 tab PO DAILY [facility] Last Admin: 11/27/18 10:06 Dose: 1 tab Saccharomyces Boulardii (Florastor) 250 mg PO DAILY [facility] Last Admin: 11/27/18 12:33 Dose: 250 mg Thiamine HCl (Vitamin B1 Tab) 100 mg PO DAILY [facility] Last Admin: 11/27/18 10:06 Dose: 100 mg Results - Vital Signs Recent Vital Signs: Last Vital Signs Temp 98.1 F 11/27/18 15:30 Pulse 80 11/27/18 19:17 Resp 20 11/27/18 15:30 BP 98/67 L 11/27/18 17:55 Pulse Ox 99 11/27/18 15:30 - Labs Result Diagrams: 11/27/18 08:20 11/27/18 08:05 Labs: Laboratory Results - last 24 hr 11/27/18 11/27/18 08:05 08:20 WBC 8.4 RBC 4.51 Hgb 11.9 L Hct 36.2 MCV 80.4 MCH 26.5 L MCHC 32.9 L RDW 15.0 H Plt Count 130 MPV 9.0 Neut % (Auto) 67.0 Lymph % (Auto) 27.0 [place] % (Auto) 5.0 Eos % (Auto) 1.0 Baso % (Auto) 0.0 Neut # (Auto) 5.6 Lymph # (Auto) 2.3 [place] # (Auto) 0.4 Eos # (Auto) 0.1 Baso # (Auto) 0.0 Sodium 137 Potassium 4.3 Chloride 98 Carbon Dioxide 29 Anion Gap 14 BUN 13 Creatinine 0.8 Est GFR ( Amer) > 60 Est GFR (Non-Af Amer) > 60 Random Glucose 90 Calcium 8.7 Phosphorus 3.2 Magnesium 2.2 Total Bilirubin 0.6 AST 27 ALT 20 L D Alkaline Phosphatase 82 Total Protein 6.3 Albumin 3.6 Globulin 2.7 Albumin/Globulin Ratio 1.3 Assessment & Plan - Assessment and Plan (Free Text) Plan: Patient seen and evaluated personally by me. Plan of acre d/w the medical device assembler and as documented
--- NOTE | 2018-11-27 14:35 | CP.PCM.PN ---
Subjective - Date & Time of Evaluation Date of Evaluation: 11/27/18 Time of Evaluation: 10:20 - Subjective Subjective: Patient seen and examined Lying comfortably Dyspnea on exertion Afebrile Slight cough Awake and responsive Objective - Vital Signs/Intake and Output Vital Signs (last 24 hours): Temp Pulse Resp BP Pulse Ox 98.1 F 98 H 20 103/58 L 96 11/27/18 11:40 11/27/18 11:40 11/27/18 11:40 11/27/18 12:34 11/27/18 11:40 Intake and Output: 11/27/18 11/27/18 06:59 18:59 Intake Total 260 Output Total 1000 Balance -740 - Medications Medications: Current Medications Albuterol/Ipratropium (Duoneb 3 Mg/0.5 Mg (3 Ml) Ud) 3 ml INH RQ4 [facility] Last Admin: 11/27/18 11:45 Dose: 3 ml Arformoterol Tartrate (Brovana) 15 mcg INH RQ12@1000,2200 [facility] Last Admin: 11/27/18 08:52 Dose: 15 mcg Aspirin (Ecotrin) 81 mg PO DAILY [facility] Last Admin: 11/27/18 10:06 Dose: 81 mg Budesonide (Pulmicort Respules) 0.5 mg INH RQ12 [facility] Last Admin: 11/27/18 08:52 Dose: 0.5 mg Doxycycline Hyclate (Doryx) 100 mg PO Q12 [facility]; Protocol Last Admin: 11/27/18 12:33 Dose: 100 mg Famotidine (Pepcid) 20 mg PO DAILY [facility] Last Admin: 11/27/18 10:06 Dose: 20 mg Folic Acid (Folic Acid) 1 mg PO DAILY [facility] Last Admin: 11/27/18 10:07 Dose: 1 mg Furosemide (Lasix) 20 mg IVP BID [facility] Last Admin: 11/27/18 12:34 Dose: 20 mg Gabapentin (Neurontin) 100 mg PO BID [facility] Last Admin: 11/27/18 12:34 Dose: 100 mg Heparin Sodium (Porcine) (Heparin) 5,000 units SC Q8 [facility] Last Admin: 11/27/18 05:25 Dose: Not Given Lorazepam (Ativan) 1 mg IVP Q6H PRN PRN Reason: Seizure activity Losartan Potassium (Cozaar) 25 mg PO DAILY [facility] Last Admin: 11/27/18 10:07 Dose: 25 mg Montelukast Sodium (Singulair) 10 mg PO HS [facility] Last Admin: 11/26/18 21:43 Dose: 10 mg Multivitamins (Hexavitamin) 1 tab PO DAILY [facility] Last Admin: 11/27/18 10:06 Dose: 1 tab Saccharomyces Boulardii (Florastor) 250 mg PO DAILY [facility] Last Admin: 11/27/18 12:33 Dose: 250 mg Thiamine HCl (Vitamin B1 Tab) 100 mg PO DAILY [facility] Last Admin: 11/27/18 10:06 Dose: 100 mg - Labs Labs: 11/27/18 08:20 11/27/18 08:05 - Head Exam Head Exam: ATRAUMATIC, NORMOCEPHALIC - ENT Exam ENT Exam: Mucous Membranes Moist - Neck Exam Neck Exam: Normal Inspection - Respiratory Exam Respiratory Exam: Clear to Ausculation Bilateral - Cardiovascular Exam Cardiovascular Exam: REGULAR RHYTHM - GI/Abdominal Exam GI & Abdominal Exam: Soft, Normal Bowel Sounds - Extremities Exam Extremities Exam: Normal Inspection - Neurological Exam Neurological Exam: Alert, Oriented x3 Assessment and Plan (1) COPD exacerbation Assessment & Plan: Okay to discharge home on tapering prednisone Nebulizer treatment Continue Brovana and budesonide for now Status: Acute
--- NOTE | 2018-11-27 21:44 | VASCLAB ---
Date of service: 11/26/2018 PROCEDURE: Lower Extremity Venous Duplex Exam. HISTORY: leg swelling, pain PRIORS: None. TECHNIQUE: Bilateral common femoral, femoral, popliteal and posterior tibial, peroneal and great saphenous veins were evaluated. Flow was assessed with color Doppler, compressibility, assessment of phasic flow and augmentation response. Report prepared by Danny Tadeo, MARICRUZ, RVT FINDINGS: RIGHT: 1. Common Femoral Vein: 1.1. Compressibility - Fully compressible: Thrombus - None : Flow - Phasic: Augmentation -Normal: Reflux - None. 2. Femoral Vein: 2.1. Compressibility - Fully compressible: Thrombus - None : Flow - Phasic: Augmentation -Normal: Reflux - None. 3. Popliteal Vein: 3.1. Compressibility - Fully compressible: Thrombus - None : Flow - Phasic: Augmentation -Normal: Reflux - None. 4. Posterior Tibial Vein: 4.1. Compressibility - Fully compressible: Thrombus - None: Flow - Phasic: Augmentation -Normal: Reflux - None. 5. Peroneal Vein: 5.1. Compressibility - Fully compressible: Thrombus - None: Flow - Phasic: Augmentation -Normal: Reflux - None. 6. Great Saphenous Vein: 6.1. Compressibility - Fully compressible: Thrombus - None: Flow - : Augmentation - : Reflux - . LEFT: 1. Common Femoral Vein: 1.1. Compressibility - Fully compressible: Thrombus - None: Flow - Phasic: Augmentation -Normal: Reflux - None. 2. Femoral Vein: 2.1. Compressibility - Fully compressible: Thrombus - None: Flow - Phasic: Augmentation -Normal: Reflux - None. 3. Popliteal Vein: 3.1. Compressibility - Fully compressible: Thrombus - None : Flow - Phasic: Augmentation -Normal: Reflux - None. 4. Posterior Tibial Vein: 4.1. Compressibility - : Thrombus - : Flow - : Augmentation -: Reflux - . 5. Peroneal Vein: 5.1. Compressibility - : Thrombus - : Flow - : Augmentation -: Reflux - . 6. Great Saphenous Vein: 6.1. Compressibility - Fully compressible: Thrombus - None: Flow - : Augmentation - : Reflux - . OTHER FINDINGS: Due to severe swelling, the left calf veins were not visualized. Impression Right: No evidence of deep or superficial vein thrombosis of the right lower extremity. Normal valve function noted of the right side. Left: No evidence of deep or superficial vein thrombosis of the left lower extremity. Normal valve function noted of the left side.
--- NOTE | 2018-11-27 22:27 | VASCLAB ---
Date of service: 11/26/2018 STUDY DESCRIPTION: Lower Extremity Arterial Exam (PVR). HISTORY: r/o PAD PRIORS: None. TECHNIQUE: Pulse volume recording waveforms and segmental pressures of bilateral lower extremities at multiple levels were obtained. Ankle Brachial Indices (ABIs) were calculated. Report prepared by MARICRUZ Trujillo, RVT RIGHT LOWER EXTREMITY: * Brachial artery: Pressure - 114 mmHg. * High thigh: Pressure - 137 mmHg: Ratio - 1.20: PVR waveform - Pulsatile * Low thigh: Pressure - 151 mmHg: Ratio - 1.32 PVR waveform: Pulsatile * Calf: Pressure - 140 mmHg: Ratio - 1.23 PVR waveform: Reduced * Posterior tibial Artery: Pressure - 130 mmHg: Ratio - 1.14 PVR waveform: Reduced * Dorsalis pedis Artery: Pressure - 121 mmHg: Ratio - 1.06 PVR waveform: Reduced Ankle brachial index (YANIQUE): 1.14 LEFT LOWER EXTREMITY: * Brachial artery: Pressure - 112 mmHg. * High thigh: Pressure - 145 mmHg: Ratio - 1.27: PVR waveform - Pulsatile * Low thigh: Pressure - 142 mmHg: Ratio - 1.25 PVR waveform: Pulsatile * Calf: Pressure - 148 mmHg: Ratio - 1.30 PVR waveform: Reduced * Posterior tibial Artery: Pressure - 133 mmHg: Ratio - 1.17 PVR waveform: Reduced * Dorsalis pedis Artery: Pressure - 136 mmHg: Ratio - 1.19 PVR waveform: Reduced Ankle brachial index (YANIQUE): 1.19 OTHER FINDINGS: Decreased pulse volume waveforms noted from the calves to metatarsal level which could be secondary to the severe swelling in lower legs. IMPRESSION: Right: There was no evidence of hemodynamically significant arterial insufficiency in the right lower extremity. Left: There was no evidence of hemodynamically significant arterial insufficiency in the left lower extremity.
[2018-11-28] MEDS: Albuterol-Ipratrop 3 mg / 0.5 (3 ml) UD INH SCH ×3 (03:27→11:17)
[2018-11-28] MEDS: Budesonide 0.5 mg/2 ml Inhal Susp UD INH SCH ×2 (08:03→19:30)
[2018-11-28 08:27] LABS: HEMOGLOBIN 12.4 g/dL (12.0-18.0); MEAN CELL VOLUME 82.2 fL (80.0-94.0); MEAN CORPUSCULAR HEMOGLOBIN 26.9 pg (27.0-31.0); MEAN CORPUSCULAR HGB CONC 32.7 g/dL (33.0-37.0); MEAN PLATELET VOLUME 8.8 fL (7.2-11.7); RBC 4.62 Mil/uL (4.40-5.90); RED CELL DISTRIBUTION WIDTH 14.9 % (11.5-14.5); WHITE BLOOD COUNT 8.3 K/uL (4.8-10.8)
[2018-11-28 08:35] LABS: ALB/GLOB RATIO 1.1 (1.0-2.1); ALBUMIN 3.6 g/dL (3.5-5.0); ALT/SGPT 18 U/L (21-72); AST/SGOT 29 U/L (17-59); BLOOD UREA NITROGEN 14 mg/dL (9-20); CALCIUM 8.9 mg/dl (8.6-10.4); GFR NON-AFRICAN AMERICAN > 60
[2018-11-28 09:33] LABS: EOS # 0.1 K/uL (0.0-0.7); LYMPH # 2.7 K/uL (1.0-4.3); MONO # 0.7 K/uL (0.0-0.8); NEUT # 4.9 K/uL (1.8-7.0)
[2018-11-28] MEDS: Multiple Vitamins Tab PO SCH (09:47)
[2018-11-28] MEDS: Saccharomyces Boulardi 250 mg Cap PO SCH (09:47)
--- NOTE | 2018-11-28 09:50 | PCM.PCON ---
History of Present Illness - History of Present Illness History of Present Illness: Palliative consult requested by Doctor James for goals of care discussion Patient is a 83 yo homeless man, admitted with complaints of difficulties breathing X few days, but his breathing become worse on the day of admission. Patient admitted to a cough, chronic in nature. Chest pain denied. CXR : COPD, emphysema CT chest: Negative PE Sputum C&S: + Staph infection Meds: Doxycicline, Lasix, Neb. Tx, steroids Labs: WBC 8.3, Hb 12.4, Plat.108 VS : BP 128/78, HR 78, O2Sat 98 % RA, afebrile Code status Full Code, there was no Advance directive on chart PPS: 30% All: NKA PMH: COPD, CHF, HTN, pneumonia Soc. Hx: single, homeless, one daughter lives in [place] , no close relationship with family, drinks beer, denies drug use, denies smoking Fam. Hx: denies Review of Systems - Constitutional Constitutional: Weight Loss - EENT Eyes: absent: As Per HPI, Blind Spots, Blurred Vision, Change in Vision, Decreased Night Vision, Diplopia, Discharge, Dry Eye, Exophthalmos, Floaters, Irritation, Itchy Eyes, Loss of Peripheral Vision, Pain, Photophobia, Requires Corrective Lenses, Sees Flashes, Spots in Vision, Tunnel Vision, Other Visual Disturbances, Loss of Vision, Other Ears: absent: As Per HPI, Decreased Hearing, Ear Discharge, Ear Pain, Tinnitus, Abnormal Hearing, Disequilibrium, Dizziness, Other Nose/Mouth/Throat: absent: As Per HPI, Epistaxis, Nasal Congestion, Nasal Discharge, Nasal Obstruction, Nasal Trauma, Nose Pain, Post Nasal Drip, Sinus Pain, Sinus Pressure, Bleeding Gums, Change in Voice, Dental Pain, Dry Mouth, Dysphagia, Halitosis, Hoarsness, Lip Swelling, Mouth Lesions, Mouth Pain, Odynophagia, Sore Throat, Throat Swelling, Tongue Swelling, Facial Pain, Neck Pain, Neck Mass, Other - Cardiovascular Cardiovascular: Dyspnea, Dyspnea on Exertion, Pedal Edema - Respiratory Respiratory: Cough, Dyspnea, Dyspnea on Exertion - Gastrointestinal Gastrointestinal: absent: As Per HPI, Abdominal Pain, Belching, Bloating, Change in Bowel Habits, Change in Stool Character, Coffee Ground Emesis, Constipation, Cramping, Diarrhea, Dyspepsia, Dysphagia, Early Satiety, Excessive Flatus, Fecal Incontinence, Heartburn, Hematemesis, Hematochezia, Loose Stools, Melena, Nausea, Odynophagia, Temesmus, Vomiting, Other - Genitourinary Genitourinary: absent: As Per HPI, Change in Urinary Stream, Difficulty Uri nating, Dysuria, Flank Pain, Hematuria, Pyuria, Nocturia, Urinary Incontinence, Urinary Frequency, Urinary Hesitance, Urinary Urgency, Voiding Freq/Small Amts, Freq UTI, Hx Renal/Bladder Calculi, Hx /Renal Surgery, Bladder Distension, Other - Musculoskeletal Musculoskeletal: Abnormal Gait - Integumentary Integumentary: Dry Skin - Neurological Neurological: Abnormal Gait, Weakness - Psychiatric Psychiatric: Depression - Endocrine Endocrine: absent: As Per HPI, Change in Body Appearance, Change in Libido, Cold Intolorance, Deepening of Voice, Excessive Sweating, Fatigue, Flushing, Heat Intolorance, Increase in Ring/Shoe/Hat Size, Palpitations, Polydipsia, Polyphagia, Polyuria, Other - Hematologic/Lymphatic Hematologic: Easy Bleeding Physical Exam - Constitutional Appears: No Acute Distress, Chronically Ill - Head Exam Head Exam: ATRAUMATIC, NORMAL INSPECTION, NORMOCEPHALIC - Eye Exam Eye Exam: EOMI - ENT Exam ENT Exam: Mucous Membranes Moist, Normal Exam - Neck Exam Neck exam: Positive for: Normal Inspection - Respiratory Exam Respiratory Exam: Decreased Breath Sounds, Rhonchi - Cardiovascular Exam Cardiovascular Exam: Tachycardia, REGULAR RHYTHM - GI/Abdominal Exam GI & Abdominal Exam: Normal Bowel Sounds, Soft - Rectal Exam Rectal Exam: Deferred - Exam Exam: NORMAL INSPECTION - Extremities Exam Extremities exam: Positive for: pedal edema, pedal pulses present - Back Exam Back exam: NORMAL INSPECTION - Neurological Exam Neurological exam: Abnormal Gait, Alert, Oriented x3 - Psychiatric Exam Psychiatric exam: Depressed - Skin Skin Exam: Dry, Intact, Normal Color, Warm Palliative Care Assessment - Modified MRC Dyspnea Scale Modified MRC Dyspnea Scale: Short of Breath when hurrying or walking up a slight hill Grade: 2 - Pain Scale Pain Scale Used: Numeric - Pain Description Intensity of pain at present: 0 - Aron Scale Sensory Perception: No Impairment Moisture: Rarely Moist Activity: Walks Occasionally Mobility: Slightly Impaired Nutrition: Probably Inadequate Friction & Shear: No Apparent Problem Total Score - Skin Risk Assessment: 19 - Psychosocial Distress Patient screened for psychosocial distress: Yes Psychosocial Intervention(s): Patient concerned with homeless status. Wishes was placed at the institution, would like assistance from SS. Outcome: Referred to social worker masters - Goals Goal(s) of care: Goals of care discussed. Patient states is alone in [place] and homeless. He wishes he was asisted with placement. Patient would considerLTC placement if supported by his insurance. Treatment Goal(s): Alleviate symptoms, Improve ADLs, Improve quality of life End of life care discussed: Yes End of life discussion: End of life care discussed. Patient does not want to make surrogate decision maker. Patient stated he would like to receive Medical care as long as it was reasonable. If his condition should deteriorate , patient would not want to be kept alive by life support. POL introduced. Patient signed for DNR/DNI. Nursing and Doctor Erika made aware. POLST on chart. - Plan Interdisciplinary involved: Nurse, warm in worker, Physician Discharge planning: Subacute Assessment & Plan - Assessment and Plan (Free Text) Assessment: Assessment * CHF exacerbation * Chronic cough * SOB upon mild activities * Significant pedal edema * Unsteady gait, able to walks only short distances like going to bathroom with assistance of cane * Psychosocial disorder due to homeless status; patient is concerned with his wellbeing * Patient would like to be [facility] to [facility] with possible LTC placement if in agreement with his health insurance * Patient chose DNR/DNI Suggestion * Continue Lasix, Neb. Tx and steroids as per Doctor Hamlet * O2 2 l via NC if O2Sat < 90% * Low Na diet * Assist with ADLs * Promote safety * PT eval * Refer to [facility] for assistance with placement post discharge * DNR/DNI Palliative care will sign off at this time. Advance care planing 50 min.
--- NOTE | 2018-11-28 10:03 | CP.PCM.PN ---
Subjective - Date & Time of Evaluation Date of Evaluation: 11/28/18 Time of Evaluation: 08:00 - Subjective Subjective: Patient seen and examined Sitting comfortably in no distress Awake and responsive No shortness of breath Afebrile Refusing cardiac work-up Objective - Vital Signs/Intake and Output Vital Signs (last 24 hours): Temp Pulse Resp BP Pulse Ox 97.7 F 88 20 128/78 98 11/28/18 07:59 11/28/18 07:59 11/28/18 07:59 11/28/18 09:46 11/28/18 07:59 Intake and Output: 11/28/18 11/28/18 06:59 18:59 Intake Total 240 Output Total 550 Balance -310 - Medications Medications: Current Medications Albuterol/Ipratropium (Duoneb 3 Mg/0.5 Mg (3 Ml) Ud) 3 ml INH RQ4 [facility] Last Admin: 11/28/18 08:03 Dose: 3 ml Arformoterol Tartrate (Brovana) 15 mcg INH RQ12@1000,2200 [facility] Last Admin: 11/27/18 19:46 Dose: 15 mcg Aspirin (Ecotrin) 81 mg PO DAILY [facility] Last Admin: 11/28/18 09:47 Dose: 81 mg Budesonide (Pulmicort Respules) 0.5 mg INH RQ12 [facility] Last Admin: 11/28/18 08:03 Dose: 0.5 mg Doxycycline Hyclate (Doryx) 100 mg PO Q12 [facility]; Protocol Last Admin: 11/28/18 09:48 Dose: 100 mg Famotidine (Pepcid) 20 mg PO DAILY [facility] Last Admin: 11/28/18 09:47 Dose: 20 mg Folic Acid (Folic Acid) 1 mg PO DAILY [facility] Last Admin: 11/28/18 09:47 Dose: 1 mg Furosemide (Lasix) 20 mg IVP BID [facility] Last Admin: 11/28/18 09:46 Dose: 20 mg Gabapentin (Neurontin) 100 mg PO BID [facility] Last Admin: 11/28/18 09:47 Dose: 100 mg Heparin Sodium (Porcine) (Heparin) 5,000 units SC Q8 [facility] Last Admin: 11/28/18 06:33 Dose: Not Given Lorazepam (Ativan) 1 mg IVP Q6H PRN PRN Reason: Seizure activity Losartan Potassium (Cozaar) 25 mg PO DAILY [facility] Last Admin: 11/28/18 09:47 Dose: 25 mg Montelukast Sodium (Singulair) 10 mg PO HS [facility] Last Admin: 11/27/18 22:01 Dose: 10 mg Multivitamins (Hexavitamin) 1 tab PO DAILY [facility] Last Admin: 11/28/18 09:47 Dose: 1 tab Saccharomyces Boulardii (Florastor) 250 mg PO DAILY [facility] Last Admin: 11/28/18 09:47 Dose: 250 mg Thiamine HCl (Vitamin B1 Tab) 100 mg PO DAILY [facility] Last Admin: 11/28/18 09:48 Dose: 100 mg - Labs Labs: 11/28/18 07:59 11/28/18 07:59 - Head Exam Head Exam: ATRAUMATIC, NORMOCEPHALIC - ENT Exam ENT Exam: Mucous Membranes Moist - Neck Exam Neck Exam: Normal Inspection - Respiratory Exam Respiratory Exam: Decreased Breath Sounds - Cardiovascular Exam Cardiovascular Exam: REGULAR RHYTHM - GI/Abdominal Exam GI & Abdominal Exam: Soft, Normal Bowel Sounds Assessment and Plan (1) COPD exacerbation Assessment & Plan: Continue Brovana and budesonide Nebulizer treatment Refusing cardiac work-up Stable from pulmonary standpoint Status: Acute
[2018-11-28] MEDS: Arformoterol 15 mcg/2 ml Inh Sol INH SCH ×2 (11:17→19:30)
[2018-11-28 16:26] VITALS: PULSE 91; RESP 20; TEMP 98.5; O2SAT 99
--- NOTE | 2018-11-28 17:38 | CP.PCM.DIS ---
Provider - Provider Date of Admission: 11/25/18 23:44 Attending physician: Jayne James DO Primary care physician: none Consults: 11/26/18 07:27 Pulmonology Consult Routine Comment: Consulting Provider: Jose Mcnulty Consulting Physician: Jose Mcnulty Reason for Consult: copd exacerbation 11/27/18 10:32 Cardiology Consult Routine Comment: Consulting Provider: Erwin Wilkins Consulting Physician: Erwin Wilkins Reason for Consult: vtach overnight, chf, seen last visit Palliative Care Consult Routine Comment: Consulting Provider: Geovanna Elizabeth Physician Instructions: Reason For Exam: goals of care, multiple hospitalizations copd 11/27/18 11:24 Case Management Referral Routine Comment: Physician Instructions: Reason For Exam: discharge planning 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 Time Spent in preparation of Discharge (in minutes): 35 Diagnosis - Discharge Diagnosis (1) SOB (shortness of breath) Status: Acute (2) Ventricular tachycardia Status: Resolved (3) Lower extremity pain Status: Chronic (4) Aortic aneurysm Status: Chronic (5) Peripheral edema Status: Chronic (6) Alcohol abuse Status: Chronic (7) Hyponatremia Status: Resolved (8) HTN (hypertension) Status: Chronic (9) COPD exacerbation Status: Resolved Hospital Course - Lab Results Lab Results: Micro Results 11/26/18 16:12 Sputum Gram Stain - Final 11/26/18 16:12 Sputum Sputum Culture - Final Staphylococcus Aureus 11/26/18 06:51 Blood Blood Culture - Preliminary NO GROWTH AFTER 48 HOURS 11/26/18 02:20 Blood Blood Culture - Preliminary NO GROWTH AFTER 24 HOURS Most Recent Lab Values WBC 8.3 K/uL (4.8-10.8) 11/28/18 07:59 RBC 4.62 Mil/uL (4.40-5.90) 11/28/18 07:59 Hgb 12.4 g/dL (12.0-18.0) 11/28/18 07:59 Hct 38.0 % (35.0-51.0) 11/28/18 07:59 MCV 82.2 fL (80.0-94.0) 11/28/18 07:59 MCH 26.9 pg (27.0-31.0) L 11/28/18 07:59 MCHC 32.7 g/dL (33.0-37.0) L 11/28/18 07:59 RDW 14.9 % (11.5-14.5) H 11/28/18 07:59 Plt Count 108 K/uL (130-400) L D 11/28/18 07:59 MPV 8.8 fL (7.2-11.7) 11/28/18 07:59 Neut % (Auto) 59.0 % (50.0-75.0) 11/28/18 07:59 Lymph % (Auto) 32.0 % (20.0-40.0) 11/28/18 07:59 [place] % (Auto) 8.0 % (0.0-10.0) 11/28/18 07:59 Eos % (Auto) 1.0 % (0.0-4.0) 11/28/18 07:59 Baso % (Auto) 0.0 % (0.0-2.0) 11/28/18 07:59 Neut # (Auto) 4.9 K/uL (1.8-7.0) 11/28/18 07:59 Lymph # (Auto) 2.7 K/uL (1.0-4.3) 11/28/18 07:59 [place] # (Auto) 0.7 K/uL (0.0-0.8) 11/28/18 07:59 Eos # (Auto) 0.1 K/uL (0.0-0.7) 11/28/18 07:59 Baso # (Auto) 0.0 K/uL (0.0-0.2) 11/28/18 07:59 Neutrophils % (Manual) 59 % (50-75) 11/26/18 11:30 Lymphocytes % (Manual) 31 % (20-40) 11/26/18 11:30 Monocytes % (Manual) 9 % (0-10) 11/26/18 11:30 Eosinophils % (Manual) 1 % (0-4) 11/25/18 23:00 Basophils % (Manual) 1 % (0-2) 11/26/18 11:30 Platelet Estimate Slightly decreased (NORMAL) L 11/26/18 11:30 Hypochromasia (manual) Slight 11/25/18 23:00 ESR 2 mm/hr (0-15) 11/26/18 16:23 Puncture Site Left radial 11/26/18 10:50 pCO2 32 mm/Hg (35-45) L 11/26/18 10:50 pO2 178 mm/Hg (80-100) H 11/26/18 10:50 HCO3 29.4 mmol/L (21-28) H 11/26/18 10:50 ABG pH 7.55 (7.35-7.45) H 11/26/18 10:50 ABG Total CO2 29.0 mmol/L (22-28) H 11/26/18 10:50 ABG O2 Saturation 100.4 % (95-98) H 11/26/18 10:50 ABG Base Excess 5.7 mmol/L (-2.0-3.0) H 11/26/18 10:50 ABG Hemoglobin 11.8 g/dL (11.7-17.4) 11/26/18 10:50 ABG Carboxyhemoglobin 2.1 % (0.5-1.5) H 11/26/18 10:50 POC ABG HHb (Measured) -0.4 % (0.0-5.0) L 11/26/18 10:50 ABG Methemoglobin 0.8 % (0.0-3.0) 11/26/18 10:50 John Test Na 11/26/18 10:50 A-a O2 Difference 32.0 mm/Hg 11/26/18 10:50 Respiratory Index 0.2 11/26/18 10:50 Hgb O2 Saturation 97.4 % (95.0-98.0) 11/26/18 10:50 Liter Flow 3.0 11/26/18 10:50 FiO2 35.0 % 11/26/18 10:50 Sodium 133 mmol/L (132-148) 11/28/18 07:59 Potassium 4.1 mmol/L (3.6-5.2) 11/28/18 07:59 Chloride 97 mmol/L (98-107) L 11/28/18 07:59 Carbon Dioxide 29 mmol/L (22-30) 11/28/18 07:59 Anion Gap 11 (10-20) 11/28/18 07:59 BUN 14 mg/dL (9-20) 11/28/18 07:59 Creatinine 0.9 mg/dL (0.8-1.5) 11/28/18 07:59 Est GFR ( Amer) > 60 11/28/18 07:59 Est GFR (Non-Af Amer) > 60 11/28/18 07:59 Random Glucose 98 mg/dL (75-110) 11/28/18 07:59 Serum Osmolality 288 mosm/kg (272-300) 11/26/18 16:23 Calcium 8.9 mg/dl (8.6-10.4) 11/28/18 07:59 Phosphorus 3.1 mg/dL (2.5-4.5) 11/28/18 07:59 Magnesium 2.1 mg/dL (1.6-2.3) 11/28/18 07:59 Total Bilirubin 0.7 mg/dL (0.2-1.3) 11/28/18 07:59 AST 29 U/L (17-59) 11/28/18 07:59 ALT 18 U/L (21-72) L 11/28/18 07:59 Alkaline Phosphatase 76 U/L (38-126) 11/28/18 07:59 Total Creatine Kinase 44 U/L (55-170) L 11/26/18 06:51 CK-MB (Mass) 1.19 ng/mL (0.0-3.38) 11/26/18 06:51 Troponin I 0.0660 ng/mL (0.00-0.120) 11/26/18 06:51 C-Reactive Protein 8.90 mg/L (0.0-9.9) 11/26/18 16:23 NT-Pro-B Natriuret Pep 168 pg/mL (0-900) 11/25/18 23:00 Total Protein 6.7 g/dL (6.3-8.3) 11/28/18 07:59 Albumin 3.6 g/dL (3.5-5.0) 11/28/18 07:59 Globulin 3.2 gm/dL (2.2-3.9) 11/28/18 07:59 Albumin/Globulin Ratio 1.1 (1.0-2.1) 11/28/18 07:59 Urine Color Straw (YELLOW) 11/25/18 22:47 Urine Clarity Clear (Clear) 11/25/18 22:47 Urine pH 6.0 (5.0-8.0) 11/25/18 22:47 Ur Specific [place] 1.002 (1.003-1.030) L 11/25/18 22:47 Urine Protein Negative mg/dL (NEGATIVE) 11/25/18 22:47 Urine Glucose (UA) Normal mg/dL (Normal) 11/25/18 22:47 Urine Ketones Negative mg/dL (NEGATIVE) 11/25/18 22:47 Urine Blood Negative (NEGATIVE) 11/25/18 22:47 Urine Nitrate Negative (NEGATIVE) 11/25/18 22:47 Urine Bilirubin Negative (NEGATIVE) 11/25/18 22:47 Urine Urobilinogen Normal mg/dL (0.2-1.0) 11/25/18 22:47 Ur Leukocyte Esterase Neg Hubert/uL (Negative) 11/25/18 22:47 Urine WBC (Auto) < 1 /hpf (0-5) 11/25/18 22:47 Urine RBC (Auto) < 1 /hpf (0-3) 11/25/18 22:47 Urine Opiates Screen Negative (NEGATIVE) 11/26/18 02:41 Urine Methadone Screen Negative (NEGATIVE) 11/26/18 02:41 Ur Barbiturates Screen Negative (NEGATIVE) 11/26/18 02:41 Ur Phencyclidine Scrn Negative (NEGATIVE) 11/26/18 02:41 Ur Amphetamines Screen Negative (NEGATIVE) 11/26/18 02:41 U Benzodiazepines Scrn Negative (NEGATIVE) 11/26/18 02:41 U Oth Cocaine Metabols Negative (NEGATIVE) 11/26/18 02:41 U Cannabinoids Screen Negative (NEGATIVE) 11/26/18 02:41 Alcohol, Quantitative 41 mg/dl (0-10) H 11/26/18 02:41 Influenza Typ A,B (EIA) Negative for flu a/b (NEGATIVE) 11/26/18 02:41 - Hospital Course Hospital Course: HPI at time of admission: "83 year old homeless male with history of COPD, HTN, pneumonia, hyponatremia, aortic aneurysm who presents for complaints of shortness of breath, cough. He states he was recently admitted here a month ago for the same issue. He was reportedly brought in by ambulance after patient states he could not breathe. History limited since patient drank beer today, responding intermittently and is not very cooperative." Hospital Course: Pertinent imaging: CXR: hyperinflation, right apical pleural thickening, right lung apex nodular density ECHO limited, only shows subcostal view, EF 68.9%, mild AR Arterial dopplers within normal limits Venous dopplers negative for DVT Pt was admitted for shortness of breath likely 2/2 COPD exacerbation. Initially started on Azithromycin for antibiotic therapy however had episode of 10 beats of v-tach, so was d/c'd and changed to Doxycycline. Pt to continue course of antibiotics for total of 5 days. Pt was placed on inhaler therapy and steroids, and Dr. Mcnulty was consulted (Pulmonology). Pt was placed on Lasix and Neurontin for LE edema/pain, imaging negative for acute findings. 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 Pt also presented with Hyponatremia, which resolved with hydration. Pt was deemed medically clear for discharge on 11/28/18, pending [facility] placement. For further details of hospital course, please refer to EMR. Discharge Exam - Head Exam Head Exam: ATRAUMATIC, NORMAL INSPECTION, NORMOCEPHALIC - Eye Exam Eye Exam: EOMI, Normal appearance, PERRL - ENT Exam ENT Exam: Mucous Membranes Moist - Respiratory Exam Respiratory Exam: Clear to PA & Lateral, NORMAL BREATHING PATTERN, UNREMARKABLE - Cardiovascular Exam Cardiovascular Exam: REGULAR RHYTHM, +S1, +S2. absent: Gallop, Rubs, Systolic Murmur - GI/Abdominal Exam GI & Abdominal Exam: Normal Bowel Sounds, Soft, Unremarkable. absent: Tenderness - Extremities Exam Extremities exam: full ROM, normal capillary refill, normal inspection, pedal pulses present - Neurological Exam Neurological exam: Alert, CN II-XII Intact, Oriented x3, Reflexes Normal - Skin Skin Exam: Dry, Intact, Normal Color, Warm Discharge Plan - Follow Up Plan Condition: IMPROVED Disposition: HOME/ ROUTINE Instructions: COPD Including Emphysema (DC), Shortness of Breath (Dyspnea) (DC) Additional Instructions: Please follow-up with Dr. Mcnulty (Pulmonology) within 1 week of hospital discharge. Please follow-up with Dr. Wilkins (Cardiology) within 1 week of hospital discharge. Please take medications as prescribed. Should your symptoms worsen, please call your primary care physician or report to your nearest emergency department. Referrals: Jose Mcnulty MD [Staff Provider] - Erwin Wilkins MD [Staff Provider] -
[2018-11-28 18:10] VITALS: BP 110/70
== END 2018-11-28 20:28 ==
LOC: C.ER 21:51 → C.9E 23:44 → C.5S 11-26 01:45
PROVIDERS: ADMIT Hospitalist; ATTEND Hospitalist
DX: J44.1 Chronic obstructive pulmonary disease with (acute) exacerbation (principal); R09.02 Hypoxemia; I47.2 Ventricular tachycardia; M79.606 Pain in leg, unspecified; I71.2 Thoracic aortic aneurysm, without rupture; F10.20 Alcohol dependence, uncomplicated; E87.1 Hypo-osmolality and hyponatremia; I11.0 Hypertensive heart disease with heart failure; I50.9 Heart failure, unspecified; Z59.0 Homelessness; Z87.01 Personal history of pneumonia (recurrent); R26.9 Unspecified abnormalities of gait and mobility; Z87.891 Personal history of nicotine dependence; Z90.49 Acquired absence of other specified parts of digestive tract; Z79.82 Long term (current) use of aspirin; Z79.899 Other long term (current) drug therapy
CPT/HCPCS: 36415; 71045; 71275; 80053; 81001; 82803; 83520; 83735; 83880; 83930; 84100; 84484; 85025; 85651; 86140; 87040; 87070; 87181; 87804; 93005; 93306; 93923; 93970; 94640; 96374; 97116; 97162; 97165; 97530; 99285; G0378; G0480; G8978; G8979; G8987; G8988; G8989; J0456; J1644; J1940; J7050; Q9967